=== PATIENT | female | born 1935 | race Caucasian/White ===

== ENCOUNTER → 2018-01-23 16:00 | Outpatient (CLI) | payer MEDICARE, OTHER, SELFPAY | PROVIDERS: Family Provider Family Medicine; PCP Family Medicine | DX: Z23 Encounter for immunization (principal) | CPT/HCPCS: 90471; 90662 ==

== ENCOUNTER → 2018-02-28 15:47 | Outpatient (CLI) | payer MEDICARE, OTHER, SELFPAY ==
--- NOTE | 2018-02-28 15:55 | DI.RAD.S_ITS ---
PROCEDURE: XR HIP W PEL IF DONE LT 2V INDICATIONS: hip pain TECHNIQUE: AP pelvis with lateral view(s) of the left hip(s). COMPARISON: [facility] [place], CR, XR KNEE ARTHRITIC SERIES LT, 06/06/2017, 8:29. FINDINGS: Bones: No fractures or dislocations. Pelvic ring appears intact. Patchy sclerosis seen in the femoral head, although left greater than right. Moderate bilateral hip joint degeneration. There is also lower lumbar discogenic change. Degenerative sclerosis of the pubic symphysis. Soft tissues: The visualized bowel gas pattern is normal. No suspicious soft tissue calcifications. IMPRESSION: Moderate bilateral hip joint degeneration. Ill-defined sclerosis involving the femoral heads, left greater than right. This raises the possibility of avascular necrosis. Recommend further evaluation with dedicated noncontrast pelvis MRI, if clinically indicated. Lower lumbar degenerative disc disease. Dictated by: Pj Godinez M.D. on 02/28/2018 at 17:01 Approved by: Pj Godinez M.D. on 02/28/2018 at 17:05
== END ==
PROVIDERS: PCP Family Medicine; Visit Provider Family Medicine
DX: M25.552 Pain in left hip (principal); M16.0 Bilateral primary osteoarthritis of hip; M51.36 Other intervertebral disc degeneration, lumbar region
CPT/HCPCS: 73502

== ENCOUNTER 2018-05-29 13:45 | Outpatient (RCR) | payer MEDICARE, OTHER, SELFPAY ==
--- NOTE | 2018-03-06 18:23 | PT.OIE ---
Current Diagnoses Bilateral primary osteoarthritis of hip (03/06/18) Pain in left hip (03/06/18) Past Medical History (Last Reviewed 02/28/18 @ 15:06 by Morelia Mckeon LPN) Childers's palsy (Chronic) Chronic cough (Chronic) Colon polyps (Chronic) Hyperlipidemia (Chronic) Osteoarthritis (Chronic) Past Surgical History (Last Reviewed 02/28/18 @ 15:06 by Morelia Mckeon LPN) History of meniscectomy of left knee (Resolved ~2003) History of meniscectomy of right knee (Resolved ~2011) History of surgery (Resolved ~2012) Skin cancer (Resolved ~2006) Status post appendectomy Provider Visit Care Team Role Provider Type Osbaldo Gil MD Family Provider Physician Specialty: [facility] Practice Address: [address] [place] [address] Email: Mani Tyson MD Attending Provider Physician Primary Care Provider Specialty: [facility] Practice Address: [address] [place] [address] Email: [email or web address] Physical Therapy Initial Evaluation PT-OP-A Visit Information Start: 03/06/18 16:11 Freq: Status: Active Protocol: Document 03/06/18 16:13 ML (Rec: 03/06/18 16:32 ML [email or web address]) Out-Patient Physical Therapy Visit Information Visit Information Visit Type Initial Evaluation Visit Note Visit 1 Visit Start Time 13:45 Visit Stop Time 14:30 Visit Number 05/24 Number of MAINTENANCE SERVICES DISPATCHER Visits 0 PT-OP-B Current Condition Start: 03/06/18 16:11 Freq: Status: Active Protocol: Document 03/06/18 16:13 ML (Rec: 03/06/18 16:32 ML [email or web address]) Current Condition History of Current Condition Onset Date 02/04/18 History of Current Condition Pt reports of post-lat pain above her L iliac crest starting insidiously about one month ago. After seeing her doctor and getting her x-ray, imaging concludes that she has L hip arthritis. Pt notices the pain intermittently, without any specific aggravating factors. She notices that she tends to get her pain after she is walking and feels fatigued, and finds releif with sitting momentarily. The pt has bilateral knee degeneration and arthritis, with L more severe than R, indicating that the L is now bone on bone but that she has no knee pain. The pt describes the pain as constant and uncomfrotable. The pt is very active, walking 2-3 miles per day with her friends and volunteering in many avenues. Treatment Goals Patient/Caregiver Goals The pt's goal include becoming stronger, increasing her flexibility, and continuing to walk daily with her friends and playing raHRBoss with her . PT-OP-C Subjective Start: 03/06/18 16:11 Freq: Status: Active Protocol: Document 03/06/18 16:13 ML (Rec: 03/06/18 16:32 ML [email or web address]) OP-PT Subjective Patient Comments Patient Comments Pt reports that it may be an extensor muscle orginially based on the what the doctor concluded, but has now been told that x-ray shows it is L hip arthritis. (Although the hip arthritis could be aggravating the pt's back extensor.) Patient Reported Progress Same PT-OP-F Manual Assessment Start: 03/06/18 16:35 Freq: Status: Active Protocol: Document 03/06/18 16:13 ML (Rec: 03/06/18 16:56 ML [email or web address]) Manual Assessments Joint Mobility Assessment Joint Mobility Assessment L iliac crest more elevated than R PT-OP-K Range of Motion Start: 03/06/18 16:32 Freq: Status: Active Protocol: Document 03/06/18 16:13 ML (Rec: 03/06/18 16:56 ML [email or web address]) Lumbar Spine Range of Motion Lumbar Spine Active Testing Position standing Flexion 36 Extension 10 Comments ext measured at TL junction; hinge motion occurring at TL junction PT-OP-M Strength Start: 03/06/18 16:11 Freq: Status: Active Protocol: Document 03/06/18 16:13 ML (Rec: 03/06/18 16:32 ML [email or web address]) Hip Strength Hip Manual Muscle Testing R Flexion (L2) 4 Good Extension (S1) 4+ Good+ Abduction 5 Normal External Rotation 4- Good- Internal Rotation 4 Good L Flexion (L2) 4+ Good+ Extension (S1) 4+ Good+ Abduction 4+ Good+ External Rotation 4- Good- Internal Rotation 4 Good Knee Strength Knee Manual Muscle Testing R Flexion (S2) 5 Normal Extension (L3) 5 Normal L Flexion (S2) 5 Normal Extension (L3) 5 Normal Ankle/Foot Strength Ankle and Foot Manual Muscle Testing R Dorsiflexion (L4) 5 Normal Plantarflexion (S1) 5 Normal L Dorsiflexion (L4) 5 Normal Plantarflexion (S1) 5 Normal PT-OP-Q Treatments Start: 03/06/18 16:11 Freq: Status: Active Protocol: Document 03/06/18 16:13 ML (Rec: 03/06/18 16:32 ML [email or web address]) Therapeutic Exercises Supine Exercises 2 Supine Exercise Name hamstring stretch Side bilateral Comments holding distal post thigh w/ active knee ext 1 Supine Exercise Name marching Side bilateral Comments engage TrA before beginning PT-OP-T Assessment and Plan Start: 03/06/18 16:32 Freq: Status: Active Protocol: Document 03/06/18 16:13 ML (Rec: 03/06/18 16:56 ML [email or web address]) Physical Therapy Assessment Rehab Potential Rehabilitation Potential Good Evaluation Complexity Number of Personal Factors/Comorbidities 0 Number of Body Systems Impaired 4 or More Clinical Presentation at Evaluation Stable Impairments Impairments Functional Activities Functional Mobility Gait Pain Posture ROM Soft Tissue Mobility Strength Goals 3 Impairment dec flexibility Short Term Goal (STG) Pt will be independent with HEP. STG Duration 04/06/18 Mcfp Goal (LTG) Pt will improve flexibility and decrease hamstring cramps. LTG Duration 05/06/18 2 Impairment dec strength Mcfp Goal (LTG) Pt will have 5/5 strength for bilateral LE in order to maintain desired activities. LTG Duration 05/06/18 1 Impairment pain w/activity Financial Services Internship Goal (LTG) Pt will report no pain with activity. LTG Duration 05/06/18 Assessment Summary Assessment Pt is very active and would love to continue to do all of her physical and social activities without pain. Pt mentions that she has to sit to relieve pain and would like to be able to continue through activity when pain arises. Pt verbalizes that she is willing to work on her exercises at home and was ready to learn specific activities to do at home and things to avoid doing as well. Physical Therapy Plan Frequency and Duration Frequency of Treatment 2x/Week Duration of Treatment 2 months Plan of Care Start Date 02/24/18 Plan of Care End Date 04/26/18 Therapeutic Interventions Therapeutic Interventions Aquatic Therapy Balance Training Gait Training Home Exercise Program Joint Mobilizations Manual Therapy Neuromuscular Re-education Patient/Caregiver Education Self-Care/Home Management Soft Tissue Mobilization Taping Therapeutic Activities Therapeutic Exercises Modalities Cold Pack/Ice Massage Electric Stimulation Hot Packs Iontophoresis Traction- Mechanical Ultrasound Next Visit Focus/Plan Next Note Type Treatment Note Next Visit Plan continue to create HEP (core - > quadruped alternating arm and leg lift, marching on ball , bridging; LE strengthening - > clamshells, hamstring curls on ball, hip abd; stretching LE -> hamstrings, og test) ; PNF pelvis and hip mobilization; soft tissue prn
--- NOTE | 2018-03-07 18:21 | PT.OIE ---
Current Diagnoses Bilateral primary osteoarthritis of hip (03/06/18) Pain in left hip (03/06/18) Past Medical History (Last Reviewed 02/28/18 @ 15:06 by Morelia Mckeon LPN) Childers's palsy (Chronic) Chronic cough (Chronic) Colon polyps (Chronic) Hyperlipidemia (Chronic) Osteoarthritis (Chronic) Past Surgical History (Last Reviewed 02/28/18 @ 15:06 by Morelia Mckeon LPN) History of meniscectomy of left knee (Resolved ~2003) History of meniscectomy of right knee (Resolved ~2011) History of surgery (Resolved ~2012) Skin cancer (Resolved ~2006) Status post appendectomy Provider Visit Care Team Role Provider Type Osbaldo Gil MD Family Provider Physician Specialty: [facility] Practice Address: [address] [place] [address] Email: Mani Tyson MD Attending Provider Physician Primary Care Provider Specialty: [facility] Practice Address: [address] [place] [address] Email: [email or web address] Physical Therapy Initial Evaluation PT-OP-A Visit Information Start: 03/06/18 16:11 Freq: Status: Active Protocol: Document 03/06/18 16:13 ML (Rec: 03/06/18 16:32 ML [email or web address]) Out-Patient Physical Therapy Visit Information Visit Information Visit Type Initial Evaluation Visit Note Visit 1 Visit Start Time 13:45 Visit Stop Time 14:30 Visit Number 05/24 Number of SECURITY OPERATIONS ANALYST Visits 0 PT-OP-B Current Condition Start: 03/06/18 16:11 Freq: Status: Active Protocol: Document 03/06/18 16:13 ML (Rec: 03/06/18 16:32 ML [email or web address]) Current Condition History of Current Condition Onset Date 02/04/18 History of Current Condition Pt reports of post-lat pain above her L iliac crest starting insidiously about one month ago. After seeing her doctor and getting her x-ray, imaging concludes that she has L hip arthritis. Pt notices the pain intermittently, without any specific aggravating factors. She notices that she tends to get her pain after she is walking and feels fatigued, and finds releif with sitting momentarily. The pt has bilateral knee degeneration and arthritis, with L more severe than R, indicating that the L is now bone on bone but that she has no knee pain. The pt describes the pain as constant and uncomfrotable. The pt is very active, walking 2-3 miles per day with her friends and volunteering in many avenues. Treatment Goals Patient/Caregiver Goals The pt's goal include becoming stronger, increasing her flexibility, and continuing to walk daily with her friends and playing [id number] with her . PT-OP-C Subjective Start: 03/06/18 16:11 Freq: Status: Active Protocol: Document 03/06/18 16:13 ML (Rec: 03/06/18 16:32 ML [email or web address]) OP-PT Subjective Patient Comments Patient Comments Pt reports that it may be an extensor muscle orginially based on the what the doctor concluded, but has now been told that x-ray shows it is L hip arthritis. (Although the hip arthritis could be aggravating the pt's back extensor.) Patient Reported Progress Same PT-OP-F Manual Assessment Start: 03/06/18 16:35 Freq: Status: Active Protocol: Document 03/06/18 16:13 ML (Rec: 03/06/18 16:56 ML [email or web address]) Manual Assessments Joint Mobility Assessment Joint Mobility Assessment L iliac crest more elevated than R PT-OP-K Range of Motion Start: 03/06/18 16:32 Freq: Status: Active Protocol: Document 03/06/18 16:13 ML (Rec: 03/06/18 16:56 ML [email or web address]) Lumbar Spine Range of Motion Lumbar Spine Active Testing Position standing Flexion 36 Extension 10 Comments ext measured at TL junction; hinge motion occurring at TL junction PT-OP-M Strength Start: 03/06/18 16:11 Freq: Status: Active Protocol: Document 03/06/18 16:13 ML (Rec: 03/06/18 16:32 ML [email or web address]) Hip Strength Hip Manual Muscle Testing R Flexion (L2) 4 Good Extension (S1) 4+ Good+ Abduction 5 Normal External Rotation 4- Good- Internal Rotation 4 Good L Flexion (L2) 4+ Good+ Extension (S1) 4+ Good+ Abduction 4+ Good+ External Rotation 4- Good- Internal Rotation 4 Good Knee Strength Knee Manual Muscle Testing R Flexion (S2) 5 Normal Extension (L3) 5 Normal L Flexion (S2) 5 Normal Extension (L3) 5 Normal Ankle/Foot Strength Ankle and Foot Manual Muscle Testing R Dorsiflexion (L4) 5 Normal Plantarflexion (S1) 5 Normal L Dorsiflexion (L4) 5 Normal Plantarflexion (S1) 5 Normal PT-OP-Q Treatments Start: 03/06/18 16:11 Freq: Status: Active Protocol: Document 03/06/18 16:13 ML (Rec: 03/06/18 16:32 ML [email or web address]) Therapeutic Exercises Supine Exercises 2 Supine Exercise Name hamstring stretch Side bilateral Comments holding distal post thigh w/ active knee ext 1 Supine Exercise Name marching Side bilateral Comments engage TrA before beginning PT-OP-T Assessment and Plan Start: 03/06/18 16:32 Freq: Status: Active Protocol: Document 03/06/18 16:13 ML (Rec: 03/06/18 16:56 ML [email or web address]) Physical Therapy Assessment Rehab Potential Rehabilitation Potential Good Evaluation Complexity Number of Personal Factors/Comorbidities 0 Number of Body Systems Impaired 4 or More Clinical Presentation at Evaluation Stable Impairments Impairments Functional Activities Functional Mobility Gait Pain Posture ROM Soft Tissue Mobility Strength Goals 3 Impairment dec flexibility Short Term Goal (STG) Pt will be independent with HEP. STG Duration 04/06/18 Prison Goal (LTG) Pt will improve flexibility and decrease hamstring cramps. LTG Duration 05/06/18 2 Impairment dec strength Prison Goal (LTG) Pt will have 5/5 strength for bilateral LE in order to maintain desired activities. LTG Duration 05/06/18 1 Impairment pain w/activity Air Traffic Control Supervisor Goal (LTG) Pt will report no pain with activity. LTG Duration 05/06/18 Assessment Summary Assessment Pt is very active and would love to continue to do all of her physical and social activities without pain. Pt mentions that she has to sit to relieve pain and would like to be able to continue through activity when pain arises. Pt verbalizes that she is willing to work on her exercises at home and was ready to learn specific activities to do at home and things to avoid doing as well. Physical Therapy Plan Frequency and Duration Frequency of Treatment 2x/Week Duration of Treatment 2 months Plan of Care Start Date 02/24/18 Plan of Care End Date 04/26/18 Therapeutic Interventions Therapeutic Interventions Aquatic Therapy Balance Training Gait Training Home Exercise Program Joint Mobilizations Manual Therapy Neuromuscular Re-education Patient/Caregiver Education Self-Care/Home Management Soft Tissue Mobilization Taping Therapeutic Activities Therapeutic Exercises Modalities Cold Pack/Ice Massage Electric Stimulation Hot Packs Iontophoresis Traction- Mechanical Ultrasound Next Visit Focus/Plan Next Note Type Treatment Note Next Visit Plan continue to create HEP (core - > quadruped alternating arm and leg lift, marching on ball , bridging; LE strengthening - > clamshells, hamstring curls on ball, hip abd; stretching LE -> hamstrings, og test) ; PNF pelvis and hip mobilization; soft tissue prn
--- NOTE | 2018-03-07 18:21 | PT.OPPOC ---
Current Diagnoses Bilateral primary osteoarthritis of hip (03/06/18) Pain in left hip (03/06/18) Provider Visit Care Team Role Provider Type Osbaldo Gil MD Family Provider Physician Specialty: Family Practice Address: [address] [place] [address], [id number] Email: Mani Tyson MD Attending Provider Physician Primary Care Provider Specialty: Family Practice Address: [address] [place] [address], [id number] Email: [email or web address] Plan Of Care PT-OP-T Assessment and Plan Start: 03/06/18 16:32 Freq: Status: Active Protocol: Document 03/06/18 16:13 ML (Rec: 03/06/18 16:56 ML [email or web address]) Physical Therapy Assessment Rehab Potential Rehabilitation Potential Good Evaluation Complexity Number of Personal Factors/Comorbidities 0 Number of Body Systems Impaired 4 or More Clinical Presentation at Evaluation Stable Impairments Impairments Functional Activities Functional Mobility Gait Pain Posture ROM Soft Tissue Mobility Strength Goals 3 Impairment dec flexibility Short Term Goal (STG) Pt will be independent with HEP. STG Duration 04/06/18 Intermediate Goal (LTG) Pt will improve flexibility and decrease hamstring cramps. LTG Duration 05/06/18 2 Impairment dec strength Principal Law Clerk Goal (LTG) Pt will have 5/5 strength for bilateral LE in order to maintain desired activities. LTG Duration 05/06/18 1 Impairment pain w/activity Principal Law Clerk Goal (LTG) Pt will report no pain with activity. LTG Duration 05/06/18 Assessment Summary Assessment Pt is very active and would love to continue to do all of her physical and social activities without pain. Pt mentions that she has to sit to relieve pain and would like to be able to continue through activity when pain arises. Pt verbalizes that she is willing to work on her exercises at home and was ready to learn specific activities to do at home and things to avoid doing as well. Physical Therapy Plan Frequency and Duration Frequency of Treatment 2x/Week Duration of Treatment 2 months Plan of Care Start Date 02/24/18 Plan of Care End Date 04/26/18 Therapeutic Interventions Therapeutic Interventions Aquatic Therapy Balance Training Gait Training Home Exercise Program Joint Mobilizations Manual Therapy Neuromuscular Re-education Patient/Caregiver Education Self-Care/Home Management Soft Tissue Mobilization Taping Therapeutic Activities Therapeutic Exercises Modalities Cold Pack/Ice Massage Electric Stimulation Hot Packs Iontophoresis Traction- Mechanical Ultrasound Next Visit Focus/Plan Next Note Type Treatment Note Next Visit Plan continue to create HEP (core - > quadruped alternating arm and leg lift, marching on ball , bridging; LE strengthening - > clamshells, hamstring curls on ball, hip abd; stretching LE -> hamstrings, go test) ; PNF pelvis and hip mobilization; soft tissue prn Plan of Care Dates Plan of Care Start Date 02/24/18 Plan of Care End Date 04/26/18 Please Sign and Return: I have reviewed this Plan of Care and certify that the skilled therapy services above are required to meet the patient?s needs. Physician Signature Date Printed Name and Credentials Clinical Instructor Signature Printed Name and Credentials
--- NOTE | 2018-03-12 15:31 | PT.OTN ---
Current Diagnoses Bilateral primary osteoarthritis of hip (03/12/18) Pain in left hip (03/12/18) Physical Therapy Treatment Note PT-OP-A Visit Information Start: 03/06/18 16:11 Freq: Status: Active Protocol: Document 03/12/18 08:22 ML (Rec: 03/12/18 10:01 ML [email or web address]) Out-Patient Physical Therapy Visit Information Visit Information Visit Type Treatment Note Visit Note visit 2 Visit Start Time 08:15 Visit Stop Time 09:00 Visit Number / Number of CAREER SPECIALIST Visits 0 PT-OP-B Current Condition Start: 03/06/18 16:11 Freq: Status: Active Protocol: Document 03/06/18 16:13 ML (Rec: 03/06/18 16:32 ML [email or web address]) Current Condition History of Current Condition Onset Date 02/04/18 History of Current Condition Pt reports of post-lat pain above her L iliac crest starting insidiously about one month ago. After seeing her doctor and getting her x-ray, imaging concludes that she has L hip arthritis. Pt notices the pain intermittently, without any specific aggravating factors. She notices that she tends to get her pain after she is walking and feels fatigued, and finds releif with sitting momentarily. The pt has bilateral knee degeneration and arthritis, with L more severe than R, indicating that the L is now bone on bone but that she has no knee pain. The pt describes the pain as constant and uncomfrotable. The pt is very active, walking 2-3 miles per day with her friends and volunteering in many avenues. Treatment Goals Patient/Caregiver Goals The pt's goal include becoming stronger, increasing her flexibility, and continuing to walk daily with her friends and playing raquetball with her . PT-OP-C Subjective Start: 03/06/18 16:11 Freq: Status: Active Protocol: Document 03/12/18 08:22 ML (Rec: 03/12/18 10:01 ML [id number]) OP-PT Subjective Patient Comments Patient Comments Pt reports that since she has become more aware, she has been able to do activity without pain when she fopcuses on engaging her core as instructed. PT-OP-F Manual Assessment Start: 03/06/18 16:35 Freq: Status: Active Protocol: Document 03/06/18 16:13 ML (Rec: 03/06/18 16:56 ML [email or web address]) Manual Assessments Joint Mobility Assessment Joint Mobility Assessment L iliac crest more elevated than R PT-OP-K Range of Motion Start: 03/06/18 16:32 Freq: Status: Active Protocol: Document 03/06/18 16:13 ML (Rec: 03/06/18 16:56 ML [email or web address]) Lumbar Spine Range of Motion Lumbar Spine Active Testing Position standing Flexion 36 Extension 10 Comments ext measured at TL junction; hinge motion occurring at TL junction PT-OP-M Strength Start: 03/06/18 16:11 Freq: Status: Active Protocol: Document 03/06/18 16:13 ML (Rec: 03/06/18 16:32 ML [email or web address]) Hip Strength Hip Manual Muscle Testing R Flexion (L2) 4 Good Extension (S1) 4+ Good+ Abduction 5 Normal External Rotation 4- Good- Internal Rotation 4 Good L Flexion (L2) 4+ Good+ Extension (S1) 4+ Good+ Abduction 4+ Good+ External Rotation 4- Good- Internal Rotation 4 Good Knee Strength Knee Manual Muscle Testing R Flexion (S2) 5 Normal Extension (L3) 5 Normal L Flexion (S2) 5 Normal Extension (L3) 5 Normal Ankle/Foot Strength Ankle and Foot Manual Muscle Testing R Dorsiflexion (L4) 5 Normal Plantarflexion (S1) 5 Normal L Dorsiflexion (L4) 5 Normal Plantarflexion (S1) 5 Normal PT-OP-Q Treatments Start: 03/06/18 16:11 Freq: Status: Active Protocol: Document 03/12/18 08:22 ML (Rec: 03/12/18 10:01 ML [email or web address]) Cardio Equipment Recumbent Bicycle Duration (Minutes) 8 Resistance 4 Seat Position 2 Therapeutic Exercises Supine Exercises 3 Supine Exercise Name bridging Comments w/ ball HEP 1 Supine Exercise Name marching Side bilateral Comments on ball, engage TrA before beginning , HEP Sidelying Exercises 2 Sidelying Exercise Name hip abd Side bilateral Comments towel under abdomen 1 Sidelying Exercise Name clamshells Side bilateral Resistance level 2 Comments towel under abdomen, legs not very flexed to relieve hamstring cramping Other Exercises 1 Other Exercise Name hip ext Side bilateral Comments quadruped PT-OP-T Assessment and Plan Start: 03/06/18 16:32 Freq: Status: Active Protocol: Document 03/12/18 08:22 ML (Rec: 03/12/18 10:01 ML [id number]) Physical Therapy Assessment Goals 3 Impairment dec flexibility Short Term Goal (STG) Pt will be independent with HEP. STG Duration 04/06/18 Sheet Metal Insulator Goal (LTG) Pt will improve flexibility and decrease hamstring cramps. LTG Duration 05/06/18 2 Impairment dec strength Sheet Metal Insulator Goal (LTG) Pt will have 5/5 strength for bilateral LE in order to maintain desired activities. LTG Duration 05/06/18 1 Impairment pain w/activity Sheet Metal Insulator Goal (LTG) Pt will report no pain with activity. LTG Duration 05/06/18 Assessment Summary Assessment Pt reported that the couple exercises at home were going well, and that her marching exercise was too easy so we progressed the exercise to be a march with a bridge. The pt was very aware of her body in order to make appropriate adjustments for her HEP exercises that were introduced to her today. Pt required certain modifications to exercises in order to relieve hamsting cramping and hip pain through motions, but all adjustments were able to be made and the pt was able to complete all exercises without pain. Physical Therapy Plan Frequency and Duration Frequency of Treatment 2x/Week Duration of Treatment 2 months Plan of Care Start Date 02/24/18 Plan of Care End Date 04/26/18 Next Visit Focus/Plan Next Note Type Treatment Note Next Visit Plan review HEP; stepper or bike; PNF pelvis; assess hip mobility
--- NOTE | 2018-03-15 13:34 | PT.OTN ---
Current Diagnoses Bilateral primary osteoarthritis of hip (03/15/18) Pain in left hip (03/15/18) Physical Therapy Treatment Note PT-OP-A Visit Information Start: 03/06/18 16:11 Freq: Status: Active Protocol: Document 03/15/18 11:51 ML (Rec: 03/15/18 12:02 ML [email or web address]) Out-Patient Physical Therapy Visit Information Visit Information Visit Type Treatment Note Visit Note visit 2 Visit Start Time 07:30 Visit Stop Time 08:25 Visit Number 3/ Number of ELASTIC ATTACHER ZIGZAG Visits 0 PT-OP-B Current Condition Start: 03/06/18 16:11 Freq: Status: Active Protocol: Document 03/06/18 16:13 ML (Rec: 03/06/18 16:32 ML [email or web address]) Current Condition History of Current Condition Onset Date 02/04/18 History of Current Condition Pt reports of post-lat pain above her L iliac crest starting insidiously about one month ago. After seeing her doctor and getting her x-ray, imaging concludes that she has L hip arthritis. Pt notices the pain intermittently, without any specific aggravating factors. She notices that she tends to get her pain after she is walking and feels fatigued, and finds releif with sitting momentarily. The pt has bilateral knee degeneration and arthritis, with L more severe than R, indicating that the L is now bone on bone but that she has no knee pain. The pt describes the pain as constant and uncomfrotable. The pt is very active, walking 2-3 miles per day with her friends and volunteering in many avenues. Treatment Goals Patient/Caregiver Goals The pt's goal include becoming stronger, increasing her flexibility, and continuing to walk daily with her friends and playing raquetball with her . PT-OP-C Subjective Start: 03/06/18 16:11 Freq: Status: Active Protocol: Document 03/15/18 11:51 ML (Rec: 03/15/18 12:02 ML [email or web address]) OP-PT Subjective Patient Comments Patient Comments Pt reports that her HEP went well but that she had a question about her stretching exercise. PT-OP-F Manual Assessment Start: 03/06/18 16:35 Freq: Status: Active Protocol: Document 03/06/18 16:13 ML (Rec: 03/06/18 16:56 ML [email or web address]) Manual Assessments Joint Mobility Assessment Joint Mobility Assessment L iliac crest more elevated than R PT-OP-K Range of Motion Start: 03/06/18 16:32 Freq: Status: Active Protocol: Document 03/06/18 16:13 ML (Rec: 03/06/18 16:56 ML [email or web address]) Lumbar Spine Range of Motion Lumbar Spine Active Testing Position standing Flexion 36 Extension 10 Comments ext measured at TL junction; hinge motion occurring at TL junction PT-OP-M Strength Start: 03/06/18 16:11 Freq: Status: Active Protocol: Document 03/06/18 16:13 ML (Rec: 03/06/18 16:32 ML [email or web address]) Hip Strength Hip Manual Muscle Testing R Flexion (L2) 4 Good Extension (S1) 4+ Good+ Abduction 5 Normal External Rotation 4- Good- Internal Rotation 4 Good L Flexion (L2) 4+ Good+ Extension (S1) 4+ Good+ Abduction 4+ Good+ External Rotation 4- Good- Internal Rotation 4 Good Knee Strength Knee Manual Muscle Testing R Flexion (S2) 5 Normal Extension (L3) 5 Normal L Flexion (S2) 5 Normal Extension (L3) 5 Normal Ankle/Foot Strength Ankle and Foot Manual Muscle Testing R Dorsiflexion (L4) 5 Normal Plantarflexion (S1) 5 Normal L Dorsiflexion (L4) 5 Normal Plantarflexion (S1) 5 Normal PT-OP-Q Treatments Start: 03/06/18 16:11 Freq: Status: Active Protocol: Document 03/15/18 11:51 ML (Rec: 03/15/18 12:02 ML [email or web address]) Therapeutic Exercises Standing Exercises 1 Standing Exercise Name gait press at wall Side bilateral Comments initally pain on L when hip in flexion, but improved after mobilization Other Exercises 2 Other Exercise Name review HEP Comments 2-3 reps for each exercise Manual Therapy Treatment Joint Mobilizations 1 Joint L hip Direction inf glide Comments CR to inc hip flex, active ext with relax flex Neuro Re-Education Treatment Other Activities 1 Details L post depression of pelvis Comments towel under abdomen, no resisted ant elevation ( causing pain in contralat hip) , LE involvement PT-OP-R Modalities Start: 03/06/18 16:11 Freq: Status: Active Protocol: Document 03/15/18 11:51 ML (Rec: 03/15/18 12:02 ML [email or web address]) Hot Pack/Cold Pack Treatment 1 Location Low back Treatment Duration (minutes) 15 PT-OP-T Assessment and Plan Start: 03/06/18 16:32 Freq: Status: Active Protocol: Document 03/15/18 11:51 ML (Rec: 03/15/18 12:02 ML [email or web address]) Physical Therapy Assessment Goals 3 Impairment dec flexibility Short Term Goal (STG) Pt will be independent with HEP. STG Duration 04/06/18 Elementary School Registrar Goal (LTG) Pt will improve flexibility and decrease hamstring cramps. LTG Duration 05/06/18 2 Impairment dec strength Intermediate Goal (LTG) Pt will have 5/5 strength for bilateral LE in order to maintain desired activities. LTG Duration 05/06/18 1 Impairment pain w/activity Elementary School Registrar Goal (LTG) Pt will report no pain with activity. LTG Duration 05/06/18 Assessment Summary Assessment Pt reported that she had difficulty with her stretch at home, but all HEP exercises were reviewed and corrections were made when needed and appropriate adjustments were made to address confusion/ difficulty of stretch. The pt had dec post depression of L pelvis which improved with neuro re-ed. The pt was given an exercise to maintain the improved mobility at home. Pt also had pain with L hip flexion which was eliminated with and inf glide. Physical Therapy Plan Frequency and Duration Frequency of Treatment 2x/Week Duration of Treatment 2 months Plan of Care Start Date 02/24/18 Plan of Care End Date 04/26/18 Next Visit Focus/Plan Next Note Type Treatment Note Next Visit Plan assess PNF pelvis (review exercise); assess hip mobility ; assess ER w/flexion and femur position; work gait mechanics and push off
--- NOTE | 2018-03-19 18:13 | PT.OTN ---
Current Diagnoses Bilateral primary osteoarthritis of hip (03/15/18) Pain in left hip (03/15/18) Physical Therapy Treatment Note PT-OP-A Visit Information Start: 03/06/18 16:11 Freq: Status: Active Protocol: Document 03/19/18 16:19 ML (Rec: 03/19/18 16:21 ML [id number]) Out-Patient Physical Therapy Visit Information Visit Information Visit Type Treatment Note Visit Note visit 4 Visit Start Time 14:30 Visit Stop Time 15:28 Total Visit Minutes 58 Visit Number 4/ Number of PBX OPERATOR Visits 0 PT-OP-B Current Condition Start: 03/06/18 16:11 Freq: Status: Active Protocol: Document 03/06/18 16:13 ML (Rec: 03/06/18 16:32 ML [email or web address]) Current Condition History of Current Condition Onset Date 02/04/18 History of Current Condition Pt reports of post-lat pain above her L iliac crest starting insidiously about one month ago. After seeing her doctor and getting her x-ray, imaging concludes that she has L hip arthritis. Pt notices the pain intermittently, without any specific aggravating factors. She notices that she tends to get her pain after she is walking and feels fatigued, and finds releif with sitting momentarily. The pt has bilateral knee degeneration and arthritis, with L more severe than R, indicating that the L is now bone on bone but that she has no knee pain. The pt describes the pain as constant and uncomfrotable. The pt is very active, walking 2-3 miles per day with her friends and volunteering in many avenues. Treatment Goals Patient/Caregiver Goals The pt's goal include becoming stronger, increasing her flexibility, and continuing to walk daily with her friends and playing raquetball with her . PT-OP-C Subjective Start: 03/06/18 16:11 Freq: Status: Active Protocol: Document 03/19/18 16:19 ML (Rec: 03/19/18 16:21 ML [id number]) OP-PT Subjective Patient Comments Patient Comments Pt noted that she felt great for two days after our session , but then had to move really smoothly the following day with her back bothering her, but after taking it easy, felt fine the next day and feels fine today. PT-OP-F Manual Assessment Start: 03/06/18 16:35 Freq: Status: Active Protocol: Document 03/06/18 16:13 ML (Rec: 03/06/18 16:56 ML [email or web address]) Manual Assessments Joint Mobility Assessment Joint Mobility Assessment L iliac crest more elevated than R PT-OP-K Range of Motion Start: 03/06/18 16:32 Freq: Status: Active Protocol: Document 03/06/18 16:13 ML (Rec: 03/06/18 16:56 ML [email or web address]) Lumbar Spine Range of Motion Lumbar Spine Active Testing Position standing Flexion 36 Extension 10 Comments ext measured at TL junction; hinge motion occurring at TL junction PT-OP-M Strength Start: 03/06/18 16:11 Freq: Status: Active Protocol: Document 03/06/18 16:13 ML (Rec: 03/06/18 16:32 ML [email or web address]) Hip Strength Hip Manual Muscle Testing R Flexion (L2) 4 Good Extension (S1) 4+ Good+ Abduction 5 Normal External Rotation 4- Good- Internal Rotation 4 Good L Flexion (L2) 4+ Good+ Extension (S1) 4+ Good+ Abduction 4+ Good+ External Rotation 4- Good- Internal Rotation 4 Good Knee Strength Knee Manual Muscle Testing R Flexion (S2) 5 Normal Extension (L3) 5 Normal L Flexion (S2) 5 Normal Extension (L3) 5 Normal Ankle/Foot Strength Ankle and Foot Manual Muscle Testing R Dorsiflexion (L4) 5 Normal Plantarflexion (S1) 5 Normal L Dorsiflexion (L4) 5 Normal Plantarflexion (S1) 5 Normal PT-OP-Q Treatments Start: 03/06/18 16:11 Freq: Status: Active Protocol: Document 03/19/18 16:19 ML (Rec: 03/19/18 17:52 ML [email or web address]) Therapeutic Exercises Supine Exercises 4 Supine Exercise Name og test Reps/Minutes reviewed with cueing for set up Standing Exercises 1 Standing Exercise Name gait press at wall Side bilateral Reps/Minutes just reviewed, 2x each leg Comments initally pain on L when hip in flexion, but improved after mobilization Other Exercises 3 Other Exercise Name child's pose Manual Therapy Treatment Soft Tissue Mobilization 2 Body Location QL Mobilization Type Myofascial Release Rolling Sustained Pressure Intensity/Depth Moderate Body Position Prone 1 Body Location thoracic paraspinals Mobilization Type Myofascial Release Rolling Sustained Pressure Intensity/Depth Moderate Body Position Prone Joint Mobilizations 3 Joint T9-3 Direction PA Grade II Comments w/deep breathing 2 Joint L hip Direction FM ER and IR Comments CR PT-OP-R Modalities Start: 03/06/18 16:11 Freq: Status: Active Protocol: Document 03/19/18 16:19 ML (Rec: 03/19/18 17:52 ML [email or web address]) Hot Pack/Cold Pack Treatment 1 Location Low back Treatment Duration (minutes) 15 PT-OP-T Assessment and Plan Start: 03/06/18 16:32 Freq: Status: Active Protocol: Document 03/19/18 16:19 ML (Rec: 03/19/18 17:52 ML [email or web address]) Physical Therapy Assessment Goals 3 Impairment dec flexibility Short Term Goal (STG) Pt will be independent with HEP. STG Duration 04/06/18 Certified Caregiver Goal (LTG) Pt will improve flexibility and decrease hamstring cramps. LTG Duration 05/06/18 2 Impairment dec strength Certified Caregiver Goal (LTG) Pt will have 5/5 strength for bilateral LE in order to maintain desired activities. LTG Duration 05/06/18 1 Impairment pain w/activity Nursing Home Goal (LTG) Pt will report no pain with activity. LTG Duration 05/06/18 Assessment Summary Assessment Pt reported having back pain on Monday but no pain on any other day since our last visit with her. She had tight thoracic paraspinals and QL, and dec mobility of her thoracic spine which were addressed with manual treatment. The pt also had dec hip mobility on L which improved with functional mobilization into ER and IR. Physical Therapy Plan Frequency and Duration Frequency of Treatment 2x/Week Duration of Treatment 2 months Plan of Care Start Date 02/24/18 Plan of Care End Date 04/26/18 Next Visit Focus/Plan Next Note Type Treatment Note Next Visit Plan assess PNF pelvis; assess thoracic and hip mobility;work gait mechanics and push off
--- NOTE | 2018-03-21 13:43 | PT.OTN ---
Current Diagnoses Bilateral primary osteoarthritis of hip (03/21/18) Pain in left hip (03/21/18) Physical Therapy Treatment Note PT-OP-A Visit Information Start: 03/06/18 16:11 Freq: Status: Active Protocol: Document 03/21/18 08:15 [facility] (Rec: 03/21/18 08:31 [facility] [id number]) Out-Patient Physical Therapy Visit Information Visit Information Visit Type Treatment Note Visit Start Time 08:16 Visit Stop Time 09:11 Total Visit Minutes 55 Visit Number 5/10 Number of SIGNALS INTELLIGENCE SUPERINTENDENT Visits 0 PT-OP-B Current Condition Start: 03/06/18 16:11 Freq: Status: Active Protocol: Document 03/06/18 16:13 ML (Rec: 03/06/18 16:32 ML [email or web address]) Current Condition History of Current Condition Onset Date 02/04/18 History of Current Condition Pt reports of post-lat pain above her L iliac crest starting insidiously about one month ago. After seeing her doctor and getting her x-ray, imaging concludes that she has L hip arthritis. Pt notices the pain intermittently, without any specific aggravating factors. She notices that she tends to get her pain after she is walking and feels fatigued, and finds releif with sitting momentarily. The pt has bilateral knee degeneration and arthritis, with L more severe than R, indicating that the L is now bone on bone but that she has no knee pain. The pt describes the pain as constant and uncomfrotable. The pt is very active, walking 2-3 miles per day with her friends and volunteering in many avenues. Treatment Goals Patient/Caregiver Goals The pt's goal include becoming stronger, increasing her flexibility, and continuing to walk daily with her friends and playing raquetball with her . PT-OP-C Subjective Start: 03/06/18 16:11 Freq: Status: Active Protocol: Document 03/21/18 08:15 [facility] (Rec: 03/21/18 08:31 [facility] [id number]) OP-PT Subjective Patient Comments Patient Comments Pt reports that she could feel her back yesterday when walking, but it wasn't pain. PT-OP-F Manual Assessment Start: 03/06/18 16:35 Freq: Status: Active Protocol: Document 03/06/18 16:13 ML (Rec: 03/06/18 16:56 ML [email or web address]) Manual Assessments Joint Mobility Assessment Joint Mobility Assessment L iliac crest more elevated than R PT-OP-K Range of Motion Start: 03/06/18 16:32 Freq: Status: Active Protocol: Document 03/06/18 16:13 ML (Rec: 03/06/18 16:56 ML [email or web address]) Lumbar Spine Range of Motion Lumbar Spine Active Testing Position standing Flexion 36 Extension 10 Comments ext measured at TL junction; hinge motion occurring at TL junction PT-OP-M Strength Start: 03/06/18 16:11 Freq: Status: Active Protocol: Document 03/06/18 16:13 ML (Rec: 03/06/18 16:32 ML [email or web address]) Hip Strength Hip Manual Muscle Testing R Flexion (L2) 4 Good Extension (S1) 4+ Good+ Abduction 5 Normal External Rotation 4- Good- Internal Rotation 4 Good L Flexion (L2) 4+ Good+ Extension (S1) 4+ Good+ Abduction 4+ Good+ External Rotation 4- Good- Internal Rotation 4 Good Knee Strength Knee Manual Muscle Testing R Flexion (S2) 5 Normal Extension (L3) 5 Normal L Flexion (S2) 5 Normal Extension (L3) 5 Normal Ankle/Foot Strength Ankle and Foot Manual Muscle Testing R Dorsiflexion (L4) 5 Normal Plantarflexion (S1) 5 Normal L Dorsiflexion (L4) 5 Normal Plantarflexion (S1) 5 Normal PT-OP-Q Treatments Start: 03/06/18 16:11 Freq: Status: Active Protocol: Document 03/21/18 08:15 ML (Rec: 03/21/18 09:00 ML [id number]) Therapeutic Exercises Standing Exercises 1 Standing Exercise Name gait press at wall Side bilateral Reps/Minutes just reviewed, 3x each leg Comments L hip unable to move across body; exercise for gait training Gait Training Gait Activity 1 Description walking w/focus on pelvis motion Comments before and after PNF re-ed Neuro Re-Education Treatment Other Activities 1 Details L post depression of pelvis Comments towel under abdomen, no resisted ant elevation ( causing pain in contralat hip) , LE involvement PT-OP-R Modalities Start: 03/06/18 16:11 Freq: Status: Active Protocol: Document 03/21/18 08:15 ML (Rec: 03/21/18 09:06 ML [id number]) Hot Pack/Cold Pack Treatment 1 Location Low back Treatment Duration (minutes) 15 PT-OP-T Assessment and Plan Start: 03/06/18 16:32 Freq: Status: Active Protocol: Document 03/21/18 08:15 ML (Rec: 03/21/18 09:06 ML [id number]) Physical Therapy Assessment Goals 3 Impairment dec flexibility Short Term Goal (STG) Pt will be independent with HEP. STG Duration 04/06/18 Snf Goal (LTG) Pt will improve flexibility and decrease hamstring cramps. LTG Duration 05/06/18 2 Impairment dec strength Snf Goal (LTG) Pt will have 5/5 strength for bilateral LE in order to maintain desired activities. LTG Duration 05/06/18 1 Impairment pain w/activity Bowling Alley Mechanic Goal (LTG) Pt will report no pain with activity. LTG Duration 05/06/18 Assessment Summary Assessment Pt's gait analysis presented with only LE movement to ambulate. The pt's pelvis mobility was addressed with re -education through ant elevation and post depression of pelvis. The pt was able to note changes when she walked after re-education both manually and thoruhg ther ex when she did not have knee pain with ambulation. Physical Therapy Plan Frequency and Duration Frequency of Treatment 2x/Week Duration of Treatment 2 months Plan of Care Start Date 02/24/18 Plan of Care End Date 04/26/18 Next Visit Focus/Plan Next Note Type Treatment Note Next Visit Plan inf glide L hip (unable to adduct with hip flex), PNF, check inominate, inc pelvis motion training through gait
--- NOTE | 2018-03-28 12:10 | PT.OTN ---
Current Diagnoses Bilateral primary osteoarthritis of hip (03/28/18) Pain in left hip (03/28/18) Physical Therapy Treatment Note PT-OP-A Visit Information Start: 03/06/18 16:11 Freq: Status: Active Protocol: Document 03/28/18 11:30 ML (Rec: 03/28/18 11:36 ML [id number]) Out-Patient Physical Therapy Visit Information Visit Information Visit Type Treatment Note Visit Start Time 09:47 Visit Stop Time 10:47 Total Visit Minutes 60 Visit Number 10/22 Number of MANAGER ARMY Visits 0 PT-OP-B Current Condition Start: 03/06/18 16:11 Freq: Status: Active Protocol: Document 03/06/18 16:13 ML (Rec: 03/06/18 16:32 ML [email or web address]) Current Condition History of Current Condition Onset Date 02/04/18 History of Current Condition Pt reports of post-lat pain above her L iliac crest starting insidiously about one month ago. After seeing her doctor and getting her x-ray, imaging concludes that she has L hip arthritis. Pt notices the pain intermittently, without any specific aggravating factors. She notices that she tends to get her pain after she is walking and feels fatigued, and finds releif with sitting momentarily. The pt has bilateral knee degeneration and arthritis, with L more severe than R, indicating that the L is now bone on bone but that she has no knee pain. The pt describes the pain as constant and uncomfrotable. The pt is very active, walking 2-3 miles per day with her friends and volunteering in many avenues. Treatment Goals Patient/Caregiver Goals The pt's goal include becoming stronger, increasing her flexibility, and continuing to walk daily with her friends and playing raquetball with her . PT-OP-C Subjective Start: 03/06/18 16:11 Freq: Status: Active Protocol: Document 03/28/18 11:30 ML (Rec: 03/28/18 11:36 ML [id number]) OP-PT Subjective Patient Comments Patient Comments Pt reports having no pain through her normal activities. PT-OP-F Manual Assessment Start: 03/06/18 16:35 Freq: Status: Active Protocol: Document 03/06/18 16:13 ML (Rec: 03/06/18 16:56 ML [email or web address]) Manual Assessments Joint Mobility Assessment Joint Mobility Assessment L iliac crest more elevated than R PT-OP-K Range of Motion Start: 03/06/18 16:32 Freq: Status: Active Protocol: Document 03/06/18 16:13 ML (Rec: 03/06/18 16:56 ML [email or web address]) Lumbar Spine Range of Motion Lumbar Spine Active Testing Position standing Flexion 36 Extension 10 Comments ext measured at TL junction; hinge motion occurring at TL junction PT-OP-M Strength Start: 03/06/18 16:11 Freq: Status: Active Protocol: Document 03/06/18 16:13 ML (Rec: 03/06/18 16:32 ML [email or web address]) Hip Strength Hip Manual Muscle Testing R Flexion (L2) 4 Good Extension (S1) 4+ Good+ Abduction 5 Normal External Rotation 4- Good- Internal Rotation 4 Good L Flexion (L2) 4+ Good+ Extension (S1) 4+ Good+ Abduction 4+ Good+ External Rotation 4- Good- Internal Rotation 4 Good Knee Strength Knee Manual Muscle Testing R Flexion (S2) 5 Normal Extension (L3) 5 Normal L Flexion (S2) 5 Normal Extension (L3) 5 Normal Ankle/Foot Strength Ankle and Foot Manual Muscle Testing R Dorsiflexion (L4) 5 Normal Plantarflexion (S1) 5 Normal L Dorsiflexion (L4) 5 Normal Plantarflexion (S1) 5 Normal PT-OP-Q Treatments Start: 03/06/18 16:11 Freq: Status: Active Protocol: Document 03/28/18 11:30 ML (Rec: 03/28/18 11:36 ML [id number]) Gait Training Gait Activity 2 Description crawling Comments neuro re-ed on pelvis motion 1 Description walking w/focus on pelvis motion Comments before and after PNF re-ed w/ verbalize and tactile cueing Neuro Re-Education Treatment Other Activities 1 Details Bilat post depression of pelvis Comments towel under abdomen, no resisted ant elevation ( causing pain in contralat hip) , LE involvement PT-OP-R Modalities Start: 03/06/18 16:11 Freq: Status: Active Protocol: Document 03/28/18 11:30 ML (Rec: 03/28/18 11:36 ML [id number]) Hot Pack/Cold Pack Treatment 1 Location Low back Treatment Duration (minutes) 15 Comments hot pack PT-OP-T Assessment and Plan Start: 03/06/18 16:32 Freq: Status: Active Protocol: Document 03/28/18 11:30 ML (Rec: 03/28/18 11:36 ML [id number]) Physical Therapy Assessment Goals 3 Impairment dec flexibility Short Term Goal (STG) Pt will be independent with HEP. STG Duration 04/06/18 Inside Outside Sales Representative Goal (LTG) Pt will improve flexibility and decrease hamstring cramps. LTG Duration 05/06/18 2 Impairment dec strength Shelter Goal (LTG) Pt will have 5/5 strength for bilateral LE in order to maintain desired activities. LTG Duration 05/06/18 1 Impairment pain w/activity Inside Outside Sales Representative Goal (LTG) Pt will report no pain with activity. LTG Duration 05/06/18 Assessment Summary Assessment Pt still presented with dec pelvis motion during gait. Pt had difficulty in the crawling exercise to ellicit the correct motion although improved with press through walking exercises. Pt regains pelvis mobility through neuro re-ed. Pt was able to achieve motion more accurately by the end of treatment. Physical Therapy Plan Frequency and Duration Frequency of Treatment 2x/Week Duration of Treatment 2 months Plan of Care Start Date 02/24/18 Plan of Care End Date 04/26/18 Next Visit Focus/Plan Next Note Type Treatment Note Next Visit Plan progress HEP; work on gait ( cue to press down through push off) PNF prn and inf glide L
--- NOTE | 2018-03-30 13:52 | PT.OTN ---
Current Diagnoses Bilateral primary osteoarthritis of hip (03/30/18) Pain in left hip (03/30/18) Physical Therapy Treatment Note PT-OP-A Visit Information Start: 03/06/18 16:11 Freq: Status: Active Protocol: Document 03/30/18 09:47 ML (Rec: 03/30/18 09:48 ML [id number]) Out-Patient Physical Therapy Visit Information Visit Information Visit Type Treatment Note Visit Start Time 09:00 Visit Stop Time 09:45 Total Visit Minutes 45 Visit Number 7/10 Number of SWEATBAND DECORATING MACHINE OPERATOR Visits 0 PT-OP-B Current Condition Start: 03/06/18 16:11 Freq: Status: Active Protocol: Document 03/06/18 16:13 ML (Rec: 03/06/18 16:32 ML [email or web address]) Current Condition History of Current Condition Onset Date 02/04/18 History of Current Condition Pt reports of post-lat pain above her L iliac crest starting insidiously about one month ago. After seeing her doctor and getting her x-ray, imaging concludes that she has L hip arthritis. Pt notices the pain intermittently, without any specific aggravating factors. She notices that she tends to get her pain after she is walking and feels fatigued, and finds releif with sitting momentarily. The pt has bilateral knee degeneration and arthritis, with L more severe than R, indicating that the L is now bone on bone but that she has no knee pain. The pt describes the pain as constant and uncomfrotable. The pt is very active, walking 2-3 miles per day with her friends and volunteering in many avenues. Treatment Goals Patient/Caregiver Goals The pt's goal include becoming stronger, increasing her flexibility, and continuing to walk daily with her friends and playing raquetball with her . PT-OP-C Subjective Start: 03/06/18 16:11 Freq: Status: Active Protocol: Document 03/30/18 09:47 ML (Rec: 03/30/18 09:48 ML [id number]) OP-PT Subjective Patient Comments Patient Comments Pt notes that she could feel it in her SI/low back region, but it was not a feeling of pain. PT-OP-F Manual Assessment Start: 03/06/18 16:35 Freq: Status: Active Protocol: Document 03/06/18 16:13 ML (Rec: 03/06/18 16:56 ML [email or web address]) Manual Assessments Joint Mobility Assessment Joint Mobility Assessment L iliac crest more elevated than R PT-OP-K Range of Motion Start: 03/06/18 16:32 Freq: Status: Active Protocol: Document 03/06/18 16:13 ML (Rec: 03/06/18 16:56 ML [email or web address]) Lumbar Spine Range of Motion Lumbar Spine Active Testing Position standing Flexion 36 Extension 10 Comments ext measured at TL junction; hinge motion occurring at TL junction PT-OP-M Strength Start: 03/06/18 16:11 Freq: Status: Active Protocol: Document 03/06/18 16:13 ML (Rec: 03/06/18 16:32 ML [email or web address]) Hip Strength Hip Manual Muscle Testing R Flexion (L2) 4 Good Extension (S1) 4+ Good+ Abduction 5 Normal External Rotation 4- Good- Internal Rotation 4 Good L Flexion (L2) 4+ Good+ Extension (S1) 4+ Good+ Abduction 4+ Good+ External Rotation 4- Good- Internal Rotation 4 Good Knee Strength Knee Manual Muscle Testing R Flexion (S2) 5 Normal Extension (L3) 5 Normal L Flexion (S2) 5 Normal Extension (L3) 5 Normal Ankle/Foot Strength Ankle and Foot Manual Muscle Testing R Dorsiflexion (L4) 5 Normal Plantarflexion (S1) 5 Normal L Dorsiflexion (L4) 5 Normal Plantarflexion (S1) 5 Normal PT-OP-Q Treatments Start: 03/06/18 16:11 Freq: Status: Active Protocol: Document 03/30/18 09:47 ML (Rec: 03/30/18 11:07 ML [id number]) Gym Equipment Therapeutic Ball marching Exercise Details unsupported marching Ball Size/Color 65 cm green Body Position Sitting Comments HEP; near UE support for balance prn; cues for slow and controlled Therapeutic Exercises Sidelying Exercises hip abd Sidelying Exercise Name hip abd Side bilateral Resistance lvl 1 and none Comments tried to use lvl 1, but had hip pain R side; no band progression for HEP clamshells Sidelying Exercise Name clamshells Side bilateral Resistance lvl 3 Comments progressed resistance for HEP Other Exercises 3 Other Exercise Name child's pose Reps/Minutes reviewed 2-3x 2 Other Exercise Name reviewed gait press at wall Comments cues for appropriate pelvis motion; added up and down with heel raise 1 Other Exercise Name quadruped hip ext Comments cues for dec pelvis motion Gait Training Gait Activity 1 Description walking w/focus on pelvis motion Comments before and after PNF re-ed w/ verbalize and tactile cueing; also used video on pts phone PT-OP-R Modalities Start: 03/06/18 16:11 Freq: Status: Active Protocol: Document 03/28/18 11:30 ML (Rec: 03/28/18 11:36 ML [id number]) Hot Pack/Cold Pack Treatment 1 Location Low back Treatment Duration (minutes) 15 Comments hot pack PT-OP-T Assessment and Plan Start: 03/06/18 16:32 Freq: Status: Active Protocol: Document 03/30/18 09:47 ML (Rec: 03/30/18 11:07 ML [id number]) Physical Therapy Assessment Goals 3 Impairment dec flexibility Short Term Goal (STG) Pt will be independent with HEP. STG Duration 04/06/18 Correction Goal (LTG) Pt will improve flexibility and decrease hamstring cramps. LTG Duration 05/06/18 2 Impairment dec strength Correction Goal (LTG) Pt will have 5/5 strength for bilateral LE in order to maintain desired activities. LTG Duration 05/06/18 1 Impairment pain w/activity Correction Goal (LTG) Pt will report no pain with activity. LTG Duration 05/06/18 Assessment Summary Assessment Pt was able to improve some of her HEP, but required some correction to other exercises with questions about mechanics through them. Pt was also able to add a core exercise on the ball, and was unable to progress hip abd exercise due to hip pain on R. Pt still lacks pelvis motion and appropriately timed motion during gait, but improves with tactile cueing and visually being able to watch someone demonstrating it correctly, which the pt loved being able to take it home on her phone to cont working on her gait. Physical Therapy Plan Frequency and Duration Frequency of Treatment 2x/Week Duration of Treatment 2 months Plan of Care Start Date 02/24/18 Plan of Care End Date 04/26/18 Next Visit Focus/Plan Next Note Type Treatment Note Next Visit Plan review HEP progression (ball marches) and maybe progress quadruped to add arms; work on gait (cue to press down through push off), PNF prn, R hip abd glide of inominate
--- NOTE | 2018-04-03 16:31 | PT.OTN ---
Current Diagnoses Bilateral primary osteoarthritis of hip (04/03/18) Pain in left hip (04/03/18) Physical Therapy Treatment Note PT-OP-A Visit Information Start: 03/06/18 16:11 Freq: Status: Active Protocol: Document 04/03/18 16:18 ML (Rec: 04/03/18 16:26 ML [email or web address]) Out-Patient Physical Therapy Visit Information Visit Information Visit Type Treatment Note Visit Start Time 13:45 Visit Stop Time 14:30 Total Visit Minutes 45 Visit Number 8/10 Number of ELEMENTARY PRINCIPAL Visits 0 PT-OP-B Current Condition Start: 03/06/18 16:11 Freq: Status: Active Protocol: Document 03/06/18 16:13 ML (Rec: 03/06/18 16:32 ML [email or web address]) Current Condition History of Current Condition Onset Date 02/04/18 History of Current Condition Pt reports of post-lat pain above her L iliac crest starting insidiously about one month ago. After seeing her doctor and getting her x-ray, imaging concludes that she has L hip arthritis. Pt notices the pain intermittently, without any specific aggravating factors. She notices that she tends to get her pain after she is walking and feels fatigued, and finds releif with sitting momentarily. The pt has bilateral knee degeneration and arthritis, with L more severe than R, indicating that the L is now bone on bone but that she has no knee pain. The pt describes the pain as constant and uncomfrotable. The pt is very active, walking 2-3 miles per day with her friends and volunteering in many avenues. Treatment Goals Patient/Caregiver Goals The pt's goal include becoming stronger, increasing her flexibility, and continuing to walk daily with her friends and playing raquetball with her . PT-OP-C Subjective Start: 03/06/18 16:11 Freq: Status: Active Protocol: Document 04/03/18 16:18 ML (Rec: 04/03/18 16:26 ML [email or web address]) OP-PT Subjective Patient Comments Patient Comments pt notes she has been feeling well overall and has been working on her walking. Just a slight bit of twinge on her L side. PT-OP-F Manual Assessment Start: 03/06/18 16:35 Freq: Status: Active Protocol: Document 03/06/18 16:13 ML (Rec: 03/06/18 16:56 ML [email or web address]) Manual Assessments Joint Mobility Assessment Joint Mobility Assessment L iliac crest more elevated than R PT-OP-K Range of Motion Start: 03/06/18 16:32 Freq: Status: Active Protocol: Document 03/06/18 16:13 ML (Rec: 03/06/18 16:56 ML [email or web address]) Lumbar Spine Range of Motion Lumbar Spine Active Testing Position standing Flexion 36 Extension 10 Comments ext measured at TL junction; hinge motion occurring at TL junction PT-OP-M Strength Start: 03/06/18 16:11 Freq: Status: Active Protocol: Document 03/06/18 16:13 ML (Rec: 03/06/18 16:32 ML [email or web address]) Hip Strength Hip Manual Muscle Testing R Flexion (L2) 4 Good Extension (S1) 4+ Good+ Abduction 5 Normal External Rotation 4- Good- Internal Rotation 4 Good L Flexion (L2) 4+ Good+ Extension (S1) 4+ Good+ Abduction 4+ Good+ External Rotation 4- Good- Internal Rotation 4 Good Knee Strength Knee Manual Muscle Testing R Flexion (S2) 5 Normal Extension (L3) 5 Normal L Flexion (S2) 5 Normal Extension (L3) 5 Normal Ankle/Foot Strength Ankle and Foot Manual Muscle Testing R Dorsiflexion (L4) 5 Normal Plantarflexion (S1) 5 Normal L Dorsiflexion (L4) 5 Normal Plantarflexion (S1) 5 Normal PT-OP-Q Treatments Start: 03/06/18 16:11 Freq: Status: Active Protocol: Document 04/03/18 16:18 ML (Rec: 04/03/18 16:26 ML [email or web address]) Therapeutic Exercises Standing Exercises step up Side left Equipment Used UE support and 4 step Comments cues for correct mechanics to lean fwd and be close to step SLS Side left Equipment Used counter and mirror Comments for dec lat trunk lean and glute activation Gait Training Gait Activity 1 Description walking w/focus on pelvis motion Comments w/verbalize and tactile cueing Manual Therapy Treatment Soft Tissue Mobilization 2 Body Location QL Mobilization Type Myofascial Release Rolling Sustained Pressure Intensity/Depth Moderate Body Position Prone 1 Body Location lumbar paraspinals Mobilization Type Myofascial Release Rolling Sustained Pressure Intensity/Depth Moderate Body Position Prone Joint Mobilizations 1 Joint L iliac crest Direction caudal Body Position Prone Comments active knee flex/ext PT-OP-R Modalities Start: 03/06/18 16:11 Freq: Status: Active Protocol: Document 03/28/18 11:30 ML (Rec: 03/28/18 11:36 ML [id number]) Hot Pack/Cold Pack Treatment 1 Location Low back Treatment Duration (minutes) 15 Comments hot pack PT-OP-T Assessment and Plan Start: 03/06/18 16:32 Freq: Status: Active Protocol: Document 04/03/18 16:18 ML (Rec: 04/03/18 16:26 ML [email or web address]) Physical Therapy Assessment Goals 3 Impairment dec flexibility Short Term Goal (STG) Pt will be independent with HEP. STG Duration 04/06/18 Candy Wrapping Machine Operator Goal (LTG) Pt will improve flexibility and decrease hamstring cramps. LTG Duration 05/06/18 2 Impairment dec strength Candy Wrapping Machine Operator Goal (LTG) Pt will have 5/5 strength for bilateral LE in order to maintain desired activities. LTG Duration 05/06/18 1 Impairment pain w/activity Candy Wrapping Machine Operator Goal (LTG) Pt will report no pain with activity. LTG Duration 05/06/18 Assessment Summary Assessment Pt presented to PT with an elevated L iliac crest and tight QL/paraspinals that were addressed manually. Pt's gait has seemed to improve on her R pelvic motion but still has difficulty on L. Pt was given verbal and tactile cues through gait. Pt's ability to activate glutes and quads, while dec lat trunk lean was addressed through SLS and step ups on L with mirrow and UE support. Correct mechanics were instructed to pt through verbal and tactile cueing in which pt was able to achieve correct motion and without pain as she had prior. Physical Therapy Plan Frequency and Duration Frequency of Treatment 2x/Week Duration of Treatment 2 months Plan of Care Start Date 02/24/18 Plan of Care End Date 04/26/18 Next Visit Focus/Plan Next Note Type Treatment Note Next Visit Plan progress gait, assess SLS on L and step up (quad and glute strength); review HEP progression (ball marches) and maybe progress quadruped to add arms; work on gait (cue to press down through push off), PNF prn, R hip abd glide of inominate
--- NOTE | 2018-04-10 16:51 | PT.OTN ---
Current Diagnoses Bilateral primary osteoarthritis of hip (04/10/18) Pain in left hip (04/10/18) Physical Therapy Treatment Note PT-OP-A Visit Information Start: 03/06/18 16:11 Freq: Status: Active Protocol: Document 04/10/18 14:37 ML (Rec: 04/10/18 16:26 ML [email or web address]) Out-Patient Physical Therapy Visit Information Visit Information Visit Type Treatment Note Visit Start Time 13:45 Visit Stop Time 14:30 Total Visit Minutes 60 Visit Number 01/22 Number of RADIO ANNOUNCER Visits 0 PT-OP-B Current Condition Start: 03/06/18 16:11 Freq: Status: Active Protocol: Document 03/06/18 16:13 ML (Rec: 03/06/18 16:32 ML [email or web address]) Current Condition History of Current Condition Onset Date 02/04/18 History of Current Condition Pt reports of post-lat pain above her L iliac crest starting insidiously about one month ago. After seeing her doctor and getting her x-ray, imaging concludes that she has L hip arthritis. Pt notices the pain intermittently, without any specific aggravating factors. She notices that she tends to get her pain after she is walking and feels fatigued, and finds releif with sitting momentarily. The pt has bilateral knee degeneration and arthritis, with L more severe than R, indicating that the L is now bone on bone but that she has no knee pain. The pt describes the pain as constant and uncomfrotable. The pt is very active, walking 2-3 miles per day with her friends and volunteering in many avenues. Treatment Goals Patient/Caregiver Goals The pt's goal include becoming stronger, increasing her flexibility, and continuing to walk daily with her friends and playing raquetball with her . PT-OP-C Subjective Start: 03/06/18 16:11 Freq: Status: Active Protocol: Document 04/10/18 14:37 ML (Rec: 04/10/18 16:26 ML [email or web address]) OP-PT Subjective Patient Comments Patient Comments Pt notes she stil has no pain in hips, but has still has pain trying to go up stairs with L and down with R. PT-OP-F Manual Assessment Start: 03/06/18 16:35 Freq: Status: Active Protocol: Document 03/06/18 16:13 ML (Rec: 03/06/18 16:56 ML [email or web address]) Manual Assessments Joint Mobility Assessment Joint Mobility Assessment L iliac crest more elevated than R PT-OP-K Range of Motion Start: 03/06/18 16:32 Freq: Status: Active Protocol: Document 03/06/18 16:13 ML (Rec: 03/06/18 16:56 ML [email or web address]) Lumbar Spine Range of Motion Lumbar Spine Active Testing Position standing Flexion 36 Extension 10 Comments ext measured at TL junction; hinge motion occurring at TL junction PT-OP-M Strength Start: 03/06/18 16:11 Freq: Status: Active Protocol: Document 03/06/18 16:13 ML (Rec: 03/06/18 16:32 ML [email or web address]) Hip Strength Hip Manual Muscle Testing R Flexion (L2) 4 Good Extension (S1) 4+ Good+ Abduction 5 Normal External Rotation 4- Good- Internal Rotation 4 Good L Flexion (L2) 4+ Good+ Extension (S1) 4+ Good+ Abduction 4+ Good+ External Rotation 4- Good- Internal Rotation 4 Good Knee Strength Knee Manual Muscle Testing R Flexion (S2) 5 Normal Extension (L3) 5 Normal L Flexion (S2) 5 Normal Extension (L3) 5 Normal Ankle/Foot Strength Ankle and Foot Manual Muscle Testing R Dorsiflexion (L4) 5 Normal Plantarflexion (S1) 5 Normal L Dorsiflexion (L4) 5 Normal Plantarflexion (S1) 5 Normal PT-OP-Q Treatments Start: 03/06/18 16:11 Freq: Status: Active Protocol: Document 04/10/18 14:37 ML (Rec: 04/10/18 16:26 ML [email or web address]) Gym Equipment Shuttle Recovery unilat squat Details L Resistance 25 Therapeutic Exercises Standing Exercises side stepping Equipment Used yellow; bar Comments toward L>R; SLS Side left Equipment Used counter and mirror Comments for dec lat trunk lean and glute activation Gait Training Gait Activity stairs Description stairs Comments cues for good mechanics of wt shifting and posture; up with L and down with R or L at different times Manual Therapy Treatment Soft Tissue Mobilization glutes Body Location L Comments active knee flex and ext L LE fascia Body Location L thigh Comments IR motion with assisted sit to stand Joint Mobilizations 1 Joint L iliac crest Direction caudal Body Position Prone Comments active knee flex/ext PT-OP-R Modalities Start: 03/06/18 16:11 Freq: Status: Active Protocol: Document 04/10/18 14:37 ML (Rec: 04/10/18 16:26 ML [email or web address]) Hot Pack/Cold Pack Treatment 1 Location Low back Treatment Duration (minutes) 15 Comments hot pack PT-OP-T Assessment and Plan Start: 03/06/18 16:32 Freq: Status: Active Protocol: Document 04/10/18 14:37 ML (Rec: 04/10/18 14:43 ML [email or web address]) Physical Therapy Assessment Goals 3 Impairment dec flexibility Short Term Goal (STG) Pt will be independent with HEP. STG Duration 04/06/18 Director Of Math Goal (LTG) Pt will improve flexibility and decrease hamstring cramps. LTG Duration 05/06/18 2 Impairment dec strength Usp Goal (LTG) Pt will have 5/5 strength for bilateral LE in order to maintain desired activities. LTG Duration 05/06/18 1 Impairment pain w/activity Director Of Math Goal (LTG) Pt will report no pain with activity. LTG Duration 05/06/18 Assessment Summary Assessment Pt presented today with no pain in her hips, but still notes pain with trying to walk up steps with her L foot leading and down with her R foot leading. Pt presents with soft tissue tightness through IR and is rotated ER through her femur. 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 Pt is unable to stand on her L leg without shifting all of her wt laterally beyond an upright position of the L. Pt's L iliac crest is also elevated. Pt's tissue abnormalities were addressed manually as able and her L ilium was lowered with a caudal glide. Pt noted SI and glute pain on L through SLS on L and side stepping activities to improve her glute activation, and were therefore terminated. Physical Therapy Plan Frequency and Duration Frequency of Treatment 2x/Week Duration of Treatment 2 months Plan of Care Start Date 02/24/18 Plan of Care End Date 04/26/18 Next Visit Focus/Plan Next Note Type Treatment Note Next Visit Plan progress gait, assess SLS on L and step up (quad and glute strength); check knee/SI/glute tissue and pain; review HEP progression (ball marches) and maybe progress quadruped to add arms; work on gait (cue to press down through push off), PNF prn, R hip abd glide of inominate
--- NOTE | 2018-04-13 15:00 | PT.OPPN ---
Current Diagnoses Bilateral primary osteoarthritis of hip (04/13/18) Pain in left hip (04/13/18) Physical Therapy Progress Note PT-OP-A Visit Information Start: 03/06/18 16:11 Freq: Status: Active Protocol: Document 04/13/18 09:07 ML (Rec: 04/13/18 09:55 ML [id number]) Out-Patient Physical Therapy Visit Information Visit Information Visit Type Progress Note Visit Start Time 09:02 Visit Stop Time 09:47 Total Visit Minutes 45 Visit Number 05/24 Number of CLERK TRAVEL RESERVATIONS Visits 0 PT-OP-B Current Condition Start: 03/06/18 16:11 Freq: Status: Active Protocol: Document 03/06/18 16:13 ML (Rec: 03/06/18 16:32 ML [email or web address]) Current Condition History of Current Condition Onset Date 02/04/18 History of Current Condition Pt reports of post-lat pain above her L iliac crest starting insidiously about one month ago. After seeing her doctor and getting her x-ray, imaging concludes that she has L hip arthritis. Pt notices the pain intermittently, without any specific aggravating factors. She notices that she tends to get her pain after she is walking and feels fatigued, and finds releif with sitting momentarily. The pt has bilateral knee degeneration and arthritis, with L more severe than R, indicating that the L is now bone on bone but that she has no knee pain. The pt describes the pain as constant and uncomfrotable. The pt is very active, walking 2-3 miles per day with her friends and volunteering in many avenues. Treatment Goals Patient/Caregiver Goals The pt's goal include becoming stronger, increasing her flexibility, and continuing to walk daily with her friends and playing raquetball with her . PT-OP-C Subjective Start: 03/06/18 16:11 Freq: Status: Active Protocol: Document 04/13/18 09:07 ML (Rec: 04/13/18 09:55 ML [id number]) OP-PT Subjective Patient Comments Patient Comments Pt notes she still has a little twinge in her hip, but didn't notice it while she was walking. PT-OP-F Manual Assessment Start: 03/06/18 16:35 Freq: Status: Active Protocol: Document 03/06/18 16:13 ML (Rec: 03/06/18 16:56 ML [email or web address]) Manual Assessments Joint Mobility Assessment Joint Mobility Assessment L iliac crest more elevated than R PT-OP-K Range of Motion Start: 03/06/18 16:32 Freq: Status: Active Protocol: Document 04/13/18 09:07 ML (Rec: 04/13/18 09:55 ML [id number]) Hip Goniometric Range of Motion Hip ROM Limitations Comments R HS ~75 deg L HS ~ 65 deg PT-OP-M Strength Start: 03/06/18 16:11 Freq: Status: Active Protocol: Document 04/13/18 09:07 ML (Rec: 04/13/18 09:55 ML [id number]) Hip Strength Hip Manual Muscle Testing R Flexion (L2) 4 Good Extension (S1) 4 Good Abduction 5 Normal External Rotation 5 Normal Internal Rotation 5 Normal Comments cramping in HS on R L Flexion (L2) 4- Good- Extension (S1) 4+ Good+ Abduction 4+ Good+ External Rotation 4 Good Internal Rotation 4+ Good+ PT-OP-T Assessment and Plan Start: 03/06/18 16:32 Freq: Status: Active Protocol: Document 04/13/18 09:07 ML (Rec: 04/13/18 09:55 ML [id number]) Physical Therapy Assessment Goals 3 Impairment dec flexibility Short Term Goal (STG) Pt will be independent with HEP. STG Duration 04/06/18-achieved:progressing as tolerated Tax Technician Goal (LTG) Pt will improve flexibility and decrease hamstring cramps. LTG Duration 05/06/18 2 Impairment dec strength Senior Living Goal (LTG) Pt will have 5/5 strength for bilateral LE in order to maintain desired activities. LTG Duration 05/06/18-some improvement 1 Impairment pain w/activity Senior Living Goal (LTG) Pt will report no pain with activity. LTG Duration 05/06/18-improving Assessment Summary Assessment Pt has inc strength of LE overall, and was able to be progressed through a new HEP. The pt had pain in her medial knee with repetitive sit to stands, but when she was given a resistance band around her distal thighs, she was able to maintain resistance against it through exercise and eliminate her med knee pain. Pt had diffculty through wt shifting and pelvis stability through quadruped exercise, but improved with verbal cueing. Pt still has tightness in hamstrings and was given an additional stretch. Physical Therapy Plan Frequency and Duration Frequency of Treatment 2x/Week Duration of Treatment 2 months Plan of Care Start Date 02/24/18 Plan of Care End Date 04/26/18 Next Visit Focus/Plan Next Note Type Treatment Note Next Visit Plan review HEP progression; SLS and stairs; strength progression
--- NOTE | 2018-04-13 15:55 | PT.OTN ---
Current Diagnoses Bilateral primary osteoarthritis of hip (04/13/18) Pain in left hip (04/13/18) Physical Therapy Treatment Note PT-OP-A Visit Information Start: 03/06/18 16:11 Freq: Status: Active Protocol: Document 04/13/18 09:07 ML (Rec: 04/13/18 09:55 ML [id number]) Out-Patient Physical Therapy Visit Information Visit Information Visit Type Progress Note Visit Start Time 09:02 Visit Stop Time 09:47 Total Visit Minutes 45 Visit Number 05/24 Number of REFLECTOR DRILLER AND DEBURRER Visits 0 PT-OP-B Current Condition Start: 03/06/18 16:11 Freq: Status: Active Protocol: Document 03/06/18 16:13 ML (Rec: 03/06/18 16:32 ML [email or web address]) Current Condition History of Current Condition Onset Date 02/04/18 History of Current Condition Pt reports of post-lat pain above her L iliac crest starting insidiously about one month ago. After seeing her doctor and getting her x-ray, imaging concludes that she has L hip arthritis. Pt notices the pain intermittently, without any specific aggravating factors. She notices that she tends to get her pain after she is walking and feels fatigued, and finds releif with sitting momentarily. The pt has bilateral knee degeneration and arthritis, with L more severe than R, indicating that the L is now bone on bone but that she has no knee pain. The pt describes the pain as constant and uncomfrotable. The pt is very active, walking 2-3 miles per day with her friends and volunteering in many avenues. Treatment Goals Patient/Caregiver Goals The pt's goal include becoming stronger, increasing her flexibility, and continuing to walk daily with her friends and playing raquetball with her . PT-OP-C Subjective Start: 03/06/18 16:11 Freq: Status: Active Protocol: Document 04/13/18 09:07 ML (Rec: 04/13/18 09:55 ML [id number]) OP-PT Subjective Patient Comments Patient Comments Pt notes she still has a little twinge in her hip, but didn't notice it while she was walking. PT-OP-F Manual Assessment Start: 03/06/18 16:35 Freq: Status: Active Protocol: Document 03/06/18 16:13 ML (Rec: 03/06/18 16:56 ML [email or web address]) Manual Assessments Joint Mobility Assessment Joint Mobility Assessment L iliac crest more elevated than R PT-OP-K Range of Motion Start: 03/06/18 16:32 Freq: Status: Active Protocol: Document 04/13/18 09:07 ML (Rec: 04/13/18 09:55 ML [id number]) Hip Goniometric Range of Motion Hip ROM Limitations Comments R HS ~75 deg L HS ~ 65 deg PT-OP-M Strength Start: 03/06/18 16:11 Freq: Status: Active Protocol: Document 04/13/18 09:07 ML (Rec: 04/13/18 09:55 ML [id number]) Hip Strength Hip Manual Muscle Testing R Flexion (L2) 4 Good Extension (S1) 4 Good Abduction 5 Normal External Rotation 5 Normal Internal Rotation 5 Normal Comments cramping in HS on R L Flexion (L2) 4- Good- Extension (S1) 4+ Good+ Abduction 4+ Good+ External Rotation 4 Good Internal Rotation 4+ Good+ PT-OP-Q Treatments Start: 03/06/18 16:11 Freq: Status: Active Protocol: Document 04/13/18 09:07 ML (Rec: 04/13/18 09:55 ML [id number]) Therapeutic Exercises Sidelying Exercises hip abd Sidelying Exercise Name hip abd Side bilateral Resistance lvl 3 Comments progressed HEP clamshells Sidelying Exercise Name clamshells Side bilateral Resistance lvl 3 Comments progressed resistance for HEP Standing Exercises STS Standing Exercise Name sit to stand Equipment Used yellow band Comments HEP hamstring stretch Side bilateral Reps/Minutes bar Comments HEP Other Exercises 1 Other Exercise Name quadruped hip ext Comments cues for dec pelvis motion; pods on pelvis PT-OP-R Modalities Start: 03/06/18 16:11 Freq: Status: Active Protocol: Document 04/10/18 14:37 ML (Rec: 04/10/18 16:26 ML [email or web address]) Hot Pack/Cold Pack Treatment 1 Location Low back Treatment Duration (minutes) 15 Comments hot pack PT-OP-T Assessment and Plan Start: 03/06/18 16:32 Freq: Status: Active Protocol: Document 04/13/18 09:07 ML (Rec: 04/13/18 09:55 ML [id number]) Physical Therapy Assessment Goals 3 Impairment dec flexibility Short Term Goal (STG) Pt will be independent with HEP. STG Duration 04/06/18-achieved:progressing as tolerated Snf Goal (LTG) Pt will improve flexibility and decrease hamstring cramps. LTG Duration 05/06/18 2 Impairment dec strength Snf Goal (LTG) Pt will have 5/5 strength for bilateral LE in order to maintain desired activities. LTG Duration 05/06/18-some improvement 1 Impairment pain w/activity Generalist Goal (LTG) Pt will report no pain with activity. LTG Duration 05/06/18-improving Assessment Summary Assessment Pt has inc strength of LE overall, and was able to be progressed through a new HEP. The pt had pain in her medial knee with repetitive sit to stands, but when she was given a resistance band around her distal thighs, she was able to maintain resistance against it through exercise and eliminate her med knee pain. Pt had diffculty through wt shifting and pelvis stability through quadruped exercise, but improved with verbal cueing. Pt still has tightness in hamstrings and was given an additional stretch. Physical Therapy Plan Frequency and Duration Frequency of Treatment 2x/Week Duration of Treatment 2 months Plan of Care Start Date 02/24/18 Plan of Care End Date 04/26/18 Next Visit Focus/Plan Next Note Type Treatment Note Next Visit Plan review HEP progression; SLS and stairs; strength progression
--- NOTE | 2018-04-16 10:31 | PT.OTN ---
Current Diagnoses Bilateral primary osteoarthritis of hip (04/16/18) Pain in left hip (04/16/18) Physical Therapy Treatment Note PT-OP-A Visit Information Start: 03/06/18 16:11 Freq: Status: Active Protocol: Document 04/16/18 09:48 [facility] (Rec: 04/16/18 10:31 [facility] [id number]) Out-Patient Physical Therapy Visit Information Visit Information Visit Type Treatment Note Visit Note 11 Visit Start Time 09:48 Visit Stop Time 10:28 Total Visit Minutes 40 Visit Number 2/ Number of RECYCLING TECHNICIAN Visits 0 PT-OP-B Current Condition Start: 03/06/18 16:11 Freq: Status: Active Protocol: Document 03/06/18 16:13 ML (Rec: 03/06/18 16:32 ML [email or web address]) Current Condition History of Current Condition Onset Date 02/04/18 History of Current Condition Pt reports of post-lat pain above her L iliac crest starting insidiously about one month ago. After seeing her doctor and getting her x-ray, imaging concludes that she has L hip arthritis. Pt notices the pain intermittently, without any specific aggravating factors. She notices that she tends to get her pain after she is walking and feels fatigued, and finds releif with sitting momentarily. The pt has bilateral knee degeneration and arthritis, with L more severe than R, indicating that the L is now bone on bone but that she has no knee pain. The pt describes the pain as constant and uncomfrotable. The pt is very active, walking 2-3 miles per day with her friends and volunteering in many avenues. Treatment Goals Patient/Caregiver Goals The pt's goal include becoming stronger, increasing her flexibility, and continuing to walk daily with her friends and playing raquetball with her . PT-OP-C Subjective Start: 03/06/18 16:11 Freq: Status: Active Protocol: Document 04/16/18 09:48 [facility] (Rec: 04/16/18 10:31 [facility] [id number]) OP-PT Subjective Patient Comments Patient Comments exercises going well PT-OP-F Manual Assessment Start: 03/06/18 16:35 Freq: Status: Active Protocol: Document 03/06/18 16:13 ML (Rec: 03/06/18 16:56 ML [email or web address]) Manual Assessments Joint Mobility Assessment Joint Mobility Assessment L iliac crest more elevated than R PT-OP-K Range of Motion Start: 03/06/18 16:32 Freq: Status: Active Protocol: Document 04/13/18 09:07 ML (Rec: 04/13/18 09:55 ML [id number]) Hip Goniometric Range of Motion Hip ROM Limitations Comments R HS ~75 deg L HS ~ 65 deg PT-OP-M Strength Start: 03/06/18 16:11 Freq: Status: Active Protocol: Document 04/13/18 09:07 ML (Rec: 04/13/18 09:55 ML [id number]) Hip Strength Hip Manual Muscle Testing R Flexion (L2) 4 Good Extension (S1) 4 Good Abduction 5 Normal External Rotation 5 Normal Internal Rotation 5 Normal Comments cramping in HS on R L Flexion (L2) 4- Good- Extension (S1) 4+ Good+ Abduction 4+ Good+ External Rotation 4 Good Internal Rotation 4+ Good+ PT-OP-Q Treatments Start: 03/06/18 16:11 Freq: Status: Active Protocol: Document 04/16/18 09:48 [facility] (Rec: 04/16/18 10:31 [facility] [id number]) Therapeutic Exercises Supine Exercises abdominal series Supine Exercise Name flex & diagonal Reps/Minutes 30 sec holds Standing Exercises STS Standing Exercise Name sit to stand Equipment Used dec chair use Reps/Minutes 10 Comments HEP reviewed SLS Side bilateral Equipment Used counter and mirror Comments for dec lat trunk lean and glute activation Other Exercises 2 Other Exercise Name hilaria pose fwd & to sides Reps/Minutes 30 sec hold 1 Other Exercise Name quadruped hip ext Comments cues for dec pelvis motion; pods on pelvis Gait Training Gait Activity 2 Description facilitated walking Comments ant elevation faciliation B 1 Description walking w/focus on pelvis motion Comments w/verbalize and tactile cueing Neuro Re-Education Treatment Other Activities 1 Details PNF Comments ant elevation & post depression rhythmic stabilization to COI to isotonic reversals PT-OP-R Modalities Start: 03/06/18 16:11 Freq: Status: Active Protocol: Document 04/10/18 14:37 ML (Rec: 04/10/18 16:26 ML [email or web address]) Hot Pack/Cold Pack Treatment 1 Location Low back Treatment Duration (minutes) 15 Comments hot pack PT-OP-T Assessment and Plan Start: 03/06/18 16:32 Freq: Status: Active Protocol: Document 04/16/18 09:48 [facility] (Rec: 04/16/18 10:31 [facility] [id number]) Physical Therapy Assessment Goals 3 Impairment dec flexibility Short Term Goal (STG) Pt will be independent with HEP. STG Duration 04/06/18-achieved:progressing as tolerated Turbine Measurements Engineer Goal (LTG) Pt will improve flexibility and decrease hamstring cramps. LTG Duration 05/06/18 2 Impairment dec strength Prison Goal (LTG) Pt will have 5/5 strength for bilateral LE in order to maintain desired activities. LTG Duration 05/06/18-some improvement 1 Impairment pain w/activity Prison Goal (LTG) Pt will report no pain with activity. LTG Duration 05/06/18-improving Assessment Summary Assessment Pt was able to translate PNF work in s/l to standing with gait after faciliated gait. She cont to improved with glute and core control with minor cueing through exercises for position. Physical Therapy Plan Frequency and Duration Frequency of Treatment 2x/Week Duration of Treatment 2 months Plan of Care Start Date 02/24/18 Plan of Care End Date 04/26/18 Next Visit Focus/Plan Next Note Type Treatment Note Next Visit Plan cont to work SLS and gait mechanics to progress to stairs
--- NOTE | 2018-04-19 10:58 | PT.OTN ---
Current Diagnoses Bilateral primary osteoarthritis of hip (04/19/18) Pain in left hip (04/19/18) Physical Therapy Treatment Note PT-OP-A Visit Information Start: 03/06/18 16:11 Freq: Status: Active Protocol: Document 04/19/18 10:47 [facility] (Rec: 04/19/18 10:58 [facility] [id number]) Out-Patient Physical Therapy Visit Information Visit Information Visit Type Treatment Note Visit Note 12 Visit Start Time 09:45 Visit Stop Time 10:35 Total Visit Minutes 50 Visit Number 3/10 Number of SECURITY CONTROL ASSESSOR Visits 0 PT-OP-B Current Condition Start: 03/06/18 16:11 Freq: Status: Active Protocol: Document 03/06/18 16:13 ML (Rec: 03/06/18 16:32 ML [email or web address]) Current Condition History of Current Condition Onset Date 02/04/18 History of Current Condition Pt reports of post-lat pain above her L iliac crest starting insidiously about one month ago. After seeing her doctor and getting her x-ray, imaging concludes that she has L hip arthritis. Pt notices the pain intermittently, without any specific aggravating factors. She notices that she tends to get her pain after she is walking and feels fatigued, and finds releif with sitting momentarily. The pt has bilateral knee degeneration and arthritis, with L more severe than R, indicating that the L is now bone on bone but that she has no knee pain. The pt describes the pain as constant and uncomfrotable. The pt is very active, walking 2-3 miles per day with her friends and volunteering in many avenues. Treatment Goals Patient/Caregiver Goals The pt's goal include becoming stronger, increasing her flexibility, and continuing to walk daily with her friends and playing raquetball with her . PT-OP-C Subjective Start: 03/06/18 16:11 Freq: Status: Active Protocol: Document 04/19/18 10:47 [facility] (Rec: 04/19/18 10:58 [facility] [email or web address]) OP-PT Subjective Patient Comments Patient Comments Reports she couldn't keep up with her friends this AM. Notes she felt like she was limping more. PT-OP-F Manual Assessment Start: 03/06/18 16:35 Freq: Status: Active Protocol: Document 03/06/18 16:13 ML (Rec: 03/06/18 16:56 ML [email or web address]) Manual Assessments Joint Mobility Assessment Joint Mobility Assessment L iliac crest more elevated than R PT-OP-K Range of Motion Start: 03/06/18 16:32 Freq: Status: Active Protocol: Document 04/13/18 09:07 ML (Rec: 04/13/18 09:55 ML [id number]) Hip Goniometric Range of Motion Hip ROM Limitations Comments R HS ~75 deg L HS ~ 65 deg PT-OP-M Strength Start: 03/06/18 16:11 Freq: Status: Active Protocol: Document 04/13/18 09:07 ML (Rec: 04/13/18 09:55 ML [id number]) Hip Strength Hip Manual Muscle Testing R Flexion (L2) 4 Good Extension (S1) 4 Good Abduction 5 Normal External Rotation 5 Normal Internal Rotation 5 Normal Comments cramping in HS on R L Flexion (L2) 4- Good- Extension (S1) 4+ Good+ Abduction 4+ Good+ External Rotation 4 Good Internal Rotation 4+ Good+ PT-OP-Q Treatments Start: 03/06/18 16:11 Freq: Status: Active Protocol: Document 04/19/18 10:47 [facility] (Rec: 04/19/18 10:58 [facility] [email or web address]) Therapeutic Exercises Standing Exercises lunge Standing Exercise Name lunge w/rail & mirror Side bilateral Reps/Minutes 8 Comments neutral pelvis STS Standing Exercise Name sit to stand Equipment Used dec chair use Reps/Minutes 10 Comments HEP reviewed for even weight SLS Side bilateral Equipment Used counter and mirror Comments for dec lat trunk lean and glute activation Other Exercises 1 Other Exercise Name quadruped hip ext Comments cues for dec pelvis motion; pods on pelvis Gait Training Gait Activity stairs Description stairs Comments cueing for wt shift and post dep/ant elevatioN & use of mirror & rail. 2in & 4 in 2 Description facilitated walking Comments ant elevation faciliation B Self-Care/Home Management Treatment Education Caregiver Education use of heat if knee is painful PT-OP-R Modalities Start: 03/06/18 16:11 Freq: Status: Active Protocol: Document 04/10/18 14:37 ML (Rec: 04/10/18 16:26 ML [email or web address]) Hot Pack/Cold Pack Treatment 1 Location Low back Treatment Duration (minutes) 15 Comments hot pack PT-OP-T Assessment and Plan Start: 03/06/18 16:32 Freq: Status: Active Protocol: Document 04/19/18 10:47 [facility] (Rec: 04/19/18 10:58 [facility] [email or web address]) Physical Therapy Assessment Goals 3 Impairment dec flexibility Short Term Goal (STG) Pt will be independent with HEP. STG Duration 04/06/18-achieved:progressing as tolerated [facility] Goal (LTG) Pt will improve flexibility and decrease hamstring cramps. LTG Duration 05/06/18 2 Impairment dec strength Parts Sales Representative Goal (LTG) Pt will have 5/5 strength for bilateral LE in order to maintain desired activities. LTG Duration 05/06/18-some improvement 1 Impairment pain w/activity [facility] Goal (LTG) Pt will report no pain with activity. LTG Duration 05/06/18-improving Assessment Summary Assessment Pt did well with gait pattern at start of session today with better weight shift into LLE. With further faciliation, pt was able to achieve improved gait. Pt able to go up 2 in step with good form and use of mirror and cueing. Has difficulty with 4 in step with timing of ant elevation & weight shift. Physical Therapy Plan Frequency and Duration Frequency of Treatment 2x/Week Duration of Treatment 2 months Plan of Care Start Date 02/24/18 Plan of Care End Date 04/26/18 Next Visit Focus/Plan Next Note Type Treatment Note Next Visit Plan Cont to work on gait, quad & glute strength to improve push off and weight shift into LLE - shuttle balance?
--- NOTE | 2018-04-23 10:33 | PT.OTN ---
Current Diagnoses Bilateral primary osteoarthritis of hip (04/23/18) Pain in left hip (04/23/18) Physical Therapy Treatment Note PT-OP-A Visit Information Start: 03/06/18 16:11 Freq: Status: Active Protocol: Document 04/23/18 09:59 [facility] (Rec: 04/23/18 10:32 [facility] [id number]) Out-Patient Physical Therapy Visit Information Visit Information Visit Type Treatment Note Visit Note 13 Visit Start Time 09:45 Visit Stop Time 10:25 Total Visit Minutes 40 Visit Number 4/10 Number of DRAWER IN STITCH BONDING MACHINE Visits 0 PT-OP-B Current Condition Start: 03/06/18 16:11 Freq: Status: Active Protocol: Document 03/06/18 16:13 ML (Rec: 03/06/18 16:32 ML [email or web address]) Current Condition History of Current Condition Onset Date 02/04/18 History of Current Condition Pt reports of post-lat pain above her L iliac crest starting insidiously about one month ago. After seeing her doctor and getting her x-ray, imaging concludes that she has L hip arthritis. Pt notices the pain intermittently, without any specific aggravating factors. She notices that she tends to get her pain after she is walking and feels fatigued, and finds releif with sitting momentarily. The pt has bilateral knee degeneration and arthritis, with L more severe than R, indicating that the L is now bone on bone but that she has no knee pain. The pt describes the pain as constant and uncomfrotable. The pt is very active, walking 2-3 miles per day with her friends and volunteering in many avenues. Treatment Goals Patient/Caregiver Goals The pt's goal include becoming stronger, increasing her flexibility, and continuing to walk daily with her friends and playing raquetball with her . PT-OP-C Subjective Start: 03/06/18 16:11 Freq: Status: Active Protocol: Document 04/23/18 09:59 [facility] (Rec: 04/23/18 10:31 [facility] [id number]) OP-PT Subjective Patient Comments Patient Comments Reports she felt like she was walking better today PT-OP-F Manual Assessment Start: 03/06/18 16:35 Freq: Status: Active Protocol: Document 03/06/18 16:13 ML (Rec: 03/06/18 16:56 ML [email or web address]) Manual Assessments Joint Mobility Assessment Joint Mobility Assessment L iliac crest more elevated than R PT-OP-K Range of Motion Start: 03/06/18 16:32 Freq: Status: Active Protocol: Document 04/13/18 09:07 ML (Rec: 04/13/18 09:55 ML [id number]) Hip Goniometric Range of Motion Hip ROM Limitations Comments R HS ~75 deg L HS ~ 65 deg PT-OP-M Strength Start: 03/06/18 16:11 Freq: Status: Active Protocol: Document 04/13/18 09:07 ML (Rec: 04/13/18 09:55 ML [id number]) Hip Strength Hip Manual Muscle Testing R Flexion (L2) 4 Good Extension (S1) 4 Good Abduction 5 Normal External Rotation 5 Normal Internal Rotation 5 Normal Comments cramping in HS on R L Flexion (L2) 4- Good- Extension (S1) 4+ Good+ Abduction 4+ Good+ External Rotation 4 Good Internal Rotation 4+ Good+ PT-OP-Q Treatments Start: 03/06/18 16:11 Freq: Status: Active Protocol: Document 04/23/18 09:59 [facility] (Rec: 04/23/18 10:31 [facility] [id number]) Therapeutic Exercises Standing Exercises side stepping Equipment Used yellow; bar Reps/Minutes 2x20ft Comments no resistance 1st lap SLS Side bilateral Equipment Used counter and mirror Comments for dec lat trunk lean and glute activation Gait Training Gait Activity stairs Description stairs Comments step up to 4 in step with mirror to focus on ant elevation of R during step up on L on 4 in step 2 Description facilitated walking Comments ant elevation faciliation B 1 Description walking w/focus on pelvis motion Comments w/verbalize and tactile cueing Manual Therapy Treatment Soft Tissue Mobilization 2 Body Location QL Mobilization Type Rolling Joint Mobilizations 3 Joint hip Direction on axis ER FM B Comments w/ neuro re edu into range after 2 Joint sacrum Direction UPA B FM w/LTR 1 Joint innominate Direction caudal Body Position Prone Comments active knee flex/ext & LTR PT-OP-R Modalities Start: 03/06/18 16:11 Freq: Status: Active Protocol: Document 04/10/18 14:37 ML (Rec: 04/10/18 16:26 ML [email or web address]) Hot Pack/Cold Pack Treatment 1 Location Low back Treatment Duration (minutes) 15 Comments hot pack PT-OP-T Assessment and Plan Start: 03/06/18 16:32 Freq: Status: Active Protocol: Document 04/23/18 09:59 [facility] (Rec: 04/23/18 10:31 [facility] [id number]) Physical Therapy Assessment Goals 3 Impairment dec flexibility Short Term Goal (STG) Pt will be independent with HEP. STG Duration 04/06/18-achieved:progressing as tolerated Detention Goal (LTG) Pt will improve flexibility and decrease hamstring cramps. LTG Duration 05/06/18 2 Impairment dec strength Auto Specialty Services Manager Goal (LTG) Pt will have 5/5 strength for bilateral LE in order to maintain desired activities. LTG Duration 05/06/18-some improvement 1 Impairment pain w/activity Detention Goal (LTG) Pt will report no pain with activity. LTG Duration 05/06/18-improving Assessment Summary Assessment Pt had difficulty with side stepping when fatiguing and required cueing for core engagement at end to prevent pain in LB. Pt improving with step ups onto 4 in step but had difficulty with maintaining fluid motion of step up especially after about 10 reps.Overall improving gait pattern Physical Therapy Plan Frequency and Duration Frequency of Treatment 2x/Week Duration of Treatment 2 months Plan of Care Start Date 02/24/18 Plan of Care End Date 04/26/18 Next Visit Focus/Plan Next Note Type Progress Note Next Visit Plan Review lunges, work on balance ; new POC
--- NOTE | 2018-04-26 11:41 | PT.OTN ---
Current Diagnoses Bilateral primary osteoarthritis of hip (04/26/18) Unilateral primary osteoarthritis, left knee (04/26/18) Pain in left hip (04/26/18) Difficulty in walking, not elsewhere classified (04/26/18) Abnormal posture (04/26/18) Weakness (04/26/18) Physical Therapy Treatment Note PT-OP-A Visit Information Start: 03/06/18 16:11 Freq: Status: Active Protocol: Document 04/26/18 09:46 [facility] (Rec: 04/26/18 10:09 [facility] [id number]) Out-Patient Physical Therapy Visit Information Visit Information Visit Type Treatment Note Visit Note 14 Visit Start Time 09:50 Visit Number 05/24 Number of CUSTOMER SERVICE COORDINATOR Visits 0 PT-OP-B Current Condition Start: 03/06/18 16:11 Freq: Status: Active Protocol: Document 03/06/18 16:13 ML (Rec: 03/06/18 16:32 ML [email or web address]) Current Condition History of Current Condition Onset Date 02/04/18 History of Current Condition Pt reports of post-lat pain above her L iliac crest starting insidiously about one month ago. After seeing her doctor and getting her x-ray, imaging concludes that she has L hip arthritis. Pt notices the pain intermittently, without any specific aggravating factors. She notices that she tends to get her pain after she is walking and feels fatigued, and finds releif with sitting momentarily. The pt has bilateral knee degeneration and arthritis, with L more severe than R, indicating that the L is now bone on bone but that she has no knee pain. The pt describes the pain as constant and uncomfrotable. The pt is very active, walking 2-3 miles per day with her friends and volunteering in many avenues. Treatment Goals Patient/Caregiver Goals The pt's goal include becoming stronger, increasing her flexibility, and continuing to walk daily with her friends and playing raquetball with her . PT-OP-C Subjective Start: 03/06/18 16:11 Freq: Status: Active Protocol: Document 04/26/18 09:46 [facility] (Rec: 04/26/18 10:09 [facility] [id number]) OP-PT Subjective Patient Comments Patient Comments Pt reports knee pain is up and down. OP-PT Pain Assessment Location Knee Pain Location Details L knee Description- Other feels like cannot put wt on it ; refers to back; discomfort & weak Other Pain Aggravating Factors extended time on your leg PT-OP-F Manual Assessment Start: 03/06/18 16:35 Freq: Status: Active Protocol: Document 03/06/18 16:13 ML (Rec: 03/06/18 16:56 ML [email or web address]) Manual Assessments Joint Mobility Assessment Joint Mobility Assessment L iliac crest more elevated than R PT-OP-K Range of Motion Start: 03/06/18 16:32 Freq: Status: Active Protocol: Document 04/26/18 09:46 [facility] (Rec: 04/26/18 11:40 [facility] [id number]) Knee Goniometric Range of Motion Knee Measured in Degrees Left Patient Position Supine Flexion Active (degrees) 111 Extension Active (degrees) 10 PT-OP-M Strength Start: 03/06/18 16:11 Freq: Status: Active Protocol: Document 04/26/18 09:46 [facility] (Rec: 04/26/18 10:09 [facility] [id number]) Hip Strength Hip Manual Muscle Testing R Flexion (L2) 5 Normal Extension (S1) 4- Good- Abduction 4+ Good+ External Rotation 4+ Good+ Internal Rotation 5 Normal L Flexion (L2) 5 Normal Extension (S1) 4- Good- Abduction 4 Good External Rotation 4 Good Internal Rotation 5 Normal Knee Strength Knee Manual Muscle Testing R Flexion (S2) 5 Normal Extension (L3) 5 Normal L Flexion (S2) 4+ Good+ Extension (L3) 4 Good Ankle/Foot Strength Ankle and Foot Manual Muscle Testing R Dorsiflexion (L4) 5 Normal Plantarflexion (S1) 5 Normal L Dorsiflexion (L4) 5 Normal Plantarflexion (S1) 5 Normal PT-OP-Q Treatments Start: 03/06/18 16:11 Freq: Status: Active Protocol: Document 04/26/18 09:46 [facility] (Rec: 04/26/18 10:09 [facility] [id number]) Therapeutic Exercises Standing Exercises lunge Standing Exercise Name lunge w/rail & mirror Side bilateral Reps/Minutes 10 Comments neutral pelvis Gait Training Gait Activity stairs Description stairs Comments step up to 4 in step with mirror to focus on ant elevation of R during step up on L on 4 in step Manual Therapy Treatment Soft Tissue Mobilization 1 Body Location ant knee Mobilization Type Myofascial Release Intensity/Depth Superficial Comments lat and ant plunger with DF/PF Joint Mobilizations patella Joint patella Direction sup, inf, med PT-OP-R Modalities Start: 03/06/18 16:11 Freq: Status: Active Protocol: Document 04/10/18 14:37 ML (Rec: 04/10/18 16:26 ML [email or web address]) Hot Pack/Cold Pack Treatment 1 Location Low back Treatment Duration (minutes) 15 Comments hot pack PT-OP-T Assessment and Plan Start: 03/06/18 16:32 Freq: Status: Active Protocol: Document 04/26/18 09:46 [facility] (Rec: 04/26/18 10:09 [email or web address] [id number]) Physical Therapy Assessment Impairments Impairments Activity Tolerance Balance Functional Activities Functional Mobility Gait Pain Posture ROM Soft Tissue Mobility Strength Goals stairs Correction Goal (LTG) Pt will be able to up/down stairs reciprocally with 1 rail without knee discomfort. LTG Duration 06/27/18 3 Impairment dec flexibility Short Term Goal (STG) Pt will be independent with HEP. STG Duration 04/06/18-achieved:progressing as tolerated Mill Platform Supervisor Goal (LTG) Pt will improve flexibility and decrease hamstring cramps. LTG Duration achieved 2 Impairment dec strength Correction Goal (LTG) Pt will have 5/5 strength for bilateral LE in order to maintain desired activities. LTG Duration 07/07/17-some improvement 1 Impairment pain w/activity Mill Platform Supervisor Goal (LTG) Pt will report no pain with activity. LTG Duration 05/06/18-improving (only when tired) Assessment Summary Assessment Pt is improving with LE strength, but does have LLE quad & glute weakness that makes stairs difficult for LLE and creates knee pain. Pt was able to do 4 in step 10x without pain today but unable to do 6 in step. She has limited ROM in L knee and limited soft tissue mobility. Physical Therapy Plan Frequency and Duration Frequency of Treatment 2x/Week Duration of Treatment 2 months Plan of Care Start Date 04/26/18 Plan of Care End Date 06/27/18 Therapeutic Interventions Therapeutic Interventions Aquatic Therapy Balance Training Gait Training Home Exercise Program Joint Mobilizations Manual Therapy Neuromuscular Re-education Soft Tissue Mobilization Taping Therapeutic Activities Therapeutic Exercises Modalities Cold Pack/Ice Massage Electric Stimulation Hot Packs Traction- Mechanical Ultrasound Next Visit Focus/Plan Next Note Type Treatment Note Next Visit Plan progress balance & stairs
--- NOTE | 2018-04-26 11:42 | PT.OPPOC ---
Current Diagnoses Bilateral primary osteoarthritis of hip (04/26/18) Unilateral primary osteoarthritis, left knee (04/26/18) Pain in left hip (04/26/18) Difficulty in walking, not elsewhere classified (04/26/18) Abnormal posture (04/26/18) Weakness (04/26/18) Provider Visit Care Team Role Provider Type Osbaldo Gil MD Family Provider Physician Specialty: [facility] Practice Address: [address] [place] [address], [id number] Email: Mani Tyson MD Attending Provider Physician Primary Care Provider Specialty: [facility] Practice Address: [address] [place] [address], [id number] Email: [email or web address] Plan Of Care PT-OP-T Assessment and Plan Start: 03/06/18 16:32 Freq: Status: Active Protocol: Document 04/26/18 09:46 [facility] (Rec: 04/26/18 10:09 [facility] [id number]) Physical Therapy Assessment Impairments Impairments Activity Tolerance Balance Functional Activities Functional Mobility Gait Pain Posture ROM Soft Tissue Mobility Strength Goals stairs Machine Cell Tuber Goal (LTG) Pt will be able to up/down stairs reciprocally with 1 rail without knee discomfort. LTG Duration 06/27/18 3 Impairment dec flexibility Short Term Goal (STG) Pt will be independent with HEP. STG Duration 04/06/18-achieved:progressing as tolerated Machine Cell Tuber Goal (LTG) Pt will improve flexibility and decrease hamstring cramps. LTG Duration achieved 2 Impairment dec strength Machine Cell Tuber Goal (LTG) Pt will have 5/5 strength for bilateral LE in order to maintain desired activities. LTG Duration 07/07/17-some improvement 1 Impairment pain w/activity Half-Way Goal (LTG) Pt will report no pain with activity. LTG Duration 05/06/18-improving (only when tired) Assessment Summary Assessment Pt is improving with LE strength, but does have LLE quad & glute weakness that makes stairs difficult for LLE and creates knee pain. Pt was able to do 4 in step 10x without pain today but unable to do 6 in step. She has limited ROM in L knee and limited soft tissue mobility. Physical Therapy Plan Frequency and Duration Frequency of Treatment 2x/Week Duration of Treatment 2 months Plan of Care Start Date 04/26/18 Plan of Care End Date 06/27/18 Therapeutic Interventions Therapeutic Interventions Aquatic Therapy Balance Training Gait Training Home Exercise Program Joint Mobilizations Manual Therapy Neuromuscular Re-education Soft Tissue Mobilization Taping Therapeutic Activities Therapeutic Exercises Modalities Cold Pack/Ice Massage Electric Stimulation Hot Packs Traction- Mechanical Ultrasound Next Visit Focus/Plan Next Note Type Treatment Note Next Visit Plan progress balance & stairs Plan of Care Dates Plan of Care Start Date 04/26/18 Plan of Care End Date 06/27/18 Please Sign and Return: I have reviewed this Plan of Care and certify that the skilled therapy services above are required to meet the patient?s needs. Physician Signature Date Printed Name and Credentials Clinical Instructor Signature Printed Name and Credentials
--- NOTE | 2018-04-30 15:11 | PT.OTN ---
Current Diagnoses Bilateral primary osteoarthritis of hip (04/30/18) Unilateral primary osteoarthritis, left knee (04/30/18) Pain in left hip (04/30/18) Physical Therapy Treatment Note PT-OP-A Visit Information Start: 03/06/18 16:11 Freq: Status: Active Protocol: Document 04/30/18 13:51 [facility] (Rec: 04/30/18 15:08 [facility] [id number]) Out-Patient Physical Therapy Visit Information Visit Information Visit Type Treatment Note Visit Note 15 Visit Start Time 13:50 Visit Stop Time 14:30 Total Visit Minutes 40 Visit Number 2/ Number of CERTIFIED TUMOR REGISTRAR Visits 0 PT-OP-B Current Condition Start: 03/06/18 16:11 Freq: Status: Active Protocol: Document 03/06/18 16:13 ML (Rec: 03/06/18 16:32 ML [email or web address]) Current Condition History of Current Condition Onset Date 02/04/18 History of Current Condition Pt reports of post-lat pain above her L iliac crest starting insidiously about one month ago. After seeing her doctor and getting her x-ray, imaging concludes that she has L hip arthritis. Pt notices the pain intermittently, without any specific aggravating factors. She notices that she tends to get her pain after she is walking and feels fatigued, and finds releif with sitting momentarily. The pt has bilateral knee degeneration and arthritis, with L more severe than R, indicating that the L is now bone on bone but that she has no knee pain. The pt describes the pain as constant and uncomfrotable. The pt is very active, walking 2-3 miles per day with her friends and volunteering in many avenues. Treatment Goals Patient/Caregiver Goals The pt's goal include becoming stronger, increasing her flexibility, and continuing to walk daily with her friends and playing raqueAppoetall with her . PT-OP-C Subjective Start: 03/06/18 16:11 Freq: Status: Active Protocol: Document 04/30/18 13:51 [facility] (Rec: 04/30/18 15:08 [facility] [id number]) OP-PT Subjective Patient Comments Patient Comments reports she has some back soreness after last session. Unsure why PT-OP-F Manual Assessment Start: 03/06/18 16:35 Freq: Status: Active Protocol: Document 03/06/18 16:13 ML (Rec: 03/06/18 16:56 ML [email or web address]) Manual Assessments Joint Mobility Assessment Joint Mobility Assessment L iliac crest more elevated than R PT-OP-K Range of Motion Start: 03/06/18 16:32 Freq: Status: Active Protocol: Document 04/26/18 09:46 [facility] (Rec: 04/26/18 11:40 [facility] [id number]) Knee Goniometric Range of Motion Knee Measured in Degrees Left Patient Position Supine Flexion Active (degrees) 111 Extension Active (degrees) 10 PT-OP-M Strength Start: 03/06/18 16:11 Freq: Status: Active Protocol: Document 04/26/18 09:46 [facility] (Rec: 04/26/18 10:09 [facility] [id number]) Hip Strength Hip Manual Muscle Testing R Flexion (L2) 5 Normal Extension (S1) 4- Good- Abduction 4+ Good+ External Rotation 4+ Good+ Internal Rotation 5 Normal L Flexion (L2) 5 Normal Extension (S1) 4- Good- Abduction 4 Good External Rotation 4 Good Internal Rotation 5 Normal Knee Strength Knee Manual Muscle Testing R Flexion (S2) 5 Normal Extension (L3) 5 Normal L Flexion (S2) 4+ Good+ Extension (L3) 4 Good Ankle/Foot Strength Ankle and Foot Manual Muscle Testing R Dorsiflexion (L4) 5 Normal Plantarflexion (S1) 5 Normal L Dorsiflexion (L4) 5 Normal Plantarflexion (S1) 5 Normal PT-OP-Q Treatments Start: 03/06/18 16:11 Freq: Status: Active Protocol: Document 04/30/18 13:51 [facility] (Rec: 04/30/18 15:08 [facility] [id number]) Gait Training Gait Activity SLS Description SLS in mirror with hip hiking 2 Description facilitated walking Comments ant elevation faciliation B 1 Description walking w/focus on pelvis motion Comments w/verbalize and tactile cueing Manual Therapy Treatment Soft Tissue Mobilization 2 Body Location quads and hip flexors Comments FM in og test Joint Mobilizations 2 Joint hip L Direction inf glide FM 1 Joint innominate Direction Flex L & ext B PT-OP-R Modalities Start: 03/06/18 16:11 Freq: Status: Active Protocol: Document 04/10/18 14:37 ML (Rec: 04/10/18 16:26 ML [email or web address]) Hot Pack/Cold Pack Treatment 1 Location Low back Treatment Duration (minutes) 15 Comments hot pack PT-OP-T Assessment and Plan Start: 03/06/18 16:32 Freq: Status: Active Protocol: Document 04/30/18 13:51 [facility] (Rec: 04/30/18 15:08 [facility] [id number]) Physical Therapy Assessment Goals stairs Steel Erector Apprentice Goal (LTG) Pt will be able to up/down stairs reciprocally with 1 rail without knee discomfort. LTG Duration 06/27/18 3 Impairment dec flexibility Short Term Goal (STG) Pt will be independent with HEP. STG Duration 04/06/18-achieved:progressing as tolerated Steel Erector Apprentice Goal (LTG) Pt will improve flexibility and decrease hamstring cramps. LTG Duration achieved 2 Impairment dec strength Steel Erector Apprentice Goal (LTG) Pt will have 5/5 strength for bilateral LE in order to maintain desired activities. LTG Duration 07/07/17-some improvement 1 Impairment pain w/activity Steel Erector Apprentice Goal (LTG) Pt will report no pain with activity. LTG Duration 05/06/18-improving (only when tired) Assessment Summary Assessment Pt had improved gait w/ cueing and mirror use.Improved hip ext w/manual rx. Physical Therapy Plan Frequency and Duration Frequency of Treatment 2x/Week Duration of Treatment 2 months Plan of Care Start Date 04/26/18 Plan of Care End Date 06/27/18 Next Visit Focus/Plan Next Note Type Treatment Note Next Visit Plan progress balance & stairs & work on hip abd strength
--- NOTE | 2018-05-02 09:51 | PT.OTN ---
Current Diagnoses Bilateral primary osteoarthritis of hip (05/02/18) Unilateral primary osteoarthritis, left knee (05/02/18) Pain in left hip (05/02/18) Physical Therapy Treatment Note PT-OP-A Visit Information Start: 03/06/18 16:11 Freq: Status: Active Protocol: Document 05/02/18 09:06 [facility] (Rec: 05/02/18 09:50 [facility] [id number]) Out-Patient Physical Therapy Visit Information Visit Information Visit Type Treatment Note Visit Note 16 Visit Start Time 09:00 Visit Stop Time 09:40 Total Visit Minutes 40 Visit Number 3/ Number of OPTOMETRY TEACHER Visits 0 PT-OP-B Current Condition Start: 03/06/18 16:11 Freq: Status: Active Protocol: Document 03/06/18 16:13 ML (Rec: 03/06/18 16:32 ML [email or web address]) Current Condition History of Current Condition Onset Date 02/04/18 History of Current Condition Pt reports of post-lat pain above her L iliac crest starting insidiously about one month ago. After seeing her doctor and getting her x-ray, imaging concludes that she has L hip arthritis. Pt notices the pain intermittently, without any specific aggravating factors. She notices that she tends to get her pain after she is walking and feels fatigued, and finds releif with sitting momentarily. The pt has bilateral knee degeneration and arthritis, with L more severe than R, indicating that the L is now bone on bone but that she has no knee pain. The pt describes the pain as constant and uncomfrotable. The pt is very active, walking 2-3 miles per day with her friends and volunteering in many avenues. Treatment Goals Patient/Caregiver Goals The pt's goal include becoming stronger, increasing her flexibility, and continuing to walk daily with her friends and playing raque800razors with her . PT-OP-C Subjective Start: 03/06/18 16:11 Freq: Status: Active Protocol: Document 05/02/18 09:06 [facility] (Rec: 05/02/18 09:50 [facility] [id number]) OP-PT Subjective Patient Comments Patient Comments Reports her knee was sore today when walking PT-OP-F Manual Assessment Start: 03/06/18 16:35 Freq: Status: Active Protocol: Document 03/06/18 16:13 ML (Rec: 03/06/18 16:56 ML [email or web address]) Manual Assessments Joint Mobility Assessment Joint Mobility Assessment L iliac crest more elevated than R PT-OP-K Range of Motion Start: 03/06/18 16:32 Freq: Status: Active Protocol: Document 04/26/18 09:46 [facility] (Rec: 04/26/18 11:40 [facility] [email or web address]) Knee Goniometric Range of Motion Knee Measured in Degrees Left Patient Position Supine Flexion Active (degrees) 111 Extension Active (degrees) 10 PT-OP-M Strength Start: 03/06/18 16:11 Freq: Status: Active Protocol: Document 04/26/18 09:46 [facility] (Rec: 04/26/18 10:09 [facility] [id number]) Hip Strength Hip Manual Muscle Testing R Flexion (L2) 5 Normal Extension (S1) 4- Good- Abduction 4+ Good+ External Rotation 4+ Good+ Internal Rotation 5 Normal L Flexion (L2) 5 Normal Extension (S1) 4- Good- Abduction 4 Good External Rotation 4 Good Internal Rotation 5 Normal Knee Strength Knee Manual Muscle Testing R Flexion (S2) 5 Normal Extension (L3) 5 Normal L Flexion (S2) 4+ Good+ Extension (L3) 4 Good Ankle/Foot Strength Ankle and Foot Manual Muscle Testing R Dorsiflexion (L4) 5 Normal Plantarflexion (S1) 5 Normal L Dorsiflexion (L4) 5 Normal Plantarflexion (S1) 5 Normal PT-OP-Q Treatments Start: 03/06/18 16:11 Freq: Status: Active Protocol: Document 05/02/18 09:06 [facility] (Rec: 05/02/18 09:50 [facility] [id number]) Therapeutic Exercises Standing Exercises TKE Standing Exercise Name TKE Resistance Lvl 3 Reps/Minutes 20 side stepping Equipment Used yellow; bar Reps/Minutes 20ft SLS Standing Exercise Name focus on quad activation Side bilateral Equipment Used counter and mirror Comments for dec lat trunk lean and glute activation Manual Therapy Treatment Soft Tissue Mobilization 1 Body Location ant knee Mobilization Type Myofascial Release Intensity/Depth Superficial Comments lat and ant plunger with DF/PF Joint Mobilizations patella Joint patella Direction sup, inf, med 3 Joint tibfemoral Direction AP, lat FM Neuro Re-Education Treatment Balance Activities tandem Details tandem stance PT-OP-R Modalities Start: 03/06/18 16:11 Freq: Status: Active Protocol: Document 04/10/18 14:37 ML (Rec: 04/10/18 16:26 ML [email or web address]) Hot Pack/Cold Pack Treatment 1 Location Low back Treatment Duration (minutes) 15 Comments hot pack PT-OP-T Assessment and Plan Start: 03/06/18 16:32 Freq: Status: Active Protocol: Document 05/02/18 09:06 [facility] (Rec: 05/02/18 09:50 [facility] [id number]) Physical Therapy Assessment Goals stairs Nematology Teacher Goal (LTG) Pt will be able to up/down stairs reciprocally with 1 rail without knee discomfort. LTG Duration 06/27/18 3 Impairment dec flexibility Short Term Goal (STG) Pt will be independent with HEP. STG Duration 04/06/18-achieved:progressing as tolerated Nematology Teacher Goal (LTG) Pt will improve flexibility and decrease hamstring cramps. LTG Duration achieved 2 Impairment dec strength Nematology Teacher Goal (LTG) Pt will have 5/5 strength for bilateral LE in order to maintain desired activities. LTG Duration 07/07/17-some improvement 1 Impairment pain w/activity Nematology Teacher Goal (LTG) Pt will report no pain with activity. LTG Duration 05/06/18-improving (only when tired) Assessment Summary Assessment Pt reports relief in knee after manual treatment. Pt cont to have difficulty with weigth accepting in neutral position on LLE. She had dec terminal ext quad activation and required manual cueing for facilitating in SLS Physical Therapy Plan Frequency and Duration Frequency of Treatment 2x/Week Duration of Treatment 2 months Plan of Care Start Date 04/26/18 Plan of Care End Date 06/27/18 Next Visit Focus/Plan Next Note Type Treatment Note Next Visit Plan Advance hip abd and try balance board
--- NOTE | 2018-05-09 13:06 | PT.OTN ---
Current Diagnoses Bilateral primary osteoarthritis of hip (05/09/18) Unilateral primary osteoarthritis, left knee (05/09/18) Pain in left hip (05/09/18) Physical Therapy Treatment Note PT-OP-A Visit Information Start: 03/06/18 16:11 Freq: Status: Active Protocol: Document 05/09/18 09:04 [facility] (Rec: 05/09/18 13:06 [facility] [id number]) Out-Patient Physical Therapy Visit Information Visit Information Visit Type Treatment Note Visit Note 17 Visit Start Time 09:00 Visit Stop Time 09:40 Total Visit Minutes 40 Visit Number 4/10 Number of CLEAN RICE GRADER AND REEL TENDER Visits 0 PT-OP-B Current Condition Start: 03/06/18 16:11 Freq: Status: Active Protocol: Document 03/06/18 16:13 ML (Rec: 03/06/18 16:32 ML [email or web address]) Current Condition History of Current Condition Onset Date 02/04/18 History of Current Condition Pt reports of post-lat pain above her L iliac crest starting insidiously about one month ago. After seeing her doctor and getting her x-ray, imaging concludes that she has L hip arthritis. Pt notices the pain intermittently, without any specific aggravating factors. She notices that she tends to get her pain after she is walking and feels fatigued, and finds releif with sitting momentarily. The pt has bilateral knee degeneration and arthritis, with L more severe than R, indicating that the L is now bone on bone but that she has no knee pain. The pt describes the pain as constant and uncomfrotable. The pt is very active, walking 2-3 miles per day with her friends and volunteering in many avenues. Treatment Goals Patient/Caregiver Goals The pt's goal include becoming stronger, increasing her flexibility, and continuing to walk daily with her friends and playing [employer]all with her . PT-OP-C Subjective Start: 03/06/18 16:11 Freq: Status: Active Protocol: Document 05/09/18 09:04 [facility] (Rec: 05/09/18 13:06 [facility] [id number]) OP-PT Subjective Patient Comments Patient Comments Pt reports she has done the new exercise once. PT-OP-F Manual Assessment Start: 03/06/18 16:35 Freq: Status: Active Protocol: Document 03/06/18 16:13 ML (Rec: 03/06/18 16:56 ML [email or web address]) Manual Assessments Joint Mobility Assessment Joint Mobility Assessment L iliac crest more elevated than R PT-OP-K Range of Motion Start: 03/06/18 16:32 Freq: Status: Active Protocol: Document 04/26/18 09:46 [facility] (Rec: 04/26/18 11:40 [facility] [id number]) Knee Goniometric Range of Motion Knee Measured in Degrees Left Patient Position Supine Flexion Active (degrees) 111 Extension Active (degrees) 10 PT-OP-M Strength Start: 03/06/18 16:11 Freq: Status: Active Protocol: Document 04/26/18 09:46 [facility] (Rec: 04/26/18 10:09 [facility] [id number]) Hip Strength Hip Manual Muscle Testing R Flexion (L2) 5 Normal Extension (S1) 4- Good- Abduction 4+ Good+ External Rotation 4+ Good+ Internal Rotation 5 Normal L Flexion (L2) 5 Normal Extension (S1) 4- Good- Abduction 4 Good External Rotation 4 Good Internal Rotation 5 Normal Knee Strength Knee Manual Muscle Testing R Flexion (S2) 5 Normal Extension (L3) 5 Normal L Flexion (S2) 4+ Good+ Extension (L3) 4 Good Ankle/Foot Strength Ankle and Foot Manual Muscle Testing R Dorsiflexion (L4) 5 Normal Plantarflexion (S1) 5 Normal L Dorsiflexion (L4) 5 Normal Plantarflexion (S1) 5 Normal PT-OP-Q Treatments Start: 03/06/18 16:11 Freq: Status: Active Protocol: Document 05/09/18 09:04 [facility] (Rec: 05/09/18 13:06 [facility] [id number]) Gym Equipment Shuttle Balance red clipds Details fwd & side Comments fwd: WBOS & NBOS & staggered stance; side WBOS & NBOS Therapeutic Exercises Standing Exercises TKE Standing Exercise Name TKE Resistance Lvl 3 Reps/Minutes 20 Manual Therapy Treatment Soft Tissue Mobilization 2 Body Location ITB Mobilization Type Myofascial Release Rolling 1 Body Location ant knee Mobilization Type Myofascial Release Intensity/Depth Superficial Comments lat and ant plunger with DF/PF Joint Mobilizations patella Joint patella Direction sup, inf, med 3 Joint tibfemoral Direction PA & AP on femur & tibia PT-OP-R Modalities Start: 03/06/18 16:11 Freq: Status: Active Protocol: Document 04/10/18 14:37 ML (Rec: 04/10/18 16:26 ML [email or web address]) Hot Pack/Cold Pack Treatment 1 Location Low back Treatment Duration (minutes) 15 Comments hot pack PT-OP-T Assessment and Plan Start: 03/06/18 16:32 Freq: Status: Active Protocol: Document 05/09/18 09:04 [facility] (Rec: 05/09/18 13:06 [facility] [id number]) Physical Therapy Assessment Goals stairs Nursing Home Goal (LTG) Pt will be able to up/down stairs reciprocally with 1 rail without knee discomfort. LTG Duration 06/27/18 3 Impairment dec flexibility Short Term Goal (STG) Pt will be independent with HEP. STG Duration 04/06/18-achieved:progressing as tolerated Professor Of Kinesiology Goal (LTG) Pt will improve flexibility and decrease hamstring cramps. LTG Duration achieved 2 Impairment dec strength Nursing Home Goal (LTG) Pt will have 5/5 strength for bilateral LE in order to maintain desired activities. LTG Duration 07/07/17-some improvement 1 Impairment pain w/activity Professor Of Kinesiology Goal (LTG) Pt will report no pain with activity. LTG Duration 05/06/18-improving (only when tired) Assessment Summary Assessment Pt improves ROM after treatment. Pt did have difficulty with balance board and was challengd most by side to side balance Physical Therapy Plan Frequency and Duration Frequency of Treatment 2x/Week Duration of Treatment 2 months Plan of Care Start Date 04/26/18 Plan of Care End Date 06/27/18 Next Visit Focus/Plan Next Note Type Treatment Note Next Visit Plan Cont to progress balance & hip abd and ext strength
--- NOTE | 2018-05-11 11:25 | PT.OTN ---
Current Diagnoses Bilateral primary osteoarthritis of hip (05/11/18) Unilateral primary osteoarthritis, left knee (05/11/18) Pain in left hip (05/11/18) Physical Therapy Treatment Note PT-OP-A Visit Information Start: 03/06/18 16:11 Freq: Status: Active Protocol: Document 05/11/18 09:00 [facility] (Rec: 05/11/18 11:25 [facility] [id number]) Out-Patient Physical Therapy Visit Information Visit Information Visit Type Treatment Note Visit Note 18 Visit Start Time 09:00 Visit Stop Time 09:40 Total Visit Minutes 40 Visit Number 5/10 Number of INSOLE STIFFENER Visits 0 PT-OP-B Current Condition Start: 03/06/18 16:11 Freq: Status: Active Protocol: Document 03/06/18 16:13 ML (Rec: 03/06/18 16:32 ML [email or web address]) Current Condition History of Current Condition Onset Date 02/04/18 History of Current Condition Pt reports of post-lat pain above her L iliac crest starting insidiously about one month ago. After seeing her doctor and getting her x-ray, imaging concludes that she has L hip arthritis. Pt notices the pain intermittently, without any specific aggravating factors. She notices that she tends to get her pain after she is walking and feels fatigued, and finds releif with sitting momentarily. The pt has bilateral knee degeneration and arthritis, with L more severe than R, indicating that the L is now bone on bone but that she has no knee pain. The pt describes the pain as constant and uncomfrotable. The pt is very active, walking 2-3 miles per day with her friends and volunteering in many avenues. Treatment Goals Patient/Caregiver Goals The pt's goal include becoming stronger, increasing her flexibility, and continuing to walk daily with her friends and playing [employer] with her . PT-OP-C Subjective Start: 03/06/18 16:11 Freq: Status: Active Protocol: Document 05/11/18 09:00 [facility] (Rec: 05/11/18 11:25 [facility] [id number]) OP-PT Subjective Patient Comments Patient Comments Knee felt looser afterst session PT-OP-F Manual Assessment Start: 03/06/18 16:35 Freq: Status: Active Protocol: Document 03/06/18 16:13 ML (Rec: 03/06/18 16:56 ML [email or web address]) Manual Assessments Joint Mobility Assessment Joint Mobility Assessment L iliac crest more elevated than R PT-OP-K Range of Motion Start: 03/06/18 16:32 Freq: Status: Active Protocol: Document 04/26/18 09:46 [facility] (Rec: 04/26/18 11:40 [facility] [email or web address]) Knee Goniometric Range of Motion Knee Measured in Degrees Left Patient Position Supine Flexion Active (degrees) 111 Extension Active (degrees) 10 PT-OP-M Strength Start: 03/06/18 16:11 Freq: Status: Active Protocol: Document 04/26/18 09:46 [facility] (Rec: 04/26/18 10:09 [facility] [id number]) Hip Strength Hip Manual Muscle Testing R Flexion (L2) 5 Normal Extension (S1) 4- Good- Abduction 4+ Good+ External Rotation 4+ Good+ Internal Rotation 5 Normal L Flexion (L2) 5 Normal Extension (S1) 4- Good- Abduction 4 Good External Rotation 4 Good Internal Rotation 5 Normal Knee Strength Knee Manual Muscle Testing R Flexion (S2) 5 Normal Extension (L3) 5 Normal L Flexion (S2) 4+ Good+ Extension (L3) 4 Good Ankle/Foot Strength Ankle and Foot Manual Muscle Testing R Dorsiflexion (L4) 5 Normal Plantarflexion (S1) 5 Normal L Dorsiflexion (L4) 5 Normal Plantarflexion (S1) 5 Normal PT-OP-Q Treatments Start: 03/06/18 16:11 Freq: Status: Active Protocol: Document 05/11/18 09:00 [facility] (Rec: 05/11/18 11:25 [facility] [id number]) Gym Equipment Shuttle Recovery unilat squat Details 25# Shuttle Recovery Platform Stable Reps/Time 30 Therapeutic Exercises Standing Exercises side stepping Equipment Used yellow; bar Reps/Minutes 20ft Comments 20ft w/o then 20ft w/ Gait Training Gait Activity SLS Description SLS in mirror with hip hiking stairs Description stairs Device Used rail Comments up 6 in steps reciprocally; down 4 in Manual Therapy Treatment Soft Tissue Mobilization 2 Body Location ITB Mobilization Type Myofascial Release Rolling Comments pluner & STM PT-OP-R Modalities Start: 03/06/18 16:11 Freq: Status: Active Protocol: Document 04/10/18 14:37 ML (Rec: 04/10/18 16:26 ML [email or web address]) Hot Pack/Cold Pack Treatment 1 Location Low back Treatment Duration (minutes) 15 Comments hot pack PT-OP-T Assessment and Plan Start: 03/06/18 16:32 Freq: Status: Active Protocol: Document 05/11/18 09:00 [facility] (Rec: 05/11/18 11:25 [facility] [id number]) Physical Therapy Assessment Goals stairs Elevated Guard Goal (LTG) Pt will be able to up/down stairs reciprocally with 1 rail without knee discomfort. LTG Duration 06/27/18 3 Impairment dec flexibility Short Term Goal (STG) Pt will be independent with HEP. STG Duration 04/06/18-achieved:progressing as tolerated Elevated Guard Goal (LTG) Pt will improve flexibility and decrease hamstring cramps. LTG Duration achieved 2 Impairment dec strength Detention Goal (LTG) Pt will have 5/5 strength for bilateral LE in order to maintain desired activities. LTG Duration 07/07/17-some improvement 1 Impairment pain w/activity Detention Goal (LTG) Pt will report no pain with activity. LTG Duration 05/06/18-improving (only when tired) Assessment Summary Assessment Pt reports feeling looser with improved gait after session. She was able to ascend 6 in step with good form and no pain. She had difficulty with decending steps likely d/t functional hip abd weakness. Physical Therapy Plan Frequency and Duration Frequency of Treatment 2x/Week Duration of Treatment 2 months Plan of Care Start Date 04/26/18 Plan of Care End Date 06/27/18 Next Visit Focus/Plan Next Note Type Treatment Note Next Visit Plan cont to work on hip stability
--- NOTE | 2018-05-22 14:29 | PT.OTN ---
Current Diagnoses Bilateral primary osteoarthritis of hip (05/22/18) Unilateral primary osteoarthritis, left knee (05/22/18) Pain in left hip (05/22/18) Physical Therapy Treatment Note PT-OP-A Visit Information Start: 03/06/18 16:11 Freq: Status: Active Protocol: Document 05/22/18 12:57 [facility] (Rec: 05/22/18 14:29 [facility] [id number]) Out-Patient Physical Therapy Visit Information Visit Information Visit Type Treatment Note Visit Note 1 visit 2019 Visit Start Time 13:00 Visit Stop Time 13:40 Total Visit Minutes 40 Visit Number 6/ Number of PICKING BELT OPERATOR Visits 0 PT-OP-B Current Condition Start: 03/06/18 16:11 Freq: Status: Active Protocol: Document 03/06/18 16:13 ML (Rec: 03/06/18 16:32 ML [email or web address]) Current Condition History of Current Condition Onset Date 02/04/18 History of Current Condition Pt reports of post-lat pain above her L iliac crest starting insidiously about one month ago. After seeing her doctor and getting her x-ray, imaging concludes that she has L hip arthritis. Pt notices the pain intermittently, without any specific aggravating factors. She notices that she tends to get her pain after she is walking and feels fatigued, and finds releif with sitting momentarily. The pt has bilateral knee degeneration and arthritis, with L more severe than R, indicating that the L is now bone on bone but that she has no knee pain. The pt describes the pain as constant and uncomfrotable. The pt is very active, walking 2-3 miles per day with her friends and volunteering in many avenues. Treatment Goals Patient/Caregiver Goals The pt's goal include becoming stronger, increasing her flexibility, and continuing to walk daily with her friends and playing [employer] with her . PT-OP-C Subjective Start: 03/06/18 16:11 Freq: Status: Active Protocol: Document 05/22/18 12:57 [facility] (Rec: 05/22/18 14:29 [facility] [id number]) OP-PT Subjective Patient Comments Patient Comments Pt reports she had one day that she felt like she didn't have to think about walking. No pain in hip/back recently and knee still gives her trouble occasionally. Notes clicking when going up/down the driveway but not painful PT-OP-F Manual Assessment Start: 03/06/18 16:35 Freq: Status: Active Protocol: Document 03/06/18 16:13 ML (Rec: 03/06/18 16:56 ML [email or web address]) Manual Assessments Joint Mobility Assessment Joint Mobility Assessment L iliac crest more elevated than R PT-OP-K Range of Motion Start: 03/06/18 16:32 Freq: Status: Active Protocol: Document 04/26/18 09:46 [facility] (Rec: 04/26/18 11:40 [facility] [id number]) Knee Goniometric Range of Motion Knee Measured in Degrees Left Patient Position Supine Flexion Active (degrees) 111 Extension Active (degrees) 10 PT-OP-M Strength Start: 03/06/18 16:11 Freq: Status: Active Protocol: Document 04/26/18 09:46 [facility] (Rec: 04/26/18 10:09 [facility] [id number]) Hip Strength Hip Manual Muscle Testing R Flexion (L2) 5 Normal Extension (S1) 4- Good- Abduction 4+ Good+ External Rotation 4+ Good+ Internal Rotation 5 Normal L Flexion (L2) 5 Normal Extension (S1) 4- Good- Abduction 4 Good External Rotation 4 Good Internal Rotation 5 Normal Knee Strength Knee Manual Muscle Testing R Flexion (S2) 5 Normal Extension (L3) 5 Normal L Flexion (S2) 4+ Good+ Extension (L3) 4 Good Ankle/Foot Strength Ankle and Foot Manual Muscle Testing R Dorsiflexion (L4) 5 Normal Plantarflexion (S1) 5 Normal L Dorsiflexion (L4) 5 Normal Plantarflexion (S1) 5 Normal PT-OP-Q Treatments Start: 03/06/18 16:11 Freq: Status: Active Protocol: Document 05/22/18 12:57 [facility] (Rec: 05/22/18 14:29 [facility] [id number]) Gym Equipment Shuttle Recovery unilat squat Details 25# Shuttle Recovery Platform Stable Reps/Time 30 Therapeutic Exercises Standing Exercises UE exercises for focus on core Standing Exercise Name biceps curls, tricep ext quad, row quad Reps/Minutes 10 each Comments focus on core control to avoid LBP SLS Standing Exercise Name progressed to hip hikes Side bilateral Equipment Used counter and mirror Comments for dec lat trunk lean and glute activation Gait Training Gait Activity stairs Description stairs Device Used rail Comments up 6 in steps reciprocally; down 4 in progressed to 6 in with 2 rails progressed to 2 rails. attempted 1 time with no rails Manual Therapy Treatment Soft Tissue Mobilization 2 Body Location QL Mobilization Type Myofascial Release Rolling Body Position Sidelying Neuro Re-Education Treatment Other Activities 1 Details post depression ant elevation COI PT-OP-R Modalities Start: 03/06/18 16:11 Freq: Status: Active Protocol: Document 04/10/18 14:37 ML (Rec: 04/10/18 16:26 ML [email or web address]) Hot Pack/Cold Pack Treatment 1 Location Low back Treatment Duration (minutes) 15 Comments hot pack PT-OP-T Assessment and Plan Start: 03/06/18 16:32 Freq: Status: Active Protocol: Document 05/22/18 12:57 [facility] (Rec: 05/22/18 14:29 [facility] [id number]) Physical Therapy Assessment Goals stairs International Accounting Manager Goal (LTG) Pt will be able to up/down stairs reciprocally with 1 rail without knee discomfort. LTG Duration 06/27/18 3 Impairment dec flexibility Short Term Goal (STG) Pt will be independent with HEP. STG Duration 04/06/18-achieved:progressing as tolerated International Accounting Manager Goal (LTG) Pt will improve flexibility and decrease hamstring cramps. LTG Duration achieved 2 Impairment dec strength Group Home Goal (LTG) Pt will have 5/5 strength for bilateral LE in order to maintain desired activities. LTG Duration 07/07/17-some improvement 1 Impairment pain w/activity Group Home Goal (LTG) Pt will report no pain with activity. LTG Duration 05/06/18-improving (only when tired) Assessment Summary Assessment Pt able to do weight exercises without LBP after manual work done. Pt was able to do reciprocally down 6 in step with R hand rail but not with left or no hand rail. Physical Therapy Plan Frequency and Duration Frequency of Treatment 2x/Week Duration of Treatment 2 months Plan of Care Start Date 04/26/18 Plan of Care End Date 06/27/18 Next Visit Focus/Plan Next Note Type Treatment Note Next Visit Plan cont to focus on functional deficits
--- NOTE | 2018-05-24 09:30 | PT.OTN ---
Current Diagnoses Bilateral primary osteoarthritis of hip (05/24/18) Unilateral primary osteoarthritis, left knee (05/24/18) Pain in left hip (05/24/18) Physical Therapy Treatment Note PT-OP-A Visit Information Start: 03/06/18 16:11 Freq: Status: Active Protocol: Document 05/24/18 08:15 [facility] (Rec: 05/24/18 09:03 [facility] [id number]) Out-Patient Physical Therapy Visit Information Visit Information Visit Type Treatment Note Visit Start Time 08:15 Visit Stop Time 08:55 Total Visit Minutes 40 Visit Number 7/ Number of BUILDINGS AND GROUNDS SUPERINTENDENT Visits 0 PT-OP-B Current Condition Start: 03/06/18 16:11 Freq: Status: Active Protocol: Document 03/06/18 16:13 ML (Rec: 03/06/18 16:32 ML [email or web address]) Current Condition History of Current Condition Onset Date 02/04/18 History of Current Condition Pt reports of post-lat pain above her L iliac crest starting insidiously about one month ago. After seeing her doctor and getting her x-ray, imaging concludes that she has L hip arthritis. Pt notices the pain intermittently, without any specific aggravating factors. She notices that she tends to get her pain after she is walking and feels fatigued, and finds releif with sitting momentarily. The pt has bilateral knee degeneration and arthritis, with L more severe than R, indicating that the L is now bone on bone but that she has no knee pain. The pt describes the pain as constant and uncomfrotable. The pt is very active, walking 2-3 miles per day with her friends and volunteering in many avenues. Treatment Goals Patient/Caregiver Goals The pt's goal include becoming stronger, increasing her flexibility, and continuing to walk daily with her friends and playing [employer] with her . PT-OP-C Subjective Start: 03/06/18 16:11 Freq: Status: Active Protocol: Document 05/24/18 08:15 [facility] (Rec: 05/24/18 09:03 [facility] [id number]) OP-PT Subjective Patient Comments Patient Comments Pt reports having back soreness yesterday AM. PT-OP-F Manual Assessment Start: 03/06/18 16:35 Freq: Status: Active Protocol: Document 03/06/18 16:13 ML (Rec: 03/06/18 16:56 ML [email or web address]) Manual Assessments Joint Mobility Assessment Joint Mobility Assessment L iliac crest more elevated than R PT-OP-K Range of Motion Start: 03/06/18 16:32 Freq: Status: Active Protocol: Document 04/26/18 09:46 [facility] (Rec: 04/26/18 11:40 [facility] [email or web address]) Knee Goniometric Range of Motion Knee Measured in Degrees Left Patient Position Supine Flexion Active (degrees) 111 Extension Active (degrees) 10 PT-OP-M Strength Start: 03/06/18 16:11 Freq: Status: Active Protocol: Document 04/26/18 09:46 [facility] (Rec: 04/26/18 10:09 [facility] [id number]) Hip Strength Hip Manual Muscle Testing R Flexion (L2) 5 Normal Extension (S1) 4- Good- Abduction 4+ Good+ External Rotation 4+ Good+ Internal Rotation 5 Normal L Flexion (L2) 5 Normal Extension (S1) 4- Good- Abduction 4 Good External Rotation 4 Good Internal Rotation 5 Normal Knee Strength Knee Manual Muscle Testing R Flexion (S2) 5 Normal Extension (L3) 5 Normal L Flexion (S2) 4+ Good+ Extension (L3) 4 Good Ankle/Foot Strength Ankle and Foot Manual Muscle Testing R Dorsiflexion (L4) 5 Normal Plantarflexion (S1) 5 Normal L Dorsiflexion (L4) 5 Normal Plantarflexion (S1) 5 Normal PT-OP-Q Treatments Start: 03/06/18 16:11 Freq: Status: Active Protocol: Document 05/24/18 08:15 [facility] (Rec: 05/24/18 09:30 [facility] [email or web address]) Gym Equipment Cable Column (Body Solid) Rows Details focus on core engagment & neutral posture Resistance 2 Reps/Time 20 Lat Pull Down Details focus on core engagment & neutral posture Resistance 3 Reps/Time 20 Shuttle Balance red clipds Details fwd & side Comments fwd: WBOS & NBOS & staggered stance; side WBOS & NBOS Therapeutic Exercises Standing Exercises wall posture Standing Exercise Name wall roll up with 90/90 ER Reps/Minutes 10 1 Standing Exercise Name squat Reps/Minutes 15 Comments full squat to chair Therapeutic Activity Therapeutic Activity neutral spine Comments discussion of keeping neutral spine w/home gym exercises lifting Name lifting Comments edu on lifting technique from ground Gait Training Gait Activity stairs Description stairs Device Used rail Comments up 6 in steps reciprocally; down 6 in with 1 rail w/min UE support x4 reps 1 Description 8 in step ups & down Distance/Duration 5x Comments reciprocal on 2 steps with rail prn PT-OP-R Modalities Start: 03/06/18 16:11 Freq: Status: Active Protocol: Document 04/10/18 14:37 ML (Rec: 04/10/18 16:26 ML [email or web address]) Hot Pack/Cold Pack Treatment 1 Location Low back Treatment Duration (minutes) 15 Comments hot pack PT-OP-T Assessment and Plan Start: 03/06/18 16:32 Freq: Status: Active Protocol: Document 05/24/18 08:15 [facility] (Rec: 05/24/18 09:30 [facility] [email or web address]) Physical Therapy Assessment Goals stairs Snf Goal (LTG) Pt will be able to up/down stairs reciprocally with 1 rail without knee discomfort. LTG Duration 06/27/18 2 Impairment dec strength Cutter Operator Tile Goal (LTG) Pt will have 5/5 strength for bilateral LE in order to maintain desired activities. LTG Duration 07/07/17-some improvement 1 Impairment pain w/activity Cutter Operator Tile Goal (LTG) Pt will report no pain with activity. LTG Duration 05/06/18-improving (only when tired) Assessment Summary Assessment Pt able to do two 8 in stairs with rail reciprocally with min pain. Pt is improving with stair ability, but still does have some core, quad and glute weakness that limits her . Pain is dec in activities with knee when cued to activate core. Physical Therapy Plan Frequency and Duration Frequency of Treatment 2x/Week Duration of Treatment 2 months Plan of Care Start Date 04/26/18 Plan of Care End Date 06/27/18 Next Visit Focus/Plan Next Note Type Treatment Note Next Visit Plan Work on stairs, home exercise program & lifting/functional activity training
--- NOTE | 2018-05-29 16:27 | PT.OTN ---
Current Diagnoses Bilateral primary osteoarthritis of hip (05/29/18) Unilateral primary osteoarthritis, left knee (05/29/18) Pain in left hip (05/29/18) Physical Therapy Treatment Note PT-OP-A Visit Information Start: 03/06/18 16:11 Freq: Status: Active Protocol: Document 05/24/18 08:15 [facility] (Rec: 05/24/18 09:03 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 After seeing her doctor and getting her x-ray, imaging concludes that she has L hip arthritis. Pt notices the pain intermittently, without any specific aggravating factors. She notices that she tends to get her pain after she is walking and feels fatigued, and finds releif with sitting momentarily. The pt has bilateral knee degeneration and arthritis, with L more severe than R, indicating that the L is now bone on bone but that she has no knee pain. The pt describes the pain as constant and uncomfrotable. The pt is very active, walking 2-3 miles per day with her friends and volunteering in many avenues. Treatment Goals Patient/Caregiver Goals The pt's goal include becoming stronger, increasing her flexibility, and continuing to walk daily with her friends and playing [employer] with her . PT-OP-C Subjective Start: 03/06/18 16:11 Freq: Status: Active Protocol: Document 05/24/18 08:15 [facility] (Rec: 05/24/18 09:03 [facility] [id number]) OP-PT Subjective Patient Comments Patient Comments Pt reports having back soreness yesterday AM. PT-OP-F Manual Assessment Start: 03/06/18 16:35 Freq: Status: Active Protocol: Document 03/06/18 16:13 ML (Rec: 03/06/18 16:56 ML [email or web address]) Manual Assessments Joint Mobility Assessment Joint Mobility Assessment L iliac crest more elevated than R PT-OP-K Range of Motion Start: 03/06/18 16:32 Freq: Status: Active Protocol: Document 04/26/18 09:46 [facility] (Rec: 04/26/18 11:40 [facility] [email or web address]) Knee Goniometric Range of Motion Knee Measured in Degrees Left Patient Position Supine Flexion Active (degrees) 111 Extension Active (degrees) 10 PT-OP-M Strength Start: 03/06/18 16:11 Freq: Status: Active Protocol: Document 05/29/18 13:53 [facility] (Rec: 05/29/18 14:33 [facility] [id number]) Hip Strength Hip Manual Muscle Testing R Flexion (L2) 5 Normal Extension (S1) 4 Good Abduction 4+ Good+ External Rotation 5 Normal Internal Rotation 5 Normal L Flexion (L2) 5 Normal Extension (S1) 4 Good Abduction 4+ Good+ External Rotation 4+ Good+ Internal Rotation 5 Normal Knee Strength Knee Manual Muscle Testing R Flexion (S2) 5 Normal Extension (L3) 5 Normal L Flexion (S2) 5 Normal Extension (L3) 5 Normal PT-OP-Q Treatments Start: 03/06/18 16:11 Freq: Status: Active Protocol: Document 05/29/18 13:53 [facility] (Rec: 05/29/18 14:33 [facility] [id number]) Therapeutic Exercises Sidelying Exercises clamshells Sidelying Exercise Name clamshells Side bilateral Reps/Minutes 10 Standing Exercises wall posture Standing Exercise Name wall roll up with 90/90 ER Reps/Minutes 10 TKE Standing Exercise Name TKE Equipment Used lvl 3 progress to Lvl 4 SLS Standing Exercise Name progressed to hip hikes Side bilateral Equipment Used counter and mirror Comments for dec lat trunk lean and glute activation 1 Standing Exercise Name squat progressed to hip abd band & band under feet Reps/Minutes 15 Comments full squat to chair Other Exercises 3 Other Exercise Name cat/camel 2 Other Exercise Name quad hip ext progressed to bird dog 1 Other Exercise Name forearm knee fplank Manual Therapy Treatment Soft Tissue Mobilization 1 Body Location QL Mobilization Type Rolling Self-Care/Home Management Treatment Activities Self-Care/Home Management Activities Review of HEP:squats, SLS, hip ext in quadruped, cat/camel, bridge, TKE, clamshell Added: single leg abdominal press, plank PT-OP-R Modalities Start: 03/06/18 16:11 Freq: Status: Active Protocol: Document 04/10/18 14:37 ML (Rec: 04/10/18 16:26 ML [email or web address]) Hot Pack/Cold Pack Treatment 1 Location Low back Treatment Duration (minutes) 15 Comments hot pack PT-OP-T Assessment and Plan Start: 03/06/18 16:32 Freq: Status: Active Protocol: Document 05/29/18 13:53 [facility] (Rec: 05/29/18 14:33 [facility] [id number]) Physical Therapy Assessment Goals stairs Coremaking Supervisor Goal (LTG) Pt will be able to up/down stairs reciprocally with 1 rail without knee discomfort. LTG Duration achieved 2 Impairment dec strength Coremaking Supervisor Goal (LTG) Pt will have 5/5 strength for bilateral LE in order to maintain desired activities. LTG Duration 07/07/17-min limits 1 Impairment pain w/activity Fdc Goal (LTG) Pt will report no pain with activity. LTG Duration achieved Assessment Summary Assessment Pt has made excellent progress with PT and is able to now do stairs reciprocally and is able to complete HEP without pain. She is reporting no back /hip pain recently and that her knee is overall feeling stronger. Pt to cont HEP on her own to progress strength & balance. Physical Therapy Plan Discharge Physical Therapy Discharge Reasons Goals Met
== END 2018-05-29 14:17 ==
LOC: PHYS 13:45
PROVIDERS: Family Provider Family Medicine; PCP Family Medicine; Visit Provider Family Medicine
DX: M25.552 Pain in left hip (principal); M16.0 Bilateral primary osteoarthritis of hip; M17.12 Unilateral primary osteoarthritis, left knee
CPT/HCPCS: 97110; 97112; 97116; 97140; 97161; 97530; 97535

== ENCOUNTER → 2018-10-29 18:28 | Outpatient (CLI) | payer MEDICARE, OTHER, SELFPAY ==
--- NOTE | 2018-10-29 18:32 | DI.MRI.S_ITS ---
PROCEDURE: MR HIP RT WO CON INDICATIONS: Hip bone sclerosis concerning for osteonecrosis TECHNIQUE: Noncontrast coronal T1 spin echo and STIR through the bony pelvis. Coronal and axial T2 fast spin echo with fat saturation, sagittal T1 spin echo, and oblique axial T2 fast spin echo with fat saturation through the hip. COMPARISON: None. FINDINGS: Image quality: Excellent. Bones and joints: There is moderate right hip degeneration, with subchondral cystic change spurring and sclerosis. No intraosseous lesions or fractures. No evidence of avascular necrosis of the femoral heads. Lower lumbar spondylosis. Tendons and ligaments: High-grade partial tear of the right gluteus medius, potentially at the musculotendinous junction. There are minimal intact fibers seen at the insertion. The nearby proximal iliotibial band also appears intact. The iliopsoas tendon appears intact, without adjacent bursal fluid collections or evidence for impingement syndrome. Right hamstring origin tendinopathy thickening and edema is seen although technically age-indeterminate The straight and reflected heads of the rectus femoris muscle origin appear intact, as well as the conjoint tendon. The ligamentum teres appears intact where visualized. Labrum and cartilage: Poorly defined anterosuperior labral tear is seen, probably chronic. The alpha angle of the femur is within normal limits at less than 55 degrees. Soft tissues: Quadratus femoris muscle demonstrates no internal edema to suggest ischiofemoral impingement. The proximal sciatic neurovascular bundle appears normal adjacent to the hamstring tendons. No free pelvic fluid. Bladder wall thickness is normal. Genitourinary structures and bowel loops appear normal where visualized. IMPRESSION: High-grade right gluteus medius tendinopathy/partial tear as detailed above. Right hamstring origin tendinopathy and thickening, technically age-indeterminate. Poorly defined probably chronic anterosuperior labral tear. No evidence of avascular necrosis. Dictated by: Pj Godinez M.D. on 10/30/2018 at 11:36 Approved by: Pj Godinez M.D. on 10/30/2018 at 12:47
--- NOTE | 2018-10-29 18:32 | DI.MRI.S_ITS ---
PROCEDURE: MR HIP LT WO CON INDICATIONS: Hip bone sclerosis concerning for osteonecrosis TECHNIQUE: Noncontrast coronal T1 spin echo and STIR through the bony pelvis. Coronal and axial T2 fast spin echo with fat saturation, sagittal T1 spin echo, and oblique axial T2 fast spin echo with fat saturation through the hip. COMPARISON: [facility], RG, XR PELVIS WITH LATERAL HIP, 05/28/2003, 10:34. [facility], CR, XR HIP W PEL IF DONE LT 2V, 02/28/2018, 15:37. FINDINGS: Image quality: Excellent. Bones and joints: Bilateral hip degeneration, moderate to severe on the right and mild on the left. Scattered degenerative subchondral sclerosis and spurring. No intraosseous lesions or fractures. No definite marrow signal changes to suggest avascular necrosis of the femoral heads, or to correspond to the radiographic appearance with prior study from 02/28/18. Lower lumbar spondylosis. Tendons and ligaments: On large [id number] pulse sequences, there is edema within the right gluteus medius muscle, and associated right gluteus medius tendinopathy/partial tear. The left hip abductors appear grossly intact and unremarkable. The nearby proximal iliotibial band also appears intact. The iliopsoas tendon appears intact, without adjacent bursal fluid collections or evidence for impingement syndrome. There is minimal left hamstring origin tendinopathy. The straight and reflected heads of the rectus femoris muscle origin appear intact, as well as the conjoint tendon. The ligamentum teres appears intact where visualized. Labrum and cartilage: Circumferential fraying of the acetabular labrum could be better evaluated with dedicated MR arthrography if clinically warranted. Possible 3 mm posterior paralabral cyst on image 15 series 5. The alpha angle of the femur is within normal limits at less than 55 degrees. Soft tissues: Quadratus femoris muscle demonstrates no internal edema to suggest ischiofemoral impingement. The proximal sciatic neurovascular bundle appears normal adjacent to the hamstring tendons. No free pelvic fluid. Bladder wall thickness is normal. Genitourinary structures and bowel loops appear normal where visualized. IMPRESSION: No definite marrow signal changes to suggest left femoral head osteonecrosis. The radiographic appearance may represent incidental/degenerative sclerosis versus small bone island. Incidentally noted right gluteus medius muscle edema/strain and insertional tendinopathy. Bilateral hip degeneration, right greater than left. Circumferential ill-defined labral fraying probably chronic degeneration. Dictated by: Pj Godinez M.D. on 10/30/2018 at 10:52 Approved by: Pj Godinez M.D. on 10/30/2018 at 11:03
== END ==
PROVIDERS: PCP Family Medicine; Visit Provider Family Medicine
DX: M87.9 Osteonecrosis, unspecified (principal); M16.0 Bilateral primary osteoarthritis of hip; S76.311A Strain of muscle, fascia and tendon of the posterior muscle group at thigh level, right thigh, initial encounter
CPT/HCPCS: 73721

== ENCOUNTER 2018-11-13 08:54 | Outpatient (RCR) | payer MEDICARE, OTHER, SELFPAY ==
--- NOTE | 2018-11-13 12:15 | PT.OIE ---
Current Diagnoses Pain in right hip (11/13/18) Pain in left hip (11/13/18) Pain in left knee (11/13/18) Other abnormalities of gait and mobility (11/13/18) Weakness (11/13/18) Past Medical History (Last Reviewed 02/28/18 @ 15:06 by Morelia Mckeon LPN) Childers's palsy (Chronic) Chronic cough (Chronic) Colon polyps (Chronic) Hyperlipidemia (Chronic) Osteoarthritis (Chronic) Past Surgical History (Last Reviewed 02/28/18 @ 15:06 by Morelia Mckeon LPN) History of meniscectomy of left knee (Resolved ~2003) History of meniscectomy of right knee (Resolved ~2011) History of surgery (Resolved ~2012) Skin cancer (Resolved ~2006) Status post appendectomy Provider Visit Care Team Role Provider Type Mani Tyson MD Attending Provider Physician Primary Care Provider Specialty: [facility] Address: [address] [place] [address] Email: [email or web address] Physical Therapy Initial Evaluation PT-OP-A Visit Information Start: 11/12/18 18:59 Freq: Status: Active Protocol: Document 11/13/18 09:06 [facility] (Rec: 11/13/18 09:58 [facility] [id number]) Out-Patient Physical Therapy Visit Information Visit Information Visit Type Initial Evaluation PT-OP-B Current Condition Start: 11/12/18 18:59 Freq: Status: Active Protocol: Document 11/13/18 09:06 [facility] (Rec: 11/13/18 09:58 [facility] [id number]) Current Condition History of Current Condition Onset Date 2 months ago Current Complaints R lat hip pain History of Current Condition Pt reports she was doing stairs when traveling on September 29 and couldn't bear weight into R hip. Pt reports it lasted 3 days then got better and the 2nd time was about 2-3 weeks ago and it lasted only a few days where she cannot put weight on it. Pt reprots MRI said hip tendinitis. L knee has been giving her trouble. Pt has not been consistant with prior exercises from PT but does walk daily. Prior Treatments and Tests PT & MRI Treatment Goals Patient/Caregiver Goals stairs and avoid painful instances again, getting stronger PT-OP-C Subjective Start: 11/12/18 18:59 Freq: Status: Active Protocol: Document 11/13/18 09:06 [facility] (Rec: 11/13/18 09:58 [facility] [id number]) OP-PT Pain Assessment Location R hip Pain Location Details lat Intensity 5 Scale Used Numeric (1 - 10) Frequency Intermittent Other Pain Aggravating Factors going up a step intermittently Pain Alleviating Factors Cold PT-OP-D Balance Start: 11/12/18 18:59 Freq: Status: Active Protocol: Document 11/13/18 09:06 [facility] (Rec: 11/13/18 09:58 [facility] [id number]) Balance Tests Single Limb Standing Single Limb- Right >30 sec Single Limb- Left 20 sec Tandem Tandem Standing >30 sec B PT-OP-F Manual Assessment Start: 11/12/18 18:59 Freq: Status: Active Protocol: Document 11/13/18 09:06 [facility] (Rec: 11/13/18 09:58 [facility] [id number]) Manual Assessments Joint Mobility Assessment Joint Mobility Assessment L iliac crest higher than R; equal greater trochanters PT-OP-G Mobility & Gait Start: 11/12/18 18:59 Freq: Status: Active Protocol: Document 11/13/18 09:06 [facility] (Rec: 11/13/18 09:58 [facility] [id number]) OP Gait Assessment Comments Gait Comments Pt amb with R lean and dec overall push off B. Primarily propells with legs PT-OP-J Posture/Palpation/Skin Start: 11/12/18 18:59 Freq: Status: Active Protocol: Document 11/13/18 09:06 [facility] (Rec: 11/13/18 09:58 [facility] [id number]) Posture Evaluation Tanya Postural Classification System Tanya Postural Classifications Vertical/Posterior Vertebral Compression Test 5 Elbow Flexion Test 4 Lumbar Protective Mechanism Left AP 1 Lumbar Protective Mechanism Right AP 1 Lumbar Protective Mechanism Left PA 0 Lumbar Protective Mechanism Right PA 1 Leg Swing Left Hard End Feel Leg Swing Right Hard End Feel PT-OP-K Range of Motion Start: 11/12/18 18:59 Freq: Status: Active Protocol: Document 11/13/18 09:06 [facility] (Rec: 11/13/18 09:58 [facility] [id number]) Hip Goniometric Range of Motion Hip Right Active Flexion w/Knee Flexed 112 Straight Leg Raise 70 Abduction 24 Internal Rotation 21 External Rotation 20 Left Active Flexion w/Knee Flexed 100 Straight Leg Raise 75 Abduction 20 Internal Rotation 14 External Rotation 24 Hip ROM Limitations Comments mild tightness of RF & iliopsoas w/og test PT-OP-M Strength Start: 11/12/18 18:59 Freq: Status: Active Protocol: Document 11/13/18 09:06 [facility] (Rec: 11/13/18 09:58 [facility] [id number]) Hip Strength Hip Manual Muscle Testing Left Flexion (L2) 4+ Good+ Extension (S1) 3+ Fair+ Abduction 4- Good- Adduction 5 Normal External Rotation 4 Good Internal Rotation 5 Normal R Flexion (L2) 4+ Good+ Extension (S1) 3+ Fair+ Abduction 4- Good- Adduction 5 Normal External Rotation 4 Good Internal Rotation 5 Normal Knee Strength Knee Manual Muscle Testing Right Flexion (S2) 5 Normal Extension (L3) 5 Normal Left Flexion (S2) 4+ Good+ Extension (L3) 4+ Good+ Ankle/Foot Strength Ankle and Foot Manual Muscle Testing Right Dorsiflexion (L4) 5 Normal Plantarflexion (S1) 5 Normal Left Dorsiflexion (L4) 5 Normal Plantarflexion (S1) 5 Normal PT-OP-Q Treatments Start: 11/12/18 18:59 Freq: Status: Active Protocol: Document 11/13/18 09:06 [facility] (Rec: 11/13/18 12:15 [facility] [id number]) Therapeutic Exercises Prone Exercises hip ext Prone Exercise Name alt Side bilateral Reps/Minutes 12 Sidelying Exercises hip abd Side bilateral Reps/Minutes 10 clamshells Side right Equipment Used L1 Reps/Minutes 15 PT-OP-T Assessment and Plan Start: 11/12/18 18:59 Freq: Status: Active Protocol: Document 11/13/18 09:06 [facility] (Rec: 11/13/18 12:15 [facility] [id number]) Physical Therapy Assessment Rehab Potential Rehabilitation Potential Excellent Evaluation Complexity Number of Personal Factors/Comorbidities 3 or More Number of Body Systems Impaired 4 or More Clinical Presentation at Evaluation Stable Impairments Impairments Activity Tolerance Functional Activities Functional Mobility Gait Pain Posture ROM Soft Tissue Mobility Strength Goals stairs Short Term Goal (STG) Pt will be up to go up/down stairs reciprocally with rail STG Duration 12/14/18 Thread Laster Goal (LTG) Pt will be able to go up/down stairs reciprocally without pain without a rail. LTG Duration 01/14/19 2 Short Term Goal (STG) Pt will be indep with HEP STG Duration 12/14/18 Penitentiary Goal (LTG) Pt will have 5/5 B LE strength &LPM to demonstrate improved core stability and strength in order to cont her active lifestyle without fear of pain . LTG Duration 01/14/19 1 Penitentiary Goal (LTG) Pt will amb with good gait mechanics without pain. LTG Duration 01/14/19 Assessment Summary Assessment Pt presents with intermittent R hip pain that causes her significant enough discomfort that she cannot WB. Pt has L knee pain that is chronic d/t significant arthritis. She has dec strenght in LE & core, dec L sided balance and impaired gait mechanics and would bneefit from PT to address these concerns. Physical Therapy Plan Frequency and Duration Frequency of Treatment 1-2x/week Duration of Treatment 2 months Plan of Care Start Date 11/13/18 Plan of Care End Date 01/14/19 Therapeutic Interventions Therapeutic Interventions Aquatic Therapy Balance Training Gait Training Home Exercise Program Joint Mobilizations Manual Therapy Neuromuscular Re-education Patient/Caregiver Education Self-Care/Home Management Soft Tissue Mobilization Taping Therapeutic Activities Therapeutic Exercises Next Visit Focus/Plan Next Note Type Treatment Note Next Visit Plan flexibility of LE, joint mobs of hip & pelvis
--- NOTE | 2018-11-13 12:16 | PT.OPPOC ---
Current Diagnoses Pain in right hip (11/13/18) Pain in left hip (11/13/18) Pain in left knee (11/13/18) Other abnormalities of gait and mobility (11/13/18) Weakness (11/13/18) Provider Visit Care Team Role Provider Type Mani Tyson MD Attending Provider Physician Primary Care Provider Specialty: Family Practice Address: [address] [place] [address], [facility] Email: [email or web address] Plan Of Care PT-OP-T Assessment and Plan Start: 11/12/18 18:59 Freq: Status: Active Protocol: Document 11/13/18 09:06 [facility] (Rec: 11/13/18 12:15 [facility] [id number]) Physical Therapy Assessment Rehab Potential Rehabilitation Potential Excellent Evaluation Complexity Number of Personal Factors/Comorbidities 3 or More Number of Body Systems Impaired 4 or More Clinical Presentation at Evaluation Stable Impairments Impairments Activity Tolerance Functional Activities Functional Mobility Gait Pain Posture ROM Soft Tissue Mobility Strength Goals stairs Short Term Goal (STG) Pt will be up to go up/down stairs reciprocally with rail STG Duration 12/14/18 Skilled Nursing Goal (LTG) Pt will be able to go up/down stairs reciprocally without pain without a rail. LTG Duration 01/14/19 2 Short Term Goal (STG) Pt will be indep with HEP STG Duration 12/14/18 Skilled Nursing Goal (LTG) Pt will have 5/5 B LE strength &LPM to demonstrate improved core stability and strength in order to cont her active lifestyle without fear of pain . LTG Duration 01/14/19 1 Re Dye Hand Goal (LTG) Pt will amb with good gait mechanics without pain. LTG Duration 01/14/19 Assessment Summary Assessment Pt presents with intermittent R hip pain that causes her significant enough discomfort that she cannot WB. Pt has L knee pain that is chronic d/t significant arthritis. She has dec strenght in LE & core, dec L sided balance and impaired gait mechanics and would bneefit from PT to address these concerns. Physical Therapy Plan Frequency and Duration Frequency of Treatment 1-2x/week Duration of Treatment 2 months Plan of Care Start Date 11/13/18 Plan of Care End Date 01/14/19 Therapeutic Interventions Therapeutic Interventions Aquatic Therapy Balance Training Gait Training Home Exercise Program Joint Mobilizations Manual Therapy Neuromuscular Re-education Patient/Caregiver Education Self-Care/Home Management Soft Tissue Mobilization Taping Therapeutic Activities Therapeutic Exercises Next Visit Focus/Plan Next Note Type Treatment Note Next Visit Plan flexibility of LE, joint mobs of hip & pelvis Plan of Care Dates Plan of Care Start Date 11/13/18 Plan of Care End Date 01/14/19 Please Sign and Return: I have reviewed this Plan of Care and certify that the skilled therapy services above are required to meet the patient?s needs. Physician Signature Date Printed Name and Credentials Clinical Instructor Signature Printed Name and Credentials
--- NOTE | 2018-12-10 10:26 | PT.OPDS ---
Current Diagnoses Pain in right hip (11/13/18) Pain in left hip (11/13/18) Pain in left knee (11/13/18) Other abnormalities of gait and mobility (11/13/18) Weakness (11/13/18) Provider Visit Care Team Role Provider Type Mani Tyson MD Attending Provider Physician Primary Care Provider Specialty: Family Practice Address: [address] [place] [address], [facility] Email: [email or web address] Visit Number Visit Number 11/21 Discharge Summary PT-OP-B Current Condition Start: 11/12/18 18:59 Freq: Status: Active Protocol: Document 11/13/18 09:06 [facility] (Rec: 11/13/18 09:58 [facility] [id number]) Current Condition History of Current Condition Onset Date 2 months ago Current Complaints R lat hip pain History of Current Condition Pt reports she was doing stairs when traveling on September 29 and couldn't bear weight into R hip. Pt reports it lasted 3 days then got better and the 2nd time was about 2-3 weeks ago and it lasted only a few days where she cannot put weight on it. Pt reprots MRI said hip tendinitis. L knee has been giving her trouble. Pt has not been consistant with prior exercises from PT but does walk daily. Prior Treatments and Tests PT & MRI Treatment Goals Patient/Caregiver Goals stairs and avoid painful instances again, getting stronger PT-OP-C Subjective Start: 11/12/18 18:59 Freq: Status: Active Protocol: Document 11/13/18 09:06 [facility] (Rec: 11/13/18 09:58 [facility] [id number]) OP-PT Pain Assessment Location R hip Pain Location Details lat Intensity 5 Scale Used Numeric (1 - 10) Frequency Intermittent Other Pain Aggravating Factors going up a step intermittently Pain Alleviating Factors Cold PT-OP-D Balance Start: 11/12/18 18:59 Freq: Status: Active Protocol: Document 11/13/18 09:06 [facility] (Rec: 11/13/18 09:58 [facility] [id number]) Balance Tests Single Limb Standing Single Limb- Right >30 sec Single Limb- Left 20 sec Tandem Tandem Standing >30 sec B PT-OP-F Manual Assessment Start: 11/12/18 18:59 Freq: Status: Active Protocol: Document 11/13/18 09:06 [facility] (Rec: 11/13/18 09:58 [facility] [id number]) Manual Assessments Joint Mobility Assessment Joint Mobility Assessment L iliac crest higher than R; equal greater trochanters PT-OP-G Mobility & Gait Start: 11/12/18 18:59 Freq: Status: Active Protocol: Document 11/13/18 09:06 [facility] (Rec: 11/13/18 09:58 [facility] [id number]) OP Gait Assessment Comments Gait Comments Pt amb with R lean and dec overall push off B. Primarily propells with legs PT-OP-J Posture/Palpation/Skin Start: 11/12/18 18:59 Freq: Status: Active Protocol: Document 11/13/18 09:06 [facility] (Rec: 11/13/18 09:58 [facility] [id number]) Posture Evaluation [facility] Postural Classification System [facility] Postural Classifications Vertical/Posterior Vertebral Compression Test 5 Elbow Flexion Test 4 Lumbar Protective Mechanism Left AP 1 Lumbar Protective Mechanism Right AP 1 Lumbar Protective Mechanism Left PA 0 Lumbar Protective Mechanism Right PA 1 Leg Swing Left Hard End Feel Leg Swing Right Hard End Feel PT-OP-K Range of Motion Start: 11/12/18 18:59 Freq: Status: Active Protocol: Document 11/13/18 09:06 [facility] (Rec: 11/13/18 09:58 [facility] [id number]) Hip Goniometric Range of Motion Hip Right Active Flexion w/Knee Flexed 112 Straight Leg Raise 70 Abduction 24 Internal Rotation 21 External Rotation 20 Left Active Flexion w/Knee Flexed 100 Straight Leg Raise 75 Abduction 20 Internal Rotation 14 External Rotation 24 Hip ROM Limitations Comments mild tightness of RF & iliopsoas w/og test PT-OP-M Strength Start: 11/12/18 18:59 Freq: Status: Active Protocol: Document 11/13/18 09:06 [facility] (Rec: 11/13/18 09:58 [facility] [id number]) Hip Strength Hip Manual Muscle Testing Left Flexion (L2) 4+ Good+ Extension (S1) 3+ Fair+ Abduction 4- Good- Adduction 5 Normal External Rotation 4 Good Internal Rotation 5 Normal R Flexion (L2) 4+ Good+ Extension (S1) 3+ Fair+ Abduction 4- Good- Adduction 5 Normal External Rotation 4 Good Internal Rotation 5 Normal Knee Strength Knee Manual Muscle Testing Right Flexion (S2) 5 Normal Extension (L3) 5 Normal Left Flexion (S2) 4+ Good+ Extension (L3) 4+ Good+ Ankle/Foot Strength Ankle and Foot Manual Muscle Testing Right Dorsiflexion (L4) 5 Normal Plantarflexion (S1) 5 Normal Left Dorsiflexion (L4) 5 Normal Plantarflexion (S1) 5 Normal PT-OP-T Assessment and Plan Start: 11/12/18 18:59 Freq: Status: Active Protocol: Document 12/10/18 10:25 [facility] (Rec: 12/10/18 10:26 [facility] [id number]) Physical Therapy Plan Discharge Physical Therapy Discharge Reasons Patient Request Discharge Comments Pt called and cancelled all remaining appointments noting she does not feel like she needs them anymore. Pt requested dc
== END 2019-01-01 16:10 | disposition home or self-care (01) ==
LOC: PHYS 08:54
PROVIDERS: PCP Family Medicine; Visit Provider Family Medicine
DX: M25.551 Pain in right hip (principal); M25.552 Pain in left hip; M25.562 Pain in left knee; R53.1 Weakness; R26.89 Other abnormalities of gait and mobility
CPT/HCPCS: 97110; 97161

== ENCOUNTER → 2018-12-13 16:30 | Outpatient (CLI) | payer MEDICARE, OTHER, SELFPAY ==
--- NOTE | 2018-12-13 | DI.MG.S_ITS ---
BILATERAL DIGITAL SCREENING MAMMOGRAM 3D/2D WITH CAD: 12/13/2018 CLINICAL: Routine screening. Family history of breast cancer. Comparison is made to exams dated: 06/22/2017 mammogram, 05/28/2015 mammogram, and 05/20/2014 mammogram - [facility]. There are scattered fibroglandular elements in both breasts. Current study was also evaluated with a Computer Aided Detection (CAD) system. There are mole markers on the right breast. There is a mole marker on the left breast. No significant masses, calcifications, or other findings are seen in either breast. There has been no significant interval change. IMPRESSION: NEGATIVE There is no mammographic evidence of malignancy. A 1 year screening mammogram is recommended. This exam was interpreted at Station ID: [id number]. NOTE: For mammograms, a report in lay terms will be sent to the patient. Approximately 15% of breast malignancies will not be visualized mammographically. In the management of a palpable breast mass, a negative mammogram must not discourage biopsy of a clinically suspicious lesion. Electronically Signed By: Rodri hermosillo/radha:12/14/2018 12:24:34 letter sent: Normal Exam ACR BI-RADS Category 1: Negative [id number]
== END ==
PROVIDERS: PCP Family Medicine; Visit Provider Family Medicine
DX: Z12.31 Encounter for screening mammogram for malignant neoplasm of breast (principal); Z80.3 Family history of malignant neoplasm of breast
CPT/HCPCS: 77063; 77067

== ENCOUNTER → 2019-02-05 09:16 | Outpatient (CLI) | payer MEDICARE, OTHER, SELFPAY | PROVIDERS: PCP Family Medicine | DX: Z23 Encounter for immunization (principal) | CPT/HCPCS: 90471; 90662 ==

== ENCOUNTER → 2019-02-13 06:51 | Outpatient (CLI) | payer MEDICARE, OTHER, SELFPAY ==
[2019-02-13 08:13] LABS: Add Manual Diff / Slide Review NO; Basophils Absolute Auto 100 /uL (0-100); Basophils Percent Auto 0.9 % (0-2); Eosinophils Absolute Auto 200 /uL (0-450); Eosinophils Percent Auto 3.9 % (2-4); Hematocrit 43.3 % (36-46); Hemoglobin 14.7 g/dL (12.0-16.0); Lymphocytes Absolute Auto 2500 /uL (1100-4500); Mean Corpuscular Volume 91.4 fL (80-100); Monocytes Absolute Auto 500 /uL (0-900); Monocytes Percent Auto 8.6 % (3-14); Neutrophils Absolute Auto 2600 /uL (1500-7000); Neutrophils Percent Auto 44.6 % (50-75); Platelet Count 225 X10^3/uL (150-400); Red Blood Cell Count 4.74 X10^6/uL (4.0-5.2); Red Cell Distribution Width 12.8 % (11.6-14.8); White Blood Cell Count 5.9 X10^3/uL (4.5-11.0)
[2019-02-13 08:26] LABS: Alanine Aminotransferase 25 IU/L (9-52); Albumin 4.4 g/dL (3.5-5.0); Albumin Globulin Ratio 1.6 (1.0-2.8); Alkaline Phosphatase 64 U/L (38-126); Aspartate Aminotransferase 29 IU/L (14-36); Bilirubin Total 0.7 mg/dL (0.2-1.3); Blood Urea Nitrogen 24 mg/dL (7-17); Calcium 9.9 mg/dL (8.4-10.2); Carbon Dioxide 33 mmol/L (22-32); Chloride 102 mmol/L (98-107); Cholesterol 172 mg/dL (140-199); Estimated Glomerular Filt Rate > 60.0 mL/min (>60); Globulin 2.7 g/dL (1.7-4.1); Glucose 84 mg/dL (80-110); HDL Cholesterol 49 mg/dL (40-60); HEMOLYSIS < 15 (0-50); LDL Cholesterol Calculated 110 mg/dL (<100); Potassium 4.5 mmol/L (3.4-5.1); Sodium 143 mmol/L (137-145); Total Protein 7.1 g/dL (6.3-8.2); Triglycerides 65 mg/dL (35-150)
[2019-02-13 08:54] LABS: TSH w/ Reflex to FT4 2.26 uIU/mL (0.47-4.68)
== END ==
PROVIDERS: PCP Family Medicine; Visit Provider Family Medicine
DX: E78.5 Hyperlipidemia, unspecified (principal)
CPT/HCPCS: 36415; 80053; 80061; 84443; 85025

== ENCOUNTER → 2019-10-26 08:41 | Outpatient (CLI) | payer MEDICARE, OTHER, SELFPAY ==
[2019-10-26 10:17] LABS: Add Manual Diff / Slide Review NO; Basophils Absolute Auto 100 /uL (0-100); Eosinophils Absolute Auto 100 /uL (0-450); Eosinophils Percent Auto 1.7 % (2-4); Hematocrit 42.4 % (36-46); Hemoglobin 14.2 g/dL (12.0-16.0); Lymphocytes Absolute Auto 2000 /uL (1100-4500); Lymphocytes Percent Auto 29.4 % (25-40); Mean Corpuscular HGB Conc 33.5 % (30-36); Mean Corpuscular Hemoglobin 31.2 PG (26-34); Monocytes Absolute Auto 500 /uL (0-900); Monocytes Percent Auto 7.3 % (3-14); Neutrophils Absolute Auto 4100 /uL (1500-7000); Neutrophils Percent Auto 60.6 % (50-75); Platelet Count 208 X10^3/uL (150-400); Red Blood Cell Count 4.56 X10^6/uL (4.0-5.2); White Blood Cell Count 6.7 X10^3/uL (4.5-11.0)
[2019-10-26 10:45] LABS: BUN Creatinine Ratio 41.8 (6-22); Blood Urea Nitrogen 28 mg/dL (7-17); Calcium 10.1 mg/dL (8.4-10.2); Carbon Dioxide 26 mmol/L (22-32); Chloride 105 mmol/L (98-107); Estimated Glomerular Filt Rate > 60.0 mL/min (>60); Glucose 98 mg/dL (80-110); HEMOLYSIS < 15 (0-50); Potassium 4.8 mmol/L (3.4-5.1); Sodium 138 mmol/L (137-145)
== END ==
PROVIDERS: PCP Family Medicine; Referring Provider Orthopaedic Surgery; Visit Provider Orthopaedic Surgery
DX: Z01.818 Encounter for other preprocedural examination (principal); Z01.812 Encounter for preprocedural laboratory examination
CPT/HCPCS: 36415; 80048; 85025; 93005

== ENCOUNTER → 2019-11-08 09:14 | Outpatient (CLI) | payer MEDICARE, OTHER, SELFPAY ==
[2019-11-09 22:51] LABS: COVID19 Sendout Not Detected (Not Detect)
== END ==
PROVIDERS: PCP Family Medicine; Visit Provider Physician Assistant
DX: Z01.812 Encounter for preprocedural laboratory examination (principal)
CPT/HCPCS: 87635

== ENCOUNTER 2019-11-11 06:16 | Day surgery (SDC) | payer MEDICARE, OTHER, SELFPAY ==
[2019-11-04 08:52] VITALS: BMI 27.3
[2019-11-11] VITALS (15 sets, daily range): BP systolic 106–161; BP diastolic 47–85; PULSE 63–86; RESP 10–19; TEMP 35.8–37.5; O2SAT 91–98; BMI 27.3
[2019-11-11] MEDS: LACTATED RINGERS 1,000 ML 42 ML IV (07:02)
--- NOTE | 2019-11-11 07:35 | DI.RAD.S_ITS ---
PROCEDURE: XR KNEE LT 1TO2V INDICATIONS: post op total knee TECHNIQUE: 2 view(s) of the knee acquired. COMPARISON: [facility], [place], KNEE 3V LEFT, 06/14/2013, 12:29. [facility], [place], XR KNEE ARTHRITIC SERIES LT, 09/10/2019, 10:19. FINDINGS: Bones: Patient is status post knee joint arthroplasty. Hardware components are in expected positions. Visualized bony structures are intact. Soft tissues: Overlying postoperative changes are noted. IMPRESSION: Postoperative changes as above. Dictated by: Trice Ramey M.D. on 11/11/2019 at 17:25 Approved by: Trice Ramey M.D. on 11/11/2019 at 17:25
--- NOTE | 2019-11-11 07:41 | PM.PREOP ---
Pre-operative Note COVID-19 COVID-19 status: Negative Result date/Date tested (Pos, Neg/Pending): 11/08/19 Interval Note History & Physical reviewed/Exam performed by Physician: Yes Changes to H&P: No
--- NOTE | 2019-11-11 07:46 | SUR.PREOP ---
Spoke with Dr. Whitfield about po meds ordered by Dr. Marino, Dr. Whitfield instruction was to hold po meds.
[2019-11-11] MEDS: CEFAZOLIN 2 GM/100 ML FROZ.PIGGY IV (08:08)
[2019-11-11] MEDS: TRANEXAMIC ACID 1,000 MG VIAL 2000 MG INJ ×2 (08:15→09:13)
--- NOTE | 2019-11-11 08:25 | SUR.OPER ---
Supine on padded OR bed. Pillow under head, arms secured on padded armboards <90 degree abduction. Safety belt across torso. Non-operative leg secured with tape over blanket over lower leg. Operative leg secured in DeMayo positioner.
[2019-11-11] MEDS: BUPIVACAINE 0.25% W/ EPI 30 ML VIAL 60 ML INJ (08:31)
[2019-11-11] MEDS: BUPIVACAINE LIPOSOME 266 MG/20 ML VIAL INJ (08:31)
[2019-11-11] MEDS: MORPHINE 4 MG/ML INJ INJ (08:32)
[2019-11-11] MEDS: ACETAMINOPHEN IV 1,000 MG/100 ML VIAL 400 MG IV (08:50)
--- NOTE | 2019-11-11 09:40 | PM.OP.1 ---
Operative Date/Time/Diagnoses Date of procedure: 11/11/19 Time of procedure: 09:40 Pre-op diagnosis: Left knee osteoarthritis Post-op diagnosis: same Procedure & Clinicians Procedure: Left total knee replacement Same procedure as scheduled: Yes Indications: The patient has had progressively worsening left knee pain with radiographic changes consistent with arthritis. Non-operative management has failed and the patient has requested total knee replacement. The risks, benefits and alternatives to surgery were discussed with the patient prior to proceeding. Risks discussed included, but were not limited to, failure to relieve pain, stiffness, infection, nerve damage, deep venous thrombosis, pulmonary embolism, stroke, coma, heart attack, permanent paralysis and , as well as the potential need for eventual revision of the prosthetic. Surgeon: Franklin Marino Supervisor Kennel: Peng Ruano Click Yes if Unassisted: No Anesthesia Type: General, Spinal and Local Operative Notes Findings: Severe osteoarthritis predominantly in the medial compartment with significant varus deformity and flexion contracture. Closure Type: primary Specimen(s): none sent Prosthetic devices, grafts, tissues, transplants, or devices: Implants used in this procedure were manufactured by the [employer] and [employer] and included the BCS II Journey total knee replacement with a size 5 left cobalt chromium femoral component, size 5 left non porous tibial base plate with a 9 mm cross-linked polyethylene insert and a 35 mm oval Amber II patella. Applied: implant(s) Estimated Blood Loss (mL): 25 Blood products transfused: none Tourniquet time (min): 52 Procedure in detail: The patient was seen in the pre-operative area, where the left knee was identified as the operative site and this was marked with my initials. The patient received pre-operative antibiotics, and was taken to the operating room and placed on the operative table in the supine position. After satisfactory anesthesia, a photoengraving proofer apprentice out was performed. The left leg was encircled with a tourniquet about the proximal thigh, and the leg was prepared from the toes to the tourniquet with ChloroPrep in the usual fashion and draped through sterile drapes. The leg was elevated and exsanguinated with Eschmark bandage and the tourniquet inflated to 250 mmHg pressure. The knee was approached through an approximately 18 cm incision centered over the patella and carried into the knee through a medial parapatellar arthrotomy. The anterior osteophytes and soft tissues were removed. The rotational landmarks of Elizabeth's line and the transepicondylar axis were marked on the femur with electrocautery, and intramedullary guide holes for the femur and tibia were created. The distal femoral cut was made in 6 degrees of valgus using the intramedullary guide at the +2 cut setting due to the pre-existing flexion contracture. The proximal tibial cut was then made using the intramedullary guide, taking 9 mm of bone off the less involved side. The extension gap was checked and the rotation of the femoral component confirmed with the gap balancing blocks. The anterior, posterior and chamfer cuts were then made. The posterior osteophytes and soft tissues were then removed. The posterior capsule was injected with part of a mixture of 60 ml 0.25% Marcaine mixed with 20 ml Exparel and 4 mg of morphine for post-operative pain control. The remainder of this mixture was injected into the capsule and subcutaneous tissues during cement curing. The tibia was prepared with the rotation set by an extra medullary guide. Trial tibial and femoral components were then placed and the intercondylar notch cut through the femoral trial. Range of motion was 0-135 degrees, with good stability throughout the range. The patella was then cut to accommodate the patellar prosthetic. There was no need for a lateral release. The trials were then removed, and the femoral hole plugged with a bone plug. The bone was prepared with pulsatile lavage, and dried with a sponge. Cement was applied and the final prosthetics placed. Excess cement was removed during and after cement curing. After confirming there was no extruded cement posteriorly, the final tibial insert was placed. The knee was copiously irrigated and the tourniquet deflated. Hemostasis was obtained. The capsule was closed with interrupted # 2 polyester sutures. The subcutaneous layer was closed with 3-0 Vicryl, and the skin with a running 3-0 V-Lock suture and Dermabond. An Aquacel Ag dressing as well as an Brandan wrap were applied and the patient was taken to recovery having tolerated the procedure well. Complications: none Post-operative Condition: stable Disposition: PACU Plan for aftercare: The patient will be maintained on a standard total knee replacement protocol with weight bearing as tolerated. The patient will receive aspirin and sequential compression devices for DVT prophylaxis. The patient will be discharged home when safe for the home environment.
--- NOTE | 2019-11-11 10:30 | SUR.PHASEI ---
report called to floor, patient awake, amazed that surgery is over, denies pain/nausea, tolerating ice chips well.
--- NOTE | 2019-11-11 10:43 | SUR.PHASEI ---
1031 to room 220, bed down and locked, call light within reach, O2 at 2LNP, SCDs on, LLE dressing remains CDI w/ice & elevation. Report updated. Clothing bag and red bag to the closet. RN knows to call spouse that she is in the room. Denies pain/nausea. Stable.
--- NOTE | 2019-11-11 10:55 | PC.NURSE ---
Addendum entered by Pj Garcia R.N. 11/11/19 11:35: Called to , Pop, and gave update that pt was in room 220. Original Note: Rec'd pt to room 220 via bed from PACU at 1040. Pt is drowsy but awakens to verbal and answers questions appropriately with soft-spoken, clear speech. SUPPLIER QUALITY ENGINEER states pt had borderline low SPO2 and applied 2L NC. Pt is cold, unable to get SPO2 reading at this time. Applied warm blankets. Pt denies shortness of breath and has RR 12-14. Lungs are CTAB, slightly diminished. Left knee jose wrap is CDI. Pt has sensation to BLE R > L, good pulses bilaterally and is able to lift legs off bed. Pt states she has no pain but she can feel her left knee. Oriented to room, routine, environment, use of call light. She verbalizes understanding.
[2019-11-11] MEDS: LACTATED RINGERS 1,000 ML 100 ML IV ×2 (11:21→21:58)
[2019-11-11] MEDS: IBUPROFEN 400 MG TABLET PO ×3 (11:22→20:23)
--- NOTE | 2019-11-11 12:24 | CM.DANOTE ---
DCP: Case received, EMR reviewed and met with patient. Introduced self and role. Was able to meet with patient and obtain information from her regarding her baseline activity level prior to having surgery, as well as her living situation. DCP assessment completed with information currently available. Patient is an 84 year old female who admitted early this morning to the care of the orthopedic team. PCP: Dr. Tyson. Payer: confirmed: Medicare/[employer]. Patient came to the hospital for a surgical procedure. She had left total knee surgical procedure. Patient has had history of left knee osteoarthritis, and according to patient, it was getting very difficult walking down hills. Met with patient in her room. She had her surgery this morning. She was sitting up in her bed having her lunch. She is the spouse of one of the hospital commisioners. Patient is active at baseline, drives, no DME supplies. She is an avid walker, and stated, she has enjoyed hiking, but it has been more difficult with the strain on her knee walking down hill. P: DCP to continue to follow. She will be working with P.T. Patient should be able to go home when she is medically stable. Tiffany Morris RN/Wine Maker
--- NOTE | 2019-11-11 14:06 | PT.IIE ---
Current Diagnoses Unilateral primary osteoarthritis, left knee (11/11/19) Surgery Performed Operation Date: 11/11/19 07:45 Actual Procedures p Total Knee Arthroplasty(Left) - Franklin Marino MD Surgical History (Last Updated 11/04/19 @ 09:08 by Sola Graf, RN) History of meniscectomy of left knee (Resolved ~2003) History of meniscectomy of right knee (Resolved ~2011) History of surgery (Resolved ~2012) Hx of bilateral cataract extraction (Acute) Skin cancer (Resolved ~2006) Status post appendectomy Medical History (Last Updated 11/04/19 @ 09:08 by Sola Graf RN) Childers's palsy (Chronic) Chronic cough (Chronic) Colon polyps (Chronic) Hearing impaired (Acute) Hyperlipidemia (Chronic) Osteoarthritis (Chronic) Physical Therapy Inpatient Evaluation/Re-Eval M1 PT/OT-IP Prior Functional Status Start: 11/11/19 10:56 Freq: NEEDED Status: Active Protocol: Document 11/11/19 13:35 AW (Rec: 11/11/19 14:06 AW [id number]) Medical Review Prior Functional Status Medical History Reviewed Yes Diet/Fluid Consistency Regular Communication WNL. Pt is an effective verbal communicator. Mobility and Gait Pt is an independent community ambulator who regularly walks up to 1 mile at a time. She previously was able to walk 3- 5 miles daily but her function has been impacted by knee pain. Activities of Daily Living and IADL's Independent in all regards. Social History Household Members spouse,children Living Arrangements House Number of Floors (Floors) Two Floors Number of Stairs To Enter/Railing? Level entrance to main/carpentry specialist where pt will be able to stay without need to access the lower level. Home Environment High Toilet,Walk in Shower, Bidet Home Equipment Straight Cane,Grab Bars Near Toilet,Grab Bars In Shower Employment Status Retired Additional Social History Comment Pt lives with her spouse, Pop , who will be available and able to assist at discharge. Their daughter, Clara, is also currently in the home with a plan to assist after surgery as much as needed. 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 Her spouse is one of the hospital commisioners. M2 PT-IP Current Condition Start: 11/11/19 10:56 Freq: NEEDED Status: Active Protocol: Document 11/11/19 13:35 AW (Rec: 11/11/19 14:06 AW [id number]) Physical Therapy Current Condition Current Condition Evaluation Date 11/11/19 Treatment Diagnosis s/p L TKA; impaired mobility Onset Date 11/11/19 Weight Bearing Status Weight Bearing Status Weight Bear as Tolerated M3 PT-IP Subjective Start: 11/11/19 10:56 Freq: NEEDED Status: Active Protocol: Document 11/11/19 13:35 AW (Rec: 11/11/19 14:06 AW [id number]) Subjective Physical Therapy Visit Type Type Initial Evaluation Visit Start Time 12:49 Visit Stop Time 13:30 Total Visit Minutes 41 Notes Pt's spouse, Pop, was present throughout evaluation. Physical Therapy Visit Comments Patient Comments Pt is groggy but willing to participate with PT Patient Goals Pt hopes to increase her hiking distance Therapy Pain Assessment Pain When Pain Assessed During Mobility Pain Present Pain Present Pain Reported Location left knee Intensity 5 Scale Used 0/10 at rest; 5/10 with mobility Pain Management Techniques Apply Cold,Distraction,Timing of Activity with Medications M4 PT-IP Mobility and Gait Start: 11/11/19 10:56 Freq: NEEDED Status: Active Protocol: Document 11/11/19 13:35 AW (Rec: 11/11/19 14:06 AW [id number]) PT-Bed Mobility Assessment Supine to Sit Supine to Sit Minimal Assistance,1 Person Assistance,Head of Bed Elevated Scooting Scooting to Edge of Bed Standby Assistance PT-Transfer Assessment Sit to and From Stand Sit to and from Stand Minimal Assistance,1 Person Assistance,Use of Upper Extremities Equipment Transfer Assistive Device Gait Belt,Front Wheeled Walker Orthotic/Prosthetic Devices or Brace: No Transfers Transfer Destination Chair Transfer Technique pt ambulated with FWW Transfer Ability Level of Assist Minimal Assistance,1 Person Assistance,Use of Upper Extremities Comments Mobility Comments Pt was sitting up in bed upon PT arrival. Supine BP was 119/ 71 HR 86. She completed supine exercises and then supine to sit transition with HOB elevated and min A x 1 to guide her operative leg out of the bed. Pt was able to sit with and without UE support. BP in sitting was 167/88 HR 85 with pt complaining of increased pain during mobility . Pt required min A x 1 and verbal cues for sequencing for sit to stand using FWW. She was able to shift weight and to take small marching steps in place with heavy UE weightbearing through the walker. BP in standing was 118 /76 HR 86. Pt denied need to use the toilet. She walked with FWW and CGA very slowly but with good steadiness toward the window and then turned back toward the chair. Once in position, pt sat with min A x 1 and verbal cues for left foot placement/tactile cues to reach for the chair arms. After activity, BP was 133/87 HR98. Pt was very fatigued. She was positioned in the reclined chair with call light in reach, fresh ice packs applied. Pt was left with RT attending. Gait Assessment Gait Gait Assistance Required: Contact Guard Assist Distance (Feet) 12 Able to Maintain Weight Bearing Status Yes During Gait Assistive Devices Assistive Device Gait Belt,Front Wheeled Walker Gait Deviations General Gait Pattern Antalgic,Decreased Stride Length,Decreased Feet Clearance,Flexed Trunk,Step-to Gait Factors Limiting Gait Function Factors Limiting Gait Function Decreased Activity Tolerance, Decreased Strength,Limited Range of Motion,Pain,Poor Balance Comments Gait Comments Pt ambulated in the room with FWW CGA. See mobility comments for details. Stair Climbing Assessment Comments Stair Climbing Comments Not assessed. No stairs at home PT-Balance Assessment Sitting Balance and Reactions Static Sitting Balance Ability Normal Dynamic Sitting Balance Ability Normal Standing Balance and Reactions Static Standing Balance Ability Good Dynamic Standing Balance Ability Good Device Used FWW M5 PT-IP Objective Assessments Start: 11/11/19 10:56 Freq: NEEDED Status: Active Protocol: Document 11/11/19 13:35 AW (Rec: 11/11/19 14:06 AW [id number]) Orientation Orientation/Cognition Level of Alertness Alert Orientation Name,Day of Week,Place, Situation Language Function Ability No Deficits Noted Safety Awareness Understands Safety Issues Memory Description No Deficits Noted Comments Pt was groggy from anesthesia but was able to attend to task . Gross Range of Motion Upper Extremity ROM Assessment Within Functional Limits Lower Extremity ROM Assessment Left Impaired Strength Upper Extremity Strength Assessment Within Functional Limits Lower Extremity Strength Assessment Left Impaired Hip 4-/5 Knee 3-/5 Ankle 4/5 Comments Strength Comments RLE grossly 4+/5 Coordination Assessment Gross Coordination Gross Coordination WNL Sensation Assessment Sensation Gross Sensation WNL Muscle Tone Muscle Tone WNL Yes M6 PT-IP Treatment Start: 11/11/19 10:56 Freq: NEEDED Status: Active Protocol: Document 11/11/19 13:35 AW (Rec: 11/11/19 14:06 AW [id number]) Physical Therapy Treatment Exercises Exercises Ankle Pumps,Quad Sets,Heel Slides,Passive Knee Extension Hang Education Education Provided Precautions,Weight Bearing Status,Post-Op Packet,Safety Other Treatments Other Treatment Performed Provided education on role of PT, plan of care, weightbearing status, and safe use of FWW. M7 PT-IP Assessment and Plan Start: 11/11/19 10:56 Freq: NEEDED Status: Active Protocol: Document 11/11/19 13:35 AW (Rec: 11/11/19 14:06 AW [id number]) PT Summary Assessment and Plan Potential Rehabilitation Potential Good Status of Condition at Evaluation Evolving Summary Impairments Pain,ROM,Strength,Balance,Bed Mobility,Transfers,Gait, Activity Tolerance Assessment Summary Meghan is an active 84 yo woman seen for PT evaluation on POD0 following L TKA. She is independent in all regards at baseline. On evaluation, she required min assist x 1 for all mobility except CGA for one short bout of ambulation with FWW. She was groggy at time of evaluation but PT anticipates she will meet the functional goals of this plan of care and be safe to discharge home with family assist and outpatient PT once medically cleared. Pt has not yet arranged OP PT. This therapist encouraged her spouse to call today to set up an evaluation. Goals Bed Mobility Goal Standby Assistance Transfer Goal Standby Assistance,Front Wheeled Walker Gait Goal Standby Assistance,Front Wheel Walker Gait Distance 200 Other Goals - pt will be independent with LE ther ex Days to Meet Goals 3 Frequency of Treatment Frequency Of Treatment Twice a Day Treatment Plan Physical Therapy Treatment Plan Bed Mobility Training,Transfer Training,Gait Training, Therapeutic Exercise,Balance Retraining,Post Op Education, Discharge Planning,Hot or Cold Pack Recommendations To Nursing Amount of Assist Needed 1 Person Assist Discharge Recommendations PT Discharge Recommendations Home with Assistance, Outpatient PT Equipment Needed for Home Before shower chair Discharge Transportation Needs at Discharge Private Vehicle
[2019-11-11] MEDS: ACETAMINOPHEN 325 MG TABLET 650 MG PO ×2 (15:55→20:17)
[2019-11-11] MEDS: ASPIRIN EC 81 MG TABLET PO (20:17)
[2019-11-11] MEDS: SIMVASTATIN 20 MG TABLET PO (20:18)
[2019-11-12] VITALS: BP 108/52; PULSE 73; RESP 16; TEMP 36.3; O2SAT 97
[2019-11-12] MEDS: IBUPROFEN 400 MG TABLET PO ×2 (01:53→05:22)
[2019-11-12 05:00] VITALS: BP 126/69; PULSE 70; RESP 16; TEMP 36.3; O2SAT 97
[2019-11-12 06:49] LABS: Hematocrit 33.9 % (36-46); Hemoglobin 11.6 g/dL (12.0-16.0)
[2019-11-12] MEDS: OXYCODONE IR 5 MG TABLET PO (07:34)
--- NOTE | 2019-11-12 07:57 | P.DS_ITS ---
History of Present Illness History of Present Illness Date Patient Seen: 11/12/19 Time Patient Seen: 07:57 Chief complaint: *[id number] Narrative: The history and physical is contained in the chart in a previously completed note. Please refer to that note for this information. Discharge Providers Provider Date of admission: November 11, 2019 Discharge Date: 11/12/19 Primary care physician: Mani Tyson MD Consults: 11/11/19 10:54 Consult to Discharge Planning Routine Comment: Consult to Physical Therapy Evaluate & Treat Comment: Physician Instructions: postop TKA protocol Discharge provider: Franklin Marino MD Summary Hospital Course Discharge Diagnosis: 1. Left knee osteoarthritis 2. Post hemorrhagic anemia Hospital Course: The patient was admitted to the hospital and taken directly to the operating room on November 11, 2019 where she underwent a left total knee replacement without complication. On postoperative day 1 she was up walking around her room and quite comfortable. At the time of this dictation it is a nticipated she will be able to go home later today. Status at Discharge Cognitive/behavioral status at discharge: oriented Functional status at discharge: uses cane/walker Overall status at discharge: patient is progressing back to baseline Time Spent with Patient Time spent: Less than 30 minutes Exam Vital Signs (past 8 hours): - 11/12/19 00:00 11/12/19 05:00 Temperature 97.4 F L 97.4 F L Pulse Rate 73 70 Respiratory Rate 16 16 Blood Pressure 108/52 L 126/69 Pulse Oximetry 97 97 Oxygen Delivery Method Nasal Cannula Oxygen Flow Rate 2 Narrative Exam Narrative: The patient is examined while walking about her room with a walker. The knee is dressed without drainage on the bandage. Calf is soft. Light touch and motion are intact in the left lower extremity. Objective Labs Result Diagrams: 11/12/19 06:33 Labs: Laboratory Results - last 24 hr 11/12/19 06:33 Hgb 11.6 L Hct 33.9 L Discharge Plan Discharge Plan Patient Disposition: Home Discharge Med Rec/Prescriptions Prescriptions: New acetaminophen 325 mg Tablet 650 mg PO TID 30 Days Qty: 180 RF: 0 aspirin 81 mg Tablet,Delayed Release (Dr/Ec) 81 mg PO BID 42 Days Qty: 84 RF: 0 ibuprofen 400 mg Tablet 400 mg PO Q4HR 30 Days RF: 0 oxycodone 5 mg Tablet 5 mg PO Q4H PRN (Reason: Pain, Moderate (4-6)) Qty: 40 RF: 0 Continued simvastatin 20 mg tablet See Rx Instructions .ROUTE .COMPLEX Qty: 90 RF: 3 Discontinued naproxen sodium 220 MG capsule 440 mg PO DAILY Qty: 0 RF: 0 Follow up/Referrals: Franklin Marino MD [Physician] - 2 Weeks Discharge Orders: Discharge (Order); Ordered 11/12/19 Ordered By: Franklin Marino Provider Discharge Instructions Diet: Diet as Tolerated and Regular Activity: You may bear weight as tolerated on your left leg. Cold/Heat Therapy: Apply ice to the left knee for 15 minutes every hour as needed for pain control. Skin/Wound/Dressing Care Report to your healthcare provider any signs of infection, such as:: chills, fever, night sweats, increased pain, unusual drainage and unusual redness Dressing: Remove the Brandan wrap at 3 days after surgery and then you may shower n ormally. Leave the deeper dressing in place until your follow-up. If the central strip of the deeper dressing becomes saturated with either water or blood, please call the office. Visit Report/Discharge Packet Instructions: DI for Knee Replacement Stand Alone Forms: Surgery Discharge Discharge Data Primary Care Provider: Mani Tyson Attending Provider: Franklin Marino Quality VTE Deep Vein Thrombosis/Pulmonary Embolism Present on Admission: No
[2019-11-12 08:00] VITALS: BP 121/61; PULSE 78; RESP 18; TEMP 36.7; O2SAT 96
--- NOTE | 2019-11-12 09:18 | PT.IPTN ---
Current Diagnoses Unilateral primary osteoarthritis, left knee (11/11/19) Surgery Performed Operation Date: 11/11/19 07:45 Actual Procedures p Total Knee Arthroplasty(Left) - Franklin Marino MD Physical Therapy Treatment Note M2 PT-IP Current Condition Start: 11/11/19 10:56 Freq: NEEDED Status: Discharge Protocol: Document 11/11/19 13:35 AW (Rec: 11/11/19 14:06 AW [id number]) Physical Therapy Current Condition Current Condition Evaluation Date 11/11/19 Treatment Diagnosis s/p L TKA; impaired mobility Onset Date 11/11/19 Weight Bearing Status Weight Bearing Status Weight Bear as Tolerated M3 PT-IP Subjective Start: 11/11/19 10:56 Freq: NEEDED Status: Discharge Protocol: Document 11/12/19 09:18 AB (Rec: 11/12/19 13:08 AB [email or web address]) Subjective Physical Therapy Visit Type Type Treatment Note Visit Start Time 09:18 Visit Stop Time 10:00 Total Visit Minutes 42 Number of FREIGHT CHECKER Visits 0 Physical Therapy Visit Comments Patient Comments pt agreeable to do PT Therapy Pain Assessment Pain Present Pain Present Denied Pain M4 PT-IP Mobility and Gait Start: 11/11/19 10:56 Freq: NEEDED Status: Discharge Protocol: Document 11/12/19 09:18 AB (Rec: 11/12/19 13:08 AB [id number]) PT-Bed Mobility Assessment Supine to Sit Supine to Sit Standby Assistance Sit to Supine Sit to Supine Standby Assistance PT-Transfer Assessment Sit to and From Stand Sit to and from Stand Standby Assistance Equipment Transfer Assistive Device Gait Belt,Front Wheeled Walker Orthotic/Prosthetic Devices or Brace: No Transfers Transfer Destination Bed,Chair Transfer Technique Stand Step Pivot Transfer Ability Level of Assist Standby Assistance,1 Person Assistance,Use of Upper Extremities Comments Mobility Comments completed supine to sit SBA. pt's daughter in room with pt. pt completed sit to stand SBA and ambulated in room SBA. completed HEP with pt in supine/sitting. Left pt sitting on chair. with daughter. informed [facility] that pt is waiting for d/c. Gait Assessment Gait Gait Assistance Required: Standby Assistance Distance (Feet) 30 Able to Maintain Weight Bearing Status Yes During Gait Assistive Devices Assistive Device Gait Belt,Front Wheeled Walker Orthotic/Prosthetic Devices or Brace: No Gait Deviations General Gait Pattern Antalgic,Decreased Stride Length,Decreased Feet Clearance Factors Limiting Gait Function Factors Limiting Gait Function Decreased Activity Tolerance, Decreased Strength,Limited Range of Motion,Pain,Poor Balance M5 PT-IP Objective Assessments Start: 11/11/19 10:56 Freq: NEEDED Status: Discharge Protocol: Document 11/11/19 13:35 AW (Rec: 11/11/19 14:06 AW [id number]) Orientation Orientation/Cognition Level of Alertness Alert Orientation Name,Day of Week,Place, Situation Language Function Ability No Deficits Noted Safety Awareness Understands Safety Issues Memory Description No Deficits Noted Comments Pt was groggy from anesthesia but was able to attend to task . Gross Range of Motion Upper Extremity ROM Assessment Within Functional Limits Lower Extremity ROM Assessment Left Impaired Strength Upper Extremity Strength Assessment Within Functional Limits Lower Extremity Strength Assessment Left Impaired Hip 4-/5 Knee 3-/5 Ankle 4/5 Comments Strength Comments RLE grossly 4+/5 Coordination Assessment Gross Coordination Gross Coordination WNL Sensation Assessment Sensation Gross Sensation WNL Muscle Tone Muscle Tone WNL Yes M6 PT-IP Treatment Start: 11/11/19 10:56 Freq: NEEDED Status: Discharge Protocol: Document 11/12/19 09:18 AB (Rec: 11/12/19 13:08 AB [id number]) Physical Therapy Treatment Exercises Exercises Ankle Pumps,Quad Sets,Heel Slides,Straight Leg Raises, Seated Knee Flexion/Extension Education Education Provided Weight Bearing Status,Post-Op Packet,Safety Other Treatments Other Treatment Performed reviewed and completed HEP M7 PT-IP Assessment and Plan Start: 11/11/19 10:56 Freq: NEEDED Status: Discharge Protocol: Document 11/12/19 09:18 AB (Rec: 11/12/19 13:08 AB [id number]) PT Summary Assessment and Plan Potential Rehabilitation Potential Good Summary Impairments Pain,ROM,Strength,Balance,Bed Mobility,Transfers,Gait, Activity Tolerance Progress Towards Goals Progressing Toward Goals,Safe For Discharge Assessment Summary pt is progressing well with PT and plans to go home today. pt will have her spouse and daughter assist her at home. Goals Bed Mobility Goal Independent Transfer Goal Independent,Front Wheeled Walker Gait Goal Independent,Front Wheel Walker Gait Distance 200 Days to Meet Goals 3 Frequency of Treatment Frequency Of Treatment Twice a Day Treatment Plan Physical Therapy Treatment Plan Bed Mobility Training,Transfer Training,Gait Training, Therapeutic Exercise,Balance Retraining,Post Op Education, Discharge Planning,Hot or Cold Pack Recommendations To Nursing Amount of Assist Needed 1 Person Assist Discharge Recommendations PT Discharge Recommendations Home with Assistance, Outpatient PT Equipment Needed for Home Before shower chair Discharge Transportation Needs at Discharge Private Vehicle
[2019-11-12] MEDS: ACETAMINOPHEN 325 MG TABLET 650 MG PO (09:28)
[2019-11-12] MEDS: ASPIRIN EC 81 MG TABLET PO (09:29)
[2019-11-12] MEDS: DOCUSATE 100 MG CAPSULE PO (09:29)
--- NOTE | 2019-11-12 10:02 | PC.NURSE ---
preparing for discharge - pt working with PT at present and tolerating well- jose wrap over aquacell - reviewing dc plan with pt and daughter at present
== END 2019-11-12 10:29 | disposition home or self-care (01) ==
LOC: OR 06:22 → AC 06:27
PROVIDERS: PCP Family Medicine; Referring Provider Orthopaedic Surgery; Visit Provider Orthopaedic Surgery
PROC: 0SRD0JZ Replacement of Left Knee Joint with Synthetic Substitute, Open Approach (ICD-10-PCS; CPT 27447; principal; 2019-11-11 07:45)
DX: M17.12 Unilateral primary osteoarthritis, left knee (principal); M21.162 Varus deformity, not elsewhere classified, left knee; E78.5 Hyperlipidemia, unspecified; G51.0 Bell's palsy; M19.90 Unspecified osteoarthritis, unspecified site
CPT/HCPCS: 27447; 36415; 36592; 73560; 85014; 85018; 97110; 97116; 97161; 97530; C1776; C9290; J0131; J0690; J1100; J2250; J2270; J2274; J2405; J2704; J3010

== ENCOUNTER 2020-01-09 12:00 | Outpatient (RCR) | payer MEDICARE, OTHER, SELFPAY ==
[2019-11-11 13:49] VITALS: BMI 27.3
--- NOTE | 2019-11-18 10:30 | PT.OPPOC ---
Physical, Occupational & Speech Therapy At [facility] Current Diagnoses Unilateral primary osteoarthritis, left knee (11/18/19) Pain in left knee (11/18/19) Stiffness of left knee, not elsewhere classified (11/18/19) Aftercare following joint replacement surgery (11/18/19) Visit Care Team Role Provider Type Mani Tyson MD Primary Care Provider Physician Specialty: Family Practice Address: [address] [place] [address], [id number] Email: [email or web address] Franklin Marino MD Attending Provider Physician Referring Provider Specialty: Orthopedic Surgery Address: [address] [place] [address], [id number] Email: [email or web address] Plan Of Care PT-OP-T Assessment and Plan Start: 11/18/19 17:42 Freq: Status: Active Protocol: Document 11/18/19 09:45 DCW (Rec: 11/19/19 09:40 DCW [id number]) Physical Therapy Assessment Rehab Potential Rehabilitation Potential Excellent Evaluation Complexity Number of Personal Factors/Comorbidities 1-2 Number of Body Systems Impaired 1-2 Clinical Presentation at Evaluation Stable Impairments Impairments Activity Tolerance,Functional Activities,Functional Mobility ,Gait,Pain,ROM,Soft Tissue Mobility,Strength Goals 3 Impairment Pt has an average gait speed of 1.05 ft/sec during 6 MWT Mcfp Goal (LTG) A gait speed of <1.97 ft/sec has been shown to indicate an increased risk for further functional decline. Pt to increase gait speed to >1.97 ft/sec, which would be demonstrated by ambulating more than 709 feet during a 6 MWT LTG Duration 01/19/20 2 Impairment Pt presents with limited left knee ROM Mcfp Goal (LTG) L knee AROM in supine to increase to 0?-120? LTG Duration 01/19/20 1 Impairment Pt does not have an appropriate home exercise program Short Term Goal (STG) Pt to be independent and compliant with an appropriate HEP STG Duration 12/19/19 Assessment Summary Assessment Pt presents one week s/p L TKA . Pt having some mild pain, but overall is feeling better than she had been prior to surgery. Pt has been working hard with her post-op exercises, and is doing well working on her knee extension. Pt has a slow gait speed (1. 05 ft/sec), but is able to ambulate with a constant forward motion with no stopping with verbal cues. Pt presents with joint effusion common after TKA, as well as expected left LE weakness. Pt should benefit from skilled therapy focused on gait and balance, ROM, strengthening, and functional mobility, as well as modalities for pain control and decreasing edema. Physical Therapy Plan Frequency and Duration Frequency of Treatment 2x/Week Duration of Treatment 10 weeks Plan of Care Start Date 11/18/19 Plan of Care End Date 01/27/20 Therapeutic Interventions Therapeutic Interventions Aquatic Therapy,Balance Training,Gait Training,Home Exercise Program,Joint Mobilizations,Manual Therapy, Neuromuscular Re-education, Patient/Caregiver Education, Self-Care/Home Management,Soft Tissue Mobilization, Therapeutic Exercises Modalities Cold Pack/Ice Massage,Electric Stimulation,Hot Packs, Ultrasound Next Visit Focus/Plan Next Note Type Treatment Note Next Visit Plan Knee ROM, strengthening, gait training Plan of Care Dates Plan of Care Start Date 11/18/19 Plan of Care End Date 01/27/20 Electronically Signed by: Cesar Garay, PT 11/19/19 0948 Please Sign and Return: I have reviewed this Plan of Care and certify that the skilled therapy services above are required to meet the patient?s needs. Physician Signature Date Printed Name and Credentials Clinical Instructor Signature Printed Name and Credentials
--- NOTE | 2019-11-18 10:30 | PT.OIE ---
Current Diagnoses Unilateral primary osteoarthritis, left knee (11/18/19) Pain in left knee (11/18/19) Stiffness of left knee, not elsewhere classified (11/18/19) Aftercare following joint replacement surgery (11/18/19) Past Medical History (Last Updated 11/04/19 @ 09:08 by Sola Graf RN) Childers's palsy (Chronic) Chronic cough (Chronic) Colon polyps (Chronic) Hearing impaired (Acute) Hyperlipidemia (Chronic) Osteoarthritis (Chronic) Past Surgical History (Last Updated 11/04/19 @ 09:08 by Sola Graf RN) History of meniscectomy of left knee (Resolved ~2003) History of meniscectomy of right knee (Resolved ~2011) History of surgery (Resolved ~2012) Hx of bilateral cataract extraction (Acute) Skin cancer (Resolved ~2006) Status post appendectomy Visit Care Team Role Provider Type Mani Tyson MD Primary Care Provider Physician Specialty: Family Practice Address: [address] [place] [address], [phone] Email: [email or web address] Franklin Marino MD Attending Provider Physician Referring Provider Specialty: Orthopedic Surgery Address: [address] [place] [address], [phone] Email: [email or web address] Initial Evaluation PT-OP-A Visit Information Start: 11/18/19 17:42 Freq: Status: Active Protocol: Document 11/18/19 09:45 DCW (Rec: 11/18/19 17:55 [facility] [id number]) Out-Patient Physical Therapy Visit Information Visit Information Visit Type Initial Evaluation Visit Start Time 09:45 Visit Stop Time 10:30 Total Visit Minutes 45 Visit Number 1 Number of CUSTOMER PROGRAM MANAGER Visits 0 Evaluation Information Evaluation Date 11/18/19 PT-OP-B Current Condition Start: 11/18/19 17:42 Freq: Status: Active Protocol: Document 11/18/19 09:45 DCW (Rec: 11/18/19 17:55 DC [id number]) Current Condition History of Current Condition Onset Date 11/11/19 Current Complaints Pain, weakness, stiffness s/p L TKA History of Current Condition Pt presents to skilled physical therapy one week s/p L TKA following failed conservative treatment of knee osteoarthritis. Pt's daughter attends evaluation, and pt reports that her daughter has been helping her with her post -op exercises. Pt notes her most limiting pain is currently coming from her low back, which mainly hurts when she is attempting to perform supine exercises. Prior Treatments and Tests L TKA on 11/11/19 PT-OP-C Subjective Start: 11/18/19 17:42 Freq: Status: Active Protocol: Document 11/18/19 09:45 DCW (Rec: 11/18/19 17:55 DCW [id number]) OP-PT Subjective Patient Comments Patient Comments I can pear weight on it without pain now, it's pretty amazing. Patient Reported Progress Improving Patient Questionnaires Lower Extremity Functional Scale LEFS Score 2/80 = 2.5% LEFS Impairment 80 to 99% Impaired (Score 1-16 ) OP-PT Pain Assessment Pain Assessment Grid Paper Pain Assessment Grid Completed Yes Location left knee Variations/Patterns 07/22 /c exercise, 08/22 extended sitting PT-OP-E Functional Tests Start: 11/18/19 17:42 Freq: Status: Active Protocol: Document 11/18/19 09:45 DCW (Rec: 11/18/19 17:55 DCW [id number]) Functional Tests 6 Minute Walk Test Distance 377' Device Used FWW Comments 1.05 ft/sec PT-OP-J Posture/Palpation/Skin Start: 11/18/19 17:42 Freq: Status: Active Protocol: Document 11/18/19 09:45 DCW (Rec: 11/18/19 17:55 DCW [id number]) Skin Assessment Circumference Measurement 3 Location 10 cm inferior to left knee joint line Measurement (Centimeters) 37.6 Comments 10 cm inferior to right knee joint line: 35.3 cm 2 Location 10 cm superior to leftt knee joint line Measurement (Centimeters) 45.5 Comments 10 cm superior to right knee joint line: 40.8 cm 1 Location Left knee joint line Measurement (Centimeters) 43.0 Comments Right knee joint line: 37.5 cm PT-OP-K Range of Motion Start: 11/18/19 17:42 Freq: Status: Active Protocol: Document 11/18/19 09:45 DCW (Rec: 11/18/19 17:55 DCW [id number]) Knee Goniometric Range of Motion Knee Left Sitting Patient Position Sitting Flexion Active (degrees) 70 Extension Active (degrees) 20 Left Patient Position Supine Flexion Active (degrees) 75 Flexion Passive (degrees) 82 Extension Active (degrees) 7 PT-OP-M Strength Start: 11/18/19 17:42 Freq: Status: Active Protocol: Document 11/18/19 09:45 DCW (Rec: 11/18/19 17:55 DCW [id number]) Hip Strength Hip Manual Muscle Testing Right Flexion (L2) 4+ Good+ Abduction 4 Good Adduction 4+ Good+ Left Flexion (L2) 3- Fair- Abduction 4- Good- Adduction 4+ Good+ Knee Strength Knee Manual Muscle Testing Right Flexion (S2) 4+ Good+ Extension (L3) 4+ Good+ Left Flexion (S2) 3 Fair Extension (L3) 3 Fair Ankle/Foot Strength Ankle and Foot Manual Muscle Testing Right Dorsiflexion (L4) 4+ Good+ Plantarflexion (S1) 4+ Good+ Left Dorsiflexion (L4) 4- Good- Plantarflexion (S1) 4 Good PT-OP-T Assessment and Plan Start: 11/18/19 17:42 Freq: Status: Active Protocol: Document 11/18/19 09:45 DCW (Rec: 11/19/19 09:40 DCW [id number]) Physical Therapy Assessment Rehab Potential Rehabilitation Potential Excellent Evaluation Complexity Number of Personal Factors/Comorbidities 1-2 Number of Body Systems Impaired 1-2 Clinical Presentation at Evaluation Stable Impairments Impairments Activity Tolerance,Functional Activities,Functional Mobility ,Gait,Pain,ROM,Soft Tissue Mobility,Strength Goals 3 Impairment Pt has an average gait speed of 1.05 ft/sec during 6 MWT [employer] Goal (LTG) A gait speed of <1.97 ft/sec has been shown to indicate an increased risk for further functional decline. Pt to increase gait speed to >1.97 ft/sec, which would be demonstrated by ambulating more than 709 feet during a 6 MWT LTG Duration 01/19/20 2 Impairment Pt presents with limited left knee ROM Retirement Goal (LTG) L knee AROM in supine to increase to 0?-120? LTG Duration 01/19/20 1 Impairment Pt does not have an appropriate home exercise program Short Term Goal (STG) Pt to be independent and compliant with an appropriate HEP STG Duration 12/19/19 Assessment Summary Assessment Pt presents one week s/p L TKA . Pt having some mild pain, but overall is feeling better than she had been prior to surgery. Pt has been working hard with her post-op exercises, and is doing well working on her knee extension. Pt has a slow gait speed (1. 05 ft/sec), but is able to ambulate with a constant forward motion with no stopping with verbal cues. Pt presents with joint effusion common after TKA, as well as expected left LE weakness. Pt should benefit from skilled therapy focused on gait and balance, ROM, strengthening, and functional mobility, as well as modalities for pain control and decreasing edema. Physical Therapy Plan Frequency and Duration Frequency of Treatment 2x/Week Duration of Treatment 10 weeks Plan of Care Start Date 11/18/19 Plan of Care End Date 01/27/20 Therapeutic Interventions Therapeutic Interventions Aquatic Therapy,Balance Training,Gait Training,Home Exercise Program,Joint Mobilizations,Manual Therapy, Neuromuscular Re-education, Patient/Caregiver Education, Self-Care/Home Management,Soft Tissue Mobilization, Therapeutic Exercises Modalities Cold Pack/Ice Massage,Electric Stimulation,Hot Packs, Ultrasound Next Visit Focus/Plan Next Note Type Treatment Note Next Visit Plan Knee ROM, strengthening, gait training
--- NOTE | 2019-11-21 12:28 | PT.OTN ---
Current Diagnoses Unilateral primary osteoarthritis, left knee (11/21/19) Pain in left knee (11/21/19) Stiffness of left knee, not elsewhere classified (11/21/19) Aftercare following joint replacement surgery (11/21/19) Physical Therapy Treatment Note PT-OP-A Visit Information Start: 11/18/19 17:42 Freq: Status: Active Protocol: Document 11/21/19 07:29 [facility] (Rec: 11/21/19 12:28 [facility] [id number]) Out-Patient Physical Therapy Visit Information Visit Information Visit Type Treatment Note Visit Start Time 07:30 Visit Stop Time 08:15 Total Visit Minutes 45 Visit Number 2 Number of SPORTS TEAM MANAGER Visits 0 PT-OP-B Current Condition Start: 11/18/19 17:42 Freq: Status: Active Protocol: Document 11/18/19 09:45 DCW (Rec: 11/18/19 17:55 DCW [id number]) Current Condition History of Current Condition Onset Date 11/11/19 Current Complaints Pain, weakness, stiffness s/p L TKA History of Current Condition Pt presents to skilled physical therapy one week s/p L TKA following failed conservative treatment of knee osteoarthritis. Pt's daughter attends evaluation, and pt reports that her daughter has been helping her with her post -op exercises. Pt notes her most limiting pain is currently coming from her low back, which mainly hurts when she is attempting to perform supine exercises. Prior Treatments and Tests L TKA on 11/11/19 PT-OP-C Subjective Start: 11/18/19 17:42 Freq: Status: Active Protocol: Document 11/21/19 07:29 [facility] (Rec: 11/21/19 12:28 [facility] [id number]) OP-PT Subjective Patient Comments Patient Comments Pt reports doing exercises 2- 3x/day and walking Patient Reported Progress Improving PT-OP-E Functional Tests Start: 11/18/19 17:42 Freq: Status: Active Protocol: Document 11/18/19 09:45 DCW (Rec: 11/18/19 17:55 DCW [id number]) Functional Tests 6 Minute Walk Test Distance 377' Device Used FWW Comments 1.05 ft/sec PT-OP-J Posture/Palpation/Skin Start: 11/18/19 17:42 Freq: Status: Active Protocol: Document 11/18/19 09:45 DCW (Rec: 11/18/19 17:55 DCW [id number]) Skin Assessment Circumference Measurement 3 Location 10 cm inferior to left knee joint line Measurement (Centimeters) 37.6 Comments 10 cm inferior to right knee joint line: 35.3 cm 2 Location 10 cm superior to leftt knee joint line Measurement (Centimeters) 45.5 Comments 10 cm superior to right knee joint line: 40.8 cm 1 Location Left knee joint line Measurement (Centimeters) 43.0 Comments Right knee joint line: 37.5 cm PT-OP-K Range of Motion Start: 11/18/19 17:42 Freq: Status: Active Protocol: Document 11/18/19 09:45 DCW (Rec: 11/18/19 17:55 DCW [id number]) Knee Goniometric Range of Motion Knee Left Sitting Patient Position Sitting Flexion Active (degrees) 70 Extension Active (degrees) 20 Left Patient Position Supine Flexion Active (degrees) 75 Flexion Passive (degrees) 82 Extension Active (degrees) 7 PT-OP-M Strength Start: 11/18/19 17:42 Freq: Status: Active Protocol: Document 11/18/19 09:45 DCW (Rec: 11/18/19 17:55 DCW [id number]) Hip Strength Hip Manual Muscle Testing Right Flexion (L2) 4+ Good+ Abduction 4 Good Adduction 4+ Good+ Left Flexion (L2) 3- Fair- Abduction 4- Good- Adduction 4+ Good+ Knee Strength Knee Manual Muscle Testing Right Flexion (S2) 4+ Good+ Extension (L3) 4+ Good+ Left Flexion (S2) 3 Fair Extension (L3) 3 Fair Ankle/Foot Strength Ankle and Foot Manual Muscle Testing Right Dorsiflexion (L4) 4+ Good+ Plantarflexion (S1) 4+ Good+ Left Dorsiflexion (L4) 4- Good- Plantarflexion (S1) 4 Good PT-OP-Q Treatments Start: 11/18/19 17:42 Freq: Status: Active Protocol: Document 11/21/19 07:29 [facility] (Rec: 11/21/19 12:28 [facility] [id number]) Cardio Equipment Recumbent Elliptical (Biodex) Duration (Minutes) 6 Resistance 1 Gym Equipment Shuttle Recovery Bilateral Squats Resistance 50# Shuttle Recovery Platform Stable Reps/Time 30 Therapeutic Exercises Supine Exercises 4 Supine Exercise Name heel slides w/belt & APs Side left Reps/Minutes 12x5 sec hold 3 Supine Exercise Name knee flex w/ feet on blue tball Side bilateral Reps/Minutes 2x15 5 sec holds Standing Exercises TKE Side left Equipment Used L2 Reps/Minutes 2x10 Self-Care/Home Management Treatment Education Caregiver Education edu re: small frequent bouts of walking vs 1 large one; edu on progressive inc of passive ext and different positions she can try it in PT-OP-T Assessment and Plan Start: 11/18/19 17:42 Freq: Status: Active Protocol: Document 11/21/19 07:29 [facility] (Rec: 11/21/19 12:28 [facility] [id number]) Physical Therapy Assessment Goals 3 Impairment Pt has an average gait speed of 1.05 ft/sec during 6 MWT [facility] Goal (LTG) A gait speed of <1.97 ft/sec has been shown to indicate an increased risk for further functional decline. Pt to increase gait speed to >1.97 ft/sec, which would be demonstrated by ambulating more than 709 feet during a 6 MWT LTG Duration 01/19/20 2 Impairment Pt presents with limited left knee ROM Hand I Thermal Cutter Goal (LTG) L knee AROM in supine to increase to 0?-120? LTG Duration 01/19/20 1 Impairment Pt does not have an appropriate home exercise program Short Term Goal (STG) Pt to be independent and compliant with an appropriate HEP STG Duration 12/19/19 Assessment Summary Assessment Pt able to do all exercises w/ o c/o signifciant pain. Pt appreciated extra tips for current exercises and plans to work on more frequent bouts of activity vs long bouts of walking. Physical Therapy Plan Frequency and Duration Frequency of Treatment 2x/Week Duration of Treatment 10 weeks Plan of Care Start Date 11/18/19 Plan of Care End Date 01/27/20 Next Visit Focus/Plan Next Note Type Treatment Note Next Visit Plan Knee ROM, strengthening, gait training
--- NOTE | 2019-11-26 16:50 | PT.OTN ---
Current Diagnoses Unilateral primary osteoarthritis, left knee (11/26/19) Pain in left knee (11/26/19) Stiffness of left knee, not elsewhere classified (11/26/19) Aftercare following joint replacement surgery (11/26/19) Physical Therapy Treatment Note PT-OP-A Visit Information Start: 11/18/19 17:42 Freq: Status: Active Protocol: Document 11/26/19 16:00 DCW (Rec: 11/26/19 16:49 DCW [id number]) Out-Patient Physical Therapy Visit Information Visit Information Visit Type Treatment Note Visit Start Time 16:00 Visit Stop Time 16:45 Total Visit Minutes 45 Visit Number 3 Number of INJECTION MOLDING MACHINE SETTER Visits 0 Evaluation Information Evaluation Date 11/18/19 PT-OP-B Current Condition Start: 11/18/19 17:42 Freq: Status: Active Protocol: Document 11/18/19 09:45 DCW (Rec: 11/18/19 17:55 DCW [id number]) Current Condition History of Current Condition Onset Date 11/11/19 Current Complaints Pain, weakness, stiffness s/p L TKA History of Current Condition Pt presents to skilled physical therapy one week s/p L TKA following failed conservative treatment of knee osteoarthritis. Pt's daughter attends evaluation, and pt reports that her daughter has been helping her with her post -op exercises. Pt notes her most limiting pain is currently coming from her low back, which mainly hurts when she is attempting to perform supine exercises. Prior Treatments and Tests L TKA on 11/11/19 PT-OP-C Subjective Start: 11/18/19 17:42 Freq: Status: Active Protocol: Document 11/26/19 16:00 DCW (Rec: 11/26/19 16:49 DCW [id number]) OP-PT Subjective Patient Comments Patient Comments Pt reports her daughter has been working her hard at home. PT-OP-E Functional Tests Start: 11/18/19 17:42 Freq: Status: Active Protocol: Document 11/18/19 09:45 DCW (Rec: 11/18/19 17:55 DCW [id number]) Functional Tests 6 Minute Walk Test Distance 377' Device Used FWW Comments 1.05 ft/sec PT-OP-J Posture/Palpation/Skin Start: 11/18/19 17:42 Freq: Status: Active Protocol: Document 11/18/19 09:45 DCW (Rec: 11/18/19 17:55 DCW [id number]) Skin Assessment Circumference Measurement 3 Location 10 cm inferior to left knee joint line Measurement (Centimeters) 37.6 Comments 10 cm inferior to right knee joint line: 35.3 cm 2 Location 10 cm superior to leftt knee joint line Measurement (Centimeters) 45.5 Comments 10 cm superior to right knee joint line: 40.8 cm 1 Location Left knee joint line Measurement (Centimeters) 43.0 Comments Right knee joint line: 37.5 cm PT-OP-K Range of Motion Start: 11/18/19 17:42 Freq: Status: Active Protocol: Document 11/18/19 09:45 DCW (Rec: 11/18/19 17:55 DCW [id number]) Knee Goniometric Range of Motion Knee Left Sitting Patient Position Sitting Flexion Active (degrees) 70 Extension Active (degrees) 20 Left Patient Position Supine Flexion Active (degrees) 75 Flexion Passive (degrees) 82 Extension Active (degrees) 7 PT-OP-M Strength Start: 11/18/19 17:42 Freq: Status: Active Protocol: Document 11/18/19 09:45 DCW (Rec: 11/18/19 17:55 DCW [id number]) Hip Strength Hip Manual Muscle Testing Right Flexion (L2) 4+ Good+ Abduction 4 Good Adduction 4+ Good+ Left Flexion (L2) 3- Fair- Abduction 4- Good- Adduction 4+ Good+ Knee Strength Knee Manual Muscle Testing Right Flexion (S2) 4+ Good+ Extension (L3) 4+ Good+ Left Flexion (S2) 3 Fair Extension (L3) 3 Fair Ankle/Foot Strength Ankle and Foot Manual Muscle Testing Right Dorsiflexion (L4) 4+ Good+ Plantarflexion (S1) 4+ Good+ Left Dorsiflexion (L4) 4- Good- Plantarflexion (S1) 4 Good PT-OP-Q Treatments Start: 11/18/19 17:42 Freq: Status: Active Protocol: Document 11/26/19 16:00 DCW (Rec: 11/26/19 16:49 DCW [id number]) Cardio Equipment Recumbent Bicycle Duration (Minutes) 5 Resistance 0 Seat Position 3 Other Unable to perform full rotation Gym Equipment Shuttle Recovery Bilateral Squats Resistance 75# Shuttle Recovery Platform Stable Reps/Time 30 Therapeutic Exercises Supine Exercises 3 Supine Exercise Name knee flex w/ feet on blue tball Side bilateral Reps/Minutes 2x15 5 sec holds 2 Supine Exercise Name Supine Extension Stretch 1 Supine Exercise Name SAQ Side left Standing Exercises TKE Side left Equipment Used L2 Reps/Minutes 2x10 lunge Standing Exercise Name Step flexion stretch Side left Manual Therapy Treatment Joint Mobilizations patella Joint patella Direction sup, inf, med Grade II Body Position Supine Other Other Manual Treatments Passive knee flexion/extension PT-OP-T Assessment and Plan Start: 11/18/19 17:42 Freq: Status: Active Protocol: Document 11/26/19 16:00 DCW (Rec: 11/26/19 16:49 DCW [id number]) Physical Therapy Assessment Impairments Impairments Activity Tolerance,Functional Activities,Functional Mobility ,Gait,Pain,ROM,Soft Tissue Mobility,Strength Goals 3 Impairment Pt has an average gait speed of 1.05 ft/sec during 6 MWT [facility] Goal (LTG) A gait speed of <1.97 ft/sec has been shown to indicate an increased risk for further functional decline. Pt to increase gait speed to >1.97 ft/sec, which would be demonstrated by ambulating more than 709 feet during a 6 MWT LTG Duration 01/19/20 2 Impairment Pt presents with limited left knee ROM [facility] Goal (LTG) L knee AROM in supine to increase to 0?-120? LTG Duration 01/19/20 1 Impairment Pt does not have an appropriate home exercise program Short Term Goal (STG) Pt to be independent and compliant with an appropriate HEP STG Duration 12/19/19 Assessment Summary Assessment Pt tolerated treatment very well, was able to improve flexion by about 10 degrees between beginning and end of session after stretching. Physical Therapy Plan Frequency and Duration Frequency of Treatment 2x/Week Duration of Treatment 10 weeks Plan of Care Start Date 11/18/19 Plan of Care End Date 01/27/20 Therapeutic Interventions Therapeutic Interventions Aquatic Therapy,Balance Training,Gait Training,Home Exercise Program,Joint Mobilizations,Manual Therapy, Neuromuscular Re-education, Patient/Caregiver Education, Self-Care/Home Management,Soft Tissue Mobilization, Therapeutic Exercises Modalities Cold Pack/Ice Massage,Electric Stimulation,Hot Packs, Ultrasound Next Visit Focus/Plan Next Note Type Treatment Note Next Visit Plan Knee ROM, strengthening, gait training
--- NOTE | 2019-11-29 12:57 | PT.OTN ---
Current Diagnoses Unilateral primary osteoarthritis, left knee (11/29/19) Pain in left knee (11/29/19) Stiffness of left knee, not elsewhere classified (11/29/19) Aftercare following joint replacement surgery (11/29/19) Physical Therapy Treatment Note PT-OP-A Visit Information Start: 11/18/19 17:42 Freq: Status: Active Protocol: Document 11/29/19 12:00 DCW (Rec: 11/29/19 12:57 DCW [id number]) Out-Patient Physical Therapy Visit Information Visit Information Visit Type Treatment Note Visit Start Time 12:00 Visit Stop Time 12:45 Total Visit Minutes 45 Visit Number 4 Number of [employer] CONSULTANT Visits 0 Evaluation Information Evaluation Date 11/18/19 PT-OP-B Current Condition Start: 11/18/19 17:42 Freq: Status: Active Protocol: Document 11/18/19 09:45 DCW (Rec: 11/18/19 17:55 DCW [id number]) Current Condition History of Current Condition Onset Date 11/11/19 Current Complaints Pain, weakness, stiffness s/p L TKA History of Current Condition Pt presents to skilled physical therapy one week s/p L TKA following failed conservative treatment of knee osteoarthritis. Pt's daughter attends evaluation, and pt reports that her daughter has been helping her with her post -op exercises. Pt notes her most limiting pain is currently coming from her low back, which mainly hurts when she is attempting to perform supine exercises. Prior Treatments and Tests L TKA on 11/11/19 PT-OP-C Subjective Start: 11/18/19 17:42 Freq: Status: Active Protocol: Document 11/29/19 12:00 DCW (Rec: 11/29/19 12:57 DCW [id number]) OP-PT Subjective Patient Comments Patient Comments I'm doing pretty well today. Today is a good day. PT-OP-E Functional Tests Start: 11/18/19 17:42 Freq: Status: Active Protocol: Document 11/18/19 09:45 DCW (Rec: 11/18/19 17:55 DCW [id number]) Functional Tests 6 Minute Walk Test Distance 377' Device Used FWW Comments 1.05 ft/sec PT-OP-J Posture/Palpation/Skin Start: 11/18/19 17:42 Freq: Status: Active Protocol: Document 11/18/19 09:45 DCW (Rec: 11/18/19 17:55 DCW [id number]) Skin Assessment Circumference Measurement 3 Location 10 cm inferior to left knee joint line Measurement (Centimeters) 37.6 Comments 10 cm inferior to right knee joint line: 35.3 cm 2 Location 10 cm superior to leftt knee joint line Measurement (Centimeters) 45.5 Comments 10 cm superior to right knee joint line: 40.8 cm 1 Location Left knee joint line Measurement (Centimeters) 43.0 Comments Right knee joint line: 37.5 cm PT-OP-K Range of Motion Start: 11/18/19 17:42 Freq: Status: Active Protocol: Document 11/18/19 09:45 DCW (Rec: 11/18/19 17:55 DCW [id number]) Knee Goniometric Range of Motion Knee Left Sitting Patient Position Sitting Flexion Active (degrees) 70 Extension Active (degrees) 20 Left Patient Position Supine Flexion Active (degrees) 75 Flexion Passive (degrees) 82 Extension Active (degrees) 7 PT-OP-M Strength Start: 11/18/19 17:42 Freq: Status: Active Protocol: Document 11/18/19 09:45 DCW (Rec: 11/18/19 17:55 DCW [id number]) Hip Strength Hip Manual Muscle Testing Right Flexion (L2) 4+ Good+ Abduction 4 Good Adduction 4+ Good+ Left Flexion (L2) 3- Fair- Abduction 4- Good- Adduction 4+ Good+ Knee Strength Knee Manual Muscle Testing Right Flexion (S2) 4+ Good+ Extension (L3) 4+ Good+ Left Flexion (S2) 3 Fair Extension (L3) 3 Fair Ankle/Foot Strength Ankle and Foot Manual Muscle Testing Right Dorsiflexion (L4) 4+ Good+ Plantarflexion (S1) 4+ Good+ Left Dorsiflexion (L4) 4- Good- Plantarflexion (S1) 4 Good PT-OP-Q Treatments Start: 11/18/19 17:42 Freq: Status: Active Protocol: Document 11/29/19 12:00 DCW (Rec: 11/29/19 12:57 DCW [id number]) Cardio Equipment Recumbent Bicycle Duration (Minutes) 5 Resistance 0 Seat Position 3 Other Able to get multiple backward rotations Gym Equipment Shuttle Recovery Bilateral Squats Resistance 75# Shuttle Recovery Platform Stable Reps/Time 30 Therapeutic Exercises Supine Exercises 2 Supine Exercise Name Supine Extension Stretch Resistance 5# Standing Exercises TKE Side left Equipment Used L2 Reps/Minutes 2x10 lunge Standing Exercise Name Step flexion stretch Side left Gait Training Gait Activity 1 Description Gait training Device Used SPC, none Level of Assistance SBA Distance/Duration 150' x2 Manual Therapy Treatment Joint Mobilizations patella Joint patella Direction sup, inf, med Grade II Body Position Supine 3 Joint L knee Direction Ant-post Grade III Body Position Hooklying PT-OP-T Assessment and Plan Start: 11/18/19 17:42 Freq: Status: Active Protocol: Document 11/29/19 12:00 DCW (Rec: 11/29/19 12:57 DCW [id number]) Physical Therapy Assessment Impairments Impairments Activity Tolerance,Functional Activities,Functional Mobility ,Gait,Pain,ROM,Soft Tissue Mobility,Strength Goals 3 Impairment Pt has an average gait speed of 1.05 ft/sec during 6 MWT Snf Goal (LTG) A gait speed of <1.97 ft/sec has been shown to indicate an increased risk for further functional decline. Pt to increase gait speed to >1.97 ft/sec, which would be demonstrated by ambulating more than 709 feet during a 6 MWT LTG Duration 01/19/20 2 Impairment Pt presents with limited left knee ROM Snf Goal (LTG) L knee AROM in supine to increase to 0?-120? LTG Duration 01/19/20 1 Impairment Pt does not have an appropriate home exercise program Short Term Goal (STG) Pt to be independent and compliant with an appropriate HEP STG Duration 12/19/19 Assessment Summary Assessment Pt progressing very well, performed with no difficulties gait with SPC and with no assistive device, although obviously fatigued last 10-20 feet while walking without an AD. Pt informed she can walk in her home without an AD, but will probably benefit from use of a cane for longer distances to combat fatigue. Physical Therapy Plan Frequency and Duration Frequency of Treatment 2x/Week Duration of Treatment 10 weeks Plan of Care Start Date 11/18/19 Plan of Care End Date 01/27/20 Therapeutic Interventions Therapeutic Interventions Aquatic Therapy,Balance Training,Gait Training,Home Exercise Program,Joint Mobilizations,Manual Therapy, Neuromuscular Re-education, Patient/Caregiver Education, Self-Care/Home Management,Soft Tissue Mobilization, Therapeutic Exercises Modalities Cold Pack/Ice Massage,Electric Stimulation,Hot Packs, Ultrasound Next Visit Focus/Plan Next Note Type Treatment Note Next Visit Plan Knee ROM, strengthening, gait training
--- NOTE | 2019-12-02 09:00 | PT.OTN ---
Current Diagnoses Unilateral primary osteoarthritis, left knee (12/02/19) Pain in left knee (12/02/19) Stiffness of left knee, not elsewhere classified (12/02/19) Aftercare following joint replacement surgery (12/02/19) Physical Therapy Treatment Note PT-OP-A Visit Information Start: 11/18/19 17:42 Freq: Status: Active Protocol: Document 12/02/19 08:18 SP (Rec: 12/02/19 11:52 SP [id number]) Out-Patient Physical Therapy Visit Information Visit Information Visit Type Treatment Note Visit Note Daughter addended tx today, provides assist and cuing at home for proper form and recall/ compliance. Visit Start Time 08:18 Visit Stop Time 09:00 Total Visit Minutes 42 Visit Number 5 Number of PLUG SHAPER HAND Visits 1 PT-OP-B Current Condition Start: 11/18/19 17:42 Freq: Status: Active Protocol: Document 11/18/19 09:45 DCW (Rec: 11/18/19 17:55 DCW [id number]) Current Condition History of Current Condition Onset Date 11/11/19 Current Complaints Pain, weakness, stiffness s/p L TKA History of Current Condition Pt presents to skilled physical therapy one week s/p L TKA following failed conservative treatment of knee osteoarthritis. Pt's daughter attends evaluation, and pt reports that her daughter has been helping her with her post -op exercises. Pt notes her most limiting pain is currently coming from her low back, which mainly hurts when she is attempting to perform supine exercises. Prior Treatments and Tests L TKA on 11/11/19 PT-OP-C Subjective Start: 11/18/19 17:42 Freq: Status: Active Protocol: Document 12/02/19 08:18 SP (Rec: 12/02/19 11:52 SP [id number]) OP-PT Subjective Patient Comments Patient Comments I am doing well, mainly restless at night with pain. PT-OP-E Functional Tests Start: 11/18/19 17:42 Freq: Status: Active Protocol: Document 11/18/19 09:45 DCW (Rec: 11/18/19 17:55 DCW [id number]) Functional Tests 6 Minute Walk Test Distance 377' Device Used FWW Comments 1.05 ft/sec PT-OP-J Posture/Palpation/Skin Start: 11/18/19 17:42 Freq: Status: Active Protocol: Document 11/18/19 09:45 DCW (Rec: 11/18/19 17:55 DCW [id number]) Skin Assessment Circumference Measurement 3 Location 10 cm inferior to left knee joint line Measurement (Centimeters) 37.6 Comments 10 cm inferior to right knee joint line: 35.3 cm 2 Location 10 cm superior to leftt knee joint line Measurement (Centimeters) 45.5 Comments 10 cm superior to right knee joint line: 40.8 cm 1 Location Left knee joint line Measurement (Centimeters) 43.0 Comments Right knee joint line: 37.5 cm PT-OP-K Range of Motion Start: 11/18/19 17:42 Freq: Status: Active Protocol: Document 11/18/19 09:45 DCW (Rec: 11/18/19 17:55 DCW [id number]) Knee Goniometric Range of Motion Knee Left Sitting Patient Position Sitting Flexion Active (degrees) 70 Extension Active (degrees) 20 Left Patient Position Supine Flexion Active (degrees) 75 Flexion Passive (degrees) 82 Extension Active (degrees) 7 PT-OP-M Strength Start: 11/18/19 17:42 Freq: Status: Active Protocol: Document 11/18/19 09:45 DCW (Rec: 11/18/19 17:55 DCW [id number]) Hip Strength Hip Manual Muscle Testing Right Flexion (L2) 4+ Good+ Abduction 4 Good Adduction 4+ Good+ Left Flexion (L2) 3- Fair- Abduction 4- Good- Adduction 4+ Good+ Knee Strength Knee Manual Muscle Testing Right Flexion (S2) 4+ Good+ Extension (L3) 4+ Good+ Left Flexion (S2) 3 Fair Extension (L3) 3 Fair Ankle/Foot Strength Ankle and Foot Manual Muscle Testing Right Dorsiflexion (L4) 4+ Good+ Plantarflexion (S1) 4+ Good+ Left Dorsiflexion (L4) 4- Good- Plantarflexion (S1) 4 Good PT-OP-Q Treatments Start: 11/18/19 17:42 Freq: Status: Active Protocol: Document 12/02/19 08:18 SP (Rec: 12/02/19 11:52 SP [id number]) Cardio Equipment Recumbent Bicycle Duration (Minutes) 8 Resistance 0 Seat Position 4-3 Other Rocking initially then able to get multiple backward rotations Gym Equipment Shuttle Recovery Bilateral Squats Resistance 75# Shuttle Recovery Platform Stable Reps/Time 30 unilat squat Details alternate L>R Resistance 25# Shuttle Recovery Platform Stable Reps/Time 10x2 Therapeutic Exercises Supine Exercises quad set w/ ankle on roll Side left Reps/Minutes 5 sec x5 heel slides Supine Exercise Name AAROM 3-97 deg Side left Reps/Minutes x5 Prone Exercises HS curl Side left Reps/Minutes 2x5 Comments A- AAROM by RLE when needed prone hang Side left Reps/Minutes 30 sec x3 Comments supported with RLE as needed Sitting Exercises AAROM R knee flexion Side left Equipment Used chair Reps/Minutes x5 Manual Therapy Treatment Joint Mobilizations patella Joint patella Direction sup, inf, med Grade II Body Position Supine 3 Joint L knee Direction Ant-post Grade III Body Position Hooklying Manual Techniques scar mobility Body Location L knee Body Position Sitting Reps/Duration 1 min multidirectional Comments long sitting, manual, self and daughter assist (cued finger placement on side scar moving together slowly sup/inf, med/ lat) not add any ointment to scar at this time to decrease risk infection. Other Other Manual Treatments Passive knee flexion/extension PT-OP-T Assessment and Plan Start: 11/18/19 17:42 Freq: Status: Active Protocol: Document 12/02/19 08:18 SP (Rec: 12/02/19 11:52 SP [id number]) Physical Therapy Assessment Goals 3 Impairment Pt has an average gait speed of 1.05 ft/sec during 6 MWT [facility] Goal (LTG) A gait speed of <1.97 ft/sec has been shown to indicate an increased risk for further functional decline. Pt to increase gait speed to >1.97 ft/sec, which would be demonstrated by ambulating more than 709 feet during a 6 MWT LTG Duration 01/19/20 2 Impairment Pt presents with limited left knee ROM [facility]itentiary Goal (LTG) L knee AROM in supine to increase to 0?-120? LTG Duration 01/19/20 1 Impairment Pt does not have an appropriate home exercise program Short Term Goal (STG) Pt to be independent and compliant with an appropriate HEP STG Duration 12/19/19 Assessment Summary Assessment AAROM knee flexion 3-97 deg.Tx focused on ROM knee seated, supine, prone: added AA ROM prone hang and HS curl for HEP with good response no pain. Pt tolerated warm up recumbent bike seated 4 intially rocking then 3 retro revolutions 1/2 time, tight discomfort but tolerable. Cued once in standing to wt shift before initiated gait for WB awareness stability with good reponse. Pt used walking stick today with cuing x1 for proper sequencing then carried over well. Physical Therapy Plan Frequency and Duration Frequency of Treatment 2x/Week Duration of Treatment 10 weeks Plan of Care Start Date 11/18/19 Plan of Care End Date 01/27/20 Therapeutic Interventions Therapeutic Interventions Aquatic Therapy,Balance Training,Gait Training,Home Exercise Program,Joint Mobilizations,Manual Therapy, Neuromuscular Re-education, Patient/Caregiver Education, Self-Care/Home Management,Soft Tissue Mobilization, Therapeutic Exercises Modalities Cold Pack/Ice Massage,Electric Stimulation,Hot Packs, Ultrasound Next Visit Focus/Plan Next Note Type Treatment Note Next Visit Plan Assess response to last tx added prone activities. Continue progress L knee ROM, strengthening (TKE) and gait traing SPC/Walking stick and 0 AD.
--- NOTE | 2019-12-05 12:12 | PT.OTN ---
Current Diagnoses Unilateral primary osteoarthritis, left knee (12/05/19) Pain in left knee (12/05/19) Stiffness of left knee, not elsewhere classified (12/05/19) Aftercare following joint replacement surgery (12/05/19) Physical Therapy Treatment Note PT-OP-A Visit Information Start: 11/18/19 17:42 Freq: Status: Active Protocol: Document 12/05/19 11:20 DCW (Rec: 12/05/19 12:12 DCW [id number]) Out-Patient Physical Therapy Visit Information Visit Information Visit Type Treatment Note Visit Start Time 11:20 Visit Stop Time 12:00 Total Visit Minutes 40 Visit Number 6 Number of [employer]ORER Visits 0 Evaluation Information Evaluation Date 11/18/19 PT-OP-B Current Condition Start: 11/18/19 17:42 Freq: Status: Active Protocol: Document 11/18/19 09:45 DCW (Rec: 11/18/19 17:55 DCW [id number]) Current Condition History of Current Condition Onset Date 11/11/19 Current Complaints Pain, weakness, stiffness s/p L TKA History of Current Condition Pt presents to skilled physical therapy one week s/p L TKA following failed conservative treatment of knee osteoarthritis. Pt's daughter attends evaluation, and pt reports that her daughter has been helping her with her post -op exercises. Pt notes her most limiting pain is currently coming from her low back, which mainly hurts when she is attempting to perform supine exercises. Prior Treatments and Tests L TKA on 11/11/19 PT-OP-C Subjective Start: 11/18/19 17:42 Freq: Status: Active Protocol: Document 12/05/19 11:20 DCW (Rec: 12/05/19 12:12 DCW [id number]) OP-PT Subjective Patient Comments Patient Comments I'm feeling pretty stiff right now. PT-OP-E Functional Tests Start: 11/18/19 17:42 Freq: Status: Active Protocol: Document 11/18/19 09:45 DCW (Rec: 11/18/19 17:55 DCW [id number]) Functional Tests 6 Minute Walk Test Distance 377' Device Used FWW Comments 1.05 ft/sec PT-OP-J Posture/Palpation/Skin Start: 11/18/19 17:42 Freq: Status: Active Protocol: Document 11/18/19 09:45 DCW (Rec: 11/18/19 17:55 DCW [id number]) Skin Assessment Circumference Measurement 3 Location 10 cm inferior to left knee joint line Measurement (Centimeters) 37.6 Comments 10 cm inferior to right knee joint line: 35.3 cm 2 Location 10 cm superior to leftt knee joint line Measurement (Centimeters) 45.5 Comments 10 cm superior to right knee joint line: 40.8 cm 1 Location Left knee joint line Measurement (Centimeters) 43.0 Comments Right knee joint line: 37.5 cm PT-OP-K Range of Motion Start: 11/18/19 17:42 Freq: Status: Active Protocol: Document 11/18/19 09:45 DCW (Rec: 11/18/19 17:55 DCW [id number]) Knee Goniometric Range of Motion Knee Left Sitting Patient Position Sitting Flexion Active (degrees) 70 Extension Active (degrees) 20 Left Patient Position Supine Flexion Active (degrees) 75 Flexion Passive (degrees) 82 Extension Active (degrees) 7 PT-OP-M Strength Start: 11/18/19 17:42 Freq: Status: Active Protocol: Document 11/18/19 09:45 DCW (Rec: 11/18/19 17:55 DCW [id number]) Hip Strength Hip Manual Muscle Testing Right Flexion (L2) 4+ Good+ Abduction 4 Good Adduction 4+ Good+ Left Flexion (L2) 3- Fair- Abduction 4- Good- Adduction 4+ Good+ Knee Strength Knee Manual Muscle Testing Right Flexion (S2) 4+ Good+ Extension (L3) 4+ Good+ Left Flexion (S2) 3 Fair Extension (L3) 3 Fair Ankle/Foot Strength Ankle and Foot Manual Muscle Testing Right Dorsiflexion (L4) 4+ Good+ Plantarflexion (S1) 4+ Good+ Left Dorsiflexion (L4) 4- Good- Plantarflexion (S1) 4 Good PT-OP-Q Treatments Start: 11/18/19 17:42 Freq: Status: Active Protocol: Document 12/05/19 11:20 DCW (Rec: 12/05/19 12:12 DCW [id number]) Cardio Equipment Recumbent Bicycle Duration (Minutes) 5 Resistance 0 Seat Position 3 Other Rocking initially then able to get multiple backward rotations, x1 forward Gym Equipment Shuttle Recovery Bilateral Squats Resistance 75# Shuttle Recovery Platform Stable Reps/Time 30 unilat squat Details alternate L>R Resistance 25# Shuttle Recovery Platform Stable Reps/Time 10x2 Therapeutic Exercises Prone Exercises prone hang Side left Reps/Minutes 1 min x2 Comments supported with RLE as needed Sitting Exercises Hamstring Curl Sitting Exercise Name HS curl Side left Resistance Lv 2 Equipment Used T-band Standing Exercises TKE Standing Exercise Name TKE Side left Resistance Lv 3 Equipment Used T-band Reps/Minutes 2x10 lunge Standing Exercise Name Step flexion stretch Side left Manual Therapy Treatment Joint Mobilizations patella Joint patella Direction sup, inf, med Grade II Body Position Supine 3 Joint L knee Direction Ant-post Grade III Body Position Hooklying PT-OP-T Assessment and Plan Start: 11/18/19 17:42 Freq: Status: Active Protocol: Document 12/05/19 11:20 DCW (Rec: 12/05/19 12:12 DCW [id number]) Physical Therapy Assessment Impairments Impairments Activity Tolerance,Functional Activities,Functional Mobility ,Gait,Pain,ROM,Soft Tissue Mobility,Strength Goals 3 Impairment Pt has an average gait speed of 1.05 ft/sec during 6 MWT Skilled Nursing Goal (LTG) A gait speed of <1.97 ft/sec has been shown to indicate an increased risk for further functional decline. Pt to increase gait speed to >1.97 ft/sec, which would be demonstrated by ambulating more than 709 feet during a 6 MWT LTG Duration 01/19/20 2 Impairment Pt presents with limited left knee ROM Skilled Nursing Goal (LTG) L knee AROM in supine to increase to 0?-120? LTG Duration 01/19/20 1 Impairment Pt does not have an appropriate home exercise program Short Term Goal (STG) Pt to be independent and compliant with an appropriate HEP STG Duration 12/19/19 Assessment Summary Assessment Pt continues to progress well, knee flexion improving to 97 degrees, good extension with prone hang, equal to right knee, although left knee is lagging behind right in extension when in supine. Increase scar mobility next week. Physical Therapy Plan Frequency and Duration Frequency of Treatment 2x/Week Duration of Treatment 10 weeks Plan of Care Start Date 11/18/19 Plan of Care End Date 01/27/20 Therapeutic Interventions Therapeutic Interventions Aquatic Therapy,Balance Training,Gait Training,Home Exercise Program,Joint Mobilizations,Manual Therapy, Neuromuscular Re-education, Patient/Caregiver Education, Self-Care/Home Management,Soft Tissue Mobilization, Therapeutic Exercises Modalities Cold Pack/Ice Massage,Electric Stimulation,Hot Packs, Ultrasound Next Visit Focus/Plan Next Note Type Treatment Note Next Visit Plan Continue scar mobilization, add stair training, progress strengthening and ROM exercises.
--- NOTE | 2019-12-09 10:40 | PT.OTN ---
Current Diagnoses Unilateral primary osteoarthritis, left knee (12/09/19) Pain in left knee (12/09/19) Stiffness of left knee, not elsewhere classified (12/09/19) Aftercare following joint replacement surgery (12/09/19) Physical Therapy Treatment Note PT-OP-A Visit Information Start: 11/18/19 17:42 Freq: Status: Active Protocol: Document 12/09/19 09:51 TP (Rec: 12/09/19 10:57 TP [id number]) Out-Patient Physical Therapy Visit Information Visit Information Visit Type Treatment Note Visit Note Student REED Thurman supervised by REED Donovan. Daughter addended tx today, provided assistance for manual STMs and cuing at home for proper form and recall/ compliance. Visit Start Time 09:51 Visit Stop Time 10:40 Total Visit Minutes 49 Visit Number 7 Number of HARNESS AND BAG INSPECTOR Visits 1 PT-OP-B Current Condition Start: 11/18/19 17:42 Freq: Status: Active Protocol: Document 11/18/19 09:45 DCW (Rec: 11/18/19 17:55 DCW [id number]) Current Condition History of Current Condition Onset Date 11/11/19 Current Complaints Pain, weakness, stiffness s/p L TKA History of Current Condition Pt presents to skilled physical therapy one week s/p L TKA following failed conservative treatment of knee osteoarthritis. Pt's daughter attends evaluation, and pt reports that her daughter has been helping her with her post -op exercises. Pt notes her most limiting pain is currently coming from her low back, which mainly hurts when she is attempting to perform supine exercises. Prior Treatments and Tests L TKA on 11/11/19 PT-OP-C Subjective Start: 11/18/19 17:42 Freq: Status: Active Protocol: Document 12/09/19 09:51 TP (Rec: 12/09/19 11:39 TP [id number]) OP-PT Subjective Patient Comments Patient Comments I'm feeling stiff. I'd like to work on my walking. Unsure how to mobilize my patella. PT-OP-E Functional Tests Start: 11/18/19 17:42 Freq: Status: Active Protocol: Document 11/18/19 09:45 DCW (Rec: 11/18/19 17:55 DCW [id number]) Functional Tests 6 Minute Walk Test Distance 377' Device Used FWW Comments 1.05 ft/sec PT-OP-J Posture/Palpation/Skin Start: 11/18/19 17:42 Freq: Status: Active Protocol: Document 11/18/19 09:45 DCW (Rec: 11/18/19 17:55 DCW [id number]) Skin Assessment Circumference Measurement 3 Location 10 cm inferior to left knee joint line Measurement (Centimeters) 37.6 Comments 10 cm inferior to right knee joint line: 35.3 cm 2 Location 10 cm superior to leftt knee joint line Measurement (Centimeters) 45.5 Comments 10 cm superior to right knee joint line: 40.8 cm 1 Location Left knee joint line Measurement (Centimeters) 43.0 Comments Right knee joint line: 37.5 cm PT-OP-K Range of Motion Start: 11/18/19 17:42 Freq: Status: Active Protocol: Document 11/18/19 09:45 DCW (Rec: 11/18/19 17:55 DCW [id number]) Knee Goniometric Range of Motion Knee Left Sitting Patient Position Sitting Flexion Active (degrees) 70 Extension Active (degrees) 20 Left Patient Position Supine Flexion Active (degrees) 75 Flexion Passive (degrees) 82 Extension Active (degrees) 7 PT-OP-M Strength Start: 11/18/19 17:42 Freq: Status: Active Protocol: Document 11/18/19 09:45 DCW (Rec: 11/18/19 17:55 DCW [id number]) Hip Strength Hip Manual Muscle Testing Right Flexion (L2) 4+ Good+ Abduction 4 Good Adduction 4+ Good+ Left Flexion (L2) 3- Fair- Abduction 4- Good- Adduction 4+ Good+ Knee Strength Knee Manual Muscle Testing Right Flexion (S2) 4+ Good+ Extension (L3) 4+ Good+ Left Flexion (S2) 3 Fair Extension (L3) 3 Fair Ankle/Foot Strength Ankle and Foot Manual Muscle Testing Right Dorsiflexion (L4) 4+ Good+ Plantarflexion (S1) 4+ Good+ Left Dorsiflexion (L4) 4- Good- Plantarflexion (S1) 4 Good PT-OP-Q Treatments Start: 11/18/19 17:42 Freq: Status: Active Protocol: Document 12/09/19 09:51 TP (Rec: 12/09/19 10:57 TP [id number]) Cardio Equipment Recumbent Bicycle Duration (Minutes) 8 Resistance 0 Seat Position 4>3 Other back revolutions < 1 min, forward within 6 min seat 4 then last min seat 3 Therapeutic Exercises Supine Exercises heel slides Supine Exercise Name AROM 2-100 deg, AROM 1-107 deg Side left Reps/Minutes x5 Gait Training Gait Activity Forward july Description forward july Add HEP Level of Assistance SBA Surface stable Distance/Duration 15ft x 4 Comments barefoot Side stepping Description bilateral side stepping Add HEP Level of Assistance SBA Surface stable Distance/Duration 15ftx 2, each side Comments barefoot Walking Description walking in front of mirror Add HEP Device Used mirror Level of Assistance SBA Surface stable Distance/Duration 15ft x 6 Comments Cues for heel toe gait and glute activation. Gait improved with shoe removal. Manual Therapy Treatment Soft Tissue Mobilization scar mobility Body Location LLE Mobilization Type Myofascial Release Intensity/Depth Superficial Body Position Hooklying Comments reviewed manual by HARNESS AND BAG INSPECTOR student and instruction self long sitting or chair with LLE propped up on chair retrograde Body Location L ankle dorsal Mobilization Type Myofascial Release Intensity/Depth Superficial Body Position Hooklying Comments instructed and performed by daughter Joint Mobilizations patella Joint patella Direction sup, inf, med Grade II Body Position Supine Comments reviewed manual by HARNESS AND BAG INSPECTOR student and instruction self long sitting or chair with LLE propped up on chair PT-OP-T Assessment and Plan Start: 11/18/19 17:42 Freq: Status: Active Protocol: Document 12/09/19 09:51 TP (Rec: 12/09/19 10:57 TP [id number]) Physical Therapy Assessment Goals 3 Impairment Pt has an average gait speed of 1.05 ft/sec during 6 MWT [facility] Goal (LTG) A gait speed of <1.97 ft/sec has been shown to indicate an increased risk for further functional decline. Pt to increase gait speed to >1.97 ft/sec, which would be demonstrated by ambulating more than 709 feet during a 6 MWT LTG Duration 01/19/20 2 Impairment Pt presents with limited left knee ROM Crop Setting Out Machine Operator Goal (LTG) L knee AROM in supine to increase to 0?-120? LTG Duration 01/19/20 1 Impairment Pt does not have an appropriate home exercise program Short Term Goal (STG) Pt to be independent and compliant with an appropriate HEP STG Duration 8/6/20 Assessment Summary Assessment L knee hang 1-107 deg PROM, 2- 100 AROM. L knee PROM and AROM improving. Pt education for patellar mobilization in long sitting. Education for daugther/caregiver to provide retrograde massage for edema present in L LE. Gait improvement with duration and after removing shoes, demonstrating good glute facilitation and less rigidity in the pelvis. Decreased step length on R due pain decreased strength in L knee during SLS. Continue PT to improve ROM, increase strength and endurance and insure safety during ambulation and stairs. Physical Therapy Plan Frequency and Duration Frequency of Treatment 2x/Week Duration of Treatment 10 weeks Plan of Care Start Date 11/18/19 Plan of Care End Date 01/27/20 Therapeutic Interventions Therapeutic Interventions Aquatic Therapy,Balance Training,Gait Training,Home Exercise Program,Joint Mobilizations,Manual Therapy, Neuromuscular Re-education, Patient/Caregiver Education, Self-Care/Home Management,Soft Tissue Mobilization, Therapeutic Exercises Modalities Cold Pack/Ice Massage,Electric Stimulation,Hot Packs, Ultrasound Next Visit Focus/Plan Next Note Type Treatment Note Next Visit Plan Reviewed HEP continue scar and L patella mobilization, HEP exercises and added standing gait activities with no AD required. Continue per PT POC: add stair training, progress strengthening and ROM exercises.
--- NOTE | 2019-12-12 11:23 | PT.OTN ---
Current Diagnoses Unilateral primary osteoarthritis, left knee (12/12/19) Pain in left knee (12/12/19) Stiffness of left knee, not elsewhere classified (12/12/19) Aftercare following joint replacement surgery (12/12/19) Physical Therapy Treatment Note PT-OP-A Visit Information Start: 11/18/19 17:42 Freq: Status: Active Protocol: Document 12/12/19 10:35 DCW (Rec: 12/12/19 11:23 DCW [id number]) Out-Patient Physical Therapy Visit Information Visit Information Visit Type Treatment Note Visit Note Daughter attended today's treatment session Visit Start Time 10:35 Visit Stop Time 11:15 Total Visit Minutes 40 Visit Number 8 Number of BRAKES INSPECTOR Visits 0 Evaluation Information Evaluation Date 11/18/19 PT-OP-B Current Condition Start: 11/18/19 17:42 Freq: Status: Active Protocol: Document 11/18/19 09:45 DCW (Rec: 11/18/19 17:55 DCW [id number]) Current Condition History of Current Condition Onset Date 11/11/19 Current Complaints Pain, weakness, stiffness s/p L TKA History of Current Condition Pt presents to skilled physical therapy one week s/p L TKA following failed conservative treatment of knee osteoarthritis. Pt's daughter attends evaluation, and pt reports that her daughter has been helping her with her post -op exercises. Pt notes her most limiting pain is currently coming from her low back, which mainly hurts when she is attempting to perform supine exercises. Prior Treatments and Tests L TKA on 11/11/19 PT-OP-C Subjective Start: 11/18/19 17:42 Freq: Status: Active Protocol: Document 12/12/19 10:35 DCW (Rec: 12/12/19 11:23 DCW [id number]) OP-PT Subjective Patient Comments Patient Comments Pt walks in today with no assistive device, very good gait pattern, heel-toe with no antalgia. PT-OP-E Functional Tests Start: 11/18/19 17:42 Freq: Status: Active Protocol: Document 11/18/19 09:45 DCW (Rec: 11/18/19 17:55 DCW [id number]) Functional Tests 6 Minute Walk Test Distance 377' Device Used FWW Comments 1.05 ft/sec PT-OP-J Posture/Palpation/Skin Start: 11/18/19 17:42 Freq: Status: Active Protocol: Document 11/18/19 09:45 DCW (Rec: 11/18/19 17:55 DCW [id number]) Skin Assessment Circumference Measurement 3 Location 10 cm inferior to left knee joint line Measurement (Centimeters) 37.6 Comments 10 cm inferior to right knee joint line: 35.3 cm 2 Location 10 cm superior to leftt knee joint line Measurement (Centimeters) 45.5 Comments 10 cm superior to right knee joint line: 40.8 cm 1 Location Left knee joint line Measurement (Centimeters) 43.0 Comments Right knee joint line: 37.5 cm PT-OP-K Range of Motion Start: 11/18/19 17:42 Freq: Status: Active Protocol: Document 11/18/19 09:45 DCW (Rec: 11/18/19 17:55 DCW [id number]) Knee Goniometric Range of Motion Knee Left Sitting Patient Position Sitting Flexion Active (degrees) 70 Extension Active (degrees) 20 Left Patient Position Supine Flexion Active (degrees) 75 Flexion Passive (degrees) 82 Extension Active (degrees) 7 PT-OP-M Strength Start: 11/18/19 17:42 Freq: Status: Active Protocol: Document 11/18/19 09:45 DCW (Rec: 11/18/19 17:55 DCW [id number]) Hip Strength Hip Manual Muscle Testing Right Flexion (L2) 4+ Good+ Abduction 4 Good Adduction 4+ Good+ Left Flexion (L2) 3- Fair- Abduction 4- Good- Adduction 4+ Good+ Knee Strength Knee Manual Muscle Testing Right Flexion (S2) 4+ Good+ Extension (L3) 4+ Good+ Left Flexion (S2) 3 Fair Extension (L3) 3 Fair Ankle/Foot Strength Ankle and Foot Manual Muscle Testing Right Dorsiflexion (L4) 4+ Good+ Plantarflexion (S1) 4+ Good+ Left Dorsiflexion (L4) 4- Good- Plantarflexion (S1) 4 Good PT-OP-Q Treatments Start: 11/18/19 17:42 Freq: Status: Active Protocol: Document 12/12/19 10:35 DCW (Rec: 12/12/19 11:23 DCW [id number]) Gym Equipment Shuttle Recovery Bilateral Squats Resistance 75# Shuttle Recovery Platform Stable Reps/Time 30 unilat squat Details alternate L>R Resistance 25# Shuttle Recovery Platform Stable Reps/Time 10x2 Shuttle Balance red clipds Comments Wide GEMMA, Staggered Therapeutic Exercises Prone Exercises HS curl Side left Resistance 5# prone hang Side left Reps/Minutes 2 min x2 Sitting Exercises LAQ Sitting Exercise Name LAQ Side bilateral Standing Exercises lunge Standing Exercise Name Step flexion stretch Side left Other Exercises 1 Other Exercise Name Step ups/downs Side left Equipment Used 6 step Gait Training Gait Activity stairs Description stairs Device Used /c and /s rail Surface 6 steps Treatment Focus Reciprocal gait Comments 4 steps x3 24 steps x1 PT-OP-T Assessment and Plan Start: 11/18/19 17:42 Freq: Status: Active Protocol: Document 12/12/19 10:35 DCW (Rec: 12/12/19 11:23 DCW [id number]) Physical Therapy Assessment Impairments Impairments Activity Tolerance,Functional Activities,Functional Mobility ,Gait,Pain,ROM,Soft Tissue Mobility,Strength Goals 3 Impairment Pt has an average gait speed of 1.05 ft/sec during 6 MWT Financial Reporting Specialist Goal (LTG) A gait speed of <1.97 ft/sec has been shown to indicate an increased risk for further functional decline. Pt to increase gait speed to >1.97 ft/sec, which would be demonstrated by ambulating more than 709 feet during a 6 MWT LTG Duration 01/19/20 2 Impairment Pt presents with limited left knee ROM Group Home Goal (LTG) L knee AROM in supine to increase to 0?-120? LTG Duration 01/19/20 1 Impairment Pt does not have an appropriate home exercise program Short Term Goal (STG) Pt to be independent and compliant with an appropriate HEP STG Duration 12/19/19 Assessment Summary Assessment Pt tolerated very well today, did well on stairs and shuttle balance. Pt showed obvious fatigue and increased anxiety on stairs, but still able to perform reciprocal ascent/ descent Physical Therapy Plan Frequency and Duration Frequency of Treatment 2x/Week Duration of Treatment 10 weeks Plan of Care Start Date 11/18/19 Plan of Care End Date 01/27/20 Therapeutic Interventions Therapeutic Interventions Aquatic Therapy,Balance Training,Gait Training,Home Exercise Program,Joint Mobilizations,Manual Therapy, Neuromuscular Re-education, Patient/Caregiver Education, Self-Care/Home Management,Soft Tissue Mobilization, Therapeutic Exercises Modalities Cold Pack/Ice Massage,Electric Stimulation,Hot Packs, Ultrasound Next Visit Focus/Plan Next Note Type Treatment Note Next Visit Plan Reviewed HEP continue scar and L patella mobilization, HEP exercises and added standing gait activities with no AD required. Continue per PT POC: add stair training, progress strengthening and ROM exercises.
--- NOTE | 2019-12-17 14:31 | PT.OTN ---
Current Diagnoses Unilateral primary osteoarthritis, left knee (12/17/19) Pain in left knee (12/17/19) Stiffness of left knee, not elsewhere classified (12/17/19) Aftercare following joint replacement surgery (12/17/19) Physical Therapy Treatment Note PT-OP-A Visit Information Start: 11/18/19 17:42 Freq: Status: Active Protocol: Document 12/17/19 13:45 DCW (Rec: 12/17/19 14:31 DCW [id number]) Out-Patient Physical Therapy Visit Information Visit Information Visit Type Treatment Note Visit Note Daughter attended today's treatment session Visit Start Time 13:45 Visit Stop Time 14:30 Total Visit Minutes 45 Visit Number 9 Number of EXECUTIVE KITCHEN MANAGER Visits 0 Evaluation Information Evaluation Date 11/18/19 PT-OP-B Current Condition Start: 11/18/19 17:42 Freq: Status: Active Protocol: Document 11/18/19 09:45 DCW (Rec: 11/18/19 17:55 DCW [id number]) Current Condition History of Current Condition Onset Date 11/11/19 Current Complaints Pain, weakness, stiffness s/p L TKA History of Current Condition Pt presents to skilled physical therapy one week s/p L TKA following failed conservative treatment of knee osteoarthritis. Pt's daughter attends evaluation, and pt reports that her daughter has been helping her with her post -op exercises. Pt notes her most limiting pain is currently coming from her low back, which mainly hurts when she is attempting to perform supine exercises. Prior Treatments and Tests L TKA on 11/11/19 PT-OP-C Subjective Start: 11/18/19 17:42 Freq: Status: Active Protocol: Document 12/17/19 13:45 DCW (Rec: 12/17/19 14:31 DCW [id number]) OP-PT Subjective Patient Comments Patient Comments I'm so happy I've been able to go up and down stairs. PT-OP-E Functional Tests Start: 11/18/19 17:42 Freq: Status: Active Protocol: Document 11/18/19 09:45 DCW (Rec: 11/18/19 17:55 DCW [id number]) Functional Tests 6 Minute Walk Test Distance 377' Device Used FWW Comments 1.05 ft/sec PT-OP-J Posture/Palpation/Skin Start: 11/18/19 17:42 Freq: Status: Active Protocol: Document 11/18/19 09:45 DCW (Rec: 11/18/19 17:55 DCW [id number]) Skin Assessment Circumference Measurement 3 Location 10 cm inferior to left knee joint line Measurement (Centimeters) 37.6 Comments 10 cm inferior to right knee joint line: 35.3 cm 2 Location 10 cm superior to leftt knee joint line Measurement (Centimeters) 45.5 Comments 10 cm superior to right knee joint line: 40.8 cm 1 Location Left knee joint line Measurement (Centimeters) 43.0 Comments Right knee joint line: 37.5 cm PT-OP-K Range of Motion Start: 11/18/19 17:42 Freq: Status: Active Protocol: Document 11/18/19 09:45 DCW (Rec: 11/18/19 17:55 DCW [id number]) Knee Goniometric Range of Motion Knee Left Sitting Patient Position Sitting Flexion Active (degrees) 70 Extension Active (degrees) 20 Left Patient Position Supine Flexion Active (degrees) 75 Flexion Passive (degrees) 82 Extension Active (degrees) 7 PT-OP-M Strength Start: 11/18/19 17:42 Freq: Status: Active Protocol: Document 11/18/19 09:45 DCW (Rec: 11/18/19 17:55 DCW [id number]) Hip Strength Hip Manual Muscle Testing Right Flexion (L2) 4+ Good+ Abduction 4 Good Adduction 4+ Good+ Left Flexion (L2) 3- Fair- Abduction 4- Good- Adduction 4+ Good+ Knee Strength Knee Manual Muscle Testing Right Flexion (S2) 4+ Good+ Extension (L3) 4+ Good+ Left Flexion (S2) 3 Fair Extension (L3) 3 Fair Ankle/Foot Strength Ankle and Foot Manual Muscle Testing Right Dorsiflexion (L4) 4+ Good+ Plantarflexion (S1) 4+ Good+ Left Dorsiflexion (L4) 4- Good- Plantarflexion (S1) 4 Good PT-OP-Q Treatments Start: 11/18/19 17:42 Freq: Status: Active Protocol: Document 12/17/19 13:45 DCW (Rec: 12/17/19 14:31 DCW [id number]) Cardio Equipment Recumbent Bicycle Duration (Minutes) 5 Resistance 3 Seat Position 3 Other Fwd Gym Equipment Shuttle Recovery Bilateral Squats Resistance 87# Shuttle Recovery Platform Stable Reps/Time 30 unilat squat Details alternate L>R Resistance 50#->37# Shuttle Recovery Platform Stable Reps/Time 10x2 Shuttle Balance red clipds Comments Wide GEMMA, Staggered Therapeutic Exercises Standing Exercises lunge Standing Exercise Name Flexion stretch onto BOSU Equipment Used Blue BOSU Manual Therapy Treatment Soft Tissue Mobilization scar mobility Body Location LLE Mobilization Type Myofascial Release Intensity/Depth Superficial Body Position Hooklying Joint Mobilizations patella Joint patella Direction sup, inf, med Grade II Body Position Supine PT-OP-T Assessment and Plan Start: 11/18/19 17:42 Freq: Status: Active Protocol: Document 12/17/19 13:45 DCW (Rec: 12/17/19 14:31 DCW [id number]) Physical Therapy Assessment Impairments Impairments Activity Tolerance,Functional Activities,Functional Mobility ,Gait,Pain,ROM,Soft Tissue Mobility,Strength Goals 3 Impairment Pt has an average gait speed of 1.05 ft/sec during 6 MWT Nurse Wound Care Goal (LTG) A gait speed of <1.97 ft/sec has been shown to indicate an increased risk for further functional decline. Pt to increase gait speed to >1.97 ft/sec, which would be demonstrated by ambulating more than 709 feet during a 6 MWT LTG Duration 01/19/20 2 Impairment Pt presents with limited left knee ROM Nurse Wound Care Goal (LTG) L knee AROM in supine to increase to 0?-120? LTG Duration 01/19/20 1 Impairment Pt does not have an appropriate home exercise program Short Term Goal (STG) Pt to be independent and compliant with an appropriate HEP STG Duration 12/19/19 Assessment Summary Assessment Pt incision looking wonderful, no scabs remaining, some mild adhesions along the first two inches of the proximal end. Flexion improving, pt able to perform stairs with minimal difficulty. Physical Therapy Plan Frequency and Duration Frequency of Treatment 2x/Week Duration of Treatment 10 weeks Plan of Care Start Date 11/18/19 Plan of Care End Date 01/27/20 Therapeutic Interventions Therapeutic Interventions Aquatic Therapy,Balance Training,Gait Training,Home Exercise Program,Joint Mobilizations,Manual Therapy, Neuromuscular Re-education, Patient/Caregiver Education, Self-Care/Home Management,Soft Tissue Mobilization, Therapeutic Exercises Modalities Cold Pack/Ice Massage,Electric Stimulation,Hot Packs, Ultrasound Next Visit Focus/Plan Next Note Type Treatment Note Next Visit Plan Reviewed HEP continue scar and L patella mobilization, HEP exercises and added standing gait activities with no AD required. Continue per PT POC: add stair training, progress strengthening and ROM exercises.
--- NOTE | 2019-12-20 09:03 | PT.OTN ---
Current Diagnoses Unilateral primary osteoarthritis, left knee (12/20/19) Pain in left knee (12/20/19) Stiffness of left knee, not elsewhere classified (12/20/19) Aftercare following joint replacement surgery (12/20/19) Physical Therapy Treatment Note PT-OP-A Visit Information Start: 11/18/19 17:42 Freq: Status: Active Protocol: Document 12/20/19 08:20 SP (Rec: 12/20/19 09:38 SP [id number]) Out-Patient Physical Therapy Visit Information Visit Information Visit Type Treatment Note Visit Note Daughter attended today's treatment session Visit Start Time 08:20 Visit Stop Time 09:03 Total Visit Minutes 43 Visit Number 10 Number of POLICY VALUE CALCULATOR Visits 1 PT-OP-B Current Condition Start: 11/18/19 17:42 Freq: Status: Active Protocol: Document 11/18/19 09:45 DCW (Rec: 11/18/19 17:55 DCW [id number]) Current Condition History of Current Condition Onset Date 11/11/19 Current Complaints Pain, weakness, stiffness s/p L TKA History of Current Condition Pt presents to skilled physical therapy one week s/p L TKA following failed conservative treatment of knee osteoarthritis. Pt's daughter attends evaluation, and pt reports that her daughter has been helping her with her post -op exercises. Pt notes her most limiting pain is currently coming from her low back, which mainly hurts when she is attempting to perform supine exercises. Prior Treatments and Tests L TKA on 11/11/19 PT-OP-C Subjective Start: 11/18/19 17:42 Freq: Status: Active Protocol: Document 12/20/19 08:20 SP (Rec: 12/20/19 09:38 SP [id number]) OP-PT Subjective Patient Comments Patient Comments Pt has no concerns and able to do exercises at home with instruction from daughter. Pt stated wants to work on stairs today. Pt stated has been able walk up/down driveway using walking stick and up street about 1/4 mile without discomfor with increased stride. Still restless at night LLE so puts pillow under full length of leg for comfort. PT-OP-E Functional Tests Start: 11/18/19 17:42 Freq: Status: Active Protocol: Document 11/18/19 09:45 DCW (Rec: 11/18/19 17:55 DCW [id number]) Functional Tests 6 Minute Walk Test Distance 377' Device Used FWW Comments 1.05 ft/sec PT-OP-J Posture/Palpation/Skin Start: 11/18/19 17:42 Freq: Status: Active Protocol: Document 11/18/19 09:45 DCW (Rec: 11/18/19 17:55 DCW [id number]) Skin Assessment Circumference Measurement 3 Location 10 cm inferior to left knee joint line Measurement (Centimeters) 37.6 Comments 10 cm inferior to right knee joint line: 35.3 cm 2 Location 10 cm superior to leftt knee joint line Measurement (Centimeters) 45.5 Comments 10 cm superior to right knee joint line: 40.8 cm 1 Location Left knee joint line Measurement (Centimeters) 43.0 Comments Right knee joint line: 37.5 cm PT-OP-K Range of Motion Start: 11/18/19 17:42 Freq: Status: Active Protocol: Document 11/18/19 09:45 DCW (Rec: 11/18/19 17:55 DCW [id number]) Knee Goniometric Range of Motion Knee Left Sitting Patient Position Sitting Flexion Active (degrees) 70 Extension Active (degrees) 20 Left Patient Position Supine Flexion Active (degrees) 75 Flexion Passive (degrees) 82 Extension Active (degrees) 7 PT-OP-M Strength Start: 11/18/19 17:42 Freq: Status: Active Protocol: Document 11/18/19 09:45 DCW (Rec: 11/18/19 17:55 DCW [id number]) Hip Strength Hip Manual Muscle Testing Right Flexion (L2) 4+ Good+ Abduction 4 Good Adduction 4+ Good+ Left Flexion (L2) 3- Fair- Abduction 4- Good- Adduction 4+ Good+ Knee Strength Knee Manual Muscle Testing Right Flexion (S2) 4+ Good+ Extension (L3) 4+ Good+ Left Flexion (S2) 3 Fair Extension (L3) 3 Fair Ankle/Foot Strength Ankle and Foot Manual Muscle Testing Right Dorsiflexion (L4) 4+ Good+ Plantarflexion (S1) 4+ Good+ Left Dorsiflexion (L4) 4- Good- Plantarflexion (S1) 4 Good PT-OP-Q Treatments Start: 11/18/19 17:42 Freq: Status: Active Protocol: Document 12/20/19 08:20 SP (Rec: 12/20/19 09:38 SP [id number]) Cardio Equipment Recumbent Bicycle Duration (Minutes) 8 Resistance 4 Seat Position 4 2 min, 3 6 min Other forward Therapeutic Exercises Supine Exercises SLR Resistance #2 leg wt Reps/Minutes x5 before compensations Comments cued quad facilitation to decrease little lag Standing Exercises STS Standing Exercise Name arms across chest Equipment Used 18 chair Comments 5 reps in sec 10 sec feet // side stepping Standing Exercise Name band walk add HEP Resistance lv 1 band Reps/Minutes 20 ft x2 laps Comments CGA with belt for safety, cuing slow eccentric trailing leg Gait Training Gait Activity Forward july Description forward july, back stepping Add HEP Level of Assistance SBA- CGA Surface stable Distance/Duration 20ft x 4 Treatment Focus balance COG 0ver GEMMA Comments slow pacing with upright posture stairs Description stairs Device Used /c and /s rail Surface 6 steps Treatment Focus Reciprocal gait Comments 4 steps x1 R HR 24 steps x1 no HR cued awareness of slow quality concentric LLE step up- SBA no LOB Manual Therapy Treatment Soft Tissue Mobilization scar mobility Body Location LLE Mobilization Type Myofascial Release Intensity/Depth Moderate Body Position Hooklying Joint Mobilizations patella Joint L patella Direction sup, inf, med Grade II Body Position Supine PT-OP-T Assessment and Plan Start: 11/18/19 17:42 Freq: Status: Active Protocol: Document 12/20/19 08:20 SP (Rec: 12/20/19 09:38 SP [id number]) Physical Therapy Assessment Goals 3 Impairment Pt has an average gait speed of 1.05 ft/sec during 6 MWT Nursing Home Goal (LTG) A gait speed of <1.97 ft/sec has been shown to indicate an increased risk for further functional decline. Pt to increase gait speed to >1.97 ft/sec, which would be demonstrated by ambulating more than 709 feet during a 6 MWT LTG Duration 01/19/20 2 Impairment Pt presents with limited left knee ROM Nursing Home Goal (LTG) L knee AROM in supine to increase to 0?-120? 12/20/19 LLE AROM 1-115deg, PROM 124 deg. RLE 0-138 deg. LTG Duration 01/19/20 1 Impairment Pt does not have an appropriate home exercise program Short Term Goal (STG) Pt to be independent and compliant with an appropriate HEP STG Duration 12/19/19 Assessment Summary Assessment Pt has made gains in AROM 0- 115 degrees L knee supine. Tx focused on stand strengthening , quaity gait activities to improve equal stance time and quality sequencing with cuing for upright posture and level pelvis. Pt arrived with no use of SPC needed but stated using walking sticks for safety outside level terrain increased 1/4 [address]. Improved stair mgt with decreased LLE momentum push off during concentric ascending. Physical Therapy Plan Frequency and Duration Frequency of Treatment 2x/Week Duration of Treatment 10 weeks Plan of Care Start Date 11/18/19 Plan of Care End Date 01/27/20 Therapeutic Interventions Therapeutic Interventions Aquatic Therapy,Balance Training,Gait Training,Home Exercise Program,Joint Mobilizations,Manual Therapy, Neuromuscular Re-education, Patient/Caregiver Education, Self-Care/Home Management,Soft Tissue Mobilization, Therapeutic Exercises Modalities Cold Pack/Ice Massage,Electric Stimulation,Hot Packs, Ultrasound Next Visit Focus/Plan Next Note Type Treatment Note Next Visit Plan Reviewed HEP continue scar and L patella mobilization, HEP exercises and added standing gait activities with no AD required. Continue per PT POC: progress stand dynamic strengthening and ROM exercises.
--- NOTE | 2019-12-23 10:30 | PT.OTN ---
Current Diagnoses Unilateral primary osteoarthritis, left knee (12/23/19) Pain in left knee (12/23/19) Stiffness of left knee, not elsewhere classified (12/23/19) Aftercare following joint replacement surgery (12/23/19) Physical Therapy Treatment Note PT-OP-A Visit Information Start: 11/18/19 17:42 Freq: Status: Active Protocol: Document 12/23/19 09:49 SP (Rec: 12/23/19 10:41 SP [id number]) Out-Patient Physical Therapy Visit Information Visit Information Visit Type Treatment Note Visit Note Daughter attended today's treatment session Visit Start Time 09:49 Visit Stop Time 10:30 Total Visit Minutes 41 Visit Number 11 Number of CROP PRODUCTION ADVISOR Visits 2 PT-OP-B Current Condition Start: 11/18/19 17:42 Freq: Status: Active Protocol: Document 11/18/19 09:45 DCW (Rec: 11/18/19 17:55 DCW [id number]) Current Condition History of Current Condition Onset Date 11/11/19 Current Complaints Pain, weakness, stiffness s/p L TKA History of Current Condition Pt presents to skilled physical therapy one week s/p L TKA following failed conservative treatment of knee osteoarthritis. Pt's daughter attends evaluation, and pt reports that her daughter has been helping her with her post -op exercises. Pt notes her most limiting pain is currently coming from her low back, which mainly hurts when she is attempting to perform supine exercises. Prior Treatments and Tests L TKA on 11/11/19 PT-OP-C Subjective Start: 11/18/19 17:42 Freq: Status: Active Protocol: Document 12/23/19 09:49 SP (Rec: 12/23/19 10:41 SP [id number]) OP-PT Subjective Patient Comments Patient Comments Pt stated had all over soreness and behind L knee and ankle after last tx but was a good work out and tried some of it at home. Pt reported that forgot to mention was little off balance after 12/16 treatment and thought was the new shuttle balance, improved after layed down and rested when got home. Pt stated has her last follow up with surgeon. PT-OP-E Functional Tests Start: 11/18/19 17:42 Freq: Status: Active Protocol: Document 11/18/19 09:45 DCW (Rec: 11/18/19 17:55 DCW [id number]) Functional Tests 6 Minute Walk Test Distance 377' Device Used FWW Comments 1.05 ft/sec PT-OP-J Posture/Palpation/Skin Start: 11/18/19 17:42 Freq: Status: Active Protocol: Document 11/18/19 09:45 DCW (Rec: 11/18/19 17:55 DCW [id number]) Skin Assessment Circumference Measurement 3 Location 10 cm inferior to left knee joint line Measurement (Centimeters) 37.6 Comments 10 cm inferior to right knee joint line: 35.3 cm 2 Location 10 cm superior to leftt knee joint line Measurement (Centimeters) 45.5 Comments 10 cm superior to right knee joint line: 40.8 cm 1 Location Left knee joint line Measurement (Centimeters) 43.0 Comments Right knee joint line: 37.5 cm PT-OP-K Range of Motion Start: 11/18/19 17:42 Freq: Status: Active Protocol: Document 11/18/19 09:45 DCW (Rec: 11/18/19 17:55 DCW [id number]) Knee Goniometric Range of Motion Knee Left Sitting Patient Position Sitting Flexion Active (degrees) 70 Extension Active (degrees) 20 Left Patient Position Supine Flexion Active (degrees) 75 Flexion Passive (degrees) 82 Extension Active (degrees) 7 PT-OP-M Strength Start: 11/18/19 17:42 Freq: Status: Active Protocol: Document 11/18/19 09:45 DCW (Rec: 11/18/19 17:55 DCW [id number]) Hip Strength Hip Manual Muscle Testing Right Flexion (L2) 4+ Good+ Abduction 4 Good Adduction 4+ Good+ Left Flexion (L2) 3- Fair- Abduction 4- Good- Adduction 4+ Good+ Knee Strength Knee Manual Muscle Testing Right Flexion (S2) 4+ Good+ Extension (L3) 4+ Good+ Left Flexion (S2) 3 Fair Extension (L3) 3 Fair Ankle/Foot Strength Ankle and Foot Manual Muscle Testing Right Dorsiflexion (L4) 4+ Good+ Plantarflexion (S1) 4+ Good+ Left Dorsiflexion (L4) 4- Good- Plantarflexion (S1) 4 Good PT-OP-Q Treatments Start: 11/18/19 17:42 Freq: Status: Active Protocol: Document 12/23/19 09:49 SP (Rec: 12/23/19 10:41 SP [id number]) Cardio Equipment Recumbent Bicycle Duration (Minutes) 8 Resistance 4 Seat Position 1 min seat 3, 4 min seat 2 Gym Equipment Shuttle Recovery Bilateral Squats Resistance 100# Shuttle Recovery Platform Stable Reps/Time 30 unilat squat Details alternate L>R Resistance 50# Shuttle Recovery Platform Stable Reps/Time 10x2 Shuttle Balance red clipds Comments Ex/ Wide GEMMA, NBOS: wt shift f /b, head turns, EC Therapeutic Exercises Standing Exercises lunge Standing Exercise Name Flexion stretch onto step then BOSU Equipment Used Blue BOSU Reps/Minutes 8 reps each surface Gait Training Gait Activity stairs Description stairs Device Used /s rail Surface 6 steps Treatment Focus Reciprocal gait Comments 24 steps x1 no HR cued awareness of slow quality concentric LLE step up CG-SBA no LOB PT-OP-T Assessment and Plan Start: 11/18/19 17:42 Freq: Status: Active Protocol: Document 12/23/19 09:49 SP (Rec: 12/23/19 10:41 SP [id number]) Physical Therapy Assessment Goals 3 Impairment Pt has an average gait speed of 1.05 ft/sec during 6 MWT Eyelet Operator Goal (LTG) A gait speed of <1.97 ft/sec has been shown to indicate an increased risk for further functional decline. Pt to increase gait speed to >1.97 ft/sec, which would be demonstrated by ambulating more than 709 feet during a 6 MWT LTG Duration 01/19/20 2 Impairment Pt presents with limited left knee ROM [facility] Goal (LTG) L knee AROM in supine to increase to 0?-120? 12/20/19 LLE AROM 1-115deg, PROM 124 deg. RLE 0-138 deg. LTG Duration 01/19/20 1 Impairment Pt does not have an appropriate home exercise program Short Term Goal (STG) Pt to be independent and compliant with an appropriate HEP STG Duration 12/19/19 Assessment Summary Assessment Tx focused on balance, strengthing and stair mgt today, deficits that patient feels needs more focus. Education on COG over GEMMA with improvement in self corrections with cuing on shuttle balance with good response after got off. Good knee alignment and able to complete shuttle recovery with increased resistance today and after ankle mobility on bosu/stairs felt more stable on stairs with no UE support, cued for slow concentric ascend to decrease quick expode. Physical Therapy Plan Frequency and Duration Frequency of Treatment 2x/Week Duration of Treatment 10 weeks Plan of Care Start Date 11/18/19 Plan of Care End Date 01/27/20 Therapeutic Interventions Therapeutic Interventions Aquatic Therapy,Balance Training,Gait Training,Home Exercise Program,Joint Mobilizations,Manual Therapy, Neuromuscular Re-education, Patient/Caregiver Education, Self-Care/Home Management,Soft Tissue Mobilization, Therapeutic Exercises Modalities Cold Pack/Ice Massage,Electric Stimulation,Hot Packs, Ultrasound Next Visit Focus/Plan Next Note Type Treatment Note Next Visit Plan Assess response to balance shuttle and increase wt on recovery last tx. Continue per PT POC: progress stand dynamic strengthening and ROM exercises.
--- NOTE | 2019-12-26 11:10 | PT.OTN ---
Current Diagnoses Unilateral primary osteoarthritis, left knee (12/26/19) Pain in left knee (12/26/19) Stiffness of left knee, not elsewhere classified (12/26/19) Aftercare following joint replacement surgery (12/26/19) Physical Therapy Treatment Note PT-OP-A Visit Information Start: 11/18/19 17:42 Freq: Status: Active Protocol: Document 12/26/19 10:32 SP (Rec: 12/26/19 11:42 SP [id number]) Out-Patient Physical Therapy Visit Information Visit Information Visit Type Treatment Note Visit Note Daughter attended today's treatment session. [place] treatment, needed to leave early due to prior engagement. Visit Start Time 10:32 Visit Stop Time 11:10 Total Visit Minutes 38 Visit Number 12 Number of BRUSH MAKER MACHINE Visits 3 PT-OP-B Current Condition Start: 11/18/19 17:42 Freq: Status: Active Protocol: Document 11/18/19 09:45 DCW (Rec: 11/18/19 17:55 DCW [id number]) Current Condition History of Current Condition Onset Date 11/11/19 Current Complaints Pain, weakness, stiffness s/p L TKA History of Current Condition Pt presents to skilled physical therapy one week s/p L TKA following failed conservative treatment of knee osteoarthritis. Pt's daughter attends evaluation, and pt reports that her daughter has been helping her with her post -op exercises. Pt notes her most limiting pain is currently coming from her low back, which mainly hurts when she is attempting to perform supine exercises. Prior Treatments and Tests L TKA on 11/11/19 PT-OP-C Subjective Start: 11/18/19 17:42 Freq: Status: Active Protocol: Document 12/26/19 10:32 SP (Rec: 12/26/19 11:42 SP [id number]) OP-PT Subjective Patient Comments Patient Comments Pt reported L knee some stiffness today but yesterday it didn't feel so well. Wants to go over patella movement again during tx. Pt stated was able to go for 3/4 - 1 mile since last tx with a friend and daughter stated gait form improving, tired quickly on small incline. PT-OP-E Functional Tests Start: 11/18/19 17:42 Freq: Status: Active Protocol: Document 11/18/19 09:45 DCW (Rec: 11/18/19 17:55 DCW [id number]) Functional Tests 6 Minute Walk Test Distance 377' Device Used FWW Comments 1.05 ft/sec PT-OP-J Posture/Palpation/Skin Start: 11/18/19 17:42 Freq: Status: Active Protocol: Document 11/18/19 09:45 DCW (Rec: 11/18/19 17:55 DCW [id number]) Skin Assessment Circumference Measurement 3 Location 10 cm inferior to left knee joint line Measurement (Centimeters) 37.6 Comments 10 cm inferior to right knee joint line: 35.3 cm 2 Location 10 cm superior to leftt knee joint line Measurement (Centimeters) 45.5 Comments 10 cm superior to right knee joint line: 40.8 cm 1 Location Left knee joint line Measurement (Centimeters) 43.0 Comments Right knee joint line: 37.5 cm PT-OP-K Range of Motion Start: 11/18/19 17:42 Freq: Status: Active Protocol: Document 11/18/19 09:45 DCW (Rec: 11/18/19 17:55 DCW [id number]) Knee Goniometric Range of Motion Knee Left Sitting Patient Position Sitting Flexion Active (degrees) 70 Extension Active (degrees) 20 Left Patient Position Supine Flexion Active (degrees) 75 Flexion Passive (degrees) 82 Extension Active (degrees) 7 PT-OP-M Strength Start: 11/18/19 17:42 Freq: Status: Active Protocol: Document 11/18/19 09:45 DCW (Rec: 11/18/19 17:55 DCW [id number]) Hip Strength Hip Manual Muscle Testing Right Flexion (L2) 4+ Good+ Abduction 4 Good Adduction 4+ Good+ Left Flexion (L2) 3- Fair- Abduction 4- Good- Adduction 4+ Good+ Knee Strength Knee Manual Muscle Testing Right Flexion (S2) 4+ Good+ Extension (L3) 4+ Good+ Left Flexion (S2) 3 Fair Extension (L3) 3 Fair Ankle/Foot Strength Ankle and Foot Manual Muscle Testing Right Dorsiflexion (L4) 4+ Good+ Plantarflexion (S1) 4+ Good+ Left Dorsiflexion (L4) 4- Good- Plantarflexion (S1) 4 Good PT-OP-Q Treatments Start: 11/18/19 17:42 Freq: Status: Active Protocol: Document 12/26/19 10:32 SP (Rec: 12/26/19 11:42 SP [id number]) Cardio Equipment Recumbent Bicycle Duration (Minutes) 8 Resistance 4 Seat Position 2 min seat 3, 6 min seat 2 Other couple backward revolutions then rest forward Therapeutic Exercises Standing Exercises side stepping Standing Exercise Name band walk Resistance lv 2 band Reps/Minutes 20 ft x2 laps Comments CGA with belt for safety, cuing slow eccentric trailing leg step up Standing Exercise Name alternate BLE Side left Equipment Used UE support on rail, 2 step Comments cues for correct mechanics upright with mid foot/heel press with glut facil Manual Therapy Treatment Soft Tissue Mobilization scar mobility Body Location LLE and anterolateral tibial tuberosity Mobilization Type Myofascial Release Intensity/Depth Moderate Body Position Sitting Comments leg supported on therapist knee Joint Mobilizations patella Joint L patella Direction sup, inf, med Grade II Body Position Supine PT-OP-T Assessment and Plan Start: 11/18/19 17:42 Freq: Status: Active Protocol: Document 12/26/19 10:32 SP (Rec: 12/26/19 11:42 SP [id number]) Physical Therapy Assessment Goals 3 Impairment Pt has an average gait speed of 1.05 ft/sec during 6 MWT Basting Machine Operator Goal (LTG) A gait speed of <1.97 ft/sec has been shown to indicate an increased risk for further functional decline. Pt to increase gait speed to >1.97 ft/sec, which would be demonstrated by ambulating more than 709 feet during a 6 MWT LTG Duration 01/19/20 2 Impairment Pt presents with limited left knee ROM Basting Machine Operator Goal (LTG) L knee AROM in supine to increase to 0?-120? 12/20/19 LLE AROM 1-115deg, PROM 124 deg. RLE 0-138 deg. LTG Duration 01/19/20 1 Impairment Pt does not have an appropriate home exercise program Short Term Goal (STG) Pt to be independent and compliant with an appropriate HEP STG Duration 12/19/19 Assessment Summary Assessment Noted still some pitting edema over R knee during manual STMs and encourage self performance. Tx focused on glut strengthening and flexibility post for decreased soreness. Pt improved in glut target facilitation, able to tolerate increase G TB resistance with lateral band, added monster walk and SL step up 2 step with rail support with cuing for knee alignment with/behind toes and stick/ball roll to L LE sitting and glut standing at wall. Pt stated little sore in glut but feels like did some good strengthening today. Physical Therapy Plan Frequency and Duration Frequency of Treatment 2x/Week Duration of Treatment 10 weeks Plan of Care Start Date 11/18/19 Plan of Care End Date 01/27/20 Therapeutic Interventions Therapeutic Interventions Aquatic Therapy,Balance Training,Gait Training,Home Exercise Program,Joint Mobilizations,Manual Therapy, Neuromuscular Re-education, Patient/Caregiver Education, Self-Care/Home Management,Soft Tissue Mobilization, Therapeutic Exercises Modalities Cold Pack/Ice Massage,Electric Stimulation,Hot Packs, Ultrasound Next Visit Focus/Plan Next Note Type Treatment Note Next Visit Plan Assess response to LE strengthening standing and self STMs using rolling stick and recquet ball. Continue per PT POC: progress stand dynamic strengthening and ROM exercises.
--- NOTE | 2019-12-30 10:29 | PT.OTN ---
Current Diagnoses Unilateral primary osteoarthritis, left knee (12/30/19) Pain in left knee (12/30/19) Stiffness of left knee, not elsewhere classified (12/30/19) Aftercare following joint replacement surgery (12/30/19) Physical Therapy Treatment Note PT-OP-A Visit Information Start: 11/18/19 17:42 Freq: Status: Active Protocol: Document 12/30/19 09:45 DCW (Rec: 12/30/19 10:29 DCW [id number]) Out-Patient Physical Therapy Visit Information Visit Information Visit Type Treatment Note Visit Start Time 09:45 Visit Stop Time 10:30 Total Visit Minutes 45 Visit Number 13 Number of SLOPE HOIST OPERATOR Visits 4 Evaluation Information Evaluation Date 11/18/19 PT-OP-B Current Condition Start: 11/18/19 17:42 Freq: Status: Active Protocol: Document 11/18/19 09:45 DCW (Rec: 11/18/19 17:55 DCW [id number]) Current Condition History of Current Condition Onset Date 11/11/19 Current Complaints Pain, weakness, stiffness s/p L TKA History of Current Condition Pt presents to skilled physical therapy one week s/p L TKA following failed conservative treatment of knee osteoarthritis. Pt's daughter attends evaluation, and pt reports that her daughter has been helping her with her post -op exercises. Pt notes her most limiting pain is currently coming from her low back, which mainly hurts when she is attempting to perform supine exercises. Prior Treatments and Tests L TKA on 11/11/19 PT-OP-C Subjective Start: 11/18/19 17:42 Freq: Status: Active Protocol: Document 12/30/19 09:45 DCW (Rec: 12/30/19 10:29 DCW [id number]) OP-PT Subjective Patient Comments Patient Comments It's certainly nice to feel like I can move around and do whatever I want. PT-OP-E Functional Tests Start: 11/18/19 17:42 Freq: Status: Active Protocol: Document 11/18/19 09:45 DCW (Rec: 11/18/19 17:55 DCW [id number]) Functional Tests 6 Minute Walk Test Distance 377' Device Used FWW Comments 1.05 ft/sec PT-OP-J Posture/Palpation/Skin Start: 11/18/19 17:42 Freq: Status: Active Protocol: Document 11/18/19 09:45 DCW (Rec: 11/18/19 17:55 DCW [id number]) Skin Assessment Circumference Measurement 3 Location 10 cm inferior to left knee joint line Measurement (Centimeters) 37.6 Comments 10 cm inferior to right knee joint line: 35.3 cm 2 Location 10 cm superior to leftt knee joint line Measurement (Centimeters) 45.5 Comments 10 cm superior to right knee joint line: 40.8 cm 1 Location Left knee joint line Measurement (Centimeters) 43.0 Comments Right knee joint line: 37.5 cm PT-OP-K Range of Motion Start: 11/18/19 17:42 Freq: Status: Active Protocol: Document 11/18/19 09:45 DCW (Rec: 11/18/19 17:55 DCW [id number]) Knee Goniometric Range of Motion Knee Left Sitting Patient Position Sitting Flexion Active (degrees) 70 Extension Active (degrees) 20 Left Patient Position Supine Flexion Active (degrees) 75 Flexion Passive (degrees) 82 Extension Active (degrees) 7 PT-OP-M Strength Start: 11/18/19 17:42 Freq: Status: Active Protocol: Document 11/18/19 09:45 DCW (Rec: 11/18/19 17:55 DCW [id number]) Hip Strength Hip Manual Muscle Testing Right Flexion (L2) 4+ Good+ Abduction 4 Good Adduction 4+ Good+ Left Flexion (L2) 3- Fair- Abduction 4- Good- Adduction 4+ Good+ Knee Strength Knee Manual Muscle Testing Right Flexion (S2) 4+ Good+ Extension (L3) 4+ Good+ Left Flexion (S2) 3 Fair Extension (L3) 3 Fair Ankle/Foot Strength Ankle and Foot Manual Muscle Testing Right Dorsiflexion (L4) 4+ Good+ Plantarflexion (S1) 4+ Good+ Left Dorsiflexion (L4) 4- Good- Plantarflexion (S1) 4 Good PT-OP-Q Treatments Start: 11/18/19 17:42 Freq: Status: Active Protocol: Document 12/30/19 09:45 DCW (Rec: 12/30/19 10:29 DCW [id number]) Cardio Equipment Recumbent Bicycle Duration (Minutes) 5 Resistance 4 Seat Position 2 Gym Equipment Shuttle Recovery Bilateral Squats Resistance 100# Shuttle Recovery Platform Stable Reps/Time 30 unilat squat Resistance 50# Shuttle Recovery Platform Stable Reps/Time 10x2 Therapeutic Exercises Standing Exercises lunge Standing Exercise Name Flexion stretch onto step Reps/Minutes x10 side stepping Standing Exercise Name band walk Resistance lv 2 band Reps/Minutes 20 ft x2 laps step up Standing Exercise Name alternate BLE Side left Equipment Used UE support on rail, 6 step Comments cues for correct mechanics upright with mid foot/heel press with glut facil Gait Training Gait Activity stairs Description stairs Device Used /s rail Surface 6 steps Treatment Focus Reciprocal gait Comments 24 steps x2, no rail SBA no LOB Manual Therapy Treatment Soft Tissue Mobilization scar mobility Body Location LLE and anterolateral tibial tuberosity Mobilization Type Myofascial Release Intensity/Depth Moderate Body Position Sitting Comments leg supported on therapist knee Joint Mobilizations patella Joint L patella Direction sup, inf, med Grade II Body Position Supine PT-OP-T Assessment and Plan Start: 11/18/19 17:42 Freq: Status: Active Protocol: Document 12/30/19 09:45 DCW (Rec: 12/30/19 10:29 DCW [id number]) Physical Therapy Assessment Goals 3 Impairment Pt has an average gait speed of 1.05 ft/sec during 6 MWT Senior Living Goal (LTG) A gait speed of <1.97 ft/sec has been shown to indicate an increased risk for further functional decline. Pt to increase gait speed to >1.97 ft/sec, which would be demonstrated by ambulating more than 709 feet during a 6 MWT LTG Duration 01/19/20 2 Impairment Pt presents with limited left knee ROM Senior Living Goal (LTG) L knee AROM in supine to increase to 0?-120? 12/20/19 LLE AROM 1-115deg, PROM 124 deg. RLE 0-138 deg. LTG Duration 01/19/20 1 Impairment Pt does not have an appropriate home exercise program Short Term Goal (STG) Pt to be independent and compliant with an appropriate HEP STG Duration 12/19/19 Assessment Summary Assessment Pt doing very well ~7 weeks post op. ROM nearing WFL, good strength. Pt's current biggest concern is stairs, but she is able to ascend/descend flight of 28 steps with no railing without and LOB or pain. Physical Therapy Plan Frequency and Duration Frequency of Treatment 2x/Week Duration of Treatment 10 weeks Plan of Care Start Date 11/18/19 Plan of Care End Date 01/27/20 Therapeutic Interventions Therapeutic Interventions Aquatic Therapy,Balance Training,Gait Training,Home Exercise Program,Joint Mobilizations,Manual Therapy, Neuromuscular Re-education, Patient/Caregiver Education, Self-Care/Home Management,Soft Tissue Mobilization, Therapeutic Exercises Modalities Cold Pack/Ice Massage,Electric Stimulation,Hot Packs, Ultrasound Next Visit Focus/Plan Next Note Type Treatment Note Next Visit Plan Assess response to LE strengthening standing and self STMs using rolling stick and recquet ball. Continue per PT POC: progress stand dynamic strengthening and ROM exercises.
--- NOTE | 2020-01-02 15:14 | PT.OTN ---
Current Diagnoses Unilateral primary osteoarthritis, left knee (01/02/20) Pain in left knee (01/02/20) Stiffness of left knee, not elsewhere classified (01/02/20) Aftercare following joint replacement surgery (01/02/20) Physical Therapy Treatment Note PT-OP-A Visit Information Start: 11/18/19 17:42 Freq: Status: Active Protocol: Document 01/02/20 14:30 DCW (Rec: 01/02/20 15:13 DCW [id number]) Out-Patient Physical Therapy Visit Information Visit Information Visit Type Treatment Note Visit Start Time 14:30 Visit Stop Time 15:15 Total Visit Minutes 45 Visit Number 14 Number of IMPORT/EXPORT CLERK Visits 0 Evaluation Information Evaluation Date 11/18/19 PT-OP-B Current Condition Start: 11/18/19 17:42 Freq: Status: Active Protocol: Document 11/18/19 09:45 DCW (Rec: 11/18/19 17:55 DCW [id number]) Current Condition History of Current Condition Onset Date 11/11/19 Current Complaints Pain, weakness, stiffness s/p L TKA History of Current Condition Pt presents to skilled physical therapy one week s/p L TKA following failed conservative treatment of knee osteoarthritis. Pt's daughter attends evaluation, and pt reports that her daughter has been helping her with her post -op exercises. Pt notes her most limiting pain is currently coming from her low back, which mainly hurts when she is attempting to perform supine exercises. Prior Treatments and Tests L TKA on 11/11/19 PT-OP-C Subjective Start: 11/18/19 17:42 Freq: Status: Active Protocol: Document 01/02/20 14:30 DCW (Rec: 01/02/20 15:13 DCW [id number]) OP-PT Subjective Patient Comments Patient Comments Pt reports that she wasn't going to go for a walk today, because she typically doesn't on days she has therapy, but then decided since she had such a late appointment today, she would do a short walk in the morning. PT-OP-E Functional Tests Start: 11/18/19 17:42 Freq: Status: Active Protocol: Document 11/18/19 09:45 DCW (Rec: 11/18/19 17:55 DCW [id number]) Functional Tests 6 Minute Walk Test Distance 377' Device Used FWW Comments 1.05 ft/sec PT-OP-J Posture/Palpation/Skin Start: 11/18/19 17:42 Freq: Status: Active Protocol: Document 11/18/19 09:45 DCW (Rec: 11/18/19 17:55 DCW [id number]) Skin Assessment Circumference Measurement 3 Location 10 cm inferior to left knee joint line Measurement (Centimeters) 37.6 Comments 10 cm inferior to right knee joint line: 35.3 cm 2 Location 10 cm superior to leftt knee joint line Measurement (Centimeters) 45.5 Comments 10 cm superior to right knee joint line: 40.8 cm 1 Location Left knee joint line Measurement (Centimeters) 43.0 Comments Right knee joint line: 37.5 cm PT-OP-K Range of Motion Start: 11/18/19 17:42 Freq: Status: Active Protocol: Document 11/18/19 09:45 DCW (Rec: 11/18/19 17:55 DCW [id number]) Knee Goniometric Range of Motion Knee Left Sitting Patient Position Sitting Flexion Active (degrees) 70 Extension Active (degrees) 20 Left Patient Position Supine Flexion Active (degrees) 75 Flexion Passive (degrees) 82 Extension Active (degrees) 7 PT-OP-M Strength Start: 11/18/19 17:42 Freq: Status: Active Protocol: Document 11/18/19 09:45 DCW (Rec: 11/18/19 17:55 DCW [id number]) Hip Strength Hip Manual Muscle Testing Right Flexion (L2) 4+ Good+ Abduction 4 Good Adduction 4+ Good+ Left Flexion (L2) 3- Fair- Abduction 4- Good- Adduction 4+ Good+ Knee Strength Knee Manual Muscle Testing Right Flexion (S2) 4+ Good+ Extension (L3) 4+ Good+ Left Flexion (S2) 3 Fair Extension (L3) 3 Fair Ankle/Foot Strength Ankle and Foot Manual Muscle Testing Right Dorsiflexion (L4) 4+ Good+ Plantarflexion (S1) 4+ Good+ Left Dorsiflexion (L4) 4- Good- Plantarflexion (S1) 4 Good PT-OP-Q Treatments Start: 11/18/19 17:42 Freq: Status: Active Protocol: Document 01/02/20 14:30 DCW (Rec: 01/02/20 15:13 DCW [id number]) Cardio Equipment Bicycle (Upright) Duration (Minutes) 6 Resistance 4 Seat Position 2 Gym Equipment Shuttle Recovery Bilateral Squats Resistance 100# Shuttle Recovery Platform Stable Reps/Time 30 unilat squat Resistance 50# Shuttle Recovery Platform Stable Reps/Time 10x2 Shuttle Balance red clipds Comments Ex/ Wide GEMMA, NBOS: wt shift f /b, head turns, EC Therapeutic Exercises Standing Exercises lunge Standing Exercise Name Flexion stretch onto step Reps/Minutes x10 Gait Training Gait Activity stairs Description stairs Device Used /s rail Surface 6 steps Treatment Focus Reciprocal gait Comments 4 steps x6 24 steps x2, no rail SBA no LOB Manual Therapy Treatment Soft Tissue Mobilization scar mobility Body Location LLE and anterolateral tibial tuberosity Mobilization Type Myofascial Release Intensity/Depth Moderate Body Position Sitting Comments leg supported on therapist knee Joint Mobilizations patella Joint L patella Direction sup, inf, med Grade II Body Position Supine PT-OP-T Assessment and Plan Start: 11/18/19 17:42 Freq: Status: Active Protocol: Document 01/02/20 14:30 DCW (Rec: 01/02/20 15:13 DCW [id number]) Physical Therapy Assessment Impairments Impairments Activity Tolerance,Functional Activities,Functional Mobility ,Gait,Pain,ROM,Soft Tissue Mobility,Strength Goals 3 Impairment Pt has an average gait speed of 1.05 ft/sec during 6 MWT [facility]dc Goal (LTG) A gait speed of <1.97 ft/sec has been shown to indicate an increased risk for further functional decline. Pt to increase gait speed to >1.97 ft/sec, which would be demonstrated by ambulating more than 709 feet during a 6 MWT LTG Duration 01/19/20 2 Impairment Pt presents with limited left knee ROM Fdc Goal (LTG) L knee AROM in supine to increase to 0?-120? 12/20/19 LLE AROM 1-115deg, PROM 124 deg. RLE 0-138 deg. LTG Duration 01/19/20 1 Impairment Pt does not have an appropriate home exercise program Short Term Goal (STG) Pt to be independent and compliant with an appropriate HEP STG Duration 12/19/19 Assessment Summary Assessment Pt continues to do well, approaching discharge, will likely discharge following her two appointments next week. Physical Therapy Plan Frequency and Duration Frequency of Treatment 2x/Week Duration of Treatment 10 weeks Plan of Care Start Date 11/18/19 Plan of Care End Date 01/27/20 Therapeutic Interventions Therapeutic Interventions Aquatic Therapy,Balance Training,Gait Training,Home Exercise Program,Joint Mobilizations,Manual Therapy, Neuromuscular Re-education, Patient/Caregiver Education, Self-Care/Home Management,Soft Tissue Mobilization, Therapeutic Exercises Modalities Cold Pack/Ice Massage,Electric Stimulation,Hot Packs, Ultrasound Next Visit Focus/Plan Next Note Type Treatment Note Next Visit Plan Assess response to LE strengthening standing and self STMs using rolling stick and recquet ball. Continue per PT POC: progress stand dynamic strengthening and ROM exercises.
--- NOTE | 2020-01-06 11:58 | PT.OTN ---
Current Diagnoses Unilateral primary osteoarthritis, left knee (01/06/20) Pain in left knee (01/06/20) Stiffness of left knee, not elsewhere classified (01/06/20) Aftercare following joint replacement surgery (01/06/20) Physical Therapy Treatment Note PT-OP-A Visit Information Start: 11/18/19 17:42 Freq: Status: Active Protocol: Document 01/06/20 11:15 DCW (Rec: 01/06/20 11:58 DCW [id number]) Out-Patient Physical Therapy Visit Information Visit Information Visit Type Treatment Note Visit Start Time 11:15 Visit Stop Time 12:00 Total Visit Minutes 45 Visit Number 15 Number of QUALITY CONTROL CLERK Visits 0 Evaluation Information Evaluation Date 11/18/19 PT-OP-B Current Condition Start: 11/18/19 17:42 Freq: Status: Active Protocol: Document 11/18/19 09:45 DCW (Rec: 11/18/19 17:55 DCW [id number]) Current Condition History of Current Condition Onset Date 11/11/19 Current Complaints Pain, weakness, stiffness s/p L TKA History of Current Condition Pt presents to skilled physical therapy one week s/p L TKA following failed conservative treatment of knee osteoarthritis. Pt's daughter attends evaluation, and pt reports that her daughter has been helping her with her post -op exercises. Pt notes her most limiting pain is currently coming from her low back, which mainly hurts when she is attempting to perform supine exercises. Prior Treatments and Tests L TKA on 11/11/19 PT-OP-C Subjective Start: 11/18/19 17:42 Freq: Status: Active Protocol: Document 01/06/20 11:15 DCW (Rec: 01/06/20 11:58 DCW [id number]) OP-PT Subjective Patient Comments Patient Comments Pt reports she is doing very well today, and is prepared for her discharge later this week. PT-OP-E Functional Tests Start: 11/18/19 17:42 Freq: Status: Active Protocol: Document 11/18/19 09:45 DCW (Rec: 11/18/19 17:55 DCW [id number]) Functional Tests 6 Minute Walk Test Distance 377' Device Used FWW Comments 1.05 ft/sec PT-OP-J Posture/Palpation/Skin Start: 11/18/19 17:42 Freq: Status: Active Protocol: Document 11/18/19 09:45 DCW (Rec: 11/18/19 17:55 DCW [id number]) Skin Assessment Circumference Measurement 3 Location 10 cm inferior to left knee joint line Measurement (Centimeters) 37.6 Comments 10 cm inferior to right knee joint line: 35.3 cm 2 Location 10 cm superior to leftt knee joint line Measurement (Centimeters) 45.5 Comments 10 cm superior to right knee joint line: 40.8 cm 1 Location Left knee joint line Measurement (Centimeters) 43.0 Comments Right knee joint line: 37.5 cm PT-OP-K Range of Motion Start: 11/18/19 17:42 Freq: Status: Active Protocol: Document 11/18/19 09:45 DCW (Rec: 11/18/19 17:55 DCW [id number]) Knee Goniometric Range of Motion Knee Left Sitting Patient Position Sitting Flexion Active (degrees) 70 Extension Active (degrees) 20 Left Patient Position Supine Flexion Active (degrees) 75 Flexion Passive (degrees) 82 Extension Active (degrees) 7 PT-OP-M Strength Start: 11/18/19 17:42 Freq: Status: Active Protocol: Document 11/18/19 09:45 DCW (Rec: 11/18/19 17:55 DCW [id number]) Hip Strength Hip Manual Muscle Testing Right Flexion (L2) 4+ Good+ Abduction 4 Good Adduction 4+ Good+ Left Flexion (L2) 3- Fair- Abduction 4- Good- Adduction 4+ Good+ Knee Strength Knee Manual Muscle Testing Right Flexion (S2) 4+ Good+ Extension (L3) 4+ Good+ Left Flexion (S2) 3 Fair Extension (L3) 3 Fair Ankle/Foot Strength Ankle and Foot Manual Muscle Testing Right Dorsiflexion (L4) 4+ Good+ Plantarflexion (S1) 4+ Good+ Left Dorsiflexion (L4) 4- Good- Plantarflexion (S1) 4 Good PT-OP-Q Treatments Start: 11/18/19 17:42 Freq: Status: Active Protocol: Document 01/06/20 11:15 DCW (Rec: 01/06/20 11:58 DCW [id number]) Cardio Equipment Recumbent Bicycle Duration (Minutes) 5 Resistance 5 Seat Position 2 Gym Equipment Shuttle Balance red clipds Details Wide GEMMA, Staggered Stance, Lateral weight shift Therapeutic Exercises Standing Exercises lunge Standing Exercise Name Lunge onto BOSU Reps/Minutes x10 side stepping Standing Exercise Name band walk Resistance Green Equipment Used T-band Reps/Minutes 20 ft x2 laps SLS Standing Exercise Name SLS Manual Therapy Treatment Soft Tissue Mobilization scar mobility Body Location LLE and anterolateral tibial tuberosity Mobilization Type Myofascial Release Intensity/Depth Moderate Body Position Sitting Comments leg supported on therapist knee Joint Mobilizations patella Joint L patella Direction sup, inf, med Grade II Body Position Supine PT-OP-T Assessment and Plan Start: 11/18/19 17:42 Freq: Status: Active Protocol: Document 01/06/20 11:15 DCW (Rec: 01/06/20 11:58 DCW [id number]) Physical Therapy Assessment Impairments Impairments Activity Tolerance,Functional Activities,Functional Mobility ,Gait,Pain,ROM,Soft Tissue Mobility,Strength Goals 3 Impairment Pt has an average gait speed of 1.05 ft/sec during 6 MWT Retirement Goal (LTG) A gait speed of <1.97 ft/sec has been shown to indicate an increased risk for further functional decline. Pt to increase gait speed to >1.97 ft/sec, which would be demonstrated by ambulating more than 709 feet during a 6 MWT LTG Duration 01/19/20 2 Impairment Pt presents with limited left knee ROM Retirement Goal (LTG) L knee AROM in supine to increase to 0?-120? 12/20/19 LLE AROM 1-115deg, PROM 124 deg. RLE 0-138 deg. LTG Duration 01/19/20 1 Impairment Pt does not have an appropriate home exercise program Short Term Goal (STG) Pt to be independent and compliant with an appropriate HEP STG Duration 12/19/19 Assessment Summary Assessment Pt showing great progress, excellent knee mobility and strength, appropriate knowledge of HEP. Pt will undergo measurements and testing at her next visit, followed by likely discharge. Physical Therapy Plan Frequency and Duration Frequency of Treatment 2x/Week Duration of Treatment 10 weeks Plan of Care Start Date 11/18/19 Plan of Care End Date 01/27/20 Therapeutic Interventions Therapeutic Interventions Aquatic Therapy,Balance Training,Gait Training,Home Exercise Program,Joint Mobilizations,Manual Therapy, Neuromuscular Re-education, Patient/Caregiver Education, Self-Care/Home Management,Soft Tissue Mobilization, Therapeutic Exercises Modalities Cold Pack/Ice Massage,Electric Stimulation,Hot Packs, Ultrasound Next Visit Focus/Plan Next Note Type Discharge Summary Next Visit Plan Retesting and likely discharge
--- NOTE | 2020-01-09 12:40 | PT.OTN ---
Current Diagnoses Unilateral primary osteoarthritis, left knee (01/09/20) Pain in left knee (01/09/20) Stiffness of left knee, not elsewhere classified (01/09/20) Aftercare following joint replacement surgery (01/09/20) Physical Therapy Treatment Note PT-OP-A Visit Information Start: 11/18/19 17:42 Freq: Status: Active Protocol: Document 01/09/20 12:00 DCW (Rec: 01/09/20 12:40 DCW [id number]) Out-Patient Physical Therapy Visit Information Visit Information Visit Type Discharge Summary Visit Start Time 12:00 Visit Stop Time 12:40 Total Visit Minutes 40 Visit Number 16 Number of BENCH CHEMIST Visits 0 Evaluation Information Evaluation Date 11/18/19 PT-OP-B Current Condition Start: 11/18/19 17:42 Freq: Status: Active Protocol: Document 11/18/19 09:45 DCW (Rec: 11/18/19 17:55 DCW [id number]) Current Condition History of Current Condition Onset Date 11/11/19 Current Complaints Pain, weakness, stiffness s/p L TKA History of Current Condition Pt presents to skilled physical therapy one week s/p L TKA following failed conservative treatment of knee osteoarthritis. Pt's daughter attends evaluation, and pt reports that her daughter has been helping her with her post -op exercises. Pt notes her most limiting pain is currently coming from her low back, which mainly hurts when she is attempting to perform supine exercises. Prior Treatments and Tests L TKA on 11/11/19 PT-OP-C Subjective Start: 11/18/19 17:42 Freq: Status: Active Protocol: Document 01/09/20 12:00 DCW (Rec: 01/09/20 12:40 DCW [id number]) OP-PT Subjective Patient Comments Patient Comments Pt doing very well, thrilled with her progress so far. Patient Reported Progress Improving Patient Questionnaires Lower Extremity Functional Scale LEFS Score 52/60 = 65% LEFS Impairment 20 to 39% Impaired (Score 48- 62) PT-OP-E Functional Tests Start: 11/18/19 17:42 Freq: Status: Active Protocol: Document 01/09/20 12:00 DCW (Rec: 01/09/20 12:20 DCW [id number]) Functional Tests 6 Minute Walk Test Distance 1137' Device Used none Comments 3.16 ft/sec PT-OP-J Posture/Palpation/Skin Start: 11/18/19 17:42 Freq: Status: Active Protocol: Document 01/09/20 12:00 DCW (Rec: 01/09/20 12:25 DCW [id number]) Skin Assessment Circumference Measurement 3 Location 10 cm inferior to left knee joint line Measurement (Centimeters) 36.2 Comments 10 cm inferior to right knee joint line: 35.3 cm 2 Location 10 cm superior to leftt knee joint line Measurement (Centimeters) 42.3 Comments 10 cm superior to right knee joint line: 40.8 cm 1 Location Left knee joint line Measurement (Centimeters) 40.2 Comments Right knee joint line: 37.5 cm PT-OP-K Range of Motion Start: 11/18/19 17:42 Freq: Status: Active Protocol: Document 01/09/20 12:00 DCW (Rec: 01/09/20 12:20 DCW [id number]) Knee Goniometric Range of Motion Knee Left Sitting Patient Position Sitting Flexion Active (degrees) 116 Extension Active (degrees) 0 Left Patient Position Supine Flexion Active (degrees) 120 Flexion Passive (degrees) 126 Extension Active (degrees) 0 PT-OP-M Strength Start: 11/18/19 17:42 Freq: Status: Active Protocol: Document 01/09/20 12:00 DCW (Rec: 01/09/20 12:20 DCW [id number]) Hip Strength Hip Manual Muscle Testing Right Flexion (L2) 4+ Good+ Abduction 4 Good Adduction 4+ Good+ Left Flexion (L2) 4+ Good+ Abduction 4 Good Adduction 4+ Good+ Knee Strength Knee Manual Muscle Testing Right Flexion (S2) 4+ Good+ Extension (L3) 4+ Good+ Left Flexion (S2) 4+ Good+ Extension (L3) 4+ Good+ Ankle/Foot Strength Ankle and Foot Manual Muscle Testing Right Dorsiflexion (L4) 4+ Good+ Plantarflexion (S1) 4+ Good+ Left Dorsiflexion (L4) 4+ Good+ Plantarflexion (S1) 4+ Good+ PT-OP-Q Treatments Start: 11/18/19 17:42 Freq: Status: Active Protocol: Document 01/09/20 12:00 DCW (Rec: 01/09/20 12:40 DCW [id number]) Gym Equipment Shuttle Balance red clipds Details Wide GEMMA, Staggered Stance, Lateral weight shift Manual Therapy Treatment Other Other Manual Treatments Testing: ROM, MMT, 6 MWT, PT-OP-T Assessment and Plan Start: 11/18/19 17:42 Freq: Status: Active Protocol: Document 01/09/20 12:00 DCW (Rec: 01/09/20 12:40 DCW [id number]) Physical Therapy Assessment Goals 3 Impairment Pt has an average gait speed of 1.05 ft/sec during 6 MWT Fci Goal (LTG) A gait speed of <1.97 ft/sec has been shown to indicate an increased risk for further functional decline. Pt to increase gait speed to >1.97 ft/sec, which would be demonstrated by ambulating more than 709 feet during a 6 MWT LTG Duration Met 2 Impairment Pt presents with limited left knee ROM Court Registry Officer Goal (LTG) L knee AROM in supine to increase to 0?-120? 12/20/19 LLE AROM 1-115deg, PROM 124 deg. RLE 0-138 deg. LTG Duration Met 1 Impairment Pt does not have an appropriate home exercise program Short Term Goal (STG) Pt to be independent and compliant with an appropriate HEP STG Duration Met Progress Towards Goals Progress Towards Goals Goals Met Assessment Summary Assessment Pt has made great overall progress. She has met all goals, and is ambulating with no deficits. Pt appropriate for discharge at this time. Physical Therapy Plan Frequency and Duration Frequency of Treatment 2x/Week Duration of Treatment 10 weeks Plan of Care Start Date 11/18/19 Plan of Care End Date 01/27/20 Therapeutic Interventions Therapeutic Interventions Aquatic Therapy,Balance Training,Gait Training,Home Exercise Program,Joint Mobilizations,Manual Therapy, Neuromuscular Re-education, Patient/Caregiver Education, Self-Care/Home Management,Soft Tissue Mobilization, Therapeutic Exercises Modalities Cold Pack/Ice Massage,Electric Stimulation,Hot Packs, Ultrasound Discharge Physical Therapy Discharge Reasons Goals Met Next Visit Focus/Plan Next Note Type Discharge Summary
== END 2020-01-14 10:43 | disposition home or self-care (01) ==
LOC: PHYS 12:00
PROVIDERS: PCP Family Medicine; Referring Provider Orthopaedic Surgery; Visit Provider Orthopaedic Surgery
DX: M17.12 Unilateral primary osteoarthritis, left knee (principal); Z47.1 Aftercare following joint replacement surgery; M25.562 Pain in left knee; M25.662 Stiffness of left knee, not elsewhere classified
CPT/HCPCS: 97110; 97112; 97116; 97140; 97161; 97535

== ENCOUNTER → 2020-02-27 00:10 | Outpatient (CLI) | payer MEDICARE, OTHER, SELFPAY ==
[2019-11-11 13:49] VITALS: BMI 27.3
== END ==
PROVIDERS: PCP Family Medicine; Referring Provider Internal Medicine; Visit Provider Internal Medicine
DX: Z23 Encounter for immunization (principal)
CPT/HCPCS: 90471; 90662

== ENCOUNTER → 2020-02-27 06:55 | Outpatient (CLI) | payer MEDICARE, OTHER, SELFPAY ==
[2019-11-11 13:49] VITALS: BMI 27.3
[2020-02-27 07:54] LABS: Add Manual Diff / Slide Review NO; Basophils Absolute Auto 0 /uL (0-100); Basophils Percent Auto 0.5 % (0-2); Eosinophils Absolute Auto 100 /uL (0-450); Eosinophils Percent Auto 1.9 % (2-4); Hematocrit 42.1 % (36-46); Hemoglobin 13.8 g/dL (12.0-16.0); Lymphocytes Absolute Auto 2000 /uL (1100-4500); Lymphocytes Percent Auto 27.6 % (25-40); Mean Corpuscular HGB Conc 32.7 % (30-36); Mean Corpuscular Hemoglobin 29.2 PG (26-34); Mean Corpuscular Volume 89.2 fL (80-100); Monocytes Absolute Auto 600 /uL (0-900); Neutrophils Absolute Auto 4500 /uL (1500-7000); Platelet Count 203 X10^3/uL (150-400); Red Blood Cell Count 4.72 X10^6/uL (4.0-5.2); Red Cell Distribution Width 14.8 % (11.6-14.8); White Blood Cell Count 7.3 X10^3/uL (4.5-11.0)
[2020-02-27 08:23] LABS: Alanine Aminotransferase 13 IU/L (<35); Albumin 4.1 g/dL (3.5-5.0); Albumin Globulin Ratio 1.6 (1.0-2.8); Alkaline Phosphatase 73 U/L (38-126); Aspartate Aminotransferase 22 IU/L (14-36); BUN Creatinine Ratio 26.7 (6-22); Bilirubin Total 0.5 mg/dL (0.2-1.3); Blood Urea Nitrogen 20 mg/dL (7-17); Calcium 9.8 mg/dL (8.4-10.2); Carbon Dioxide 33 mmol/L (22-32); Chloride 104 mmol/L (98-107); Cholesterol 161 mg/dL (140-199); Estimated Glomerular Filt Rate > 60.0 mL/min (>60); Globulin 2.6 g/dL (1.7-4.1); Glucose 87 mg/dL (80-110); HDL Cholesterol 58 mg/dL (40-60); HEMOLYSIS < 15 (0-50); LDL Cholesterol Calculated 86 mg/dL (<100); Potassium 4.4 mmol/L (3.4-5.1); Sodium 141 mmol/L (137-145); Total Protein 6.7 g/dL (6.3-8.2); Triglycerides 85 mg/dL (35-150)
[2020-02-27 08:53] LABS: TSH w/ Reflex to FT4 2.76 uIU/mL (0.47-4.68)
== END ==
PROVIDERS: PCP Family Medicine; Referring Provider Family Medicine; Visit Provider Family Medicine
DX: E78.5 Hyperlipidemia, unspecified (principal); Z13.1 Encounter for screening for diabetes mellitus; Z13.6 Encounter for screening for cardiovascular disorders
CPT/HCPCS: 36415; 80053; 80061; 84443; 85025

== ENCOUNTER → 2020-04-24 09:41 | Outpatient (CLI) | payer MEDICARE, OTHER, SELFPAY ==
[2019-11-11 13:49] VITALS: BMI 27.3
== END ==
PROVIDERS: PCP Family Medicine; Visit Provider Physician Assistant
DX: R30.0 Dysuria (principal)
CPT/HCPCS: 87086

== ENCOUNTER → 2020-05-12 12:27 | Outpatient (CLI) | payer MEDICARE, OTHER, SELFPAY ==
[2019-11-11 13:49] VITALS: BMI 27.3
--- NOTE | 2020-05-12 12:28 | DI.RAD.S_ITS ---
PROCEDURE: XR CHEST 2V INDICATIONS: cough TECHNIQUE: 2 views of the chest were acquired. COMPARISON: [facility], , CHEST 2 VIEW, 04/21/2010, 14:31. FINDINGS: Surgical changes and devices: None. Possible posterior lower lobe opacities on the lateral view only although evaluation suboptimal due to discogenic changes Elsewhere, no focal consolidation. No pleural effusions or pneumothorax. Mediastinum: Mediastinal contours are normal. Heart size is normal. Bones and chest wall: Lateral curvature of the spine and discogenic change IMPRESSION: Possible mild posterior lower lobe opacities although technically nonspecific as discussed above. No definite focal consolidation. If there is persistent clinical diagnostic uncertainty, continued surveillance with short interval chest radiographs after treatment is recommended. Dictated by: Pj Godinez M.D. on 05/12/2020 at 14:31 Approved by: Pj Godinez M.D. on 05/12/2020 at 14:34
== END ==
PROVIDERS: PCP Family Medicine; Referring Provider Family Medicine; Visit Provider Family Medicine
DX: R05 Cough (principal)
CPT/HCPCS: 71046

== ENCOUNTER → 2020-05-28 10:16 | Outpatient (CLI) | payer MEDICARE, OTHER, SELFPAY ==
[2019-11-11 13:49] VITALS: BMI 27.3
--- NOTE | 2020-05-28 10:18 | DI.RAD.S_ITS ---
PROCEDURE: XR CHEST 2V INDICATIONS: recheck xray TECHNIQUE: 2 views of the chest were acquired. COMPARISON: [facility], , XR CHEST 2V, 05/12/2020, 13:29. [facility], [place], CHEST 2 VIEW, 04/21/2010, 14:31. FINDINGS: Surgical changes and devices: None. Lungs and pleura: Lungs are clear. No pleural effusions or pneumothorax. Mediastinum: Mediastinal contours are normal. Heart size is normal. Bones and chest wall: No suspicious bony abnormalities. Soft tissues appear unremarkable. IMPRESSION: Normal for age. Dictated by: Gatito Fleming M.D. on 05/28/2020 at 11:56 Approved by: Gatito Fleming M.D. on 05/28/2020 at 11:57
== END ==
PROVIDERS: PCP Family Medicine; Referring Provider Family Medicine; Visit Provider Family Medicine
DX: R91.8 Other nonspecific abnormal finding of lung field (principal)
CPT/HCPCS: 71046

== ENCOUNTER → 2020-05-29 08:45 | Outpatient (CLI) | payer MEDICARE, OTHER, SELFPAY ==
[2019-11-11 13:49] VITALS: BMI 27.3
[2020-05-29] MEDS: COVID-19 VACC(MODERNA-1)/PF 100 MCG/0.5 ML VIAL IM (08:52)
== END ==
PROVIDERS: PCP Family Medicine; Visit Provider Internal Medicine
DX: Z23 Encounter for immunization (principal)
CPT/HCPCS: 0011A; 91301

== ENCOUNTER → 2020-06-26 08:42 | Outpatient (CLI) | payer MEDICARE, OTHER, SELFPAY ==
[2019-11-11 13:49] VITALS: BMI 27.3
[2020-06-26] MEDS: COVID-19 VACC #2, MRNA(MOD) 100 MCG/0.5 ML VIAL IM (08:51)
== END ==
PROVIDERS: PCP Family Medicine; Visit Provider Internal Medicine
DX: Z23 Encounter for immunization (principal)
CPT/HCPCS: 0012A; 91301

== ENCOUNTER → 2021-02-16 10:48 | Outpatient (CLI) | payer MEDICARE, OTHER, SELFPAY ==
[2019-11-11 13:49] VITALS: BMI 27.3
[2021-02-16 15:01] LABS: COVID19 -Nasal RAPID Negative (Negative)
== END ==
PROVIDERS: PCP Family Medicine; Visit Provider Nurse Practitioner Family
DX: Z20.822 Contact with and (suspected) exposure to COVID-19 (principal); R05.9 Cough, unspecified
CPT/HCPCS: 87635

== ENCOUNTER → 2021-02-22 09:07 | Outpatient (CLI) | payer MEDICARE, OTHER, SELFPAY ==
[2019-11-11 13:49] VITALS: BMI 27.3
[2021-02-22 10:59] LABS: COVID19 -Nasal RAPID Negative (Negative)
== END ==
PROVIDERS: PCP Family Medicine; Visit Provider Nurse Practitioner Family
DX: Z20.822 Contact with and (suspected) exposure to COVID-19 (principal); R05.9 Cough, unspecified
CPT/HCPCS: 87635

== ENCOUNTER → 2021-03-10 16:17 | Outpatient (CLI) | payer MEDICARE, OTHER, SELFPAY ==
[2019-11-11 13:49] VITALS: BMI 27.3
--- NOTE | 2021-03-10 16:18 | DI.MRI.S_ITS ---
PROCEDURE: MR STROKE INDICATIONS: left arm weekness and tremor possible cva TECHNIQUE: Brain: Noncontrast axial T1 spin echo, axial T2 fast spin echo, sagittal and axial FLAIR, coronal T2 fast spin echo, axial gradient echo, axial diffusion and ADC through the brain. MR angiogram: Noncontrast axial 3D [id number] MR angiogram, with maximum intensity projection reformats of the internal carotid arteries and posterior circulation then performed. COMPARISON: None. FINDINGS: Image quality: Excellent. BRAIN: CSF Spaces: Basal cisterns are patent. No extra-axial fluid collections. Ventricles are normal in size and shape. Brain: No midline shift. No intracranial bleeds or mass effects. The brainstem appears normal. Mcallister/white matter interface appears normal. Diffusion-weighted images demonstrate no acute ischemic insult. No chronic ischemic insults. Normal intravascular flow voids are present. Moderate cerebral and cerebellar volume loss as well as mild multifocal white matter chronic ischemic change. No abnormal enhancement throughout the exam. Skull and face: Calvarium has normal marrow signal. Orbits appear normal. Sinuses: Sinuses and mastoids are clear. BRAIN MR ANGIOGRAM: Anterior circulation: Intracranial internal carotid arteries demonstrate normal size and intraluminal flow signal. The flow within the paired anterior cerebral arteries is normal and symmetric. The flow within the middle cerebral arteries is normal and symmetric. The anterior communicating artery is seen. No stenoses, occlusions, or aneurysms. Posterior circulation: The visualized vertebral arteries demonstrate normal caliber, and join to form a normal appearing basilar artery. The flow within the posterior cerebral arteries is normal and symmetric. Note is made of normal appearing posterior cerebral arteries. No stenoses, occlusions, or aneurysms. IMPRESSION: Para mild Mild atrophy and multifocal white matter chronic ischemic change without acute infarct, hemorrhage or mass lesion. Unremarkable intracranial MR angiogram without evidence of large vessel occlusion, aneurysm or vascular malformation. Unremarkable MR angiogram of the neck without evidence of significant stenosis, occlusion or aneurysm. Approved by: Jerson Yun M.D. on 03/10/2021 at 17:22
== END ==
PROVIDERS: PCP Family Medicine; Referring Provider Family Medicine; Visit Provider Family Medicine
DX: R29.898 Other symptoms and signs involving the musculoskeletal system (principal); G96.9 Disorder of central nervous system, unspecified; R25.1 Tremor, unspecified; E78.5 Hyperlipidemia, unspecified
CPT/HCPCS: 70548; 70553; A9579

== ENCOUNTER → 2021-05-04 07:16 | Outpatient (CLI) | payer MEDICARE, OTHER, SELFPAY ==
[2019-11-11 13:49] VITALS: BMI 27.3
[2021-05-04 08:23] LABS: Add Manual Diff / Slide Review NO; Basophils Absolute Auto 0 /uL (0-100); Basophils Percent Auto 0.7 % (0-2); Eosinophils Absolute Auto 100 /uL (0-450); Eosinophils Percent Auto 1.8 % (2-4); Hematocrit 42.4 % (36-46); Hemoglobin 14.6 g/dL (12.0-16.0); Lymphocytes Absolute Auto 2200 /uL (1100-4500); Lymphocytes Percent Auto 36.6 % (25-40); Mean Corpuscular HGB Conc 34.4 % (30-36); Mean Corpuscular Hemoglobin 31.2 PG (26-34); Mean Corpuscular Volume 90.8 fL (80-100); Monocytes Absolute Auto 500 /uL (0-900); Monocytes Percent Auto 7.9 % (3-14); Neutrophils Absolute Auto 3200 /uL (1500-7000); Platelet Count 187 X10^3/uL (150-400); Red Blood Cell Count 4.67 X10^6/uL (4.0-5.2); White Blood Cell Count 6.1 X10^3/uL (4.5-11.0)
[2021-05-04 08:52] LABS: Alanine Aminotransferase 18 IU/L (<35); Albumin 4.2 g/dL (3.5-5.0); Albumin Globulin Ratio 1.8 (1.0-2.8); Alkaline Phosphatase 60 U/L (38-126); Aspartate Aminotransferase 24 IU/L (14-36); BUN Creatinine Ratio 26.2 (6-22); Bilirubin Total 0.6 mg/dL (0.2-1.3); Blood Urea Nitrogen 22 mg/dL (7-17); Calcium 9.8 mg/dL (8.4-10.2); Carbon Dioxide 31 mmol/L (22-32); Chloride 106 mmol/L (98-107); Cholesterol 175 mg/dL (140-199); Estimated Glomerular Filt Rate > 60.0 mL/min (>60); Globulin 2.3 g/dL (1.7-4.1); Glucose 91 mg/dL (80-110); HDL Cholesterol 55 mg/dL (40-60); HEMOLYSIS < 15 (0-50); LDL Cholesterol Calculated 105 mg/dL (<100); Potassium 4.4 mmol/L (3.4-5.1); Sodium 141 mmol/L (137-145); Total Protein 6.5 g/dL (6.3-8.2); Triglycerides 73 mg/dL (35-150)
[2021-05-04 09:05] LABS: Vitamin D 25 Hydroxy (D3) 25.2 ng/mL (30.0-100.0)
[2021-05-04 09:37] LABS: Vitamin B12 448 pg/mL (239-931)
== END ==
PROVIDERS: PCP Family Medicine; Referring Provider Family Medicine; Visit Provider Family Medicine
DX: E78.5 Hyperlipidemia, unspecified (principal); G96.9 Disorder of central nervous system, unspecified; M17.12 Unilateral primary osteoarthritis, left knee; G51.0 Bell's palsy; R29.898 Other symptoms and signs involving the musculoskeletal system; R25.1 Tremor, unspecified
CPT/HCPCS: 36415; 80053; 80061; 82306; 82607; 84443; 85025

== ENCOUNTER → 2021-11-01 08:15 | Outpatient (CLI) | payer MEDICARE, OTHER, SELFPAY ==
[2019-11-11 13:49] VITALS: BMI 27.3
--- NOTE | 2021-11-01 08:16 | DI.US.S_ITS ---
PROCEDURE: US RENAL COMPLETE INDICATIONS: URINE INCONTINENCE TECHNIQUE: Real-time scanning was performed of the kidneys and bladder, with image documentation. COMPARISON: [facility], CT, ABDOMEN/PELVIS WITH CONTRAST, 05/10/2008, 23:12. FINDINGS: Kidneys: Right kidney measures 8.6 cm long; left kidney measures 9.1 cm long. Right renal cortical thickness is 2.1 cm; left renal cortical thickness is 1.9 cm. Renal cortical echotexture is normal. No hydronephrosis or nephrolithiasis. No suspicious solid mass lesions. At the superior mid aspect of the right kidney, there is a simple appearing cyst seen that measures up to 4.3 cm. Bladder: Pre-void bladder volume is 307 mL. Post-void residual is 0 mL. Pre-void images demonstrate no intraluminal masses or stones. On pre-void images, both ureteral jets are noted with color Doppler interrogation. (Of note, ureteral jets may not be detectable in up to 25% of cases due to insufficient differences in specific gravity between ureteral and bladder urine). Miscellaneous: No free pelvic fluid. IMPRESSION: Small kidney size. No hydronephrosis. Simple appearing 4.3 cm right kidney cyst. No postvoid residual. Dictated by: Norberto Brewer M.D. on 11/01/2021 at 8:33 Approved by: Norberto Brewer M.D. on 11/01/2021 at 8:36
== END ==
PROVIDERS: PCP Family Medicine; Referring Provider Family Medicine; Visit Provider Family Medicine
DX: R32 Unspecified urinary incontinence (principal); N28.1 Cyst of kidney, acquired
CPT/HCPCS: 76770

== ENCOUNTER → 2022-02-21 09:10 | Outpatient (CLI) | payer MEDICARE, OTHER, SELFPAY ==
[2019-11-11 13:49] VITALS: BMI 27.3
--- NOTE | 2022-02-21 09:13 | DI.RAD.S_ITS ---
PROCEDURE: XR KNEE RT 3V INDICATIONS: Knee pain TECHNIQUE: 3 views of the knee were acquired. COMPARISON: [facility], CR, XR KNEE LT 1TO2V, 11/11/2019, 9:57. FINDINGS: Bones: No acute fracture or dislocation. There is moderate medial femorotibial compartment narrowing and small tricompartmental osteophytes. No suspicious bony lesions. Soft tissues: No joint effusion. No suspicious soft tissue calcifications. IMPRESSION: Moderate right knee osteoarthritis. Dictated by: Clara Maldonado M.D. on 02/21/2022 at 12:43 Approved by: Clara Maldonado M.D. on 02/21/2022 at 12:43
== END ==
PROVIDERS: Family Provider Family Medicine; PCP Family Medicine; Referring Provider Family Medicine; Visit Provider Family Medicine
DX: M17.11 Unilateral primary osteoarthritis, right knee (principal); M25.561 Pain in right knee
CPT/HCPCS: 73562

== ENCOUNTER 2022-03-18 09:45 | Outpatient (RCR) | payer MEDICARE, OTHER, SELFPAY ==
[2019-11-11 13:49] VITALS: BMI 27.3
--- NOTE | 2022-02-09 17:55 | PT.OIE ---
Current Diagnoses Essential tremor (02/09/22) Muscle weakness (generalized) (02/09/22) Other symptoms and signs involving the musculoskeletal system (02/09/22) Past Medical History (Last Updated 11/04/19 @ 09:08 by Sola Graf RN) Childers's palsy Chronic cough Colon polyps Hearing impaired Hyperlipidemia Osteoarthritis Past Surgical History (Last Updated 11/04/19 @ 09:08 by Sola Graf RN) History of meniscectomy of left knee (~2003) History of meniscectomy of right knee (~2011) History of surgery (~2012) Hx of bilateral cataract extraction Skin cancer (~2006) Status post appendectomy Visit Care Team Role Provider Type Mani Tyson MD Family Provider Physician Primary Care Provider Specialty: Family Practice Address: [facility] [place], [address] Email: [email or web address] Luis Fuentes MD Attending Provider Non-Staff Referring Provider Specialty: Neurology Address: [address] [place], [address] Email: Physical Therapy Initial Evaluation PT-OP-A Visit Information Start: 02/09/22 15:57 Freq: Status: Active Protocol: Document 02/09/22 15:15 DCW (Rec: 02/09/22 17:40 DCW [id number]) Out-Patient Physical Therapy Visit Information Visit Information Visit Type Initial Evaluation Visit Start Time 15:15 Visit Stop Time 15:50 Total Visit Minutes 35 Visit Number 1 Number of RN CARDIAC Visits 0 Evaluation Information Evaluation Date 02/09/22 PT-OP-B Current Condition Start: 02/09/22 15:57 Freq: Status: Active Protocol: Document 02/09/22 15:15 DCW (Rec: 02/09/22 17:44 DCW [id number]) Current Condition History of Current Condition Onset Date Gradual onset Current Complaints General weakness, decreased medical technologist clinical, 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 Pt feels like she has functionally declined over the past few months, reports she tires a little more quickly when up walking around, notes more of a struggle with rolling over in bed and performing supine->sit transfers. Reports she was recently diagnosed with essential tremor, and although her tremor is not constant, she does notice that activities are a little more difficult when it is present. Feels her balance overall is good, has been practicing SLS daily. Prior Treatments and Tests Prior PT s/p L TKA Treatment Goals Patient/Caregiver Goals Improve strength and activity tolerance PT-OP-C Subjective Start: 02/09/22 15:57 Freq: Status: Active Protocol: Document 02/09/22 15:15 DCW (Rec: 02/09/22 17:40 DCW [id number]) OP-PT Subjective Patient Comments Patient Comments I just feel like I'm getting weaker overall. My medical technologist clinical, my legs, just rolling over in bed is more difficult. PT-OP-E Functional Tests Start: 02/09/22 15:57 Freq: Status: Active Protocol: Document 02/09/22 15:15 DCW (Rec: 02/09/22 17:40 DCW [id number]) Functional Tests Timed Up and Go (TUG) Score 10.28 /s AD Comments Three-trial average (10.16, 10.46, 10.23) TUG Impairment Rating 0% Impaired (Score 10) PT-OP-G Mobility & Gait Start: 02/09/22 15:57 Freq: Status: Active Protocol: Document 02/09/22 15:15 DCW (Rec: 02/09/22 17:40 DCW [id number]) OP Gait Assessment Gait Gait Assistance Required: Independent Able to Maintain Weight Bearing Status Yes During Gait Assistive Devices Assistive Device None Orthotic/Prosthetic Devices or Brace: No Comments Gait Comments Pt ambulates with an appropriate step-through gait pattern, good overall posture, however has very limited trunk rotation and decreased arm swing. Able to improve mildly with verbal cues. PT-OP-M Strength Start: 02/09/22 15:57 Freq: Status: Active Protocol: Document 02/09/22 15:15 DCW (Rec: 02/09/22 17:40 DCW [id number]) Trunk Strength Trunk Manual Muscle Testing Core Stabilization Pt demonstrates mild TrA contraction, difficulty holding longer than 2-3 seconds. Hand Music Store Manager/Pinch Strength Hand Dominance Hand Dominance Right Hand Strength Right Music Store Manager (lbs) 51.67 Comments Three-trial average (50, 55, 50) Left Music Store Manager (lbs) 48.33 Comments Three-trial average (50, 50, 45) Hip Strength Hip Manual Muscle Testing Right Flexion (L2) 4 Good Abduction 4+ Good+ Adduction 4+ Good+ External Rotation 5 Normal Internal Rotation 5 Normal Left Flexion (L2) 4+ Good+ Abduction 4+ Good+ Adduction 4+ Good+ External Rotation 4+ Good+ Internal Rotation 4+ Good+ Knee Strength Knee Manual Muscle Testing Right Flexion (S2) 4+ Good+ Extension (L3) 4+ Good+ Left Flexion (S2) 5 Normal Extension (L3) 5 Normal Ankle/Foot Strength Ankle and Foot Manual Muscle Testing Right Dorsiflexion (L4) 4 Good Left Dorsiflexion (L4) 4 Good PT-OP-T Assessment and Plan Start: 02/09/22 15:57 Freq: Status: Active Protocol: Document 02/09/22 15:15 DCW (Rec: 02/09/22 17:55 DCW [id number]) Physical Therapy Assessment Rehab Potential Rehabilitation Potential Good Evaluation Complexity Number of Personal Factors/Comorbidities 1-2 Number of Body Systems Impaired 1-2 Clinical Presentation at Evaluation Stable Impairments Impairments Activity Tolerance,Functional Activities,Functional Mobility ,Gait,Strength Goals Two Impairment Pt ambulates with reduced trunk rotation and arm swing Technical Sales Support Specialist Goal (LTG) Pt to improve TrA/core strength to at least 4-/5 in order to improve trunk control and mobility, which can result in improved trunk rotation and arm swing during rotation LTG Duration 04/06/22 One Impairment Pt does not have an appropriate home exercise program Short Term Goal (STG) Pt to be independent and compliant with an appropriate HEP STG Duration 03/09/22 Assessment Summary Assessment Pt presents with a fairly mild complaint of decreased strength and general deconditioning. Music Store Manager strength, which seems to be her biggest worry, is actually significantly higher than average for her age group, and is actually more in line with someone 10-15 years younger. Leg strength generally doing very well, mostly 4+ or 5/5 in all planes, with the exception of 4/5 in R hip flexion and bilateral DF. Pt biggest limiting factor appears to be some core weakness, resulting in some difficulty with transfers and bed mobility, as well as decreased standing tolerance. Additionally, pt walks with a fairly stiff gait, due to limited trunk rotation and decreased arm swing, again likely due to some mild core weakness. Pt will likely benefit from skilled therapy focusing on core strengthening , as well as some mild focus on LE and medical technologist clinical strengthening to improve pt's overall feeling of strength. Physical Therapy Plan Frequency and Duration Frequency of Treatment 2x/Week Duration of treatment (weeks) 8 Plan of Care Start Date 02/09/22 Plan of Care End Date 04/06/22 Therapeutic Interventions Therapeutic Interventions Gait Training,Home Exercise Program,Manual Therapy, Neuromuscular Re-education, Patient/Caregiver Education, Self-Care/Home Management,Soft Tissue Mobilization, Therapeutic Activities, Therapeutic Exercises Next Visit Focus/Plan Next Note Type Treatment Note Next Visit Plan Core strengthening, medical technologist clinical HEP, LE strengthening, gait training.
--- NOTE | 2022-02-09 17:55 | PT.OPPOC ---
Physical, Occupational & Speech Therapy At [facility] Current Diagnoses Essential tremor (02/09/22) Muscle weakness (generalized) (02/09/22) Other symptoms and signs involving the musculoskeletal system (02/09/22) Visit Care Team Role Provider Type Mani Tyson MD Family Provider Physician Primary Care Provider Specialty: Family Practice Address: [address] [place] [address], [id number] Email: [email or web address] Luis Fuentes MD Attending Provider Non-Staff Referring Provider Specialty: Neurology Address: [address] [place], [address] Email: Plan Of Care PT-OP-T Assessment and Plan Start: 02/09/22 15:57 Freq: Status: Active Protocol: Document 02/09/22 15:15 DCW (Rec: 02/09/22 17:55 DCW [id number]) Physical Therapy Assessment Rehab Potential Rehabilitation Potential Good Evaluation Complexity Number of Personal Factors/Comorbidities 1-2 Number of Body Systems Impaired 1-2 Clinical Presentation at Evaluation Stable Impairments Impairments Activity Tolerance,Functional Activities,Functional Mobility ,Gait,Strength Goals Two Impairment Pt ambulates with reduced trunk rotation and arm swing Detention Goal (LTG) Pt to improve TrA/core strength to at least 4-/5 in order to improve trunk control and mobility, which can result in improved trunk rotation and arm swing during rotation LTG Duration 04/06/22 One Impairment Pt does not have an appropriate home exercise program Short Term Goal (STG) Pt to be independent and compliant with an appropriate HEP STG Duration 03/09/22 Assessment Summary Assessment Pt presents with a fairly mild complaint of decreased strength and general deconditioning. Radio Director strength, which seems to be her biggest worry, is actually significantly higher than average for her age group, and is actually more in line with someone 10-15 years younger. Leg strength generally doing very well, mostly 4+ or 5/5 in all planes, with the exception of 4/5 in R hip flexion and bilateral DF. Pt biggest limiting factor appears to be some core weakness, resulting in some difficulty with transfers and bed mobility, as well as decreased standing tolerance. Additionally, pt walks with a fairly stiff gait, due to limited trunk rotation and decreased arm swing, again likely due to some mild core weakness. Pt will likely benefit from skilled therapy focusing on core strengthening , as well as some mild focus on LE and student finance specialist strengthening to improve pt's overall feeling of strength. Physical Therapy Plan Frequency and Duration Frequency of Treatment 2x/Week Duration of treatment (weeks) 8 Plan of Care Start Date 02/09/22 Plan of Care End Date 04/06/22 Therapeutic Interventions Therapeutic Interventions Gait Training,Home Exercise Program,Manual Therapy, Neuromuscular Re-education, Patient/Caregiver Education, Self-Care/Home Management,Soft Tissue Mobilization, Therapeutic Activities, Therapeutic Exercises Next Visit Focus/Plan Next Note Type Treatment Note Next Visit Plan Core strengthening, student finance specialist HEP, LE strengthening, gait training. Plan of Care Dates Plan of Care Start Date 02/09/22 Plan of Care End Date 04/06/22 Electronically Signed by: Cesar Garay, PT 02/09/22 9961 If you are in agreement with this Plan of Care, please return a signed and dated copy. I have reviewed this Plan of Care and certify that the skilled therapy services above are required to meet the patient?s needs. Physician Signature Date Printed Name and Credentials Clinical Instructor Signature Printed Name and Credentials
--- NOTE | 2022-02-11 10:25 | PT.OTN ---
Current Diagnoses Essential tremor (02/11/22) Muscle weakness (generalized) (02/11/22) Other symptoms and signs involving the musculoskeletal system (02/11/22) Physical Therapy Treatment Note PT-OP-A Visit Information Start: 02/09/22 15:57 Freq: Status: Active Protocol: Document 02/11/22 09:47 DCW (Rec: 02/11/22 10:25 DCW [id number]) Out-Patient Physical Therapy Visit Information Visit Information Visit Type Treatment Note Visit Start Time 09:47 Visit Stop Time 10:30 Total Visit Minutes 43 Visit Number 2 Number of SENIOR ACCOUNTANT Visits 0 Evaluation Information Evaluation Date 02/09/22 PT-OP-B Current Condition Start: 02/09/22 15:57 Freq: Status: Active Protocol: Document 02/09/22 15:15 DCW (Rec: 02/09/22 17:44 DCW [id number]) Current Condition History of Current Condition Onset Date Gradual onset Current Complaints General weakness, 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 Pt feels like she has functionally declined over the past few months, reports she tires a little more quickly when up walking around, notes more of a struggle with rolling over in bed and performing supine->sit transfers. Reports she was recently diagnosed with essential tremor, and although her tremor is not constant, she does notice that activities are a little more difficult when it is present. Feels her balance overall is good, has been practicing SLS daily. Prior Treatments and Tests Prior PT s/p L TKA Treatment Goals Patient/Caregiver Goals Improve strength and activity tolerance PT-OP-C Subjective Start: 02/09/22 15:57 Freq: Status: Active Protocol: Document 02/11/22 09:47 DCW (Rec: 02/11/22 10:25 DCW [id number]) OP-PT Subjective Patient Comments Patient Comments I'm feeling pretty good today . PT-OP-E Functional Tests Start: 02/09/22 15:57 Freq: Status: Active Protocol: Document 02/09/22 15:15 DCW (Rec: 02/09/22 17:40 DCW [id number]) Functional Tests Timed Up and Go (TUG) Score 10.28 /s AD Comments Three-trial average (10.16, 10.46, 10.23) TUG Impairment Rating 0% Impaired (Score 10) PT-OP-G Mobility & Gait Start: 02/09/22 15:57 Freq: Status: Active Protocol: Document 02/09/22 15:15 DCW (Rec: 02/09/22 17:40 DCW [id number]) OP Gait Assessment Gait Gait Assistance Required: Independent Able to Maintain Weight Bearing Status Yes During Gait Assistive Devices Assistive Device None Orthotic/Prosthetic Devices or Brace: No Comments Gait Comments Pt ambulates with an appropriate step-through gait pattern, good overall posture, however has very limited trunk rotation and decreased arm swing. Able to improve mildly with verbal cues. PT-OP-M Strength Start: 02/09/22 15:57 Freq: Status: Active Protocol: Document 02/09/22 15:15 DCW (Rec: 02/09/22 17:40 DCW [id number]) Trunk Strength Trunk Manual Muscle Testing Core Stabilization Pt demonstrates mild TrA contraction, difficulty holding longer than 2-3 seconds. Hand Plan Coordinator/Pinch Strength Hand Dominance Hand Dominance Right Hand Strength Right Plan Coordinator (lbs) 51.67 Comments Three-trial average (50, 55, 50) Left Plan Coordinator (lbs) 48.33 Comments Three-trial average (50, 50, 45) Hip Strength Hip Manual Muscle Testing Right Flexion (L2) 4 Good Abduction 4+ Good+ Adduction 4+ Good+ External Rotation 5 Normal Internal Rotation 5 Normal Left Flexion (L2) 4+ Good+ Abduction 4+ Good+ Adduction 4+ Good+ External Rotation 4+ Good+ Internal Rotation 4+ Good+ Knee Strength Knee Manual Muscle Testing Right Flexion (S2) 4+ Good+ Extension (L3) 4+ Good+ Left Flexion (S2) 5 Normal Extension (L3) 5 Normal Ankle/Foot Strength Ankle and Foot Manual Muscle Testing Right Dorsiflexion (L4) 4 Good Left Dorsiflexion (L4) 4 Good PT-OP-Q Treatments Start: 02/09/22 15:57 Freq: Status: Active Protocol: Document 02/11/22 09:47 DCW (Rec: 02/11/22 10:25 DCW [id number]) Cardio Equipment Recumbent Elliptical (Biodex) Duration (Minutes) 5 Resistance 5 Seat Position 7 Gym Equipment Therapeutic Ball Resisted trunk rotation Exercise Details Resisted trunk rotation Ball Size/Color Red - 55 cm Lv 2 T-band Body Position Sitting LTR Exercise Details LTR Ball Size/Color Red - 55 cm Body Position Hooklying Pelvic tilts/circles Exercise Details Pelvic tilts, pelvic circles Ball Size/Color Red - 55 cm Body Position Sitting Therapeutic Exercises Supine Exercises TrA SLR Supine Exercise Name TRA /c SLR TrA Marching Supine Exercise Name TrA /c Marching PPT /c TrA Supine Exercise Name PPT /c TrA Standing Exercises Pallof press Standing Exercise Name Pallof Press Side bilateral Resistance Lv 3 PT-OP-T Assessment and Plan Start: 02/09/22 15:57 Freq: Status: Active Protocol: Document 02/11/22 09:47 DCW (Rec: 02/11/22 10:25 DCW [id number]) Physical Therapy Assessment Impairments Impairments Activity Tolerance,Functional Activities,Functional Mobility ,Gait,Strength Goals Two Impairment Pt ambulates with reduced trunk rotation and arm swing Construction Accountant Goal (LTG) Pt to improve TrA/core strength to at least 4-/5 in order to improve trunk control and mobility, which can result in improved trunk rotation and arm swing during rotation LTG Duration 04/06/22 One Impairment Pt does not have an appropriate home exercise program Short Term Goal (STG) Pt to be independent and compliant with an appropriate HEP STG Duration 03/09/22 Assessment Summary Assessment Pt tolerating treatment very well today, happy with all exercises started today, feels it is exactly what I need. No complaints of pain or discomfort. Physical Therapy Plan Frequency and Duration Frequency of Treatment 2x/Week Duration of treatment (weeks) 8 Plan of Care Start Date 02/09/22 Plan of Care End Date 04/06/22 Therapeutic Interventions Therapeutic Interventions Gait Training,Home Exercise Program,Manual Therapy, Neuromuscular Re-education, Patient/Caregiver Education, Self-Care/Home Management,Soft Tissue Mobilization, Therapeutic Activities, Therapeutic Exercises Next Visit Focus/Plan Next Note Type Treatment Note Next Visit Plan Core strengthening, deputy felony clerk HEP, LE strengthening, gait training.
--- NOTE | 2022-02-15 12:44 | PT.OTN ---
Current Diagnoses Essential tremor (02/15/22) Muscle weakness (generalized) (02/15/22) Other symptoms and signs involving the musculoskeletal system (02/15/22) Physical Therapy Treatment Note PT-OP-A Visit Information Start: 02/09/22 15:57 Freq: Status: Active Protocol: Document 02/15/22 12:00 DCW (Rec: 02/15/22 12:44 DCW [id number]) Out-Patient Physical Therapy Visit Information Visit Information Visit Type Treatment Note Visit Start Time 12:00 Visit Stop Time 12:45 Total Visit Minutes 45 Visit Number 3 Number of KNAPSACK SPRAYER Visits 0 Evaluation Information Evaluation Date 02/09/22 PT-OP-B Current Condition Start: 02/09/22 15:57 Freq: Status: Active Protocol: Document 02/09/22 15:15 DCW (Rec: 02/09/22 17:44 DCW [id number]) Current Condition History of Current Condition Onset Date Gradual onset Current 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 Pt feels like she has functionally declined over the past few months, reports she tires a little more quickly when up walking around, notes more of a struggle with rolling over in bed and performing supine->sit transfers. Reports she was recently diagnosed with essential tremor, and although her tremor is not constant, she does notice that activities are a little more difficult when it is present. Feels her balance overall is good, has been practicing SLS daily. Prior Treatments and Tests Prior PT s/p L TKA Treatment Goals Patient/Caregiver Goals Improve strength and activity tolerance PT-OP-C Subjective Start: 02/09/22 15:57 Freq: Status: Active Protocol: Document 02/15/22 12:00 DCW (Rec: 02/15/22 12:44 DCW [id number]) OP-PT Subjective Patient Comments Patient Comments Pt felt good following her appointment Monday, was out walking Monday and felt fine , but then went for a second walk, and her knee suddenly began hurting, and she couldn' t put weight on it. It got better then on Monday, but then happened again coming into PT today. PT-OP-E Functional Tests Start: 02/09/22 15:57 Freq: Status: Active Protocol: Document 02/09/22 15:15 DCW (Rec: 02/09/22 17:40 DCW [id number]) Functional Tests Timed Up and Go (TUG) Score 10.28 /s AD Comments Three-trial average (10.16, 10.46, 10.23) TUG Impairment Rating 0% Impaired (Score 10) PT-OP-G Mobility & Gait Start: 02/09/22 15:57 Freq: Status: Active Protocol: Document 02/09/22 15:15 DCW (Rec: 02/09/22 17:40 DCW [id number]) OP Gait Assessment Gait Gait Assistance Required: Independent Able to Maintain Weight Bearing Status Yes During Gait Assistive Devices Assistive Device None Orthotic/Prosthetic Devices or Brace: No Comments Gait Comments Pt ambulates with an appropriate step-through gait pattern, good overall posture, however has very limited trunk rotation and decreased arm swing. Able to improve mildly with verbal cues. PT-OP-M Strength Start: 02/09/22 15:57 Freq: Status: Active Protocol: Document 02/09/22 15:15 DCW (Rec: 02/09/22 17:40 DCW [id number]) Trunk Strength Trunk Manual Muscle Testing Core Stabilization Pt demonstrates mild TrA contraction, difficulty holding longer than 2-3 seconds. Hand Senior It Auditor/Pinch Strength Hand Dominance Hand Dominance Right Hand Strength Right Senior It Auditor (lbs) 51.67 Comments Three-trial average (50, 55, 50) Left Senior It Auditor (lbs) 48.33 Comments Three-trial average (50, 50, 45) Hip Strength Hip Manual Muscle Testing Right Flexion (L2) 4 Good Abduction 4+ Good+ Adduction 4+ Good+ External Rotation 5 Normal Internal Rotation 5 Normal Left Flexion (L2) 4+ Good+ Abduction 4+ Good+ Adduction 4+ Good+ External Rotation 4+ Good+ Internal Rotation 4+ Good+ Knee Strength Knee Manual Muscle Testing Right Flexion (S2) 4+ Good+ Extension (L3) 4+ Good+ Left Flexion (S2) 5 Normal Extension (L3) 5 Normal Ankle/Foot Strength Ankle and Foot Manual Muscle Testing Right Dorsiflexion (L4) 4 Good Left Dorsiflexion (L4) 4 Good PT-OP-Q Treatments Start: 02/09/22 15:57 Freq: Status: Active Protocol: Document 02/15/22 12:00 DCW (Rec: 02/15/22 12:44 DCW [id number]) Cardio Equipment Recumbent Elliptical (Biodex) Duration (Minutes) 6 Resistance 5 Seat Position 7 Gym Equipment Shuttle Recovery Bilateral Squats Details TrA contraction Resistance 87# Shuttle Recovery Platform Stable Reps/Time x15 unilat squat Details TrA contraction Resistance 50# Shuttle Recovery Platform Stable Reps/Time 2x15 Therapeutic Ball Resisted trunk rotation Exercise Details Resisted trunk rotation Ball Size/Color Red - 55 cm Lv 2 T-band Body Position Sitting LTR Exercise Details LTR Ball Size/Color Red - 55 cm Body Position Hooklying Pelvic tilts/circles Exercise Details Pelvic tilts, pelvic circles Ball Size/Color Red - 55 cm Body Position Sitting Therapeutic Exercises Supine Exercises TrA SLR Supine Exercise Name TRA /c SLR TrA Marching Supine Exercise Name TrA /c Marching PPT /c TrA Supine Exercise Name PPT /c TrA Standing Exercises Pallof press Standing Exercise Name Pallof Press Side bilateral Resistance Lv 3 PT-OP-T Assessment and Plan Start: 02/09/22 15:57 Freq: Status: Active Protocol: Document 02/15/22 12:00 [facility] (Rec: 02/15/22 12:44 [facility] [id number]) Physical Therapy Assessment Impairments Impairments Activity Tolerance,Functional Activities,Functional Mobility ,Gait,Strength Goals Two Impairment Pt ambulates with reduced trunk rotation and arm swing Aviation Medicine Specialist Goal (LTG) Pt to improve TrA/core strength to at least 4-/5 in order to improve trunk control and mobility, which can result in improved trunk rotation and arm swing during rotation LTG Duration 04/06/22 One Impairment Pt does not have an appropriate home exercise program Short Term Goal (STG) Pt to be independent and compliant with an appropriate HEP STG Duration 03/09/22 Assessment Summary Assessment Pt able to perform all activities, including leg press, without knee pain today , felt much better able it following session today. If it continues buckling during ambulation, may need to return to PCP for evaluation. Physical Therapy Plan Frequency and Duration Frequency of Treatment 2x/Week Duration of treatment (weeks) 8 Plan of Care Start Date 02/09/22 Plan of Care End Date 04/06/22 Therapeutic Interventions Therapeutic Interventions Gait Training,Home Exercise Program,Manual Therapy, Neuromuscular Re-education, Patient/Caregiver Education, Self-Care/Home Management,Soft Tissue Mobilization, Therapeutic Activities, Therapeutic Exercises Next Visit Focus/Plan Next Note Type Treatment Note Next Visit Plan Core strengthening, food and beverage service manager HEP, LE strengthening, gait training.
--- NOTE | 2022-02-18 10:30 | PT.OTN ---
Current Diagnoses Essential tremor (02/18/22) Muscle weakness (generalized) (02/18/22) Other symptoms and signs involving the musculoskeletal system (02/18/22) Physical Therapy Treatment Note PT-OP-A Visit Information Start: 02/09/22 15:57 Freq: Status: Active Protocol: Document 02/18/22 09:45 DCW (Rec: 02/18/22 10:30 DCW [id number]) Out-Patient Physical Therapy Visit Information Visit Information Visit Type Treatment Note Visit Start Time 09:45 Visit Stop Time 10:30 Total Visit Minutes 45 Visit Number 4 Number of HOTEL OPERATIONS MANAGER Visits 0 Evaluation Information Evaluation Date 02/09/22 PT-OP-B Current Condition Start: 02/09/22 15:57 Freq: Status: Active Protocol: Document 02/09/22 15:15 DCW (Rec: 02/09/22 17:44 DCW [id number]) Current Condition History of Current Condition Onset Date Gradual onset Current 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 Pt feels like she has functionally declined over the past few months, reports she tires a little more quickly when up walking around, notes more of a struggle with rolling over in bed and performing supine->sit transfers. Reports she was recently diagnosed with essential tremor, and although her tremor is not constant, she does notice that activities are a little more difficult when it is present. Feels her balance overall is good, has been practicing SLS daily. Prior Treatments and Tests Prior PT s/p L TKA Treatment Goals Patient/Caregiver Goals Improve strength and activity tolerance PT-OP-C Subjective Start: 02/09/22 15:57 Freq: Status: Active Protocol: Document 02/18/22 09:45 DCW (Rec: 02/18/22 10:30 DCW [id number]) OP-PT Subjective Patient Comments Patient Comments Pt knee is still really bothering her, was unable to go for her walk this morning. PT-OP-E Functional Tests Start: 02/09/22 15:57 Freq: Status: Active Protocol: Document 02/09/22 15:15 DCW (Rec: 02/09/22 17:40 DCW [id number]) Functional Tests Timed Up and Go (TUG) Score 10.28 /s AD Comments Three-trial average (10.16, 10.46, 10.23) TUG Impairment Rating 0% Impaired (Score 10) PT-OP-G Mobility & Gait Start: 02/09/22 15:57 Freq: Status: Active Protocol: Document 02/09/22 15:15 DCW (Rec: 02/09/22 17:40 DCW [id number]) OP Gait Assessment Gait Gait Assistance Required: Independent Able to Maintain Weight Bearing Status Yes During Gait Assistive Devices Assistive Device None Orthotic/Prosthetic Devices or Brace: No Comments Gait Comments Pt ambulates with an appropriate step-through gait pattern, good overall posture, however has very limited trunk rotation and decreased arm swing. Able to improve mildly with verbal cues. PT-OP-M Strength Start: 02/09/22 15:57 Freq: Status: Active Protocol: Document 02/09/22 15:15 DCW (Rec: 02/09/22 17:40 DCW [id number]) Trunk Strength Trunk Manual Muscle Testing Core Stabilization Pt demonstrates mild TrA contraction, difficulty holding longer than 2-3 seconds. Hand Supervisor Cap And Hat Production/Pinch Strength Hand Dominance Hand Dominance Right Hand Strength Right Supervisor Cap And Hat Production (lbs) 51.67 Comments Three-trial average (50, 55, 50) Left Supervisor Cap And Hat Production (lbs) 48.33 Comments Three-trial average (50, 50, 45) Hip Strength Hip Manual Muscle Testing Right Flexion (L2) 4 Good Abduction 4+ Good+ Adduction 4+ Good+ External Rotation 5 Normal Internal Rotation 5 Normal Left Flexion (L2) 4+ Good+ Abduction 4+ Good+ Adduction 4+ Good+ External Rotation 4+ Good+ Internal Rotation 4+ Good+ Knee Strength Knee Manual Muscle Testing Right Flexion (S2) 4+ Good+ Extension (L3) 4+ Good+ Left Flexion (S2) 5 Normal Extension (L3) 5 Normal Ankle/Foot Strength Ankle and Foot Manual Muscle Testing Right Dorsiflexion (L4) 4 Good Left Dorsiflexion (L4) 4 Good PT-OP-Q Treatments Start: 02/09/22 15:57 Freq: Status: Active Protocol: Document 02/18/22 09:45 DCW (Rec: 02/18/22 10:30 DCW [id number]) Cardio Equipment Recumbent Elliptical (Apps Genius) Duration (Minutes) 6 Resistance 5 Seat Position 7 Therapeutic Exercises Supine Exercises Bridging Supine Exercise Name Bridging /c Add ball squeeze SLR Supine Exercise Name SLR /c ER Side bilateral Sitting Exercises LAQ Sitting Exercise Name LAQ Resistance 5# Hamstring curls Sitting Exercise Name HS curls Side bilateral Resistance Lv 3 Manual Therapy Treatment Joint Mobilizations Patellofemoral Joint R PF Direction Inf/Sup PT-OP-T Assessment and Plan Start: 02/09/22 15:57 Freq: Status: Active Protocol: Document 02/18/22 09:45 DCW (Rec: 02/18/22 10:30 DCW [id number]) Physical Therapy Assessment Impairments Impairments Activity Tolerance,Functional Activities,Functional Mobility ,Gait,Strength Goals Two Impairment Pt ambulates with reduced trunk rotation and arm swing Detention Goal (LTG) Pt to improve TrA/core strength to at least 4-/5 in order to improve trunk control and mobility, which can result in improved trunk rotation and arm swing during rotation LTG Duration 04/06/22 One Impairment Pt does not have an appropriate home exercise program Short Term Goal (STG) Pt to be independent and compliant with an appropriate HEP STG Duration 03/09/22 Assessment Summary Assessment Focused more today on patelofemoral mobility and quad strengthening in order to improve ability to ambulate and participate in HEP without pain. Physical Therapy Plan Frequency and Duration Frequency of Treatment 2x/Week Duration of treatment (weeks) 8 Plan of Care Start Date 02/09/22 Plan of Care End Date 04/06/22 Therapeutic Interventions Therapeutic Interventions Gait Training,Home Exercise Program,Manual Therapy, Neuromuscular Re-education, Patient/Caregiver Education, Self-Care/Home Management,Soft Tissue Mobilization, Therapeutic Activities, Therapeutic Exercises Next Visit Focus/Plan Next Note Type Treatment Note Next Visit Plan Core strengthening, seo expert HEP, LE strengthening, gait training.
--- NOTE | 2022-02-22 12:46 | PT.OTN ---
Current Diagnoses Essential tremor (02/22/22) Muscle weakness (generalized) (02/22/22) Other symptoms and signs involving the musculoskeletal system (02/22/22) Physical Therapy Treatment Note PT-OP-A Visit Information Start: 02/09/22 15:57 Freq: Status: Active Protocol: Document 02/22/22 12:00 DCW (Rec: 02/22/22 12:46 DCW [id number]) Out-Patient Physical Therapy Visit Information Visit Information Visit Type Treatment Note Visit Start Time 12:00 Visit Stop Time 12:45 Total Visit Minutes 45 Visit Number 5 Number of OPERATIONS DEVELOPER Visits 0 Evaluation Information Evaluation Date 02/09/22 PT-OP-B Current Condition Start: 02/09/22 15:57 Freq: Status: Active Protocol: Document 02/09/22 15:15 DCW (Rec: 02/09/22 17:44 DCW [id number]) Current Condition History of Current Condition Onset Date Gradual onset 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 Pt feels like she has functionally declined over the past few months, reports she tires a little more quickly when up walking around, notes more of a struggle with rolling over in bed and performing supine->sit transfers. Reports she was recently diagnosed with essential tremor, and although her tremor is not constant, she does notice that activities are a little more difficult when it is present. Feels her balance overall is good, has been practicing SLS daily. Prior Treatments and Tests Prior PT s/p L TKA Treatment Goals Patient/Caregiver Goals Improve strength and activity tolerance PT-OP-C Subjective Start: 02/09/22 15:57 Freq: Status: Active Protocol: Document 02/22/22 12:00 DCW (Rec: 02/22/22 12:46 DCW [id number]) OP-PT Subjective Patient Comments Patient Comments Received a knee x-ray, brings in the results with her today, report notes unremarkable other than moderate osteoarthritis PT-OP-E Functional Tests Start: 02/09/22 15:57 Freq: Status: Active Protocol: Document 02/09/22 15:15 DCW (Rec: 02/09/22 17:40 DCW [id number]) Functional Tests Timed Up and Go (TUG) Score 10.28 /s AD Comments Three-trial average (10.16, 10.46, 10.23) TUG Impairment Rating 0% Impaired (Score 10) PT-OP-G Mobility & Gait Start: 02/09/22 15:57 Freq: Status: Active Protocol: Document 02/09/22 15:15 DCW (Rec: 02/09/22 17:40 DCW [id number]) OP Gait Assessment Gait Gait Assistance Required: Independent Able to Maintain Weight Bearing Status Yes During Gait Assistive Devices Assistive Device None Orthotic/Prosthetic Devices or Brace: No Comments Gait Comments Pt ambulates with an appropriate step-through gait pattern, good overall posture, however has very limited trunk rotation and decreased arm swing. Able to improve mildly with verbal cues. PT-OP-M Strength Start: 02/09/22 15:57 Freq: Status: Active Protocol: Document 02/09/22 15:15 DCW (Rec: 02/09/22 17:40 DCW [id number]) Trunk Strength Trunk Manual Muscle Testing Core Stabilization Pt demonstrates mild TrA contraction, difficulty holding longer than 2-3 seconds. Hand Title Inspector/Pinch Strength Hand Dominance Hand Dominance Right Hand Strength Right Title Inspector (lbs) 51.67 Comments Three-trial average (50, 55, 50) Left Title Inspector (lbs) 48.33 Comments Three-trial average (50, 50, 45) Hip Strength Hip Manual Muscle Testing Right Flexion (L2) 4 Good Abduction 4+ Good+ Adduction 4+ Good+ External Rotation 5 Normal Internal Rotation 5 Normal Left Flexion (L2) 4+ Good+ Abduction 4+ Good+ Adduction 4+ Good+ External Rotation 4+ Good+ Internal Rotation 4+ Good+ Knee Strength Knee Manual Muscle Testing Right Flexion (S2) 4+ Good+ Extension (L3) 4+ Good+ Left Flexion (S2) 5 Normal Extension (L3) 5 Normal Ankle/Foot Strength Ankle and Foot Manual Muscle Testing Right Dorsiflexion (L4) 4 Good Left Dorsiflexion (L4) 4 Good PT-OP-Q Treatments Start: 02/09/22 15:57 Freq: Status: Active Protocol: Document 02/22/22 12:00 DCW (Rec: 02/22/22 12:46 DCW [id number]) Cardio Equipment Recumbent Elliptical (Biodex) Duration (Minutes) 6 Resistance 5 Seat Position 7 Gym Equipment Shuttle Recovery Bilateral Squats Details TrA contraction Resistance 87# Shuttle Recovery Platform Stable Reps/Time x25 unilat squat Details TrA contraction Resistance 50# Shuttle Recovery Platform Stable Reps/Time 2x15 Therapeutic Ball Pelvic tilts/circles Exercise Details Pelvic tilts, pelvic circles Ball Size/Color Red - 55 cm Body Position Sitting Therapeutic Exercises Sidelying Exercises Reverse Clamshell Sidelying Exercise Name Reverse Clamshell Side bilateral Clamshell Sidelying Exercise Name Clamshell Side bilateral Open Book Sidelying Exercise Name Open Book Side bilateral Sitting Exercises LAQ Sitting Exercise Name LAQ Resistance 5# Hamstring curls Sitting Exercise Name HS curls Side bilateral Resistance Lv 3 PT-OP-T Assessment and Plan Start: 02/09/22 15:57 Freq: Status: Active Protocol: Document 02/22/22 12:00 DCW (Rec: 02/22/22 12:46 DCW [id number]) Physical Therapy Assessment Impairments Impairments Activity Tolerance,Functional Activities,Functional Mobility ,Gait,Strength Goals Two Impairment Pt ambulates with reduced trunk rotation and arm swing Lap Winding Machine Operator Goal (LTG) Pt to improve TrA/core strength to at least 4-/5 in order to improve trunk control and mobility, which can result in improved trunk rotation and arm swing during rotation LTG Duration 04/06/22 One Impairment Pt does not have an appropriate home exercise program Short Term Goal (STG) Pt to be independent and compliant with an appropriate HEP STG Duration 03/09/22 Assessment Summary Assessment Pt able to complete all activities without complaint, notes no knee pain, although noticeable weakness in right knee vs left. 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
--- NOTE | 2022-02-25 10:28 | PT.OTN ---
Current Diagnoses Essential tremor (02/25/22) Muscle weakness (generalized) (02/25/22) Other symptoms and signs involving the musculoskeletal system (02/25/22) Physical Therapy Treatment Note PT-OP-A Visit Information Start: 02/09/22 15:57 Freq: Status: Active Protocol: Document 02/25/22 09:45 DCW (Rec: 02/25/22 10:28 DCW [id number]) Out-Patient Physical Therapy Visit Information Visit Information Visit Type Treatment Note Visit Start Time 09:45 Visit Stop Time 10:30 Total Visit Minutes 45 Visit Number 6 Number of WOODWORK TEACHER Visits 0 Evaluation Information Evaluation Date 02/09/22 PT-OP-B Current Condition Start: 02/09/22 15:57 Freq: Status: Active Protocol: Document 02/09/22 15:15 DCW (Rec: 02/09/22 17:44 DCW [id number]) Current Condition History of Current Condition Onset Date Gradual onset 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 Pt feels like she has functionally declined over the past few months, reports she tires a little more quickly when up walking around, notes more of a struggle with rolling over in bed and performing supine->sit transfers. Reports she was recently diagnosed with essential tremor, and although her tremor is not constant, she does notice that activities are a little more difficult when it is present. Feels her balance overall is good, has been practicing SLS daily. Prior Treatments and Tests Prior PT s/p L TKA Treatment Goals Patient/Caregiver Goals Improve strength and activity tolerance PT-OP-C Subjective Start: 02/09/22 15:57 Freq: Status: Active Protocol: Document 02/25/22 09:45 DCW (Rec: 02/25/22 10:28 DCW [id number]) OP-PT Subjective Patient Comments Patient Comments Pt reports she was pretty active yesterday, ran some errands, and did really well until about three o'clock, when I really seemed to stiffen up. PT-OP-E Functional Tests Start: 02/09/22 15:57 Freq: Status: Active Protocol: Document 02/09/22 15:15 DCW (Rec: 02/09/22 17:40 DCW [id number]) Functional Tests Timed Up and Go (TUG) Score 10.28 /s AD Comments Three-trial average (10.16, 10.46, 10.23) TUG Impairment Rating 0% Impaired (Score 10) PT-OP-G Mobility & Gait Start: 02/09/22 15:57 Freq: Status: Active Protocol: Document 02/09/22 15:15 DCW (Rec: 02/09/22 17:40 DCW [id number]) OP Gait Assessment Gait Gait Assistance Required: Independent Able to Maintain Weight Bearing Status Yes During Gait Assistive Devices Assistive Device None Orthotic/Prosthetic Devices or Brace: No Comments Gait Comments Pt ambulates with an appropriate step-through gait pattern, good overall posture, however has very limited trunk rotation and decreased arm swing. Able to improve mildly with verbal cues. PT-OP-M Strength Start: 02/09/22 15:57 Freq: Status: Active Protocol: Document 02/09/22 15:15 DCW (Rec: 02/09/22 17:40 DCW [id number]) Trunk Strength Trunk Manual Muscle Testing Core Stabilization Pt demonstrates mild TrA contraction, difficulty holding longer than 2-3 seconds. Hand Iv Therapy Nurse/Pinch Strength Hand Dominance Hand Dominance Right Hand Strength Right Iv Therapy Nurse (lbs) 51.67 Comments Three-trial average (50, 55, 50) Left Iv Therapy Nurse (lbs) 48.33 Comments Three-trial average (50, 50, 45) Hip Strength Hip Manual Muscle Testing Right Flexion (L2) 4 Good Abduction 4+ Good+ Adduction 4+ Good+ External Rotation 5 Normal Internal Rotation 5 Normal Left Flexion (L2) 4+ Good+ Abduction 4+ Good+ Adduction 4+ Good+ External Rotation 4+ Good+ Internal Rotation 4+ Good+ Knee Strength Knee Manual Muscle Testing Right Flexion (S2) 4+ Good+ Extension (L3) 4+ Good+ Left Flexion (S2) 5 Normal Extension (L3) 5 Normal Ankle/Foot Strength Ankle and Foot Manual Muscle Testing Right Dorsiflexion (L4) 4 Good Left Dorsiflexion (L4) 4 Good PT-OP-Q Treatments Start: 02/09/22 15:57 Freq: Status: Active Protocol: Document 02/25/22 09:45 DCW (Rec: 02/25/22 10:28 DCW [id number]) Cardio Equipment Recumbent Stepper (Sci-Fit) Duration (Minutes) 6 Resistance 3 Seat Position 9 Gym Equipment Shuttle Recovery Bilateral Squats Details TrA contraction Resistance 87# Shuttle Recovery Platform Stable Reps/Time x25 unilat squat Details TrA contraction Resistance 50# Shuttle Recovery Platform Stable Reps/Time 2x15 Therapeutic Exercises Sitting Exercises LAQ Sitting Exercise Name LAQ Resistance 5# Standing Exercises Wall squat Standing Exercise Name Wall squat /c add ball squeeze Extension Standing Exercise Name Hip Extension Side bilateral Resistance Red Other Exercises Resisted Ambulation Other Exercise Name Resisted Ambulation Side bilateral Resistance Red Manual Therapy Treatment Joint Mobilizations Patellofemoral Joint R PF Direction Inf/Sup PT-OP-T Assessment and Plan Start: 02/09/22 15:57 Freq: Status: Active Protocol: Document 02/25/22 09:45 DCW (Rec: 02/25/22 10:28 DCW [id number]) Physical Therapy Assessment Impairments Impairments Activity Tolerance,Functional Activities,Functional Mobility ,Gait,Strength Goals Two Impairment Pt ambulates with reduced trunk rotation and arm swing Concession Worker Goal (LTG) Pt to improve TrA/core strength to at least 4-/5 in order to improve trunk control and mobility, which can result in improved trunk rotation and arm swing during rotation LTG Duration 04/06/22 One Impairment Pt does not have an appropriate home exercise program Short Term Goal (STG) Pt to be independent and compliant with an appropriate HEP STG Duration 03/09/22 Assessment Summary Assessment Continued to focus some on knee strengthening and patellar mobility, as well as core strengthening. Pt tolerating treatment well, motivated to continue HEP Physical Therapy Plan Frequency and Duration Frequency of Treatment 2x/Week Duration of treatment (weeks) 8 Plan of Care Start Date 02/09/22 Plan of Care End Date 04/06/22 Therapeutic Interventions Therapeutic Interventions Gait Training,Home Exercise Program,Manual Therapy, Neuromuscular Re-education, Patient/Caregiver Education, Self-Care/Home Management,Soft Tissue Mobilization, Therapeutic Activities, Therapeutic Exercises Next Visit Focus/Plan Next Note Type Treatment Note Next Visit Plan Core strengthening, harbor tug captain HEP, LE strengthening, gait training.
--- NOTE | 2022-03-01 11:17 | PT.OTN ---
Current Diagnoses Essential tremor (03/01/22) Muscle weakness (generalized) (03/01/22) Other symptoms and signs involving the musculoskeletal system (03/01/22) Physical Therapy Treatment Note PT-OP-A Visit Information Start: 02/09/22 15:57 Freq: Status: Active Protocol: Document 03/01/22 10:30 DCW (Rec: 03/01/22 11:17 DCW [id number]) Out-Patient Physical Therapy Visit Information Visit Information Visit Type Treatment Note Visit Start Time 10:30 Visit Stop Time 11:15 Total Visit Minutes 45 Visit Number 7 Number of REGULAR SENIOR CARE PROVIDER Visits 0 Evaluation Information Evaluation Date 02/09/22 PT-OP-B Current Condition Start: 02/09/22 15:57 Freq: Status: Active Protocol: Document 02/09/22 15:15 DCW (Rec: 02/09/22 17:44 DCW [id number]) Current Condition History of Current Condition Onset Date Gradual onset 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 Pt feels like she has functionally declined over the past few months, reports she tires a little more quickly when up walking around, notes more of a struggle with rolling over in bed and performing supine->sit transfers. Reports she was recently diagnosed with essential tremor, and although her tremor is not constant, she does notice that activities are a little more difficult when it is present. Feels her balance overall is good, has been practicing SLS daily. Prior Treatments and Tests Prior PT s/p L TKA Treatment Goals Patient/Caregiver Goals Improve strength and activity tolerance PT-OP-C Subjective Start: 02/09/22 15:57 Freq: Status: Active Protocol: Document 03/01/22 10:30 DCW (Rec: 03/01/22 11:17 DCW [id number]) OP-PT Subjective Patient Comments Patient Comments My knee is just stiff, I don' t understand what's going on. PT-OP-E Functional Tests Start: 02/09/22 15:57 Freq: Status: Active Protocol: Document 02/09/22 15:15 DCW (Rec: 02/09/22 17:40 DCW [id number]) Functional Tests Timed Up and Go (TUG) Score 10.28 /s AD Comments Three-trial average (10.16, 10.46, 10.23) TUG Impairment Rating 0% Impaired (Score 10) PT-OP-G Mobility & Gait Start: 02/09/22 15:57 Freq: Status: Active Protocol: Document 02/09/22 15:15 DCW (Rec: 02/09/22 17:40 DCW [id number]) OP Gait Assessment Gait Gait Assistance Required: Independent Able to Maintain Weight Bearing Status Yes During Gait Assistive Devices Assistive Device None Orthotic/Prosthetic Devices or Brace: No Comments Gait Comments Pt ambulates with an appropriate step-through gait pattern, good overall posture, however has very limited trunk rotation and decreased arm swing. Able to improve mildly with verbal cues. PT-OP-M Strength Start: 02/09/22 15:57 Freq: Status: Active Protocol: Document 02/09/22 15:15 DCW (Rec: 02/09/22 17:40 DCW [id number]) Trunk Strength Trunk Manual Muscle Testing Core Stabilization Pt demonstrates mild TrA contraction, difficulty holding longer than 2-3 seconds. Hand Data Processing Equipment Repairer/Pinch Strength Hand Dominance Hand Dominance Right Hand Strength Right Data Processing Equipment Repairer (lbs) 51.67 Comments Three-trial average (50, 55, 50) Left Data Processing Equipment Repairer (lbs) 48.33 Comments Three-trial average (50, 50, 45) Hip Strength Hip Manual Muscle Testing Right Flexion (L2) 4 Good Abduction 4+ Good+ Adduction 4+ Good+ External Rotation 5 Normal Internal Rotation 5 Normal Left Flexion (L2) 4+ Good+ Abduction 4+ Good+ Adduction 4+ Good+ External Rotation 4+ Good+ Internal Rotation 4+ Good+ Knee Strength Knee Manual Muscle Testing Right Flexion (S2) 4+ Good+ Extension (L3) 4+ Good+ Left Flexion (S2) 5 Normal Extension (L3) 5 Normal Ankle/Foot Strength Ankle and Foot Manual Muscle Testing Right Dorsiflexion (L4) 4 Good Left Dorsiflexion (L4) 4 Good PT-OP-Q Treatments Start: 02/09/22 15:57 Freq: Status: Active Protocol: Document 03/01/22 10:30 DCW (Rec: 03/01/22 11:17 DCW [id number]) Cardio Equipment Recumbent Elliptical (Biodex) Duration (Minutes) 6 Resistance 5 Seat Position 7 Gym Equipment Shuttle Recovery Bilateral Squats Details TrA contraction Resistance 87# Shuttle Recovery Platform Stable Reps/Time x25 unilat squat Details TrA contraction Resistance 50# Shuttle Recovery Platform Stable Reps/Time 2x15 Therapeutic Ball Bridging Exercise Details Bridging Ball Size/Color Red - 55 cm Body Position Supine LTR Exercise Details LTR Ball Size/Color Red - 55 cm Body Position Hooklying Therapeutic Exercises Sitting Exercises Hip Abduction Sitting Exercise Name Abduction Side bilateral Resistance Lv 3 LAQ Sitting Exercise Name LAQ Resistance 5# Standing Exercises Hamstring Curls Standing Exercise Name HS Curls Side bilateral Resistance 5# Toe-tap Standing Exercise Name Toe-taps Side bilateral Resistance 5# Equipment Used 6 step Extension Standing Exercise Name Hip Extension Side bilateral Resistance Red Other Exercises Resisted Ambulation Other Exercise Name Resisted Ambulation Side bilateral Resistance Red Manual Therapy Treatment Joint Mobilizations Patellofemoral Joint R PF Direction Inf/Sup PT-OP-T Assessment and Plan Start: 02/09/22 15:57 Freq: Status: Active Protocol: Document 03/01/22 10:30 DCW (Rec: 03/01/22 11:17 DCW [id number]) Physical Therapy Assessment Impairments Impairments Activity Tolerance,Functional Activities,Functional Mobility ,Gait,Strength Goals Two Impairment Pt ambulates with reduced trunk rotation and arm swing Half-Way Goal (LTG) Pt to improve TrA/core strength to at least 4-/5 in order to improve trunk control and mobility, which can result in improved trunk rotation and arm swing during rotation LTG Duration 04/06/22 One Impairment Pt does not have an appropriate home exercise program Short Term Goal (STG) Pt to be independent and compliant with an appropriate HEP STG Duration 03/09/22 Assessment Summary Assessment Pt making good progress with her HEP, although continues to be more limited with her knee pain. May need to return to PCP for further evaluation if she does not begin to improve. Physical Therapy Plan Frequency and Duration Frequency of Treatment 2x/Week Duration of treatment (weeks) 8 Plan of Care Start Date 02/09/22 Plan of Care End Date 04/06/22 Therapeutic Interventions Therapeutic Interventions Gait Training,Home Exercise Program,Manual Therapy, Neuromuscular Re-education, Patient/Caregiver Education, Self-Care/Home Management,Soft Tissue Mobilization, Therapeutic Activities, Therapeutic Exercises Next Visit Focus/Plan Next Note Type Treatment Note Next Visit Plan Core strengthening, industrial analyst HEP, LE strengthening, gait training.
--- NOTE | 2022-03-04 10:28 | PT.OTN ---
Current Diagnoses Essential tremor (03/04/22) Muscle weakness (generalized) (03/04/22) Other symptoms and signs involving the musculoskeletal system (03/04/22) Physical Therapy Treatment Note PT-OP-A Visit Information Start: 02/09/22 15:57 Freq: Status: Active Protocol: Document 03/04/22 09:45 DCW (Rec: 03/04/22 10:28 DCW [id number]) Out-Patient Physical Therapy Visit Information Visit Information Visit Type Treatment Note Visit Start Time 09:45 Visit Stop Time 10:30 Total Visit Minutes 45 Visit Number 8 Number of RELOCATION MANAGER Visits 0 Evaluation Information Evaluation Date 02/09/22 PT-OP-B Current Condition Start: 02/09/22 15:57 Freq: Status: Active Protocol: Document 02/09/22 15:15 DCW (Rec: 02/09/22 17:44 DCW [id number]) Current Condition History of Current Condition Onset Date Gradual onset Current Complaints 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 Pt feels like she has functionally declined over the past few months, reports she tires a little more quickly when up walking around, notes more of a struggle with rolling over in bed and performing supine->sit transfers. Reports she was recently diagnosed with essential tremor, and although her tremor is not constant, she does notice that activities are a little more difficult when it is present. Feels her balance overall is good, has been practicing SLS daily. Prior Treatments and Tests Prior PT s/p L TKA Treatment Goals Patient/Caregiver Goals Improve strength and activity tolerance PT-OP-C Subjective Start: 02/09/22 15:57 Freq: Status: Active Protocol: Document 03/04/22 09:45 DCW (Rec: 03/04/22 10:28 DCW [id number]) OP-PT Subjective Patient Comments Patient Comments Pt reports her knee is feeling good today, no complaints. I just don't know why it's so random. PT-OP-E Functional Tests Start: 02/09/22 15:57 Freq: Status: Active Protocol: Document 02/09/22 15:15 DCW (Rec: 02/09/22 17:40 DCW [id number]) Functional Tests Timed Up and Go (TUG) Score 10.28 /s AD Comments Three-trial average (10.16, 10.46, 10.23) TUG Impairment Rating 0% Impaired (Score 10) PT-OP-G Mobility & Gait Start: 02/09/22 15:57 Freq: Status: Active Protocol: Document 02/09/22 15:15 DCW (Rec: 02/09/22 17:40 DCW [id number]) OP Gait Assessment Gait Gait Assistance Required: Independent Able to Maintain Weight Bearing Status Yes During Gait Assistive Devices Assistive Device None Orthotic/Prosthetic Devices or Brace: No Comments Gait Comments Pt ambulates with an appropriate step-through gait pattern, good overall posture, however has very limited trunk rotation and decreased arm swing. Able to improve mildly with verbal cues. PT-OP-M Strength Start: 02/09/22 15:57 Freq: Status: Active Protocol: Document 02/09/22 15:15 DCW (Rec: 02/09/22 17:40 DCW [id number]) Trunk Strength Trunk Manual Muscle Testing Core Stabilization Pt demonstrates mild TrA contraction, difficulty holding longer than 2-3 seconds. Hand Bander Hand/Pinch Strength Hand Dominance Hand Dominance Right Hand Strength Right Bander Hand (lbs) 51.67 Comments Three-trial average (50, 55, 50) Left Bander Hand (lbs) 48.33 Comments Three-trial average (50, 50, 45) Hip Strength Hip Manual Muscle Testing Right Flexion (L2) 4 Good Abduction 4+ Good+ Adduction 4+ Good+ External Rotation 5 Normal Internal Rotation 5 Normal Left Flexion (L2) 4+ Good+ Abduction 4+ Good+ Adduction 4+ Good+ External Rotation 4+ Good+ Internal Rotation 4+ Good+ Knee Strength Knee Manual Muscle Testing Right Flexion (S2) 4+ Good+ Extension (L3) 4+ Good+ Left Flexion (S2) 5 Normal Extension (L3) 5 Normal Ankle/Foot Strength Ankle and Foot Manual Muscle Testing Right Dorsiflexion (L4) 4 Good Left Dorsiflexion (L4) 4 Good PT-OP-Q Treatments Start: 02/09/22 15:57 Freq: Status: Active Protocol: Document 03/04/22 09:45 DCW (Rec: 03/04/22 10:28 DCW [id number]) Cardio Equipment Recumbent Elliptical (BiodSazneo) Duration (Minutes) 7 Resistance 5 Seat Position 7 Gym Equipment Shuttle Recovery Bilateral Squats Details TrA contraction Resistance 87# Shuttle Recovery Platform Stable Reps/Time x25 unilat squat Details TrA contraction Resistance 50# Shuttle Recovery Platform Stable Reps/Time 2x15 Therapeutic Exercises Sitting Exercises Hip Abduction Sitting Exercise Name Abduction Side bilateral Resistance Lv 3 LAQ Sitting Exercise Name LAQ Resistance 5# Hamstring curls Sitting Exercise Name HS curls Side bilateral Resistance Lv 3 Standing Exercises Hamstring Curls Standing Exercise Name HS Curls Side bilateral Resistance 5# Toe-tap Standing Exercise Name Toe-taps Side bilateral Resistance 5# Equipment Used 6 step Extension Standing Exercise Name Hip Extension Side bilateral Resistance Green Other Exercises Resisted Ambulation Other Exercise Name Resisted Ambulation Side bilateral Resistance Green PT-OP-T Assessment and Plan Start: 02/09/22 15:57 Freq: Status: Active Protocol: Document 03/04/22 09:45 DCW (Rec: 03/04/22 10:28 DCW [id number]) Physical Therapy Assessment Impairments Impairments Activity Tolerance,Functional Activities,Functional Mobility ,Gait,Strength Goals Two Impairment Pt ambulates with reduced trunk rotation and arm swing Assisted Goal (LTG) Pt to improve TrA/core strength to at least 4-/5 in order to improve trunk control and mobility, which can result in improved trunk rotation and arm swing during rotation LTG Duration 04/06/22 One Impairment Pt does not have an appropriate home exercise program Short Term Goal (STG) Pt to be independent and compliant with an appropriate HEP STG Duration 03/09/22 Assessment Summary Assessment Pt asymptomatic today, not noting any knee or back pain with activity. Tolerating HEP much better, noting she is regularly compliant. Physical Therapy Plan Frequency and Duration Frequency of Treatment 2x/Week Duration of treatment (weeks) 8 Plan of Care Start Date 02/09/22 Plan of Care End Date 04/06/22 Therapeutic Interventions Therapeutic Interventions Gait Training,Home Exercise Program,Manual Therapy, Neuromuscular Re-education, Patient/Caregiver Education, Self-Care/Home Management,Soft Tissue Mobilization, Therapeutic Activities, Therapeutic Exercises Next Visit Focus/Plan Next Note Type Treatment Note Next Visit Plan Core strengthening, clean energy policy analyst HEP, LE strengthening, gait training.
--- NOTE | 2022-03-08 11:13 | PT.OTN ---
Current Diagnoses Essential tremor (03/08/22) Muscle weakness (generalized) (03/08/22) Other symptoms and signs involving the musculoskeletal system (03/08/22) Physical Therapy Treatment Note PT-OP-A Visit Information Start: 02/09/22 15:57 Freq: Status: Active Protocol: Document 03/08/22 10:30 DCW (Rec: 03/08/22 11:13 DCW [id number]) Out-Patient Physical Therapy Visit Information Visit Information Visit Type Treatment Note Visit Start Time 10:30 Visit Stop Time 11:15 Total Visit Minutes 45 Visit Number 9 Number of AD OPERATIONS SPECIALIST Visits 0 Evaluation Information Evaluation Date 02/09/22 PT-OP-B Current Condition Start: 02/09/22 15:57 Freq: Status: Active Protocol: Document 02/09/22 15:15 DCW (Rec: 02/09/22 17:44 DCW [id number]) Current Condition History of Current Condition Onset Date Gradual onset Current Complaints 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 Pt feels like she has functionally declined over the past few months, reports she tires a little more quickly when up walking around, notes more of a struggle with rolling over in bed and performing supine->sit transfers. Reports she was recently diagnosed with essential tremor, and although her tremor is not constant, she does notice that activities are a little more difficult when it is present. Feels her balance overall is good, has been practicing SLS daily. Prior Treatments and Tests Prior PT s/p L TKA Treatment Goals Patient/Caregiver Goals Improve strength and activity tolerance PT-OP-C Subjective Start: 02/09/22 15:57 Freq: Status: Active Protocol: Document 03/08/22 10:30 DCW (Rec: 03/08/22 11:13 DCW [id number]) OP-PT Subjective Patient Comments Patient Comments Pt notes her knee is still feeling good, as well as feeling improvement with her general weakness. PT-OP-E Functional Tests Start: 02/09/22 15:57 Freq: Status: Active Protocol: Document 02/09/22 15:15 DCW (Rec: 02/09/22 17:40 DCW [id number]) Functional Tests Timed Up and Go (TUG) Score 10.28 /s AD Comments Three-trial average (10.16, 10.46, 10.23) TUG Impairment Rating 0% Impaired (Score 10) PT-OP-G Mobility & Gait Start: 02/09/22 15:57 Freq: Status: Active Protocol: Document 02/09/22 15:15 DCW (Rec: 02/09/22 17:40 DCW [id number]) OP Gait Assessment Gait Gait Assistance Required: Independent Able to Maintain Weight Bearing Status Yes During Gait Assistive Devices Assistive Device None Orthotic/Prosthetic Devices or Brace: No Comments Gait Comments Pt ambulates with an appropriate step-through gait pattern, good overall posture, however has very limited trunk rotation and decreased arm swing. Able to improve mildly with verbal cues. PT-OP-M Strength Start: 02/09/22 15:57 Freq: Status: Active Protocol: Document 02/09/22 15:15 DCW (Rec: 02/09/22 17:40 DCW [id number]) Trunk Strength Trunk Manual Muscle Testing Core Stabilization Pt demonstrates mild TrA contraction, difficulty holding longer than 2-3 seconds. Hand Librarian Assistant/Pinch Strength Hand Dominance Hand Dominance Right Hand Strength Right Librarian Assistant (lbs) 51.67 Comments Three-trial average (50, 55, 50) Left Librarian Assistant (lbs) 48.33 Comments Three-trial average (50, 50, 45) Hip Strength Hip Manual Muscle Testing Right Flexion (L2) 4 Good Abduction 4+ Good+ Adduction 4+ Good+ External Rotation 5 Normal Internal Rotation 5 Normal Left Flexion (L2) 4+ Good+ Abduction 4+ Good+ Adduction 4+ Good+ External Rotation 4+ Good+ Internal Rotation 4+ Good+ Knee Strength Knee Manual Muscle Testing Right Flexion (S2) 4+ Good+ Extension (L3) 4+ Good+ Left Flexion (S2) 5 Normal Extension (L3) 5 Normal Ankle/Foot Strength Ankle and Foot Manual Muscle Testing Right Dorsiflexion (L4) 4 Good Left Dorsiflexion (L4) 4 Good PT-OP-Q Treatments Start: 02/09/22 15:57 Freq: Status: Active Protocol: Document 03/08/22 10:30 DCW (Rec: 03/08/22 11:13 DCW [id number]) Cardio Equipment Recumbent Elliptical (BiodOpenSpace) Duration (Minutes) 6 Resistance 5 Seat Position 7 Gym Equipment Shuttle Recovery Bilateral Squats Details TrA contraction Resistance 87# Shuttle Recovery Platform Stable Reps/Time x25 unilat squat Details TrA contraction Resistance 50# Shuttle Recovery Platform Stable Reps/Time 2x15 Therapeutic Exercises Sitting Exercises Librarian Assistant Strengthening Sitting Exercise Name Thera Putty Resistance Red Theraputty Comments Full department clerk, individual finger department clerk, dawson department clerk, finger extension LAQ Sitting Exercise Name LAQ Resistance 5# Standing Exercises Hip Abduction Standing Exercise Name Hip Abduction Side bilateral Resistance Green Hamstring Curls Standing Exercise Name HS Curls Side bilateral Resistance 5# Toe-tap Standing Exercise Name Toe-taps Side bilateral Resistance 5# Equipment Used 6 step Extension Standing Exercise Name Hip Extension Side bilateral Resistance Green PT-OP-T Assessment and Plan Start: 02/09/22 15:57 Freq: Status: Active Protocol: Document 03/08/22 10:30 DCW (Rec: 03/08/22 11:13 DCW [id number]) Physical Therapy Assessment Impairments Impairments Activity Tolerance,Functional Activities,Functional Mobility ,Gait,Strength Goals Two Impairment Pt ambulates with reduced trunk rotation and arm swing [place] Extension Agent Goal (LTG) Pt to improve TrA/core strength to at least 4-/5 in order to improve trunk control and mobility, which can result in improved trunk rotation and arm swing during rotation LTG Duration 04/06/22 One Impairment Pt does not have an appropriate home exercise program Short Term Goal (STG) Pt to be independent and compliant with an appropriate HEP STG Duration 03/09/22 Assessment Summary Assessment Pt continues to show great progress overall, continues to be more worried about her department clerk strength, despite being above average for her age- group, so spent some time today adding theraputty exercises to HEP. Physical Therapy Plan Frequency and Duration Frequency of Treatment 2x/Week Duration of treatment (weeks) 8 Plan of Care Start Date 02/09/22 Plan of Care End Date 04/06/22 Therapeutic Interventions Therapeutic Interventions Gait Training,Home Exercise Program,Manual Therapy, Neuromuscular Re-education, Patient/Caregiver Education, Self-Care/Home Management,Soft Tissue Mobilization, Therapeutic Activities, Therapeutic Exercises Next Visit Focus/Plan Next Note Type Treatment Note Next Visit Plan Core strengthening, department clerk HEP, LE strengthening, gait training.
--- NOTE | 2022-03-11 10:27 | PT.OTN ---
Current Diagnoses Essential tremor (03/11/22) Muscle weakness (generalized) (03/11/22) Other symptoms and signs involving the musculoskeletal system (03/11/22) Physical Therapy Treatment Note PT-OP-A Visit Information Start: 02/09/22 15:57 Freq: Status: Active Protocol: Document 03/11/22 09:45 DCW (Rec: 03/11/22 10:27 DCW [id number]) Out-Patient Physical Therapy Visit Information Visit Information Visit Type Progress Note Visit Start Time 09:45 Visit Stop Time 10:30 Total Visit Minutes 45 Visit Number 10 Number of TOP STITCHER Visits 0 Evaluation Information Evaluation Date 02/09/22 PT-OP-B Current Condition Start: 02/09/22 15:57 Freq: Status: Active Protocol: Document 02/09/22 15:15 DCW (Rec: 02/09/22 17:44 DCW [id number]) Current Condition History of Current Condition Onset Date Gradual onset Current Complaints General 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 Pt feels like she has functionally declined over the past few months, reports she tires a little more quickly when up walking around, notes more of a struggle with rolling over in bed and performing supine->sit transfers. Reports she was recently diagnosed with essential tremor, and although her tremor is not constant, she does notice that activities are a little more difficult when it is present. Feels her balance overall is good, has been practicing SLS daily. Prior Treatments and Tests Prior PT s/p L TKA Treatment Goals Patient/Caregiver Goals Improve strength and activity tolerance PT-OP-C Subjective Start: 02/09/22 15:57 Freq: Status: Active Protocol: Document 03/11/22 09:45 DCW (Rec: 03/11/22 10:27 DCW [id number]) OP-PT Subjective Patient Comments Patient Comments Pt struggling with floor transfers, would like to practice getting herself off the floor, mainly due to pain in her previously replaced L knee when trying to kneel on it. PT-OP-E Functional Tests Start: 02/09/22 15:57 Freq: Status: Active Protocol: Document 02/09/22 15:15 DCW (Rec: 02/09/22 17:40 DCW [id number]) Functional Tests Timed Up and Go (TUG) Score 10.28 /s AD Comments Three-trial average (10.16, 10.46, 10.23) TUG Impairment Rating 0% Impaired (Score 10) PT-OP-G Mobility & Gait Start: 02/09/22 15:57 Freq: Status: Active Protocol: Document 02/09/22 15:15 DCW (Rec: 02/09/22 17:40 DCW [id number]) OP Gait Assessment Gait Gait Assistance Required: Independent Able to Maintain Weight Bearing Status Yes During Gait Assistive Devices Assistive Device None Orthotic/Prosthetic Devices or Brace: No Comments Gait Comments Pt ambulates with an appropriate step-through gait pattern, good overall posture, however has very limited trunk rotation and decreased arm swing. Able to improve mildly with verbal cues. PT-OP-M Strength Start: 02/09/22 15:57 Freq: Status: Active Protocol: Document 02/09/22 15:15 DCW (Rec: 02/09/22 17:40 DCW [id number]) Trunk Strength Trunk Manual Muscle Testing Core Stabilization Pt demonstrates mild TrA contraction, difficulty holding longer than 2-3 seconds. Hand Measurement Supervisor/Pinch Strength Hand Dominance Hand Dominance Right Hand Strength Right Measurement Supervisor (lbs) 51.67 Comments Three-trial average (50, 55, 50) Left Measurement Supervisor (lbs) 48.33 Comments Three-trial average (50, 50, 45) Hip Strength Hip Manual Muscle Testing Right Flexion (L2) 4 Good Abduction 4+ Good+ Adduction 4+ Good+ External Rotation 5 Normal Internal Rotation 5 Normal Left Flexion (L2) 4+ Good+ Abduction 4+ Good+ Adduction 4+ Good+ External Rotation 4+ Good+ Internal Rotation 4+ Good+ Knee Strength Knee Manual Muscle Testing Right Flexion (S2) 4+ Good+ Extension (L3) 4+ Good+ Left Flexion (S2) 5 Normal Extension (L3) 5 Normal Ankle/Foot Strength Ankle and Foot Manual Muscle Testing Right Dorsiflexion (L4) 4 Good Left Dorsiflexion (L4) 4 Good PT-OP-Q Treatments Start: 02/09/22 15:57 Freq: Status: Active Protocol: Document 03/11/22 09:45 DCW (Rec: 03/11/22 10:27 DCW [id number]) Cardio Equipment Recumbent Elliptical (BiodPlanetTran) Duration (Minutes) 6 Resistance 5 Seat Position 7 Gym Equipment Shuttle Recovery Bilateral Squats Details TrA contraction Resistance 87# Shuttle Recovery Platform Stable Reps/Time x25 unilat squat Details TrA contraction Resistance 50# Shuttle Recovery Platform Stable Reps/Time 2x15 Therapeutic Exercises Sitting Exercises LAQ Sitting Exercise Name LAQ Resistance 5# Standing Exercises Mini Squats Standing Exercise Name Mini Squats Equipment Used @ rail Hamstring Curls Standing Exercise Name HS Curls Side bilateral Resistance 5# Toe-tap Standing Exercise Name Toe-taps Side bilateral Resistance 5# Equipment Used 6 step Extension Standing Exercise Name Hip Extension Side bilateral Resistance Green Other Exercises Resisted Ambulation Other Exercise Name Resisted Ambulation Side bilateral Resistance Green Therapeutic Activity Therapeutic Activity Floor Transfers Name Floor Transfers Comments VCs for getting left leg under body without kneeling. PT-OP-T Assessment and Plan Start: 02/09/22 15:57 Freq: Status: Active Protocol: Document 03/11/22 09:45 DCW (Rec: 03/11/22 10:27 DCW [id number]) Physical Therapy Assessment Goals Two Impairment Pt ambulates with reduced trunk rotation and arm swing Long-Term Goal (LTG) Pt to improve TrA/core strength to at least 4-/5 in order to improve trunk control and mobility, which can result in improved trunk rotation and arm swing during rotation LTG Duration 04/06/22 One Impairment Pt does not have an appropriate home exercise program Short Term Goal (STG) Pt to be independent and compliant with an appropriate HEP STG Duration 03/09/22 Assessment Summary Assessment Pt doing very well, added in floor transfers today, pt did well with minimal instruction. Continuing to have some limited trunk motion during ambulation, reduced left arm swing. Discussed working on specifically focusing on left arm while out walking. Physical Therapy Plan Frequency and Duration Frequency of Treatment 2x/Week Duration of treatment (weeks) 8 Plan of Care Start Date 02/09/22 Plan of Care End Date 04/06/22 Therapeutic Interventions Therapeutic Interventions Gait Training,Home Exercise Program,Manual Therapy, Neuromuscular Re-education, Patient/Caregiver Education, Self-Care/Home Management,Soft Tissue Mobilization, Therapeutic Activities, Therapeutic Exercises Next Visit Focus/Plan Next Note Type Treatment Note Next Visit Plan Core strengthening, speech and language assistant HEP, LE strengthening, gait training.
--- NOTE | 2022-03-15 11:15 | PT.OTN ---
Current Diagnoses Essential tremor (03/15/22) Muscle weakness (generalized) (03/15/22) Other symptoms and signs involving the musculoskeletal system (03/15/22) Physical Therapy Treatment Note PT-OP-A Visit Information Start: 02/09/22 15:57 Freq: Status: Active Protocol: Document 03/15/22 10:30 DCW (Rec: 03/15/22 11:11 DCW [id number]) Out-Patient Physical Therapy Visit Information Visit Information Visit Type Treatment Note Visit Start Time 10:30 Visit Stop Time 11:15 Total Visit Minutes 45 Visit Number 11 Number of FLIGHT FOLLOWER Visits 0 Evaluation Information Evaluation Date 02/09/22 PT-OP-B Current Condition Start: 02/09/22 15:57 Freq: Status: Active Protocol: Document 02/09/22 15:15 DCW (Rec: 02/09/22 17:44 DCW [id number]) Current Condition History of Current Condition Onset Date Gradual onset Current Complaints 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 Pt feels like she has functionally declined over the past few months, reports she tires a little more quickly when up walking around, notes more of a struggle with rolling over in bed and performing supine->sit transfers. Reports she was recently diagnosed with essential tremor, and although her tremor is not constant, she does notice that activities are a little more difficult when it is present. Feels her balance overall is good, has been practicing SLS daily. Prior Treatments and Tests Prior PT s/p L TKA Treatment Goals Patient/Caregiver Goals Improve strength and activity tolerance PT-OP-C Subjective Start: 02/09/22 15:57 Freq: Status: Active Protocol: Document 03/15/22 10:30 DCW (Rec: 03/15/22 11:11 DCW [id number]) OP-PT Subjective Patient Comments Patient Comments Pt feeling much more comfortable with floor transfers after last week. PT-OP-E Functional Tests Start: 02/09/22 15:57 Freq: Status: Active Protocol: Document 02/09/22 15:15 DCW (Rec: 02/09/22 17:40 DCW [id number]) Functional Tests Timed Up and Go (TUG) Score 10.28 /s AD Comments Three-trial average (10.16, 10.46, 10.23) TUG Impairment Rating 0% Impaired (Score 10) PT-OP-G Mobility & Gait Start: 02/09/22 15:57 Freq: Status: Active Protocol: Document 02/09/22 15:15 DCW (Rec: 02/09/22 17:40 DCW [id number]) OP Gait Assessment Gait Gait Assistance Required: Independent Able to Maintain Weight Bearing Status Yes During Gait Assistive Devices Assistive Device None Orthotic/Prosthetic Devices or Brace: No Comments Gait Comments Pt ambulates with an appropriate step-through gait pattern, good overall posture, however has very limited trunk rotation and decreased arm swing. Able to improve mildly with verbal cues. PT-OP-M Strength Start: 02/09/22 15:57 Freq: Status: Active Protocol: Document 02/09/22 15:15 DCW (Rec: 02/09/22 17:40 DCW [id number]) Trunk Strength Trunk Manual Muscle Testing Core Stabilization Pt demonstrates mild TrA contraction, difficulty holding longer than 2-3 seconds. Hand Medical Office Worker/Pinch Strength Hand Dominance Hand Dominance Right Hand Strength Right Medical Office Worker (lbs) 51.67 Comments Three-trial average (50, 55, 50) Left Medical Office Worker (lbs) 48.33 Comments Three-trial average (50, 50, 45) Hip Strength Hip Manual Muscle Testing Right Flexion (L2) 4 Good Abduction 4+ Good+ Adduction 4+ Good+ External Rotation 5 Normal Internal Rotation 5 Normal Left Flexion (L2) 4+ Good+ Abduction 4+ Good+ Adduction 4+ Good+ External Rotation 4+ Good+ Internal Rotation 4+ Good+ Knee Strength Knee Manual Muscle Testing Right Flexion (S2) 4+ Good+ Extension (L3) 4+ Good+ Left Flexion (S2) 5 Normal Extension (L3) 5 Normal Ankle/Foot Strength Ankle and Foot Manual Muscle Testing Right Dorsiflexion (L4) 4 Good Left Dorsiflexion (L4) 4 Good PT-OP-Q Treatments Start: 02/09/22 15:57 Freq: Status: Active Protocol: Document 03/15/22 10:30 DCW (Rec: 03/15/22 11:11 DCW [id number]) Cardio Equipment Recumbent Elliptical (Biodex) Duration (Minutes) 7 Resistance 5 Seat Position 7 Gym Equipment Shuttle Recovery Bilateral Squats Details TrA contraction Resistance 87# Shuttle Recovery Platform Stable Reps/Time x25 unilat squat Details TrA contraction Resistance 50# Shuttle Recovery Platform Stable Reps/Time 2x15 Therapeutic Exercises Sitting Exercises LAQ Sitting Exercise Name LAQ Resistance 5# Standing Exercises Step-ups Standing Exercise Name Step-ups Side bilateral Equipment Used 6 step Mini Squats Standing Exercise Name Mini Squats Equipment Used @ rail Hamstring Curls Standing Exercise Name HS Curls Side bilateral Resistance 5# Toe-tap Standing Exercise Name Toe-taps Side bilateral Resistance 5# Equipment Used 6 step Extension Standing Exercise Name Hip Extension Side bilateral Resistance Green Pallof press Standing Exercise Name Pallof Press Side bilateral Resistance Lv 3 Other Exercises Resisted Ambulation Other Exercise Name Resisted Ambulation Side bilateral Resistance Green PT-OP-T Assessment and Plan Start: 02/09/22 15:57 Freq: Status: Active Protocol: Document 03/15/22 10:30 DCW (Rec: 03/15/22 11:11 DCW [id number]) Physical Therapy Assessment Impairments Impairments Activity Tolerance,Functional Activities,Functional Mobility ,Gait,Strength Goals Two Impairment Pt ambulates with reduced trunk rotation and arm swing Object Oriented Programmer Goal (LTG) Pt to improve TrA/core strength to at least 4-/5 in order to improve trunk control and mobility, which can result in improved trunk rotation and arm swing during rotation LTG Duration 04/06/22 One Impairment Pt does not have an appropriate home exercise program Short Term Goal (STG) Pt to be independent and compliant with an appropriate HEP STG Duration 03/09/22 Assessment Summary Assessment Pt feels very comfortable with her current level of function , feels that discharge will be appropriate following her last scheduled visit later this week. Physical Therapy Plan Frequency and Duration Frequency of Treatment 2x/Week Duration of treatment (weeks) 8 Plan of Care Start Date 02/09/22 Plan of Care End Date 04/06/22 Therapeutic Interventions Therapeutic Interventions Gait Training,Home Exercise Program,Manual Therapy, Neuromuscular Re-education, Patient/Caregiver Education, Self-Care/Home Management,Soft Tissue Mobilization, Therapeutic Activities, Therapeutic Exercises Next Visit Focus/Plan Next Note Type Discharge Summary Next Visit Plan Core strengthening, primer assembler HEP, LE strengthening, gait training.
--- NOTE | 2022-03-18 10:32 | PT.OTN ---
Current Diagnoses Essential tremor (03/18/22) Muscle weakness (generalized) (03/18/22) Other symptoms and signs involving the musculoskeletal system (03/18/22) Physical Therapy Treatment Note PT-OP-A Visit Information Start: 02/09/22 15:57 Freq: Status: Active Protocol: Document 03/18/22 09:45 DCW (Rec: 03/18/22 10:31 DCW [id number]) Out-Patient Physical Therapy Visit Information Visit Information Visit Type Treatment Note Visit Start Time 09:45 Visit Stop Time 10:30 Total Visit Minutes 45 Visit Number 12 Number of LEAD PROJECT MANAGER Visits 0 Evaluation Information Evaluation Date 02/09/22 PT-OP-B Current Condition Start: 02/09/22 15:57 Freq: Status: Active Protocol: Document 02/09/22 15:15 DCW (Rec: 02/09/22 17:44 DCW [id number]) Current Condition History of Current Condition Onset Date Gradual onset Current Complaints 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 Pt feels like she has functionally declined over the past few months, reports she tires a little more quickly when up walking around, notes more of a struggle with rolling over in bed and performing supine->sit transfers. Reports she was recently diagnosed with essential tremor, and although her tremor is not constant, she does notice that activities are a little more difficult when it is present. Feels her balance overall is good, has been practicing SLS daily. Prior Treatments and Tests Prior PT s/p L TKA Treatment Goals Patient/Caregiver Goals Improve strength and activity tolerance PT-OP-C Subjective Start: 02/09/22 15:57 Freq: Status: Active Protocol: Document 03/18/22 09:45 DCW (Rec: 03/18/22 10:32 DCW [id number]) OP-PT Subjective Patient Comments Patient Comments Pt reports she is still doing very well, planning to work regularly on independent HEP PT-OP-E Functional Tests Start: 02/09/22 15:57 Freq: Status: Active Protocol: Document 02/09/22 15:15 DCW (Rec: 02/09/22 17:40 DCW [id number]) Functional Tests Timed Up and Go (TUG) Score 10.28 /s AD Comments Three-trial average (10.16, 10.46, 10.23) TUG Impairment Rating 0% Impaired (Score 10) PT-OP-G Mobility & Gait Start: 02/09/22 15:57 Freq: Status: Active Protocol: Document 02/09/22 15:15 DCW (Rec: 02/09/22 17:40 DCW [id number]) OP Gait Assessment Gait Gait Assistance Required: Independent Able to Maintain Weight Bearing Status Yes During Gait Assistive Devices Assistive Device None Orthotic/Prosthetic Devices or Brace: No Comments Gait Comments Pt ambulates with an appropriate step-through gait pattern, good overall posture, however has very limited trunk rotation and decreased arm swing. Able to improve mildly with verbal cues. PT-OP-M Strength Start: 02/09/22 15:57 Freq: Status: Active Protocol: Document 02/09/22 15:15 DCW (Rec: 02/09/22 17:40 DCW [id number]) Trunk Strength Trunk Manual Muscle Testing Core Stabilization Pt demonstrates mild TrA contraction, difficulty holding longer than 2-3 seconds. Hand Editorial Manager/Pinch Strength Hand Dominance Hand Dominance Right Hand Strength Right Editorial Manager (lbs) 51.67 Comments Three-trial average (50, 55, 50) Left Editorial Manager (lbs) 48.33 Comments Three-trial average (50, 50, 45) Hip Strength Hip Manual Muscle Testing Right Flexion (L2) 4 Good Abduction 4+ Good+ Adduction 4+ Good+ External Rotation 5 Normal Internal Rotation 5 Normal Left Flexion (L2) 4+ Good+ Abduction 4+ Good+ Adduction 4+ Good+ External Rotation 4+ Good+ Internal Rotation 4+ Good+ Knee Strength Knee Manual Muscle Testing Right Flexion (S2) 4+ Good+ Extension (L3) 4+ Good+ Left Flexion (S2) 5 Normal Extension (L3) 5 Normal Ankle/Foot Strength Ankle and Foot Manual Muscle Testing Right Dorsiflexion (L4) 4 Good Left Dorsiflexion (L4) 4 Good PT-OP-Q Treatments Start: 02/09/22 15:57 Freq: Status: Active Protocol: Document 03/18/22 09:45 DCW (Rec: 03/18/22 10:31 DCW [id number]) Cardio Equipment Recumbent Elliptical (Biodex) Duration (Minutes) 6 Resistance 5 Seat Position 9 Gym Equipment Shuttle Recovery Bilateral Squats Details TrA contraction Resistance 87# Shuttle Recovery Platform Stable Reps/Time x25 unilat squat Details TrA contraction Resistance 50# Shuttle Recovery Platform Stable Reps/Time 2x15 Therapeutic Ball Bridging Exercise Details Bridging Ball Size/Color Blue - 45 cm Body Position Supine LTR Exercise Details LTR Ball Size/Color Blue - 45 cm Body Position Hooklying Therapeutic Exercises Standing Exercises Step-ups Standing Exercise Name Step-ups Side bilateral Equipment Used 6 step Mini Squats Standing Exercise Name Mini Squats Equipment Used @ rail Hamstring Curls Standing Exercise Name HS Curls Side bilateral Resistance 5# Toe-tap Standing Exercise Name Toe-taps Side bilateral Resistance 5# Equipment Used 6 step Extension Standing Exercise Name Hip Extension Side bilateral Resistance Green Pallof press Standing Exercise Name Pallof Press Side bilateral Resistance Lv 3 Other Exercises Resisted Ambulation Other Exercise Name Resisted Ambulation Side bilateral Resistance Green PT-OP-T Assessment and Plan Start: 02/09/22 15:57 Freq: Status: Active Protocol: Document 03/18/22 09:45 DCW (Rec: 03/18/22 10:31 DCW [id number]) Physical Therapy Assessment Impairments Impairments Activity Tolerance,Functional Activities,Functional Mobility ,Gait,Strength Goals Two Impairment Pt ambulates with reduced trunk rotation and arm swing Fpc Goal (LTG) Pt to improve TrA/core strength to at least 4-/5 in order to improve trunk control and mobility, which can result in improved trunk rotation and arm swing during rotation LTG Duration Met One Impairment Pt does not have an appropriate home exercise program Short Term Goal (STG) Pt to be independent and compliant with an appropriate HEP STG Duration Met Progress Towards Goals Progress Towards Goals Goals Met Assessment Summary Assessment Pt has met all goals, comfortable with functional level at this time. Notes she has a much easier time with bed mobility and floor transfers. Will continue HEP independently. Pt will be discharged from skilled PT at this time. Physical Therapy Plan Frequency and Duration Frequency of Treatment 2x/Week Duration of treatment (weeks) 8 Plan of Care Start Date 02/09/22 Plan of Care End Date 04/06/22 Therapeutic Interventions Therapeutic Interventions Gait Training,Home Exercise Program,Manual Therapy, Neuromuscular Re-education, Patient/Caregiver Education, Self-Care/Home Management,Soft Tissue Mobilization, Therapeutic Activities, Therapeutic Exercises Discharge Physical Therapy Discharge Reasons Goals Met Next Visit Focus/Plan Next Note Type Discharge Summary
--- NOTE | 2022-03-18 10:48 | PT.OPDS ---
Current Diagnoses Essential tremor (03/18/22) Muscle weakness (generalized) (03/18/22) Other symptoms and signs involving the musculoskeletal system (03/18/22) Visit Care Team Role Provider Type Mani Tyson MD Family Provider Physician Primary Care Provider Specialty: Family Practice Address: [address] [place], [address] Email: [email or web address] Luis Fuentes MD Attending Provider Non-Staff Referring Provider Specialty: Neurology Address: [address] [place], [address] Email: Visit Number Visit Number 12 Discharge Summary PT-OP-B Current Condition Start: 02/09/22 15:57 Freq: Status: Active Protocol: Document 02/09/22 15:15 DCW (Rec: 02/09/22 17:44 DCW [id number]) Current Condition History of Current Condition Onset Date Gradual onset 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 Pt feels like she has functionally declined over the past few months, reports she tires a little more quickly when up walking around, notes more of a struggle with rolling over in bed and performing supine->sit transfers. Reports she was recently diagnosed with essential tremor, and although her tremor is not constant, she does notice that activities are a little more difficult when it is present. Feels her balance overall is good, has been practicing SLS daily. Prior Treatments and Tests Prior PT s/p L TKA Treatment Goals Patient/Caregiver Goals Improve strength and activity tolerance PT-OP-C Subjective Start: 02/09/22 15:57 Freq: Status: Active Protocol: Document 03/18/22 09:45 DCW (Rec: 03/18/22 10:32 DCW [id number]) OP-PT Subjective Patient Comments Patient Comments Pt reports she is still doing very well, planning to work regularly on independent HEP PT-OP-E Functional Tests Start: 02/09/22 15:57 Freq: Status: Active Protocol: Document 02/09/22 15:15 DCW (Rec: 02/09/22 17:40 DCW [id number]) Functional Tests Timed Up and Go (TUG) Score 10.28 /s AD Comments Three-trial average (10.16, 10.46, 10.23) TUG Impairment Rating 0% Impaired (Score 10) PT-OP-G Mobility & Gait Start: 02/09/22 15:57 Freq: Status: Active Protocol: Document 02/09/22 15:15 DCW (Rec: 02/09/22 17:40 DCW [id number]) OP Gait Assessment Gait Gait Assistance Required: Independent Able to Maintain Weight Bearing Status Yes During Gait Assistive Devices Assistive Device None Orthotic/Prosthetic Devices or Brace: No Comments Gait Comments Pt ambulates with an appropriate step-through gait pattern, good overall posture, however has very limited trunk rotation and decreased arm swing. Able to improve mildly with verbal cues. PT-OP-M Strength Start: 02/09/22 15:57 Freq: Status: Active Protocol: Document 02/09/22 15:15 DCW (Rec: 02/09/22 17:40 DCW [id number]) Trunk Strength Trunk Manual Muscle Testing Core Stabilization Pt demonstrates mild TrA contraction, difficulty holding longer than 2-3 seconds. Hand Retail Asset Protection Specialist/Pinch Strength Hand Dominance Hand Dominance Right Hand Strength Right Retail Asset Protection Specialist (lbs) 51.67 Comments Three-trial average (50, 55, 50) Left Retail Asset Protection Specialist (lbs) 48.33 Comments Three-trial average (50, 50, 45) Hip Strength Hip Manual Muscle Testing Right Flexion (L2) 4 Good Abduction 4+ Good+ Adduction 4+ Good+ External Rotation 5 Normal Internal Rotation 5 Normal Left Flexion (L2) 4+ Good+ Abduction 4+ Good+ Adduction 4+ Good+ External Rotation 4+ Good+ Internal Rotation 4+ Good+ Knee Strength Knee Manual Muscle Testing Right Flexion (S2) 4+ Good+ Extension (L3) 4+ Good+ Left Flexion (S2) 5 Normal Extension (L3) 5 Normal Ankle/Foot Strength Ankle and Foot Manual Muscle Testing Right Dorsiflexion (L4) 4 Good Left Dorsiflexion (L4) 4 Good PT-OP-T Assessment and Plan Start: 02/09/22 15:57 Freq: Status: Active Protocol: Document 03/18/22 09:45 DCW (Rec: 03/18/22 10:31 DCW [id number]) Physical Therapy Assessment Impairments Impairments Activity Tolerance,Functional Activities,Functional Mobility ,Gait,Strength Goals Two Impairment Pt ambulates with reduced trunk rotation and arm swing Skilled Nursing Goal (LTG) Pt to improve TrA/core strength to at least 4-/5 in order to improve trunk control and mobility, which can result in improved trunk rotation and arm swing during rotation LTG Duration Met One Impairment Pt does not have an appropriate home exercise program Short Term Goal (STG) Pt to be independent and compliant with an appropriate HEP STG Duration Met Progress Towards Goals Progress Towards Goals Goals Met Assessment Summary Assessment Pt has met all goals, comfortable with functional level at this time. Notes she has a much easier time with bed mobility and floor transfers. Will continue HEP independently. Pt will be discharged from skilled PT at this time. Physical Therapy Plan Frequency and Duration Frequency of Treatment 2x/Week Duration of treatment (weeks) 8 Plan of Care Start Date 02/09/22 Plan of Care End Date 04/06/22 Therapeutic Interventions Therapeutic Interventions Gait Training,Home Exercise Program,Manual Therapy, Neuromuscular Re-education, Patient/Caregiver Education, Self-Care/Home Management,Soft Tissue Mobilization, Therapeutic Activities, Therapeutic Exercises Discharge Physical Therapy Discharge Reasons Goals Met Next Visit Focus/Plan Next Note Type Discharge Summary
== END 2022-03-23 09:46 | disposition home or self-care (01) ==
LOC: PHYS 09:45
PROVIDERS: Family Provider Family Medicine; PCP Family Medicine; Referring Provider Psychiatry & Neurology Neurology; Visit Provider Psychiatry & Neurology Neurology
DX: G25.0 Essential tremor (principal); R29.898 Other symptoms and signs involving the musculoskeletal system; M62.81 Muscle weakness (generalized)
CPT/HCPCS: 97110; 97140; 97161; 97530

== ENCOUNTER → 2022-05-24 07:50 | Outpatient (CLI) | payer MEDICARE, OTHER, SELFPAY ==
[2019-11-11 13:49] VITALS: BMI 27.3
[2022-05-24 09:16] LABS: Add Manual Diff / Slide Review NO; Basophils Absolute Auto 100 /uL (0-100); Basophils Percent Auto 0.8 % (0-2); Eosinophils Absolute Auto 100 /uL (0-450); Eosinophils Percent Auto 1.6 % (2-4); Hematocrit 43.7 % (36-46); Hemoglobin 14.6 g/dL (12.0-16.0); Lymphocytes Absolute Auto 2200 /uL (1100-4500); Lymphocytes Percent Auto 33.4 % (25-40); Mean Corpuscular HGB Conc 33.4 % (30-36); Mean Corpuscular Hemoglobin 30.6 PG (26-34); Mean Corpuscular Volume 91.6 fL (80-100); Monocytes Absolute Auto 600 /uL (0-900); Monocytes Percent Auto 8.6 % (3-14); Neutrophils Absolute Auto 3700 /uL (1500-7000); Neutrophils Percent Auto 55.6 % (50-75); Platelet Count 197 X10^3/uL (150-400); Red Blood Cell Count 4.77 X10^6/uL (4.0-5.2); Red Cell Distribution Width 13.2 % (11.6-14.8); White Blood Cell Count 6.7 X10^3/uL (4.5-11.0)
[2022-05-24 09:24] LABS: Alanine Aminotransferase 20 IU/L (<35); Albumin 4.3 g/dL (3.5-5.0); Albumin Globulin Ratio 1.5 (1.0-2.8); Alkaline Phosphatase 64 U/L (38-126); Aspartate Aminotransferase 26 IU/L (14-36); Bilirubin Total 0.8 mg/dL (0.2-1.3); Blood Urea Nitrogen 18 mg/dL (7-17); Calcium 9.6 mg/dL (8.4-10.2); Carbon Dioxide 30 mmol/L (22-32); Chloride 105 mmol/L (98-107); Cholesterol 178 mg/dL (140-199); Estimated Glomerular Filt Rate > 60 mL/min (>60); Globulin 2.8 g/dL (1.7-4.1); Glucose 87 mg/dL (80-110); HDL Cholesterol 48 mg/dL (40-60); HEMOLYSIS < 15 (0-50); LDL Cholesterol Calculated 111 mg/dL (<100); Potassium 4.4 mmol/L (3.4-5.1); Sodium 140 mmol/L (137-145); Total Protein 7.1 g/dL (6.3-8.2); Triglycerides 97 mg/dL (35-150)
[2022-05-24 09:55] LABS: TSH w/ Reflex to FT4 1.74 uIU/mL (0.47-4.68)
== END ==
PROVIDERS: Family Provider Family Medicine; PCP Family Medicine; Referring Provider Family Medicine; Visit Provider Family Medicine
DX: E78.5 Hyperlipidemia, unspecified (principal); M17.12 Unilateral primary osteoarthritis, left knee; R29.898 Other symptoms and signs involving the musculoskeletal system
CPT/HCPCS: 36415; 80053; 80061; 84443; 85025

== ENCOUNTER 2022-07-05 09:30 | Outpatient (RCR) | payer MEDICARE, OTHER, SELFPAY ==
[2019-11-11 13:49] VITALS: BMI 27.3
--- NOTE | 2022-06-09 12:58 | OT.OP.EVAL ---
Visit Care Team Role Provider Type Mani Tyson MD Family Provider Physician Primary Care Provider Specialty: Family Practice Address: [address] [place] [address], [address] Email: [email or web address] Luis Fuentes MD Attending Provider Non-Staff Referring Provider Specialty: Neurology Address: [address] [place] [address], [id number] Email: Occupational Therapy Initial Evaluation OT Outpatient Adult Evaluation Start: 06/09/22 12:29 Freq: Status: Active Protocol: Document 06/09/22 12:30 AMS (Rec: 06/09/22 12:57 AMS [id number]) General Information - Adult Visit Number 05/24 Insurance Information Medicare Visit Start Time 09:30 Visit Stop Time 10:18 Total Visit Minutes 48 Treatment Setting Outpatient Care Note Type Initial Evaluation Referring Physician Luis Fuentes MD Identification Confirmed Yes Goals Treatment Initiated home exercise program. Discussed potential use of rocker knife given reported difficulties w/ using knife w/ cutting food. Instructed in self-soft tissue release of adductor w/ focus on L; CMC re-education w/ use of stress ball, as well as thumb palmar abduction w/ use of single rubberband proximal to MPJ; resisted abduction of 2nd digit away from 3rd digit and 3rd digit away from 4th digit. Senior Living Goals 1. Patient will be modified independent with execution of home exercise program utilizing provided written and visual instructions from therapist. 2. Patient will be able to verbally identify 2 to 3 strategies and/or pieces of adapative equipment that will support her ability to successfully engage in meaningful activities. Assessment/Plan Treatment Assessment Meghan is a 87 year-old right hand dominant female referred to outpatient OT secondary to essential tremors of the L UE w/ concerns re: weakness. Meghan was accompanied by her daughter, Clara, to initial evaluation. PMH significant for Childers's palsy; hearing impaired; hyperlipidemia; OA; skin cancer. Pain Assessement Grid = 0 out of 10 pain indicated relative to the hands. No c/o pain/discomfort w/ resisted/counseling specialist strength testing. Meghan presented with resistant finger/hand tools ( resisted circles, resisted finger extension, and stress ball) that she has available in her home but is not using actively. Functional concerns reported = tremors w/ ambulation (unsure if actively swinging arms w/ gait) and at rest. No concerns re: tremors impacting functional abilities. Difficulties reported with using a knife. L thumb adductor soft tissue tightness > R; decreased L palmar abduction and L radial abduction comparative to R. Tendency into neutral or extended position of the IPJ of the L; decreased ROM at CMC w/ ROM coming from MPJ w/ slight RD noted. Increased ulnar drift of L 2nd and 3rd digit versus R. Mild dupuytren 's of the L hand; however, able to maintain relatively flat L hand on TT surface for functionality. Dynamometer II R counseling specialist = 40# of force and L counseling specialist = 36# of force which is comparable to same aged female peers. Meghan would likely benefit from outpatient OT for development of appropriate home exercise program, including providing joint protection education, and to identify strategies and or AE that will help maintain her functional independence and ability to successfully engage in meaningful activities in a variety of environments. Length of treatment (weeks) 8 Plan of Care Start Date 06/09/22 Plan of Care End Date 08/04/22 Treatment Frequency Once a Week Therapeutic Contents Active Range of Motion, Adaptive Equipment Education, Client Education,Functional Activities,Home Exercise Program,Joint Protection, Manual Therapy,Education, Neurodevelopment Treatment, Neuromuscular Re-Education, Self-Care,Stretching/ Flexibility Activities, Therapeutic Activities, Therapeutic Exercises, Modalities Modalities As Needed,As Prescribed Additional Types of Modalities Paraffin/Heat/Ice
--- NOTE | 2022-06-14 13:26 | OT.OP.TRT ---
Visit Care Team Role Provider Type Mani Tyson MD Family Provider Physician Primary Care Provider Specialty: Family Practice Address: [address] [place] [address], [id number] Email: [email or web address] Luis Fuentes MD Attending Provider Non-Staff Referring Provider Specialty: Neurology Address: [address] [place] [address], [id number] Email: Occupational Therapy Treatment Note OT Outpatient Treatment Note - Adult Start: 06/09/22 12:29 Freq: Status: Active Protocol: Document 06/14/22 13:19 AMS (Rec: 06/14/22 13:26 AMS [id number]) OT Outpatient Adult Treatment Note Session Time Visit Start Time 09:35 Visit Stop Time 10:25 Total Visit Minutes 45 Visit Information Visit Number 06/24; 07/03 visit --> KX modifier Plan of Care Dates 06/09/22 - 08/04/22 Insurance Information Medicare Setting Treatment Setting Outpatient Care Visit Type Note Type Treatment Note General Information General Information Meghan is a 87 year-old right hand dominant female referred to outpatient OT secondary to essential tremors of the L UE w/ concerns re: weakness. Meghan was accompanied by her daughter, Clara, to initial evaluation. PMH significant for Childers's palsy; hearing impaired; hyperlipidemia; OA; skin cancer. - Subjective Identification Type Name Identification Reconciled With Medical Record Observations Report of 'change' in tremors of the L arm w/ large/active arm swing. - Objective Objective Measurements Please refer to below for progress towards meeting established OT goals: Group Home Goals 1. Patient will be modified independent with execution of home exercise program utilizing provided written and visual instructions from therapist. 2. Patient will be able to verbally identify 2 to 3 strategies and/or pieces of adapative equipment that will support her ability to successfully engage in meaningful activities. - Treatment 1 Descriptor Reviewed HEP. Completed 1 x 10 w/ therapist model. Reviewed written and visual instructions without therapist model 1 x 10. Meghan 'added' personal notes. Trialed weighted fork; able to identify positioning of 2nd digit to assist w/ exertion -- > direction of force. Discussed benefit of larger width to support centrifugal separator as well. Instructed w/ small ball thumb coordination. - Assessment Assessment of Improvement Provided w/ written and visual instructions for HEP; introduced resisted thumb extension w/ single rubberband , as well as thumb coordination activities. (+) response to weighted fork; would likely benefit from this option in the home for self feeding. (+) report of reduction of tremors noted w/ active arm swing L UE w/ gait. Overall, good session. Meghan would likely benefit from outpatient OT for development of appropriate home exercise program, including providing joint protection education, and to identify strategies and or AE that will help maintain her functional independence and ability to successfully engage in meaningful activities in a variety of environments. - Plan Therapy Recommendations Continue with Current Program, Advance per Rehabilitation Protocol
--- NOTE | 2022-06-22 11:49 | OT.OP.TRT ---
Visit Care Team Role Provider Type Mani Tyson MD Family Provider Physician Primary Care Provider Specialty: Family Practice Address: [facility] [place], [address] Email: [email or web address] Luis Fuentes MD Attending Provider Non-Staff Referring Provider Specialty: Neurology Address: [address] [place] [address], [id number] Email: Occupational Therapy Treatment Note OT Outpatient Treatment Note - Adult Start: 06/09/22 12:29 Freq: Status: Active Protocol: Document 06/22/22 11:36 AMS (Rec: 06/22/22 11:49 AMS [id number]) OT Outpatient Adult Treatment Note Session Time Visit Start Time 08:30 Visit Stop Time 09:15 Total Visit Minutes 45 Visit Information Visit Number 07/22; 07/31 visit --> KX modifier Plan of Care Dates 06/09/22 - 08/04/22 Insurance Information Medicare Setting Treatment Setting Outpatient Care Visit Type Note Type Treatment Note General Information General Information Meghan is a 87 year-old right hand dominant female referred to outpatient OT secondary to essential tremors of the L UE w/ concerns re: weakness. Meghan was accompanied by her daughter, Clara, to initial evaluation. PMH significant for Childers's palsy; hearing impaired; hyperlipidemia; OA; skin cancer. - Subjective Identification Type Name Identification Reconciled With Medical Record Observations Report of intent to invest in weighted utensils for home use particularly w/ slicing/ cutting foods/meats. (+) compliance w/ HEP based on patient report w/ difficulty of execution of EPB exercise. Inquiry in re: 3rd digit trigger finger of left hand; denial of pain w/ intermittent occurrence. - Objective Objective Measurements Please refer to below for progress towards meeting established OT goals: Half-Way Goals 1. Patient will be modified independent with execution of home exercise program utilizing provided written and visual instructions from therapist. 2. Patient will be able to verbally identify 2 to 3 strategies and/or pieces of adapative equipment that will support her ability to successfully engage in meaningful activities. - Treatment 1 Descriptor Modified EPB exercise to inclusion of tennis ball to support active flex at IPJ w/ extension. As an alt to self mobilization, instructed in use of tennis ball. Will need to monitor execution. - Assessment Assessment of Improvement Modified EPB exercise w/ inclusion of tennis ball for neuro re-training; instructed in alt to self mobilization/ manual of thumb add w/ use of tennis ball. (+) locking of 3rd L digit noted into flexion ; discussed options re: splint /avoiding repetitive flex/and/ or seeking of non-conservative approach. Will be investing in personal weighted fork for home use/weighted utensils. (+ ) compliance w/ HEP. Neurologist will be following up w/ Meghan in 1 year; Meghan has been referred to outpatient [employer]. US to palmar surface of L hand 3rd digit to address inflammation; 2.0 w/ cm2; 20% duty cycle; skin intact pre- and post-treatment . Overall, good session. Meghan would likely benefit from outpatient OT for development of appropriate home exercise program, including providing joint protection education, and to identify strategies and or AE that will help maintain her functional independence and ability to successfully engage in meaningful activities in a variety of environments. - Plan Therapy Recommendations Continue with Current Program, Advance per Rehabilitation Protocol
--- NOTE | 2022-06-29 10:28 | OT.OP.TRT ---
Visit Care Team Role Provider Type Mani Tyson MD Family Provider Physician Primary Care Provider Specialty: Family Practice Address: [address] [place] [address], [phone] Email: [email or web address] Luis Fuentes MD Attending Provider Non-Staff Referring Provider Specialty: Neurology Address: [address] [place] [address], [id number] Email: Occupational Therapy Treatment Note OT Outpatient Treatment Note - Adult Start: 06/09/22 12:29 Freq: Status: Active Protocol: Document 06/29/22 10:21 AMS (Rec: 06/29/22 10:28 AMS [id number]) OT Outpatient Adult Treatment Note Session Time Visit Start Time 09:30 Visit Stop Time 10:10 Total Visit Minutes 40 Visit Information Visit Number 08/22; 08/31 visit --> KX modifier Plan of Care Dates 06/09/22 - 08/04/22 Insurance Information Medicare Setting Treatment Setting Outpatient Care Visit Type Note Type Treatment Note General Information General Information Meghan is a 87 year-old right hand dominant female referred to outpatient OT secondary to essential tremors of the L UE w/ concerns re: weakness. Meghan was accompanied by her daughter, Clara, to initial evaluation. PMH significant for Childers's palsy; hearing impaired; hyperlipidemia; OA; skin cancer. - Subjective Identification Type Name Identification Reconciled With Medical Record Observations Denial of pain. Patient/Caregiver Compliance with Home Good Exercise Program - Objective Objective Measurements Please refer to below for progress towards meeting established OT goals: Machine Whitener Goals 1. Patient will be modified independent with execution of home exercise program utilizing provided written and visual instructions from therapist. 2. Patient will be able to verbally identify 2 to 3 strategies and/or pieces of adapative equipment that will support her ability to successfully engage in meaningful activities. - Treatment 1 Descriptor Modified EPB w/ tennis ball. Single rubberband. 2 x 10. L. Able to execute w/ R hand without visual of tennis ball. 2 x 10. Instructed in self-palpation of adductor; reviewed self- manual mobilization and technique (with and without tennis ball). Instructed in 2nd digit abd w/ 2 rubberbands. 2 x 10. Isometric hold w/ resistance w / functional 'c' pinch. TB #1, #2, and 'tug-o-war' between hands. - Assessment Assessment of Improvement Neurologist will be following up w/ Meghan in 1 year; Meghan has been referred to outpatient [employer]. US to R thumb webspace; 2.0 w/cm2; 20% duty cycle; skin intact pre- and post-treatment x 10 minutes. Introduced isometric hold/tug- o-war w/ functional 'c'. Recommended utilization of 2 rubberbands w/ 2nd digit abduction. Instructed in self- palpation thumb webspace; reviewed self manual mobilization w/ increased understanding reported without use of tennis ball. Meghan reports ability to complete motor task w/ golf ball relative to coordination. Denies current availability of tennis ball in the home; denied investment in weighted utensils yet. Overall, good session. Meghan would likely benefit from outpatient OT for development of appropriate home exercise program, including providing joint protection education, and to identify strategies and or AE that will help maintain her functional independence and ability to successfully engage in meaningful activities in a variety of environments. - Plan Therapy Recommendations Continue with Current Program, Advance per Rehabilitation Protocol
--- NOTE | 2022-07-05 10:29 | OT.OP.DC ---
Visit Care Team Role Provider Type Mani Tyson MD Family Provider Physician Primary Care Provider Address: [facility] [place], [address] Email: [email or web address] Luis Fuentes MD Attending Provider Non-Staff Referring Provider Address: [address] [place] [address], [id number] Email: OT Outpatient OT Outpatient Adult Evaluation Start: 06/09/22 12:29 Freq: Status: Active Protocol: Document 06/09/22 12:30 AMS (Rec: 06/09/22 12:57 AMS [id number]) General Information - Adult Visit Information Visit Number 05/24 Insurance Information Medicare Session Time Visit Start Time 09:30 Visit Stop Time 10:18 Total Visit Minutes 48 Setting Treatment Setting Outpatient Care Visit Type Note Type Initial Evaluation Referral Referring Physician Luis Fuentes MD Identification Identification Confirmed Yes Goals Treatment Treatment Initiated home exercise program. Discussed potential use of rocker knife given reported difficulties w/ using knife w/ cutting food. Instructed in self-soft tissue release of adductor w/ focus on L; CMC re-education w/ use of stress ball, as well as thumb palmar abduction w/ use of single rubberband proximal to MPJ; resisted abduction of 2nd digit away from 3rd digit and 3rd digit away from 4th digit. 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 Patient will be modified independent with execution of home exercise program utilizing provided written and visual instructions from therapist. 2. Patient will be able to verbally identify 2 to 3 strategies and/or pieces of adapative equipment that will support her ability to successfully engage in meaningful activities. Assessment/Plan Assessment Treatment Assessment Meghan is a 87 year-old right hand dominant female referred to outpatient OT secondary to essential tremors of the L UE w/ concerns re: weakness. Meghan was accompanied by her daughter, Clara, to initial evaluation. PMH significant for Childers's palsy; hearing impaired; hyperlipidemia; OA; skin cancer. Pain Assessement Grid = 0 out of 10 pain indicated relative to the hands. No c/o pain/discomfort w/ resisted/clinical assistant strength testing. Meghan presented with resistant finger/hand tools ( resisted circles, resisted finger extension, and stress ball) that she has available in her home but is not using actively. Report of L 3rd digit trigger finger w/ symptoms presenting for approx 1 month; no observed locking of 3rd digit into flex even w/ resisted digit flexion (w/ use of tools) and/or repetitive gross flexion of digits. Functional concerns reported = tremors w/ ambulation (unsure if actively swinging arms w/ gait) and at rest. No concerns re: tremors impacting functional abilities. Difficulties reported with using a knife. L thumb adductor soft tissue tightness > R; decreased L palmar abduction and L radial abduction comparative to R. Tendency into neutral or extended position of the IPJ of the L; decreased ROM at CMC w/ ROM coming from MPJ w/ slight RD noted. Increased ulnar drift of L 2nd and 3rd digit versus R. Mild dupuytren 's of the L hand; however, able to maintain relatively flat L hand on TT surface for functionality. Dynamometer II R clinical assistant = 40# of force and L clinical assistant = 36# of force which is comparable to same aged female peers. Meghan would likely benefit from outpatient OT for development of appropriate home exercise program, including providing joint protection education, and to identify strategies and or AE that will help maintain her functional independence and ability to successfully engage in meaningful activities in a variety of environments. Plan Length of treatment (weeks) 8 Plan of Care Start Date 06/09/22 Plan of Care End Date 08/04/22 Treatment Frequency Once a Week Therapeutic Contents Active Range of Motion, Adaptive Equipment Education, Client Education,Functional Activities,Home Exercise Program,Joint Protection, Manual Therapy,Education, Neurodevelopment Treatment, Neuromuscular Re-Education, Self-Care,Stretching/ Flexibility Activities, Therapeutic Activities, Therapeutic Exercises, Modalities Modalities As Needed,As Prescribed Additional Types of Modalities Paraffin/Heat/Ice Functional Wrist/Hand Scan Hand Side Sensory Assessment Sensory Profile2 OT Outpatient Treatment Note - Adult Start: 06/09/22 12:29 Freq: Status: Active Protocol: Document 07/05/22 10:25 [facility] (Rec: 07/05/22 10:28 [facility] [id number]) OT Outpatient Adult Treatment Note Session Time Visit Start Time 09:30 Visit Stop Time 10:00 Total Visit Minutes 30 Visit Information Visit Number 09/21; 09/30 visit --> KX modifier Plan of Care Dates 06/09/22 - 08/04/22 Insurance Information Medicare Setting Treatment Setting Outpatient Care Visit Type Note Type Treatment Note General Information General Information Meghan is a 87 year-old right hand dominant female referred to outpatient OT secondary to essential tremors of the L UE w/ concerns re: weakness. Meghan was accompanied by her daughter, Clara, to initial evaluation. PMH significant for Childers's palsy; hearing impaired; hyperlipidemia; OA; skin cancer. - Subjective Identification Type Name Identification Reconciled With Medical Record Observations Denial of pain. Patient/Caregiver Compliance with Home Good Exercise Program - Objective Objective Measurements Please refer to below for progress towards meeting established OT goals: Alf Goals ALL GOALS MET 07/05/22 Patient will be modified independent with execution of home exercise program utilizing provided written and visual instructions from therapist. Patient will be able to verbally identify 2 to 3 strategies and/or pieces of adapative equipment that will support her ability to successfully engage in meaningful activities. - Treatment 1 Descriptor Modified EPB w/ tennis ball. Single rubberband. 2 x 10. L. Able to execute w/ R hand without visual of tennis ball. 2 x 10. Instructed in self-palpation of adductor; reviewed self- manual mobilization and technique (with and without tennis ball). Instructed in 2nd digit abd w/ 2 rubberbands. 2 x 10. Isometric hold w/ resistance w / functional 'c' pinch. TB #1, #2, and 'tug-o-war' between hands. - Assessment Assessment of Improvement US to L thumb webspace; 2.0 w/ cm2; 20% duty cycle; skin intact pre- and post-treatment x 10 minutes. (+) small bruising to dorsum of L hand from neighbor's puppy. Denial of any questions re: HEP. Discussed knit-zpd-muupshc trigger splint; discussed custom-made splint versus less conservative approach ( referral to ortho UE specialist for injection). Recommend d/c from outpatient OT at this time. - Plan Therapy Recommendations Discharge from Occupational Therapy
== END 2022-07-05 12:30 | disposition home or self-care (01) ==
LOC: OT 09:30
PROVIDERS: Family Provider Family Medicine; PCP Family Medicine; Referring Provider Psychiatry & Neurology Neurology; Visit Provider Psychiatry & Neurology Neurology
DX: R29.898 Other symptoms and signs involving the musculoskeletal system (principal); G25.0 Essential tremor; R53.1 Weakness
CPT/HCPCS: 97035; 97110; 97165; 97530

== ENCOUNTER 2022-09-16 08:30 | Outpatient (RCR) | payer MEDICARE, OTHER, SELFPAY ==
[2019-11-11 13:49] VITALS: BMI 27.3
--- NOTE | 2022-07-04 15:51 | ST.OPIE ---
Visit Care Team Role Provider Type Mani Tyson MD Family Provider Physician Primary Care Provider Specialty: Family Practice Address: [address] [place] [address], [id number] Email: [email or web address] Luis Fuentes MD Attending Provider Non-Staff Referring Provider Specialty: Neurology Address: 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 Fuentes Reason for Referral voice change Patient History Patient History Meghan is an 87-year old female referred to speech therapy due to inconsistent voice changes and volume through the day. 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 Pt reported she grew up in a house where both parents smoked, so she was exposed to second hand smoke as a child. About 10 years ago, she had a persistent cough which was treated with allergy medication. Allergy medication resolved cough and has since been discontinued with no return of cough. Pt reported drinking two 8oz glasses of water per day in addition to 1 -2 cups of coffee each morning . She uses her voice minimally through the day, stating a typical day includes a 1 mile walk, some exercise, and a variety of sedentary activities (e.g., watching TV or working on the computer). Pt stated voice is generally better in the morning, but this morning it was raspy. Per referral from Dr. Fuentes' s 06/16/22 note: she is having some reports of voice changes, including scratchy and quaky and softer voice, noticed randomly and reports its not constant and no effect on expression or swallowing and denies having a voice tremor, and denies any effect from caffeine and does not consume any alcohol. 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 She is going to be discharging from OT soon, per pt report. Oral Motor Assessment Source: [place] [employer] ([employer]). Oral-Motor Eval Completed Yes Oral-Motor Assessment Left-sided weakness noted at rest and in motion in addition to mild tremors noted in right side lips and in tongue. Tongue, lip, and jaw strength and ROM were WNL despite tremors, though incoordination noted with smile/pucker movement. Dentition present and WNL. Pt reported no pain in oral structures at rest or in motion. Minimal to no movement noted in left side across all movements. Oral seal maintained despite left weakness. Subjective Subjective Meghan arrived on time and ambulated to therapy room independently. She agreed to participate in all therapy activities. - Laryngeal Performance S/Z Ratio S/Z Ratio 0.6 Functional for Speech Yes Voice Handicap Index Function Subtotal 8 Physical Subtotal 18 Emotional Subtotal 11 Total Score 37 Severity Moderate (31-60) CAPE-V Overall Severity 23 Roughness 23 Breathiness 15 Strain 7 Pitch 12 Loudness 7 Additional Features Diplophonia,Tremor Maximum Phonation Time MPT Norms: Women (15-25) Men (25-35) Loudness (50-60 dB); Speaking Rate: Oral Reading of Sentences (190 Words Per Minute); Oral Reading of Paragraphs (160-170 WPM); Speaking Rate in Conversation (150-250 WPM) Maximum Phonation Time avg. 67.5dB for 15.8 seconds Maximum Phonation Time Adequate for Speech Maximum Phonation Time Comments Pt maintained avg. 67.5dB ( range: 67-68dB) for avg. 15.8 seconds (range: 8.7-18.9 seconds). She exhibited increased volume for paragraph reading, with avg. 72dB loudness (range: 71-73dB). Vocal quality was very hoarse and periods of diplophonia observed with sustained ah and low pitch tasks. Diplophonia not observed with higher pitches. Pitch [place] Pitch [place] Pitch Breaks,Cessation of Voicing Pitch [place] Comments Maximum phonation avg. 346.5Hz (range: 307-402Hz) at avg. 70 .2dB (range: 65-74dB) and minimum phonation avg. 101.7Hz (range: 67-180Hz) at avg. 69. 7dB (range: 68-72dB). Clear notes observed with high pitches. Mid-range was observed to have more diplophonia and raspy quality. Low notes exhibited more cessation of voicing. Voice Pitch Range Norms: Women (100-300 Hz) Men (70-250 Hz) Fundamental Frequency Norms: Women (Mean: 225 Hz; Range: 155-334 Hz) Men ( Mean: 128 Hz; Range: 85-196 Hz) Voice Pitch Normal Voice Loudness Mildly Soft/Quiet Voice Phonatory-based Quality Breathy,Hoarse,Diplophonia Resonance Nasal Resonance Normal Oral Resonance Normal Findings Findings Moderate Impairment Observations The pt presents with moderate voice impairment characterized by hoarse and breathy vocal quality with reduced volume and cessation of voice in low pitch range. Pt reported her has difficulty hearing her due to her vocal quality and his hearing loss (wears hearing aids). Pt drinks similar quantities of coffee and water, which means vocal folds may be dehydrated, contributing to vocal hoarseness. Provided education regarding systems involved in voice and impact of tension and hydration on vocal quality . Discussed vocal relaxation exercises in addition to increased water intake to decrease hoarseness for improved vocal quality. Discussed referral to ENT to rule out structural abnormalities that may contribute to vocal quality (e .g., vocal fold bowing may contribute to breathiness, irritation may result in increased hoarseness). Pt expressed understanding of recommendations and agreement with plan of care. Recommend speech therapy to increase vocal quality for improved ability to communicate her wants and needs, especially in emergency situations. Recommend referral to ENT to rule out structural abnormalities that may contribute to vocal quality (e .g., vocal fold bowing may contribute to breathiness, irritation may result in increased hoarseness) Prognosis Rehabilitation Potential Good - Recommendations Treatment Recommended Yes Short Term Goals 1. The pt will demonstrate reduced vocal hoarseness and breathiness as measured by patient report and the CAPE-V. 2. The pt will demonstrate 5dB increase in volume during sustained ah task. 3. The pt will demonstrate sustained low notes with reduced pitch breaks during high/low ah task. Correction Goals The pt will demonstrate improved vocal quality and reduced impact of vocal quality on ADLs as indicated by pt report, clinical judgment, and a score in the mild range (0-30) on VHI. Referrals Referrals ENT Patient/Caregiver Education Patient/Family Education Described results of evaluation,Patient Understanding,Patient Demonstration,Patient Needs More Info Vocally Abusive Behavior Behavior Rating Alcohol Consumption Never [place] Talking Never Arguing (peers/siblings/other) Never Athletic Activity Yelling Never Caffeine Use 1-2 cups of coffee daily Calling from Distance Never Cheerleading Participation Never Coughing/Sneezing Loudly hx of persistent cough Crying Never Environmental Irritant Exposure possible unknown allergy previously treated with allergy meds Use of Inhalants Never Laughing Hard/Abusively Never Singing Abusively Never Participation In Plays Never Smoking Never Excessive Talking Never Making Animal /Toy Noises Never Yelling/Screaming Never
--- NOTE | 2022-07-04 15:52 | ST.OPPOC ---
Physical, Occupational & Speech Therapy At [facility] Visit Care Team Role Provider Type Mani Tyson MD Family Provider Physician Primary Care Provider Address: [address] [place], [address] Luis Fuentes MD Attending Provider Non-Staff Referring Provider Address: [facility] [place], [address] Speech Pathology Plan of Care Plan of Care Dates 07/04/2022 - 11/11/[address] Fuentes Patient History Meghan is an 87-year old female referred to speech therapy due to inconsistent voice changes and volume through the day. She has a benign essential tremor in her left hand and a history of Childers's Palsy from 1979 with continued intermittent facial asymmetry. Pt reported she grew up in a house where both parents smoked, so she was exposed to second hand smoke as a child . About 10 years ago, she had a persistent cough which was treated with allergy medication. Allergy medication resolved cough and has since been discontinued with no return of cough. Pt reported drinking two 8oz glasses of water per day in addition to 1-2 cups of coffee each morning. She uses her voice minimally through the day, stating a typical day includes a 1 mile walk, some exercise, and a variety of sedentary activities (e.g., watching TV or working on the computer). Pt stated voice is generally better in the morning, but this morning it was raspy. Per referral from Dr. Fuentes's 06/16/22 note: she is having some reports of voice changes, including scratchy and quaky and softer voice, noticed randomly and reports its not constant and no effect on expression or swallowing and denies having a voice tremor, and denies any effect from caffeine and does not consume any alcohol. Voice/Resonance Findings Moderate Impairment Voice/Resonance Prognosis Good Voice/Resonance Yes Recommendations Short Term Goals 1. The pt will demonstrate reduced vocal hoarseness and breathiness as measured by patient report and the CAPE-V. 2. The pt will demonstrate 5dB increase in volume during sustained ah task. 3. The pt will demonstrate sustained low notes with reduced pitch breaks during high/low ah task. Flight Operations Coordinator Goals The pt will demonstrate improved vocal quality and reduced impact of vocal quality on ADLs as indicated by pt report, clinical judgment, and a score in the mild range (0-30) on VHI. Comment: RECOMMEND REFERRAL TO ENT to rule out structural abnormalities that may contribute to vocal quality. Electronically Signed by: ANN-MARIE Bedolla 07/04/22 0320 If you are in agreement with this Plan of Care, please return a signed and dated copy. I have reviewed this Plan of Care and certify that the skilled therapy services above are required to meet the patient?s needs. Physician Signature Date Printed Name and Credentials Clinical Instructor Signature Printed Name and Credentials
--- NOTE | 2022-07-11 12:04 | ST.OPTN ---
Visit Care Team Role Provider Type Mani Tyson MD Family Provider Physician Primary Care Provider Address: [facility] [place], [address] Luis Fuentes MD Attending Provider Non-Staff Referring Provider Address: [address] [place], [address] CLIENT SERVICES COORDINATOR Treatment Note CLIENT SERVICES COORDINATOR Treatment Note Start: 07/11/22 11:56 Freq: Status: Active Protocol: Document 07/11/22 11:56 ZS (Rec: 07/11/22 12:04 ZS [id number]) Speech Pathology Treatment Note Session Time Visit Start Time 11:30 Visit Stop Time 11:55 Total Visit Minutes 25 Visit Information Visit Number 2 Plan of Care Dates 07/04/2022 - 11/11/2022 Insurance Information Medicare Setting Treatment Setting Outpatient Care Visit Type Note Type Treatment Note Next Note Type Next Note Type Treatment Note General Information Patient History Meghan is an 87-year old female referred to speech therapy due to inconsistent voice changes and volume through the day. 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 Pt reported she grew up in a house where both parents smoked, so she was exposed to second hand smoke as a child. About 10 years ago, she had a persistent cough which was treated with allergy medication. Allergy medication resolved cough and has since been discontinued with no return of cough. Pt reported drinking two 8oz glasses of water per day in addition to 1 -2 cups of coffee each morning . She uses her voice minimally through the day, stating a typical day includes a 1 mile walk, some exercise, and a variety of sedentary activities (e.g., watching TV or working on the computer). Pt stated voice is generally better in the morning, but this morning it was raspy. Per referral from Dr. Fuentes' s 06/16/22 note: she is having some reports of voice changes, including scratchy and quaky and softer voice, noticed randomly and reports its not constant and no effect on expression or swallowing and denies having a voice tremor, and denies any effect from caffeine and does not consume any alcohol. Subjective Identification Type Name Identification Reconciled With Medical Record Observations/Patient Presentation Meghan arrived on time and ambulated independently to therapy room. She reported difficulty with straw phonation exercise and improved vocal quality with yawn-sigh. Chief Complaint(s) Voice Objective Short Term Goals 1. The pt will demonstrate reduced vocal hoarseness and breathiness as measured by patient report and the CAPE-V. 2. The pt will demonstrate 5dB increase in volume during sustained ah task. 3. The pt will demonstrate sustained low notes with reduced pitch breaks during high/low ah task. Jail Goals The pt will demonstrate improved vocal quality and reduced impact of vocal quality on ADLs as indicated by pt report, clinical judgment, and a score in the mild range (0-30) on VHI. Treatment Activities Reviewed HEP and provided verbal feedback on straw phonation exercise. Provided education regarding systems involved in speech sound production and practiced abdominal/diaphragmatic breathing. Assessment Patient Response to Treatment Good Rehab Potential Excellent Impairments Identified Voice Progress Towards Goals Good Progress Assessment of Overall Progress Improving Assessment of Improvement Pt demonstrated difficulty with maintaining oral resonance with straw phonation and often lost power in breath moving through straw. Suggested pt try activity while blowing bubbles in a cup to increase visual feedback and practice turning voice on and off during exercise to improve forward resonance. Practiced abdominal/ diaphragmatic breathing as pt demonstrated primarily chest breathing during session. Pt to practice this at home either in front of a mirror with hands placed on chest and stomach or laying down with hand or object on abdomen. Pt expressed understanding and will also receive support from her daughter, who is a mueller , next week. Reviewed with Patient Goals,Progress Being Made,Home Exercise Program Patient/Caregiver Understanding Excellent Plan Amount of Therapy Recommended 3-4 Months Frequency of Treatment Once a Week Length of Session 45 Minutes Therapeutic Contents Client Education,Home Exercise Program,Voice Training Provided Patient/Caregiver Instruction Home Exercise Program,Plan of Care,Questions/Concerns Therapy Recommendations Continue with Current Program
--- NOTE | 2022-07-18 11:08 | ST.OPTN ---
Visit Care Team Role Provider Type Mani Tyson MD Family Provider Physician Primary Care Provider Address: [facility] [place], [address] Luis Fuentes MD Attending Provider Non-Staff Referring Provider Address: [address] [place], [address] ATTORNEY Treatment Note ATTORNEY Treatment Note Start: 07/11/22 11:56 Freq: Status: Active Protocol: Document 07/18/22 11:02 ZS (Rec: 07/18/22 11:08 ZS [id number]) Speech Pathology Treatment Note Session Time Visit Start Time 10:30 Visit Stop Time 11:00 Total Visit Minutes 30 Visit Information Visit Number 3 Plan of Care Dates 07/04/2022 - 11/11/2022 Insurance Information Medicare Setting Treatment Setting Outpatient Care Visit Type Note Type Treatment Note Next Note Type Next Note Type Treatment Note General Information Patient History Meghan is an 87-year old female referred to speech therapy due to inconsistent voice changes and volume through the day. 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 Pt reported she grew up in a house where both parents smoked, so she was exposed to second hand smoke as a child. About 10 years ago, she had a persistent cough which was treated with allergy medication. Allergy medication resolved cough and has since been discontinued with no return of cough. Pt reported drinking two 8oz glasses of water per day in addition to 1 -2 cups of coffee each morning . She uses her voice minimally through the day, stating a typical day includes a 1 mile walk, some exercise, and a variety of sedentary activities (e.g., watching TV or working on the computer). Pt stated voice is generally better in the morning, but this morning it was raspy. Per referral from Dr. Fuentes' s 06/16/22 note: she is having some reports of voice changes, including scratchy and quaky and softer voice, noticed randomly and reports its not constant and no effect on expression or swallowing and denies having a voice tremor, and denies any effect from caffeine and does not consume any alcohol. Subjective Identification Type Name Identification Reconciled With Medical Record Observations/Patient Presentation Meghan arrived on time and ambulated independently to therapy room. She reported difficulty with diaphragmatic breathing exercise and improved vocal quality with yawn-sigh. Pt added she benefitted from 4x4 breathing, alternating nostril breathing , and other techniques provided by the [employer] Just Breathe program. Chief Complaint(s) Voice Objective Short Term Goals 1. The pt will demonstrate reduced vocal hoarseness and breathiness as measured by patient report and the CAPE-V. 2. The pt will demonstrate 5dB increase in volume during sustained ah task. 3. The pt will demonstrate sustained low notes with reduced pitch breaks during high/low ah task. Residential Goals The pt will demonstrate improved vocal quality and reduced impact of vocal quality on ADLs as indicated by pt report, clinical judgment, and a score in the mild range (0-30) on VHI. Treatment Activities Reviewed HEP and provided verbal feedback on breathing exercise. Provided education regarding systems involved in speech sound production and practiced abdominal/ diaphragmatic breathing. Introduced sustained ah and pitch glide exercises for increased volume and intonation. Assessment Patient Response to Treatment Good Rehab Potential Excellent Impairments Identified Voice Progress Towards Goals Good Progress Assessment of Overall Progress Improving Assessment of Improvement Pt demonstrated improvement in maintaining oral resonance today. Improvement noted in breath support during sustained ah exercises, with less chest breathing noted today. Pt expressed understanding and will also receive support from her daughter, who is a mueller, next week. She exhibited increased breathiness in vocal quality when increasing in pitch and benefitted from hard glottal attack when initiating ah for exercise. Pt to start with these exercises 1x per day and evaluate hoarse/raspy vocal quality with increased use. If vocal quality diminishes, pt to drop to 3 repetitions 1x per day rather than 6 repetitions. If vocal quality remains good, increase to 2x per day. Reviewed with Patient Goals,Progress Being Made,Home Exercise Program Patient/Caregiver Understanding Excellent Plan Amount of Therapy Recommended 3-4 Months Frequency of Treatment Once a Week Length of Session 45 Minutes Therapeutic Contents Client Education,Home Exercise Program,Voice Training Provided Patient/Caregiver Instruction Home Exercise Program,Plan of Care,Questions/Concerns Therapy Recommendations Continue with Current Program
--- NOTE | 2022-07-29 14:45 | ST.OPTN ---
Visit Care Team Role Provider Type Mani Tyson MD Family Provider Physician Primary Care Provider Address: [facility] [place], [address] Luis Fuentes MD Attending Provider Non-Staff Referring Provider Address: [address] [place], [address] PRECISION LENS GRINDER APPRENTICE Treatment Note PRECISION LENS GRINDER APPRENTICE Treatment Note Start: 07/11/22 11:56 Freq: Status: Active Protocol: Document 07/29/22 14:41 ZS (Rec: 07/29/22 14:45 ZS [id number]) Speech Pathology Treatment Note Session Time Visit Start Time 13:40 Visit Stop Time 14:10 Total Visit Minutes 30 Visit Information Visit Number 4 Plan of Care Dates 07/04/2022 - 11/11/2022 Insurance Information Medicare Setting Treatment Setting Outpatient Care Visit Type Note Type Treatment Note Next Note Type Next Note Type Treatment Note General Information Patient History Meghan is an 87-year old female referred to speech therapy due to inconsistent voice changes and volume through the day. 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 Pt reported she grew up in a house where both parents smoked, so she was exposed to second hand smoke as a child. About 10 years ago, she had a persistent cough which was treated with allergy medication. Allergy medication resolved cough and has since been discontinued with no return of cough. Pt reported drinking two 8oz glasses of water per day in addition to 1 -2 cups of coffee each morning . She uses her voice minimally through the day, stating a typical day includes a 1 mile walk, some exercise, and a variety of sedentary activities (e.g., watching TV or working on the computer). Pt stated voice is generally better in the morning, but this morning it was raspy. Per referral from Dr. Fuentes' s 06/16/22 note: she is having some reports of voice changes, including scratchy and quaky and softer voice, noticed randomly and reports its not constant and no effect on expression or swallowing and denies having a voice tremor, and denies any effect from caffeine and does not consume any alcohol. Subjective Identification Type Name Identification Reconciled With Medical Record Observations/Patient Presentation Meghan arrived on time and ambulated independently to therapy room. She reported increased hoarseness with sustained ah and pitch glides, despite only practicing these 1x per day. Chief Complaint(s) Voice Objective Short Term Goals 1. The pt will demonstrate reduced vocal hoarseness and breathiness as measured by patient report and the CAPE-V. 2. The pt will demonstrate 5dB increase in volume during sustained ah task. 3. The pt will demonstrate sustained low notes with reduced pitch breaks during high/low ah task. Weed Thinner Goals The pt will demonstrate improved vocal quality and reduced impact of vocal quality on ADLs as indicated by pt report, clinical judgment, and a score in the mild range (0-30) on VHI. Treatment Activities Reviewed HEP and provided verbal feedback on breathing exercise. Provided education regarding systems involved in speech sound production and practiced abdominal/ diaphragmatic breathing. Practiced forward resonance exercises with straw phonation and blowing bubbles. Assessment Patient Response to Treatment Good Rehab Potential Excellent Impairments Identified Voice Progress Towards Goals Good Progress Assessment of Overall Progress Improving Assessment of Improvement Pt demonstrated difficulty in maintaining oral resonance today. Improvement noted in breath support during sustained ah exercises, with less chest breathing noted today. Increased hoarseness noted through session, so trials with sustained ah were discontinued and focus shifted to forward resonance. Reviewed with Patient Goals,Progress Being Made,Home Exercise Program Patient/Caregiver Understanding Excellent Plan Amount of Therapy Recommended 4 Months Frequency of Treatment Once a Week Length of Session 45 Minutes Therapeutic Contents Client Education,Home Exercise Program,Voice Training Provided Patient/Caregiver Instruction Home Exercise Program,Plan of Care,Questions/Concerns Therapy Recommendations Continue with Current Program
--- NOTE | 2022-08-08 16:30 | ST.OPTN ---
Visit Care Team Role Provider Type Mani Tyson MD Family Provider Physician Primary Care Provider Address: [facility] [place], [address] Luis Fuentes MD Attending Provider Non-Staff Referring Provider Address: [address] [place], [address] APPLICATION SOFTWARE DEVELOPER Treatment Note APPLICATION SOFTWARE DEVELOPER Treatment Note Start: 07/11/22 11:56 Freq: Status: Active Protocol: Document 08/08/22 16:30 ZS (Rec: 08/09/22 13:44 ZS [id number]) Speech Pathology Treatment Note Session Time Visit Start Time 15:30 Visit Stop Time 16:00 Total Visit Minutes 30 Visit Information Visit Number 5 Plan of Care Dates 07/04/2022 - 11/11/2022 Insurance Information Medicare Setting Treatment Setting Outpatient Care Visit Type Note Type Treatment Note Next Note Type Next Note Type Treatment Note General Information Patient History Meghan is an 87-year old female referred to speech therapy due to inconsistent voice changes and volume through the day. 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 Pt reported she grew up in a house where both parents smoked, so she was exposed to second hand smoke as a child. About 10 years ago, she had a persistent cough which was treated with allergy medication. Allergy medication resolved cough and has since been discontinued with no return of cough. Pt reported drinking two 8oz glasses of water per day in addition to 1 -2 cups of coffee each morning . She uses her voice minimally through the day, stating a typical day includes a 1 mile walk, some exercise, and a variety of sedentary activities (e.g., watching TV or working on the computer). Pt stated voice is generally better in the morning, but this morning it was raspy. Per referral from Dr. Fuentes' s 06/16/22 note: she is having some reports of voice changes, including scratchy and quaky and softer voice, noticed randomly and reports its not constant and no effect on expression or swallowing and denies having a voice tremor, and denies any effect from caffeine and does not consume any alcohol. Subjective Identification Type Name Identification Reconciled With Medical Record Observations/Patient Presentation Meghan arrived on time and ambulated independently to therapy room. She reported continued hoarseness with exercises and difficulty with forward resonance shift. Chief Complaint(s) Voice Objective Short Term Goals 1. The pt will demonstrate reduced vocal hoarseness and breathiness as measured by patient report and the CAPE-V. 2. The pt will demonstrate 5dB increase in volume during sustained ah task. 3. The pt will demonstrate sustained low notes with reduced pitch breaks during high/low ah task. Usp Goals The pt will demonstrate improved vocal quality and reduced impact of vocal quality on ADLs as indicated by pt report, clinical judgment, and a score in the mild range (0-30) on VHI. Treatment Activities Reviewed HEP and provided verbal feedback on breathing exercise. Practiced forward resonance exercises with straw phonation and blowing bubbles . Practiced exercises and stretches to release tension in neck and shoulders. Assessment Patient Response to Treatment Good Rehab Potential Excellent Impairments Identified Voice Progress Towards Goals Good Progress Assessment of Overall Progress Improving Assessment of Improvement Pt demonstrated difficulty in maintaining oral resonance today, though improvement noted with implementation of tension-reduction exercises (e .g., stretching of neck and shoulders, relaxing shoulders down). Improvement noted in breath support during sustained ah exercises, with less chest breathing noted today. Increased hoarseness noted through session, so trials with sustained ah were discontinued and focus shifted to forward resonance. Reviewed with Patient Goals,Progress Being Made,Home Exercise Program Patient/Caregiver Understanding Excellent Plan Amount of Therapy Recommended 4 Months Frequency of Treatment Once a Week Length of Session 45 Minutes Therapeutic Contents Client Education,Home Exercise Program,Voice Training Provided Patient/Caregiver Instruction Home Exercise Program,Plan of Care,Questions/Concerns Therapy Recommendations Continue with Current Program
--- NOTE | 2022-08-16 11:22 | ST.OPTN ---
Visit Care Team Role Provider Type Mani Tyson MD Family Provider Physician Primary Care Provider Address: [facility] [place], [address] Luis Fuentes MD Attending Provider Non-Staff Referring Provider Address: [address] [place], [address] SAFETY TRAINER Treatment Note SAFETY TRAINER Treatment Note Start: 07/11/22 11:56 Freq: Status: Active Protocol: Document 08/16/22 11:13 ZS (Rec: 08/16/22 11:22 ZS [id number]) Speech Pathology Treatment Note Session Time Visit Start Time 10:30 Visit Stop Time 11:10 Total Visit Minutes 40 Visit Information Visit Number 6 Plan of Care Dates 07/04/2022 - 11/11/2022 Insurance Information Medicare Setting Treatment Setting Outpatient Care Visit Type Note Type Treatment Note Next Note Type Next Note Type Treatment Note General Information Patient History Meghan is an 87-year old female referred to speech therapy due to inconsistent voice changes and volume through the day. 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 Pt reported she grew up in a house where both parents smoked, so she was exposed to second hand smoke as a child. About 10 years ago, she had a persistent cough which was treated with allergy medication. Allergy medication resolved cough and has since been discontinued with no return of cough. Pt reported drinking two 8oz glasses of water per day in addition to 1 -2 cups of coffee each morning . She uses her voice minimally through the day, stating a typical day includes a 1 mile walk, some exercise, and a variety of sedentary activities (e.g., watching TV or working on the computer). Pt stated voice is generally better in the morning, but this morning it was raspy. Per referral from Dr. Fuentes' s 06/16/22 note: she is having some reports of voice changes, including scratchy and quaky and softer voice, noticed randomly and reports its not constant and no effect on expression or swallowing and denies having a voice tremor, and denies any effect from caffeine and does not consume any alcohol. Subjective Identification Type Name Identification Reconciled With Medical Record Observations/Patient Presentation Meghan arrived on time and ambulated independently to therapy room. She reported improvement with resonance and breath support though stated she noticed increased vocal hoarseness at the beginning of social events. Chief Complaint(s) Voice Objective Short Term Goals 1. The pt will demonstrate reduced vocal hoarseness and breathiness as measured by patient report and the CAPE-V. 2. The pt will demonstrate 5dB increase in volume during sustained ah task. 3. The pt will demonstrate sustained low notes with reduced pitch breaks during high/low ah task. Long-Term Goals The pt will demonstrate improved vocal quality and reduced impact of vocal quality on ADLs as indicated by pt report, clinical judgment, and a score in the mild range (0-30) on VHI. Treatment Activities Reviewed HEP and provided verbal feedback on breathing exercise. Practiced forward resonance exercises with straw phonation. Practiced exercises and stretches to release tension in neck and shoulders. Provided education regarding neck/shoulder tension and vocal quality. Completed sustained ah exercise and introduced words/ phrases to increase forward resonance and improved loudness in words. Assessment Patient Response to Treatment Good Rehab Potential Excellent Impairments Identified Voice Progress Towards Goals Good Progress Assessment of Overall Progress Improving Assessment of Improvement Pt demonstrated improved oral resonance today, which was further improved with implementation of tension- reduction exercises (e.g., stretching of neck and shoulders, relaxing shoulders down). Improvement noted in breath support during sustained ah exercises, with less chest breathing noted today. Decreased hoarseness noted with increased loudness on sustained ah trials today in addition to improved loudness and increased MPT. Pt exhibited improved vocal quality when reading words/ phrases, though quality diminished over the course of the list of words. When verbal feedback was provided, pt maintained clear vocal quality for more of the list and quality did not decrease as much as in previous trial. Reviewed with Patient Goals,Progress Being Made,Home Exercise Program Patient/Caregiver Understanding Excellent Plan Amount of Therapy Recommended 4 Months Frequency of Treatment Once a Week Length of Session 45 Minutes Therapeutic Contents Client Education,Home Exercise Program,Voice Training Provided Patient/Caregiver Instruction Home Exercise Program,Plan of Care,Questions/Concerns Therapy Recommendations Continue with Current Program
--- NOTE | 2022-08-23 11:25 | ST.OPTN ---
Visit Care Team Role Provider Type Mani Tyson MD Family Provider Physician Primary Care Provider Address: 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 FARMER Treatment Note Start: 07/11/22 11:56 Freq: Status: Active Protocol: Document 08/23/22 11:19 ZS (Rec: 08/23/22 11:25 ZS [id number]) Speech Pathology Treatment Note Session Time Visit Start Time 10:30 Visit Stop Time 11:20 Total Visit Minutes 50 Visit Information Visit Number 7 Plan of Care Dates 07/04/2022 - 11/11/2022 Insurance Information Medicare Setting Treatment Setting Outpatient Care Visit Type Note Type Treatment Note Next Note Type Next Note Type Treatment Note General Information Patient History Meghan is an 87-year old female referred to speech therapy due to inconsistent voice changes and volume through the day. 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 Pt reported she grew up in a house where both parents smoked, so she was exposed to second hand smoke as a child. About 10 years ago, she had a persistent cough which was treated with allergy medication. Allergy medication resolved cough and has since been discontinued with no return of cough. Pt reported drinking two 8oz glasses of water per day in addition to 1 -2 cups of coffee each morning . She uses her voice minimally through the day, stating a typical day includes a 1 mile walk, some exercise, and a variety of sedentary activities (e.g., watching TV or working on the computer). Pt stated voice is generally better in the morning, but this morning it was raspy. Per referral from Dr. Fuentes' s 06/16/22 note: she is having some reports of voice changes, including scratchy and quaky and softer voice, noticed randomly and reports its not constant and no effect on expression or swallowing and denies having a voice tremor, and denies any effect from caffeine and does not consume any alcohol. Subjective Identification Type Name Identification Reconciled With Medical Record Observations/Patient Presentation Meghan arrived on time and ambulated independently to therapy room. Chief Complaint(s) Voice Objective Short Term Goals 1. The pt will demonstrate reduced vocal hoarseness and breathiness as measured by patient report and the CAPE-V. 2. The pt will demonstrate 5dB increase in volume during sustained ah task. 3. The pt will demonstrate sustained low notes with reduced pitch breaks during high/low ah task. Half-Way Goals The pt will demonstrate improved vocal quality and reduced impact of vocal quality on ADLs as indicated by pt report, clinical judgement, and a score in the mild range (0-30) on VHI. Treatment Activities Reviewed HEP Practiced forward resonance and abdominal breathing during sustained ah and reading words/phrases. Practiced exercises and stretches to release tension in neck and shoulders. Provided education regarding neck/shoulder tension and vocal quality. Recommend referral for stroboscopy with ENT to rule out vocal tremor or structural abnormalities that may contribute to vocal quality. Assessment Patient Response to Treatment Good Rehab Potential Excellent Impairments Identified Voice Progress Towards Goals Good Progress Assessment of Overall Progress Improving Assessment of Improvement Pt maintained increased loudness across tasks today, though MPT dropped since previous session. Discussed breath support and exercises for reduction of raspy vocal quality. Pt demonstrated understanding of all exercises and implemented verbal feedback well. Provided education regarding stroboscopy purpose, procedure , and recommendation. Pt expressed understanding and agreement with plan of care and will contact her PCP for a referral. Recommend referral for flexible stroboscopy to rule out vocal tremor and structural abnormalities to inform treatment plan. Reviewed with Patient Goals,Progress Being Made,Home Exercise Program Patient/Caregiver Understanding Excellent Plan Amount of Therapy Recommended 4 Months Frequency of Treatment Once a Week Length of Session 45 Minutes Therapeutic Contents Client Education,Home Exercise Program,Voice Training Provided Patient/Caregiver Instruction Home Exercise Program,Plan of Care,Questions/Concerns Therapy Recommendations Continue with Current Program
--- NOTE | 2022-09-02 11:29 | ST.OPTN ---
Visit Care Team Role Provider Type Mani Tyson MD Family Provider Physician Primary Care Provider Address: [facility] [place] [place], [address] Luis Fuentes MD Attending Provider Non-Staff Referring Provider Address: [address] [place], [address] [address] CLERK Treatment Note [address] CLERK Treatment Note Start: 07/11/22 11:56 Freq: Status: Active Protocol: Document 09/02/22 11:20 CG (Rec: 09/02/22 11:25 CG [id number]) Speech Pathology Treatment Note Session Time Visit Start Time 08:33 Visit Stop Time 09:18 Total Visit Minutes 45 Visit Information Visit Number 8 Plan of Care Dates 07/04/2022 - 11/11/2022 Insurance Information Medicare Setting Treatment Setting Outpatient Care Visit Type Note Type Treatment Note Next Note Type Next Note Type Treatment Note General Information Patient History Meghan is an 87-year old female referred to speech therapy due to inconsistent voice changes and volume through the day. 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 Pt reported she grew up in a house where both parents smoked, so she was exposed to second hand smoke as a child. About 10 years ago, she had a persistent cough which was treated with allergy medication. Allergy medication resolved cough and has since been discontinued with no return of cough. Pt reported drinking two 8oz glasses of water per day in addition to 1 -2 cups of coffee each morning . She uses her voice minimally through the day, stating a typical day includes a 1 mile walk, some exercise, and a variety of sedentary activities (e.g., watching TV or working on the computer). Pt stated voice is generally better in the morning, but this morning it was raspy. Per referral from Dr. Fuentes' s 06/16/22 note: she is having some reports of voice changes, including scratchy and quaky and softer voice, noticed randomly and reports its not constant and no effect on expression or swallowing and denies having a voice tremor, and denies any effect from caffeine and does not consume any alcohol. Subjective Identification Type Name Identification Reconciled With Medical Record Observations/Patient Presentation Meghan arrived on time and ambulated independently to therapy room. Chief Complaint(s) Voice Objective Short Term Goals 1. The pt will demonstrate reduced vocal hoarseness and breathiness as measured by patient report and the CAPE-V. 2. The pt will demonstrate 5dB increase in volume during sustained ah task. 3. The pt will demonstrate sustained low notes with reduced pitch breaks during high/low ah task. Fpc Goals The pt will demonstrate improved vocal quality and reduced impact of vocal quality on ADLs as indicated by pt report, clinical judgement, and a score in the mild range (0-30) on VHI. Treatment Activities Reviewed HEP including sustained /a/ and vocal glides up and down. Provided instruction in utilizing abdominal breathing, with the use of visual cues (drawing anatomy and explaining physiology, putting one hand on chest and one on abdomen) and verbal cues (cue to suck in as if through a straw and fill your lungs from the bottom up). Introduced semi- occluded vocal tract exercises with straw to facilitate forwards resonance and reduced vocal strain during activities. Practiced exercises and stretches to release tension in neck and shoulders. Provided education regarding modifications for home practice including utilizing straw phonation to establish forward resonance during exercises. Assessment Patient Response to Treatment Good Rehab Potential Excellent Impairments Identified Voice Progress Towards Goals Good Progress Assessment of Overall Progress Improving Assessment of Improvement Pt maintained increased loudness across tasks today. She completed sustained /a/ exercises with an average of 76.5dB at an average duration of 18.54s. Pt responded well to visual and verbal cues to facilitate abdominal breathing and began demonstrating emerging success with shifting breath into abdomen/diaphragm . Pt had difficulty phonating through straw but expressed understanding of rationale of SOVT exercises and stated she was able to begin feeling forward resonance shift ( buzzing in the cheeks). Pt expressed understanding and compliance with home exercise program. Reviewed with Patient Progress Being Made,Home Exercise Program Patient/Caregiver Understanding Excellent Plan Amount of Therapy Recommended 4 Months Frequency of Treatment Once a Week Length of Session 45 Minutes Therapeutic Contents Client Education,Home Exercise Program,Voice Training Provided Patient/Caregiver Instruction Home Exercise Program,Plan of Care,Questions/Concerns Therapy Recommendations Continue with Current Program
--- NOTE | 2022-09-16 11:36 | ST.OPTN ---
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 Treatment Note GRAIN COMBINER Treatment Note Start: 07/11/22 11:56 Freq: Status: Active Protocol: Document 09/16/22 10:41 BE (Rec: 09/16/22 10:44 BE [id number]) Speech Pathology Treatment Note Session Time Visit Start Time 08:30 Visit Stop Time 09:15 Total Visit Minutes 45 Visit Information Visit Number 9 Plan of Care Dates 07/04/2022 - 11/11/2022 Insurance Information Medicare Setting Treatment Setting Outpatient Care Visit Type Note Type Treatment Note Next Note Type Next Note Type Treatment Note General Information Patient History Meghan is an 87-year old female referred to speech therapy due to inconsistent voice changes and volume through the day. 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 Pt reported she grew up in a house where both parents smoked, so she was exposed to second hand smoke as a child. About 10 years ago, she had a persistent cough which was treated with allergy medication. Allergy medication resolved cough and has since been discontinued with no return of cough. Pt reported drinking two 8oz glasses of water per day in addition to 1 -2 cups of coffee each morning . She uses her voice minimally through the day, stating a typical day includes a 1 mile walk, some exercise, and a variety of sedentary activities (e.g., watching TV or working on the computer). Pt stated voice is generally better in the morning, but this morning it was raspy. Per referral from Dr. Fuentes' s 06/16/22 note: she is having some reports of voice changes, including scratchy and quaky and softer voice, noticed randomly and reports its not constant and no effect on expression or swallowing and denies having a voice tremor, and denies any effect from caffeine and does not consume any alcohol. Subjective Identification Type Name Identification Reconciled With Medical Record Observations/Patient Presentation Meghan arrived on time and ambulated independently to therapy room. Chief Complaint(s) Voice Objective Short Term Goals 1. The pt will demonstrate reduced vocal hoarseness and breathiness as measured by patient report and the CAPE-V. 2. The pt will demonstrate 5dB increase in volume during sustained ah task. 3. The pt will demonstrate sustained low notes with reduced pitch breaks during high/low ah task. Field Service Tech Goals The pt will demonstrate improved vocal quality and reduced impact of vocal quality on ADLs as indicated by pt report, clinical judgement, and a score in the mild range (0-30) on VHI. Treatment Activities Reviewed HEP including sustained /a/ and straw exercises. Pt reported limited follow through with home practice. Explained reason for referral to ENT for stroboscopy, including possible alternative treatments based on etiology. First set of sustained /a/ ( beginning of session): 77dB & 13.7s, 76 dB & 13.9s, 79dB and 20.7s. Second set of sustained /a/ (end of session) : 77dB, 15.8s, 77dB 15.8s, 79dB 19.9s, demonstrating improved volume and breath control. Pt benefitted from reminders for diaphgragmatic breathing, and final set of sustained /a/ had significantly better vocal quality (reduced breathiness/ strain/tremor). In conversation, vocal quality greatly improved when Meghan used loud voice. Clinician recorded Meghan's voice and played it back to her to reduce feelings of discomfort around volume level, and to demonstrate improved vocal quality. Practiced straw exercises and stretches to release tension in larynx, neck and shoulders. Pt stated that she will follow through with exercises, and contact her ENT on Monday about scheduling a stroboscopy. Assessment Patient Response to Treatment Good Rehab Potential Excellent Impairments Identified Voice Progress Towards Goals Good Progress Assessment of Overall Progress Improving Assessment of Improvement Pt's voice was noticeably more loud and consistent during conversation today. Volume and quality was variable, as pt reported forgetting to keep using her strategies. She completed sustained /a/ exercises with an average of 77.7dB at an average duration of 17.1s. Pt responded well to visual and verbal cues to facilitate abdominal breathing and continued to demonstrate success with shifting breath into abdomen/diaphragm during conversation. Pt had difficulty phonating through straw but expressed understanding of rationale of SOVT exercises and stated she was able to begin feeling forward resonance shift ( buzzing in the cheeks). Pt expressed understanding and compliance with home exercise program. Reviewed with Patient Progress Being Made,Home Exercise Program Patient/Caregiver Understanding Excellent Plan Amount of Therapy Recommended 4 Months Frequency of Treatment Once a Week Length of Session 45 Minutes Therapeutic Contents Client Education,Home Exercise Program,Voice Training Provided Patient/Caregiver Instruction Home Exercise Program,Plan of Care,Questions/Concerns Therapy Recommendations Continue with Current Program Suggested Referral ENT
--- NOTE | 2022-09-30 08:47 | ST.OPDS ---
Visit Care Team Role Provider Type Mani Tyson MD Family Provider Physician Primary Care Provider Address: [facility] [place], [address] Luis Fuentes MD Attending Provider Non-Staff Referring Provider Address: [address] [place], [address] LICENSED CLINICAL PSYCHOLOGIST Treatment Note LICENSED CLINICAL PSYCHOLOGIST Treatment Note Start: 07/11/22 11:56 Freq: Status: Active Protocol: Document 09/30/22 08:40 ZS (Rec: 09/30/22 08:47 ZS [id number]) Speech Pathology Treatment Note Visit Information Plan of Care Dates 07/04/2022 - 11/11/2022 Insurance Information Medicare Setting Treatment Setting Outpatient Care Visit Type Note Type Discharge Summary General Information Patient History Meghan is an 87-year old female referred to speech therapy due to inconsistent voice changes and volume through the day. 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 Pt reported she grew up in a house where both parents smoked, so she was exposed to second hand smoke as a child. About 10 years ago, she had a persistent cough which was treated with allergy medication. Allergy medication resolved cough and has since been discontinued with no return of cough. Pt reported drinking two 8oz glasses of water per day in addition to 1 -2 cups of coffee each morning . She uses her voice minimally through the day, stating a typical day includes a 1 mile walk, some exercise, and a variety of sedentary activities (e.g., watching TV or working on the computer). Pt stated voice is generally better in the morning, but this morning it was raspy. Per referral from Dr. Fuentes' s 06/16/22 note: she is having some reports of voice changes, including scratchy and quaky and softer voice, noticed randomly and reports its not constant and no effect on expression or swallowing and denies having a voice tremor, and denies any effect from caffeine and does not consume any alcohol. Subjective Identification Type Name Identification Reconciled With Medical Record Chief Complaint(s) Voice Objective Short Term Goals 1. The pt will demonstrate reduced vocal hoarseness and breathiness as measured by patient report and the CAPE-V. 2. The pt will demonstrate 5dB increase in volume during sustained ah task. 3. The pt will demonstrate sustained low notes with reduced pitch breaks during high/low ah task. Core Feeder Goals The pt will demonstrate improved vocal quality and reduced impact of vocal quality on ADLs as indicated by pt report, clinical judgment, and a score in the mild range (0-30) on VHI. Treatment Activities Meghan called to cancel remaining appointments. She will see an ENT in November and obtain a new speech referral after that appointment. Assessment Patient Response to Treatment Good Rehab Potential Excellent Impairments Identified Voice Progress Towards Goals Good Progress Assessment of Overall Progress Improving Assessment of Improvement Discharing Meghan from speech therapy pending ENT evaluation . Pt will obtain a new speech referral after ENT appointment in mid-November. Pt has demonstrated improvement in vocal quality with speech therapy, though progress is dependent on consistency in HEP completion and strategy use. ENT evaluation recommended to determine etiology of vocal impairment to inform plan of care. Reviewed with Patient Progress Being Made,Home Exercise Program Patient/Caregiver Understanding Excellent Plan Therapeutic Contents Client Education,Home Exercise Program,Voice Training Provided Patient/Caregiver Instruction Home Exercise Program,Plan of Care,Questions/Concerns Therapy Recommendations Discharge to Home Exercise Program,Discharge from Speech Therapy Reason for Discharge Pt requested. ENT eval in mid- November and obtain new ST referral after. Suggested Referral ENT
== END 2022-09-30 10:19 ==
LOC: SP 08:30
PROVIDERS: Family Provider Family Medicine; PCP Family Medicine; Referring Provider Psychiatry & Neurology Neurology; Visit Provider Psychiatry & Neurology Neurology
DX: R49.9 Unspecified voice and resonance disorder (principal)
CPT/HCPCS: 92507; 92524

== ENCOUNTER → 2023-03-27 15:32 | Outpatient (CLI) | payer MEDICARE, OTHER, SELFPAY ==
[2019-11-11 13:49] VITALS: BMI 27.3
== END ==
PROVIDERS: Family Provider Family Medicine; PCP Family Medicine; Visit Provider Family Medicine
DX: R32 Unspecified urinary incontinence (principal)
CPT/HCPCS: 87086

== ENCOUNTER → 2023-05-27 15:33 | Outpatient (CLI) | payer MEDICARE, OTHER, SELFPAY ==
[2019-11-11 13:49] VITALS: BMI 27.3
== END ==
PROVIDERS: Family Provider Family Medicine; PCP Family Medicine; Visit Provider Nurse Practitioner Family
DX: N39.0 Urinary tract infection, site not specified (principal)
CPT/HCPCS: 87086

== ENCOUNTER 2023-09-07 14:30 | Outpatient (RCR) | payer MEDICARE, OTHER, SELFPAY ==
[2019-11-11 13:49] VITALS: BMI 27.3
--- NOTE | 2023-06-23 15:56 | PT.OIE ---
Current Diagnoses Stiffness of left hip, not elsewhere classified (06/23/23) Low back pain, unspecified (06/23/23) Pain in left leg (06/23/23) Past Medical History (Last Reviewed 05/09/23 @ 08:36 by Mani Tyson MD) Childers's palsy Chronic cough Colon polyps Hearing impaired Hyperlipidemia Osteoarthritis Past Surgical History (Last Reviewed 05/09/23 @ 08:36 by Mani Tyson MD) History of meniscectomy of left knee (~2003) History of meniscectomy of right knee (~2011) History of surgery (~2012) Hx of bilateral cataract extraction Skin cancer (~2006) Status post appendectomy Visit Care Team Role Provider Type Mani Tyson MD Family Provider Physician Primary Care Provider Specialty: Family Practice Address: [address] [place] [address], [address], [address] Email: [email or web address] Luis Fuentes MD Attending Provider Non-Staff Referring Provider Specialty: Neurology Address: [address] [place] [address], [id number] Email: Physical Therapy Initial Evaluation PT-OP-A Visit Information Start: 06/23/23 11:50 Freq: Status: Active Protocol: Document 06/23/23 11:15 DCW (Rec: 06/23/23 11:55 DCW [id number]) Out-Patient Physical Therapy Visit Information Visit Information Visit Type Initial Evaluation Visit Start Time 11:15 Visit Stop Time 11:50 Visit Number 1 Number of SENIOR CONSUMER INSIGHTS CONSULTANT Visits 0 Evaluation Information Evaluation Date 06/23/23 PT-OP-B Current Condition Start: 06/23/23 11:50 Freq: Status: Active Protocol: Document 06/23/23 11:15 DCW (Rec: 06/23/23 15:44 DCW [id number]) Current Condition History of Current Condition Onset Date Three month history Current Complaints Posterior left hip pain History of Current Condition Pt is an 88 year old female well known to this clinic complaining of a three month history of left posterior hip pain. Three months ago, pt accidentally put a Tupperware container in the oven, and then spent two hours bent over cleaning it up. After this two hours, pt began to have fairly severe pain in her left hip. After a short time, pain improved to the point where it only bothers her for five minutes when first getting up in the morning, causes pain and makes her limp around, but then it relaxes and she is able to go about the rest of her day without pain. Tries to stay very active, walks ~1 mile with her every day, but we're really slow. Also has a flight of stairs ( 14 steps) that she tries to go up and down 6-8 times each day. Treatment Goals Patient/Caregiver Goals Eliminate AM pain in her left posterior hip PT-OP-C Subjective Start: 06/23/23 11:50 Freq: Status: Active Protocol: Document 06/23/23 11:15 DCW (Rec: 06/23/23 15:44 DCW [id number]) OP-PT Subjective Patient Comments Patient Comments Since it's so brief, I know it's not the worst thing, but it is still really annoying to deal with. Patient Questionnaires Oswestry Low Back Index Oswestry Score 50 = 2% OP-PT Pain Assessment Pain Assessment Grid Paper Pain Assessment Grid Completed Yes Location Left Posterior Hip Intensity 6 Scale Used Numeric (0 - 10) Description Aching,Dull,Tightness Frequency Occasional Other Pain Aggravating Factors Getting up in the morning PT-OP-F Manual Assessment Start: 06/23/23 11:50 Freq: Status: Active Protocol: Document 06/23/23 11:15 DCW (Rec: 06/23/23 15:44 DCW [id number]) Manual Assessments Soft Tissue Assessment Soft Tissue Mobility Assessment Moderate tone with tenderness to palpation 2/4: Pain with wincing L Piriformis PT-OP-K Range of Motion Start: 06/23/23 11:50 Freq: Status: Active Protocol: Document 06/23/23 11:15 DCW (Rec: 06/23/23 15:44 DCW [id number]) Lumbar Spine Range of Motion Lumbar Spine Active Degrees Testing Position Standing Flexion 45 Extension 30 PT-OP-L Special Tests Start: 06/23/23 11:50 Freq: Status: Active Protocol: Document 06/23/23 11:15 DCW (Rec: 06/23/23 15:44 DCW [id number]) Special Tests Lumbar Spine Special Tests Straight Leg Raise Test Results Negative Standing Flexion Test Results Negative Slump Test Results Negative Compression Test Results Negative Hip Special Tests Piriformis Test Results Positive L SERGEI Test Results Negative PT-OP-Q Treatments Start: 06/23/23 11:50 Freq: Status: Active Protocol: Document 06/23/23 11:15 DCW (Rec: 06/23/23 11:55 DCW [id number]) Therapeutic Exercises Supine Exercises Piriformis Supine Exercise Name Piriformis stretch - Knee to opposite shoulder Side left Sitting Exercises Piriformis Sitting Exercise Name Seated figure-4 Side left Standing Exercises Self-STM Standing Exercise Name Piriformis self-STM tennis ball on wall Side left Manual Therapy Treatment Soft Tissue Mobilization Piriformis Body Location L Piriformis Mobilization Type Strumming,Sustained Pressure Intensity/Depth Deep Body Position Sidelying PT-OP-T Assessment and Plan Start: 06/23/23 11:50 Freq: Status: Active Protocol: Document 06/23/23 11:15 DCW (Rec: 06/23/23 15:56 DCW [id number]) Physical Therapy Assessment Rehab Potential Rehabilitation Potential Excellent Evaluation Complexity Number of Personal Factors/Comorbidities 3 or More Number of Body Systems Impaired 1-2 Clinical Presentation at Evaluation Stable Impairments Impairments Functional Activities, Functional Mobility,Pain, Strength,Tone Goals Two Impairment Pt experiences short-term 6/10 pain when getting OOB in the morning Fpc Goal (LTG) Pt to report no increased pain upon first getting out of bed for one full week to improve ability to get herself to the bathroom in the morning LTG Duration 08/22/23 One Impairment Pt does not have an appropriate home exercise program Short Term Goal (STG) Pt to be independent and compliant with an appropriate HEP STG Duration 07/22/23 Assessment Summary Assessment Pt presents with signs and symptoms consistent with likely Piriformis syndrome. Pt lumbar/spinal testing all unremarkable. Pt subjective pain location very specifically along left piriformis, very stiff upon attempting to stretch. During both stretch and palpation of left piriformis, pt notes that's right where it is! Immediate good response to stretch, provided HEP for stretching and self-STM using tennis ball. Pt should likely benefit from skilled therapy focusing on tone management, stretching/strengthening education, HEP implementation, and STM. Physical Therapy Plan Frequency and Duration Frequency of Treatment 2x/Week Plan of Care Start Date 06/23/23 Plan of Care End Date 08/22/23 Therapeutic Interventions Therapeutic Interventions Home Exercise Program,Joint Mobilizations,Manual Therapy, Neuromuscular Re-education, Patient/Caregiver Education, Self-Care/Home Management,Soft Tissue Mobilization, Therapeutic Activities, Therapeutic Exercises Next Visit Focus/Plan Next Note Type Treatment Note Next Visit Plan Stretching, flexibility, STM
--- NOTE | 2023-06-23 15:57 | PT.OPPOC ---
Physical, Occupational & Speech Therapy At [facility] Current Diagnoses Stiffness of left hip, not elsewhere classified (06/23/23) Low back pain, unspecified (06/23/23) Pain in left leg (06/23/23) Visit Care Team Role Provider Type Mani Tyson MD Family Provider Physician Primary Care Provider Specialty: Family Practice Address: [address] [place] [address], [facility] [address], [place], [address] Email: [email or web address] Luis Fuentes MD Attending Provider Non-Staff Referring Provider Specialty: Neurology Address: [address] [place] [address], [id number] Email: Plan Of Care PT-OP-T Assessment and Plan Start: 06/23/23 11:50 Freq: Status: Active Protocol: Document 06/23/23 11:15 DCW (Rec: 06/23/23 15:56 DCW [id number]) Physical Therapy Assessment Rehab Potential Rehabilitation Potential Excellent Evaluation Complexity Number of Personal Factors/Comorbidities 3 or More Number of Body Systems Impaired 1-2 Clinical Presentation at Evaluation Stable Impairments Impairments Functional Activities, Functional Mobility,Pain, Strength,Tone Goals Two Impairment Pt experiences short-term 6/10 pain when getting OOB in the morning Group Home Goal (LTG) Pt to report no increased pain upon first getting out of bed for one full week to improve ability to get herself to the bathroom in the morning LTG Duration 08/22/23 One Impairment Pt does not have an appropriate home exercise program Short Term Goal (STG) Pt to be independent and compliant with an appropriate HEP STG Duration 07/22/23 Assessment Summary Assessment Pt presents with signs and symptoms consistent with likely Piriformis syndrome. Pt lumbar/spinal testing all unremarkable. Pt subjective pain location very specifically along left piriformis, very stiff upon attempting to stretch. During both stretch and palpation of left piriformis, pt notes that's right where it is! Immediate good response to stretch, provided HEP for stretching and self-STM using tennis ball. Pt should likely benefit from skilled therapy focusing on tone management, stretching/strengthening education, HEP implementation, and STM. Physical Therapy Plan Frequency and Duration Frequency of Treatment 2x/Week Plan of Care Start Date 06/23/23 Plan of Care End Date 08/22/23 Therapeutic Interventions Therapeutic Interventions Home Exercise Program,Joint Mobilizations,Manual Therapy, Neuromuscular Re-education, Patient/Caregiver Education, Self-Care/Home Management,Soft Tissue Mobilization, Therapeutic Activities, Therapeutic Exercises Next Visit Focus/Plan Next Note Type Treatment Note Next Visit Plan Stretching, flexibility, STM Plan of Care Dates Plan of Care Start Date 06/23/23 Plan of Care End Date 08/22/23 Electronically Signed by: Cesar Garay, PT 06/23/23 8985 If you are in agreement with this Plan of Care, please return a signed and dated copy. I have reviewed this Plan of Care and certify that the skilled therapy services above are required to meet the patient?s needs. Physician Signature Date Printed Name and Credentials Clinical Instructor Signature Printed Name and Credentials
--- NOTE | 2023-07-27 09:41 | PT.OTN ---
Current Diagnoses Stiffness of left hip, not elsewhere classified (07/27/23) Low back pain, unspecified (07/27/23) Pain in left leg (07/27/23) Physical Therapy Treatment Note PT-OP-A Visit Information Start: 06/23/23 11:50 Freq: Status: Active Protocol: Document 07/27/23 09:01 SP (Rec: 07/27/23 09:53 SP [id number]) Out-Patient Physical Therapy Visit Information Visit Information Visit Type Treatment Note Visit Start Time 09:01 Visit Stop Time 09:41 Visit Number 2 Number of CARPET FINISHING SUPERVISOR Visits 1 Evaluation Information Evaluation Date 06/23/23 PT-OP-B Current Condition Start: 06/23/23 11:50 Freq: Status: Active Protocol: Document 06/23/23 11:15 DCW (Rec: 06/23/23 15:44 DCW [id number]) Current Condition History of Current Condition Onset Date Three month history Current Complaints Posterior left hip pain History of Current Condition Pt is an 88 year old female well known to this clinic complaining of a three month history of left posterior hip pain. Three months ago, pt accidentally put a Tupperware container in the oven, and then spent two hours bent over cleaning it up. After this two hours, pt began to have fairly severe pain in her left hip. After a short time, pain improved to the point where it only bothers her for five minutes when first getting up in the morning, causes pain and makes her limp around, but then it relaxes and she is able to go about the rest of her day without pain. Tries to stay very active, walks ~1 mile with her every day, but we're really slow. Also has a flight of stairs ( 14 steps) that she tries to go up and down 6-8 times each day. Treatment Goals Patient/Caregiver Goals Eliminate AM pain in her left posterior hip PT-OP-C Subjective Start: 06/23/23 11:50 Freq: Status: Active Protocol: Document 07/27/23 09:01 SP (Rec: 07/27/23 09:53 SP [id number]) OP-PT Subjective Patient Comments Patient Comments Pt reports she decided to cancel appts since last tx because doing much better. Is doing HEP 3x/day and walking daily. She arrived today to check in still having some pain in am over L SI when get out bed like nerve is wrapped tight but goes away with activity. She doesn't have more appts, wants see how things go today if need continue. PT-OP-F Manual Assessment Start: 06/23/23 11:50 Freq: Status: Active Protocol: Document 06/23/23 11:15 DCW (Rec: 06/23/23 15:44 DCW [id number]) Manual Assessments Soft Tissue Assessment Soft Tissue Mobility Assessment Moderate tone with tenderness to palpation 2/4: Pain with wincing L Piriformis PT-OP-K Range of Motion Start: 06/23/23 11:50 Freq: Status: Active Protocol: Document 06/23/23 11:15 DCW (Rec: 06/23/23 15:44 DCW [id number]) Lumbar Spine Range of Motion Lumbar Spine Active Degrees Testing Position Standing Flexion 45 Extension 30 PT-OP-L Special Tests Start: 06/23/23 11:50 Freq: Status: Active Protocol: Document 06/23/23 11:15 DCW (Rec: 06/23/23 15:44 DCW [id number]) Special Tests Lumbar Spine Special Tests Straight Leg Raise Test Results Negative Standing Flexion Test Results Negative Slump Test Results Negative Compression Test Results Negative Hip Special Tests Piriformis Test Results Positive L SERGEI Test Results Negative PT-OP-Q Treatments Start: 06/23/23 11:50 Freq: Status: Active Protocol: Document 07/27/23 09:01 SP (Rec: 07/27/23 09:53 SP [id number]) Therapeutic Exercises Supine Exercises bridge Supine Exercise Name TA and sacral flexion lift/ lower Resistance AROM Equipment Used pnfree Reps/Minutes 2x5 reps Comments TA engagement, slow tailbone tuck and roll up to lift, slowly lower down TA trng Supine Exercise Name 1. TA draw in holds 2. KFO 3. LTR Reps/Minutes 1. 5 SH x10 2-3. small range few reps irritation L SI region Comments good response pnfree TA draw in 2-3. stopped due to irritated pain L SI Piriformis Supine Exercise Name Piriformis stretch - Knee to opposite shoulder Side left Sitting Exercises adductor isometric Sitting Exercise Name trialed Resistance small ball between knees Reps/Minutes 5 SH x5 Comments pnfree Piriformis Sitting Exercise Name Seated figure-4 Side left Reps/Minutes 2 x30 Comments good stretch response Standing Exercises Self-STM Standing Exercise Name Piriformis self-STM tennis ball on wall, WB in chair & supine Side left Reps/Minutes sit (firm BIG chair)> supine various gluteal region Comments pt states not getting to the area needed, higher Manual Therapy Treatment Soft Tissue Mobilization Piriformis Body Location L Piriformis Mobilization Type Strumming,Sustained Pressure Intensity/Depth Deep Body Position Sidelying Manual Traction long leg pull Details L Comments good response, pnfree Self-Care/Home Management Treatment Education Patient Education Body Mechanics,Joint Protection,Pain Management, Posture,Safety Other Education sleep pos pillows between BLE on side and under thighs hooklying to support hip and spinal alignment. See her phone for normal sleep positioning and use pillows during tx. PT-OP-T Assessment and Plan Start: 06/23/23 11:50 Freq: Status: Active Protocol: Document 07/27/23 09:01 SP (Rec: 07/27/23 09:53 SP [id number]) Physical Therapy Assessment Goals Two Impairment Pt experiences short-term 6/10 pain when getting OOB in the morning Exhauster Goal (LTG) Pt to report no increased pain upon first getting out of bed for one full week to improve ability to get herself to the bathroom in the morning LTG Duration 08/22/23 One Impairment Pt does not have an appropriate home exercise program Short Term Goal (STG) Pt to be independent and compliant with an appropriate HEP STG Duration 07/22/23 Assessment Summary Assessment CARPET FINISHING SUPERVISOR assisted pt with alternative to ballon wall STMs at piriformis with reponse doesn't get to the area needed. No significant seated as well. was able to duplicate pain during TA heel slide, LTR and KFO. Physical Therapy Plan Frequency and Duration Frequency of Treatment 2x/Week Plan of Care Start Date 06/23/23 Plan of Care End Date 08/22/23 Therapeutic Interventions Therapeutic Interventions Home Exercise Program,Joint Mobilizations,Manual Therapy, Neuromuscular Re-education, Patient/Caregiver Education, Self-Care/Home Management,Soft Tissue Mobilization, Therapeutic Activities, Therapeutic Exercises Next Visit Focus/Plan Next Note Type Treatment Note Next Visit Plan Ask response to TA trng, bridge, hip add isometric, sleeping use pillows. CHeck pelvic alignment. POC: Stretching, flexibility, STM
--- NOTE | 2023-07-31 10:29 | PT.OTN ---
Current Diagnoses Stiffness of left hip, not elsewhere classified (07/31/23) Low back pain, unspecified (07/31/23) Pain in left leg (07/31/23) Physical Therapy Treatment Note PT-OP-A Visit Information Start: 06/23/23 11:50 Freq: Status: Active Protocol: Document 07/31/23 09:45 DCW (Rec: 07/31/23 10:29 DCW [id number]) Out-Patient Physical Therapy Visit Information Visit Information Visit Type Treatment Note Visit Start Time 09:45 Visit Stop Time 10:30 Visit Number 3 Number of CALL WORKER PERSON Visits 0 Evaluation Information Evaluation Date 06/23/23 PT-OP-B Current Condition Start: 06/23/23 11:50 Freq: Status: Active Protocol: Document 06/23/23 11:15 DCW (Rec: 06/23/23 15:44 DCW [id number]) Current Condition History of Current Condition Onset Date Three month history Current Complaints Posterior left hip pain History of Current Condition Pt is an 88 year old female well known to this clinic complaining of a three month history of left posterior hip pain. Three months ago, pt accidentally put a Tupperware container in the oven, and then spent two hours bent over cleaning it up. After this two hours, pt began to have fairly severe pain in her left hip. After a short time, pain improved to the point where it only bothers her for five minutes when first getting up in the morning, causes pain and makes her limp around, but then it relaxes and she is able to go about the rest of her day without pain. Tries to stay very active, walks ~1 mile with her every day, but we're really slow. Also has a flight of stairs ( 14 steps) that she tries to go up and down 6-8 times each day. Treatment Goals Patient/Caregiver Goals Eliminate AM pain in her left posterior hip PT-OP-C Subjective Start: 06/23/23 11:50 Freq: Status: Active Protocol: Document 07/31/23 09:45 DCW (Rec: 07/31/23 10:29 DCW [id number]) OP-PT Subjective Patient Comments Patient Comments Pt admits that she was pretty sore after her last appointment, but I've recovered. Feeling better at night, able to roll over without a problem, but still bothers her occasionally when walking and first getting up in the morning. PT-OP-F Manual Assessment Start: 06/23/23 11:50 Freq: Status: Active Protocol: Document 06/23/23 11:15 DCW (Rec: 06/23/23 15:44 DCW [id number]) Manual Assessments Soft Tissue Assessment Soft Tissue Mobility Assessment Moderate tone with tenderness to palpation 2/4: Pain with wincing L Piriformis PT-OP-K Range of Motion Start: 06/23/23 11:50 Freq: Status: Active Protocol: Document 06/23/23 11:15 DCW (Rec: 06/23/23 15:44 DCW [id number]) Lumbar Spine Range of Motion Lumbar Spine Active Degrees Testing Position Standing Flexion 45 Extension 30 PT-OP-L Special Tests Start: 06/23/23 11:50 Freq: Status: Active Protocol: Document 06/23/23 11:15 DCW (Rec: 06/23/23 15:44 DCW [id number]) Special Tests Lumbar Spine Special Tests Straight Leg Raise Test Results Negative Standing Flexion Test Results Negative Slump Test Results Negative Compression Test Results Negative Hip Special Tests Piriformis Test Results Positive L SERGEI Test Results Negative PT-OP-Q Treatments Start: 06/23/23 11:50 Freq: Status: Active Protocol: Document 07/31/23 09:45 DCW (Rec: 07/31/23 10:29 DCW [id number]) Therapeutic Exercises Supine Exercises Hamstring Supine Exercise Name Hamstring Stretch Side bilateral Piriformis Supine Exercise Name Piriformis stretch - Knee to opposite shoulder Side bilateral Sidelying Exercises Hip Abduction Sidelying Exercise Name Hip Abduction Side left Reverse Clamshell Sidelying Exercise Name Reverse Clamshell Side left Clamshell Sidelying Exercise Name Clamshell Side left Manual Therapy Treatment Soft Tissue Mobilization Piriformis Body Location L Piriformis Mobilization Type Strumming,Sustained Pressure Intensity/Depth Deep Body Position Sidelying Manual Traction long leg pull Details L Comments good response, pnfree PT-OP-T Assessment and Plan Start: 06/23/23 11:50 Freq: Status: Active Protocol: Document 07/31/23 09:45 DCW (Rec: 07/31/23 10:29 DCW [id number]) Physical Therapy Assessment Assessment Summary Assessment Agreeable to adding strengthening exercises to HEP , good tolerance to treatment today, although did not some increased tenderness upon leaving clinic today. Pt did note desire to bring in during a future treatment for training on help with stretching/self-STM Physical Therapy Plan Frequency and Duration Frequency of Treatment 2x/Week Plan of Care Start Date 06/23/23 Plan of Care End Date 08/22/23 Therapeutic Interventions Therapeutic Interventions Home Exercise Program,Joint Mobilizations,Manual Therapy, Neuromuscular Re-education, Patient/Caregiver Education, Self-Care/Home Management,Soft Tissue Mobilization, Therapeutic Activities, Therapeutic Exercises Next Visit Focus/Plan Next Note Type Treatment Note Next Visit Plan Ask response to TA trng, bridge, hip add isometric, sleeping use pillows. CHeck pelvic alignment. POC: Stretching, flexibility, STM
--- NOTE | 2023-08-07 12:02 | PT.OTN ---
Current Diagnoses Stiffness of left hip, not elsewhere classified (07/31/23) Low back pain, unspecified (07/31/23) Pain in left leg (07/31/23) Physical Therapy Treatment Note PT-OP-A Visit Information Start: 06/23/23 11:50 Freq: Status: Active Protocol: Document 08/07/23 11:20 DCW (Rec: 08/07/23 12:02 DCW [id number]) Out-Patient Physical Therapy Visit Information Visit Information Visit Type Treatment Note Visit Note attends today's appointment Visit Start Time 11:20 Visit Stop Time 12:00 Visit Number 4 Number of DYNAMOMETER TUNER Visits 0 Evaluation Information Evaluation Date 06/23/23 PT-OP-B Current Condition Start: 06/23/23 11:50 Freq: Status: Active Protocol: Document 06/23/23 11:15 DCW (Rec: 06/23/23 15:44 DCW [id number]) Current Condition History of Current Condition Onset Date Three month history Current Complaints Posterior left hip pain History of Current Condition Pt is an 88 year old female well known to this clinic complaining of a three month history of left posterior hip pain. Three months ago, pt accidentally put a Tupperware container in the oven, and then spent two hours bent over cleaning it up. After this two hours, pt began to have fairly severe pain in her left hip. After a short time, pain improved to the point where it only bothers her for five minutes when first getting up in the morning, causes pain and makes her limp around, but then it relaxes and she is able to go about the rest of her day without pain. Tries to stay very active, walks ~1 mile with her every day, but we're really slow. Also has a flight of stairs ( 14 steps) that she tries to go up and down 6-8 times each day. Treatment Goals Patient/Caregiver Goals Eliminate AM pain in her left posterior hip PT-OP-C Subjective Start: 06/23/23 11:50 Freq: Status: Active Protocol: Document 08/07/23 11:20 DCW (Rec: 08/07/23 12:02 DCW [id number]) OP-PT Subjective Patient Comments Patient Comments Sometimes it's a lot better, today it's flared back up again. PT-OP-F Manual Assessment Start: 06/23/23 11:50 Freq: Status: Active Protocol: Document 06/23/23 11:15 DCW (Rec: 06/23/23 15:44 DCW [id number]) Manual Assessments Soft Tissue Assessment Soft Tissue Mobility Assessment Moderate tone with tenderness to palpation 2/4: Pain with wincing L Piriformis PT-OP-K Range of Motion Start: 06/23/23 11:50 Freq: Status: Active Protocol: Document 06/23/23 11:15 DCW (Rec: 06/23/23 15:44 DCW [id number]) Lumbar Spine Range of Motion Lumbar Spine Active Degrees Testing Position Standing Flexion 45 Extension 30 PT-OP-L Special Tests Start: 06/23/23 11:50 Freq: Status: Active Protocol: Document 06/23/23 11:15 DCW (Rec: 06/23/23 15:44 DCW [id number]) Special Tests Lumbar Spine Special Tests Straight Leg Raise Test Results Negative Standing Flexion Test Results Negative Slump Test Results Negative Compression Test Results Negative Hip Special Tests Piriformis Test Results Positive L SERGEI Test Results Negative PT-OP-Q Treatments Start: 06/23/23 11:50 Freq: Status: Active Protocol: Document 08/07/23 11:20 DCW (Rec: 08/07/23 12:02 DCW [id number]) Therapeutic Exercises Supine Exercises Hamstring Supine Exercise Name Hamstring Stretch Side bilateral Piriformis Supine Exercise Name Piriformis stretch - Knee to opposite shoulder Side bilateral Manual Therapy Treatment Soft Tissue Mobilization Piriformis Body Location L Piriformis Mobilization Type Strumming,Sustained Pressure Intensity/Depth Deep Body Position Sidelying PT-OP-T Assessment and Plan Start: 06/23/23 11:50 Freq: Status: Active Protocol: Document 08/07/23 11:20 DCW (Rec: 08/07/23 12:02 DCW [id number]) Physical Therapy Assessment Impairments Impairments Functional Activities, Functional Mobility,Pain, Strength,Tone Goals Two Impairment Pt experiences short-term 6/10 pain when getting OOB in the morning Enterprise Mobility Architect Goal (LTG) Pt to report no increased pain upon first getting out of bed for one full week to improve ability to get herself to the bathroom in the morning LTG Duration 08/22/23 One Impairment Pt does not have an appropriate home exercise program Short Term Goal (STG) Pt to be independent and compliant with an appropriate HEP STG Duration 07/22/23 Assessment Summary Assessment Pt and thankful for edu on home/self-STM, agreeable to work on more outside of PT. Continue to address hip mobility/strength to assist with decreasing pain in posterior hip and improve mobility. Also discussed today using pillow to prevent L LE from ER during night. Physical Therapy Plan Frequency and Duration Frequency of Treatment 2x/Week Plan of Care Start Date 06/23/23 Plan of Care End Date 08/22/23 Therapeutic Interventions Therapeutic Interventions Home Exercise Program,Joint Mobilizations,Manual Therapy, Neuromuscular Re-education, Patient/Caregiver Education, Self-Care/Home Management,Soft Tissue Mobilization, Therapeutic Activities, Therapeutic Exercises Next Visit Focus/Plan Next Note Type Treatment Note Next Visit Plan Ask response to TA trng, bridge, hip add isometric, sleeping use pillows. CHeck pelvic alignment. POC: Stretching, flexibility, STM
--- NOTE | 2023-08-15 10:30 | PT.OTN ---
Current Diagnoses Stiffness of left hip, not elsewhere classified (08/15/23) Low back pain, unspecified (08/15/23) Pain in left leg (08/15/23) Physical Therapy Treatment Note PT-OP-A Visit Information Start: 06/23/23 11:50 Freq: Status: Active Protocol: Document 08/15/23 09:52 SP (Rec: 08/15/23 10:33 SP [id number]) Out-Patient Physical Therapy Visit Information Visit Information Visit Type Treatment Note Visit Start Time 09:52 Visit Stop Time 1030 Visit Number 5 Number of SOLE ROUGHER Visits 1 Evaluation Information Evaluation Date 06/23/23 PT-OP-B Current Condition Start: 06/23/23 11:50 Freq: Status: Active Protocol: Document 06/23/23 11:15 DCW (Rec: 06/23/23 15:44 DCW [id number]) Current Condition History of Current Condition Onset Date Three month history Current Complaints Posterior left hip pain History of Current Condition Pt is an 88 year old female well known to this clinic complaining of a three month history of left posterior hip pain. Three months ago, pt accidentally put a Tupperware container in the oven, and then spent two hours bent over cleaning it up. After this two hours, pt began to have fairly severe pain in her left hip. After a short time, pain improved to the point where it only bothers her for five minutes when first getting up in the morning, causes pain and makes her limp around, but then it relaxes and she is able to go about the rest of her day without pain. Tries to stay very active, walks ~1 mile with her every day, but we're really slow. Also has a flight of stairs ( 14 steps) that she tries to go up and down 6-8 times each day. Treatment Goals Patient/Caregiver Goals Eliminate AM pain in her left posterior hip PT-OP-C Subjective Start: 06/23/23 11:50 Freq: Status: Active Protocol: Document 08/15/23 09:52 SP (Rec: 08/15/23 10:33 SP [id number]) OP-PT Subjective Patient Comments Patient Comments Pt reports the manual is sore but helps. Taking 2 Tylenol before bed help alleviate pain sleeping but unable to stand on LLE when wakes up until L hip loosens up. giving manual at home helping. Will be starting [facility] class Wed. PT-OP-F Manual Assessment Start: 06/23/23 11:50 Freq: Status: Active Protocol: Document 06/23/23 11:15 DCW (Rec: 06/23/23 15:44 DCW [id number]) Manual Assessments Soft Tissue Assessment Soft Tissue Mobility Assessment Moderate tone with tenderness to palpation 2/4: Pain with wincing L Piriformis PT-OP-K Range of Motion Start: 06/23/23 11:50 Freq: Status: Active Protocol: Document 06/23/23 11:15 DCW (Rec: 06/23/23 15:44 DCW [id number]) Lumbar Spine Range of Motion Lumbar Spine Active Degrees Testing Position Standing Flexion 45 Extension 30 PT-OP-L Special Tests Start: 06/23/23 11:50 Freq: Status: Active Protocol: Document 06/23/23 11:15 DCW (Rec: 06/23/23 15:44 DCW [id number]) Special Tests Lumbar Spine Special Tests Straight Leg Raise Test Results Negative Standing Flexion Test Results Negative Slump Test Results Negative Compression Test Results Negative Hip Special Tests Piriformis Test Results Positive L SERGEI Test Results Negative PT-OP-Q Treatments Start: 06/23/23 11:50 Freq: Status: Active Protocol: Document 08/15/23 09:52 SP (Rec: 08/15/23 10:33 SP [id number]) Therapeutic Exercises Sidelying Exercises Clamshell Sidelying Exercise Name Clamshell Side left Reps/Minutes x20 Comments improve ROM Sitting Exercises Piriformis Sitting Exercise Name Seated figure-4: hip ER & IR Side left Reps/Minutes x30 each Comments good stretch response IR better, not as much stretch felt ER Standing Exercises step ups Standing Exercise Name trialed in PT and added to HEP : fwd/ lateral Side bilateral Equipment Used rail support Reps/Minutes x10 each Comments this feels good I like stationary too besides self up /down flights home Self-STM Standing Exercise Name Piriformis self-STM tennis ball seated Side left Reps/Minutes sit gluteal region Comments LAQ helped put pressure. Manual Therapy Treatment Soft Tissue Mobilization TFL Body Location L TFL Mobilization Type Strumming Intensity/Depth Moderate Body Position R SL HS Body Location L HS Mobilization Type Strumming,Sustained Pressure Intensity/Depth Moderate Body Position R SL Piriformis Body Location L Piriformis Mobilization Type Strumming,Sustained Pressure Intensity/Depth Deep Body Position R Sidelying PT-OP-T Assessment and Plan Start: 06/23/23 11:50 Freq: Status: Active Protocol: Document 08/15/23 09:52 SP (Rec: 08/15/23 10:33 SP [id number]) Physical Therapy Assessment Goals Two Impairment Pt experiences short-term 6/10 pain when getting OOB in the morning Shelter Goal (LTG) Pt to report no increased pain upon first getting out of bed for one full week to improve ability to get herself to the bathroom in the morning LTG Duration 08/22/23 One Impairment Pt does not have an appropriate home exercise program Short Term Goal (STG) Pt to be independent and compliant with an appropriate HEP STG Duration 07/22/23 Assessment Summary Assessment Pt good feedback response to manual and stretching review to L hip reported increased clamshell ROM. Initiated fwd and lateral step ups to HEP, declined HOs I am already doing flight's of stairs so will stay till, good muscle tiring. Pt taking [facility] class Physical Therapy Plan Frequency and Duration Frequency of Treatment 2x/Week Plan of Care Start Date 06/23/23 Plan of Care End Date 08/22/23 Therapeutic Interventions Therapeutic Interventions Home Exercise Program,Joint Mobilizations,Manual Therapy, Neuromuscular Re-education, Patient/Caregiver Education, Self-Care/Home Management,Soft Tissue Mobilization, Therapeutic Activities, Therapeutic Exercises Next Visit Focus/Plan Next Note Type Treatment Note Next Visit Plan Ask response to TA trng, bridge, hip add isometric, sleeping use pillows. CHeck pelvic alignment. POC: Stretching, flexibility, STM
--- NOTE | 2023-08-22 09:39 | PT.OPPOC ---
Physical, Occupational & Speech Therapy At [facility] Current Diagnoses Stiffness of left hip, not elsewhere classified (08/23/23) Low back pain, unspecified (08/23/23) Pain in left leg (08/23/23) Visit Care Team Role Provider Type Mani Tyson MD Family Provider Physician Primary Care Provider Specialty: Family Practice Address: [address] [place] [address], [address], [address] Email: [email or web address] Luis Fuentes MD Attending Provider Non-Staff Referring Provider Specialty: Neurology Address: [facility], [address] Email: Plan Of Care PT-OP-T Assessment and Plan Start: 06/23/23 11:50 Freq: Status: Active Protocol: Document 08/24/23 09:37 DCW (Rec: 08/24/23 09:38 DCW [id number]) Physical Therapy Assessment Impairments Impairments Functional Activities, Functional Mobility,Pain, Strength,Tone Goals Two Impairment Pt experiences short-term 6/10 pain when getting OOB in the morning Custodial Goal (LTG) Pt to report no increased pain upon first getting out of bed for one full week to improve ability to get herself to the bathroom in the morning LTG Duration 08/22/23 One Impairment Pt does not have an appropriate home exercise program Short Term Goal (STG) Pt to be independent and compliant with an appropriate HEP STG Duration 07/22/23 Assessment Summary Assessment Pt showing good progress with tone management, improving with independent HEP. Pt will likely continue to benefit from skilled therapeutic intervention for stretching and strengthening of hips, however will likely be approaching discharge over the next few weeks. Physical Therapy Plan Frequency and Duration Frequency of Treatment 2x/Week Plan of Care Start Date 08/22/23 Plan of Care End Date 09/21/23 Therapeutic Interventions Therapeutic Interventions Home Exercise Program,Joint Mobilizations,Manual Therapy, Neuromuscular Re-education, Patient/Caregiver Education, Self-Care/Home Management,Soft Tissue Mobilization, Therapeutic Activities, Therapeutic Exercises Next Visit Focus/Plan Next Note Type Treatment Note Next Visit Plan Ask response to TA arsenio, olvin hip add isometric, review sleeping use pillows. Check pelvic alignment if needed. POC: Stretching, flexibility, STM L hip/LB Plan of Care Dates Plan of Care Start Date 08/22/23 Plan of Care End Date 09/21/23 Electronically Signed by: Cesar Garay, PT 08/24/23 0939 If you are in agreement with this Plan of Care, please return a signed and dated copy. I have reviewed this Plan of Care and certify that the skilled therapy services above are required to meet the patient?s needs. Physician Signature Date Printed Name and Credentials Clinical Instructor Signature Printed Name and Credentials
--- NOTE | 2023-08-22 09:39 | PT.OPPN ---
Current Diagnoses Stiffness of left hip, not elsewhere classified (08/23/23) Low back pain, unspecified (08/23/23) Pain in left leg (08/23/23) Physical Therapy Progress Note PT-OP-A Visit Information Start: 06/23/23 11:50 Freq: Status: Active Protocol: Document 08/23/23 09:04 SP (Rec: 08/23/23 09:49 SP [id number]) Out-Patient Physical Therapy Visit Information Visit Information Visit Type Treatment Note Visit Start Time 09:04 Visit Stop Time 09:44 Visit Number 6 Number of PHYSICIAN RELATIONS REPRESENTATIVE Visits 2 Evaluation Information Evaluation Date 06/23/23 PT-OP-B Current Condition Start: 06/23/23 11:50 Freq: Status: Active Protocol: Document 06/23/23 11:15 DCW (Rec: 06/23/23 15:44 DCW [id number]) Current Condition History of Current Condition Onset Date Three month history Current Complaints Posterior left hip pain History of Current Condition Pt is an 88 year old female well known to this clinic complaining of a three month history of left posterior hip pain. Three months ago, pt accidentally put a Tupperware container in the oven, and then spent two hours bent over cleaning it up. After this two hours, pt began to have fairly severe pain in her left hip. After a short time, pain improved to the point where it only bothers her for five minutes when first getting up in the morning, causes pain and makes her limp around, but then it relaxes and she is able to go about the rest of her day without pain. Tries to stay very active, walks ~1 mile with her every day, but we're really slow. Also has a flight of stairs ( 14 steps) that she tries to go up and down 6-8 times each day. Treatment Goals Patient/Caregiver Goals Eliminate AM pain in her left posterior hip PT-OP-C Subjective Start: 06/23/23 11:50 Freq: Status: Active Protocol: Document 08/23/23 09:04 SP (Rec: 08/23/23 09:49 SP [id number]) OP-PT Subjective Patient Comments Patient Comments Pt reports when wakes up has L back pain. PT-OP-F Manual Assessment Start: 06/23/23 11:50 Freq: Status: Active Protocol: Document 06/23/23 11:15 DCW (Rec: 06/23/23 15:44 DCW [id number]) Manual Assessments Soft Tissue Assessment Soft Tissue Mobility Assessment Moderate tone with tenderness to palpation 2/: Pain with wincing L Piriformis PT-OP-K Range of Motion Start: 06/23/23 11:50 Freq: Status: Active Protocol: Document 06/23/23 11:15 DCW (Rec: 06/23/23 15:44 DCW [id number]) Lumbar Spine Range of Motion Lumbar Spine Active Degrees Testing Position Standing Flexion 45 Extension 30 PT-OP-L Special Tests Start: 06/23/23 11:50 Freq: Status: Active Protocol: Document 06/23/23 11:15 DCW (Rec: 06/23/23 15:44 DCW [id number]) Special Tests Lumbar Spine Special Tests Straight Leg Raise Test Results Negative Standing Flexion Test Results Negative Slump Test Results Negative Compression Test Results Negative Hip Special Tests Piriformis Test Results Positive L SERGEI Test Results Negative PT-OP-T Assessment and Plan Start: 06/23/23 11:50 Freq: Status: Active Protocol: Document 08/24/23 09:37 DCW (Rec: 08/24/23 09:38 DCW [id number]) Physical Therapy Assessment Impairments Impairments Functional Activities, Functional Mobility,Pain, Strength,Tone Goals Two Impairment Pt experiences short-term 6/10 pain when getting OOB in the morning Custodial Goal (LTG) Pt to report no increased pain upon first getting out of bed for one full week to improve ability to get herself to the bathroom in the morning LTG Duration 08/22/23 One Impairment Pt does not have an appropriate home exercise program Short Term Goal (STG) Pt to be independent and compliant with an appropriate HEP STG Duration 07/22/23 Assessment Summary Assessment Pt showing good progress with tone management, improving with independent HEP. Pt will likely continue to benefit from skilled therapeutic intervention for stretching and strengthening of hips, however will likely be approaching discharge over the next few weeks. Physical Therapy Plan Frequency and Duration Frequency of Treatment 2x/Week Plan of Care Start Date 08/22/23 Plan of Care End Date 09/21/23 Therapeutic Interventions Therapeutic Interventions Home Exercise Program,Joint Mobilizations,Manual Therapy, Neuromuscular Re-education, Patient/Caregiver Education, Self-Care/Home Management,Soft Tissue Mobilization, Therapeutic Activities, Therapeutic Exercises Next Visit Focus/Plan Next Note Type Treatment Note Next Visit Plan Ask response to TA trng, bridge, hip add isometric, review sleeping use pillows. CHeck pelvic alignment if needed. POC: Stretching, flexibility, STM L hip/LB
--- NOTE | 2023-08-23 09:44 | PT.OTN ---
Current Diagnoses Stiffness of left hip, not elsewhere classified (08/23/23) Low back pain, unspecified (08/23/23) Pain in left leg (08/23/23) Physical Therapy Treatment Note PT-OP-A Visit Information Start: 06/23/23 11:50 Freq: Status: Active Protocol: Document 08/23/23 09:04 SP (Rec: 08/23/23 09:49 SP [id number]) Out-Patient Physical Therapy Visit Information Visit Information Visit Type Treatment Note Visit Start Time 09:04 Visit Stop Time 09:44 Visit Number 6 Number of LEAD FURNACE OPERATOR Visits 2 Evaluation Information Evaluation Date 06/23/23 PT-OP-B Current Condition Start: 06/23/23 11:50 Freq: Status: Active Protocol: Document 06/23/23 11:15 DCW (Rec: 06/23/23 15:44 DCW [id number]) Current Condition History of Current Condition Onset Date Three month history Current Complaints Posterior left hip pain History of Current Condition Pt is an 88 year old female well known to this clinic complaining of a three month history of left posterior hip pain. Three months ago, pt accidentally put a Tupperware container in the oven, and then spent two hours bent over cleaning it up. After this two hours, pt began to have fairly severe pain in her left hip. After a short time, pain improved to the point where it only bothers her for five minutes when first getting up in the morning, causes pain and makes her limp around, but then it relaxes and she is able to go about the rest of her day without pain. Tries to stay very active, walks ~1 mile with her every day, but we're really slow. Also has a flight of stairs ( 14 steps) that she tries to go up and down 6-8 times each day. Treatment Goals Patient/Caregiver Goals Eliminate AM pain in her left posterior hip PT-OP-C Subjective Start: 06/23/23 11:50 Freq: Status: Active Protocol: Document 08/23/23 09:04 SP (Rec: 08/23/23 09:49 SP [id number]) OP-PT Subjective Patient Comments Patient Comments Pt reports when wakes up has L back pain. PT-OP-F Manual Assessment Start: 06/23/23 11:50 Freq: Status: Active Protocol: Document 06/23/23 11:15 DCW (Rec: 06/23/23 15:44 DCW [id number]) Manual Assessments Soft Tissue Assessment Soft Tissue Mobility Assessment Moderate tone with tenderness to palpation 2/4: Pain with wincing L Piriformis PT-OP-K Range of Motion Start: 06/23/23 11:50 Freq: Status: Active Protocol: Document 06/23/23 11:15 DCW (Rec: 06/23/23 15:44 DCW [id number]) Lumbar Spine Range of Motion Lumbar Spine Active Degrees Testing Position Standing Flexion 45 Extension 30 PT-OP-L Special Tests Start: 06/23/23 11:50 Freq: Status: Active Protocol: Document 06/23/23 11:15 DCW (Rec: 06/23/23 15:44 DCW [id number]) Special Tests Lumbar Spine Special Tests Straight Leg Raise Test Results Negative Standing Flexion Test Results Negative Slump Test Results Negative Compression Test Results Negative Hip Special Tests Piriformis Test Results Positive L SERGEI Test Results Negative PT-OP-Q Treatments Start: 06/23/23 11:50 Freq: Status: Active Protocol: Document 08/23/23 09:04 SP (Rec: 08/23/23 09:49 SP [id number]) Therapeutic Exercises Supine Exercises Hamstring Supine Exercise Name Hamstring Stretch: 1. sustained hold 2. ankle pump Side left Equipment Used grasp behind thigh Reps/Minutes 1. 30sec 2. x10 Comments good stretch bridge Supine Exercise Name TA and sacral flexion lift/ lower Resistance AROM Equipment Used pnfree Reps/Minutes x10 Comments TA engagement, slow tailbone tuck and roll up to lift, slowly lower down Piriformis Supine Exercise Name Piriformis stretch - Knee to opposite shoulder Side left Reps/Minutes 30 sec Comments reports helps lessen tension R hip Standing Exercises stretching Standing Exercise Name end tx: calf off step, hip flexor Side bilateral Equipment Used rail support, bottom step Reps/Minutes 20 SH each Comments good feedback stretch resisted side stepping Standing Exercise Name lateral, fwd, bwd- added to HEP Resistance Tb #2 aqua: at shins Equipment Used near rail Reps/Minutes 15 ft x2 laps Comments cued trial LE clearance step ups Standing Exercise Name fwd/back down, lateral- repeated- reviewed as HEP Side bilateral Resistance 8 step (6 home rail support safety) Equipment Used L rail support with LLE as needed Reps/Minutes x10 each Comments this feels good, tiring negin L PT-OP-T Assessment and Plan Start: 06/23/23 11:50 Freq: Status: Active Protocol: Document 08/23/23 09:04 SP (Rec: 08/23/23 09:49 SP [id number]) Physical Therapy Assessment Goals Two Impairment Pt experiences short-term 6/10 pain when getting OOB in the morning Desk Reporter Goal (LTG) Pt to report no increased pain upon first getting out of bed for one full week to improve ability to get herself to the bathroom in the morning 08/23/23: slow progression: still having pain getting out of bed. Tx focused on ROM to LB and hip with improved pnfree and will try tomorrow am to see if helpful in pn reduction. LTG Duration 08/22/23 slow progression 08/1023 One Impairment Pt does not have an appropriate home exercise program Short Term Goal (STG) Pt to be independent and compliant with an appropriate HEP 08/23/23: LTR, piriformis and HS stretch, bridges, step ups, resisted side stepping, self STMs using ball and rolling pin and pressure helps relief L piriformis initially in am. STG Duration 07/22/23 Assessment Summary Assessment Tx focused on LS and L hip flexibility for early am pain reduction, good feedback stretch and ROM with bridge. No adverse affects to resisted stepping with ability to perform no UE support and step up ups with increased height. Pt reports good muscle tiring and no pain end tx. I like the hand outs to remember for home and wanting to to continue. Physical Therapy Plan Frequency and Duration Frequency of Treatment 2x/Week Plan of Care Start Date 08/22/23 Plan of Care End Date 09/21/23 Therapeutic Interventions Therapeutic Interventions Home Exercise Program,Joint Mobilizations,Manual Therapy, Neuromuscular Re-education, Patient/Caregiver Education, Self-Care/Home Management,Soft Tissue Mobilization, Therapeutic Activities, Therapeutic Exercises Next Visit Focus/Plan Next Note Type Treatment Note Next Visit Plan Ask response to TA trng, bridge, hip add isometric, review sleeping use pillows. CHeck pelvic alignment if needed. POC: Stretching, flexibility, STM L hip/LB
--- NOTE | 2023-08-25 12:01 | PT.OTN ---
Current Diagnoses Stiffness of left hip, not elsewhere classified (08/25/23) Low back pain, unspecified (08/25/23) Pain in left leg (08/25/23) Physical Therapy Treatment Note PT-OP-A Visit Information Start: 06/23/23 11:50 Freq: Status: Active Protocol: Document 08/25/23 11:15 DCW (Rec: 08/25/23 12:01 DCW [id number]) Out-Patient Physical Therapy Visit Information Visit Information Visit Type Treatment Note Visit Start Time 11:15 Visit Stop Time 12:00 Visit Number 7 Number of DOOR WORKER Visits 0 Evaluation Information Evaluation Date 06/23/23 PT-OP-B Current Condition Start: 06/23/23 11:50 Freq: Status: Active Protocol: Document 06/23/23 11:15 DCW (Rec: 06/23/23 15:44 DCW [id number]) Current Condition History of Current Condition Onset Date Three month history Current Complaints Posterior left hip pain History of Current Condition Pt is an 88 year old female well known to this clinic complaining of a three month history of left posterior hip pain. Three months ago, pt accidentally put a Tupperware container in the oven, and then spent two hours bent over cleaning it up. After this two hours, pt began to have fairly severe pain in her left hip. After a short time, pain improved to the point where it only bothers her for five minutes when first getting up in the morning, causes pain and makes her limp around, but then it relaxes and she is able to go about the rest of her day without pain. Tries to stay very active, walks ~1 mile with her every day, but we're really slow. Also has a flight of stairs ( 14 steps) that she tries to go up and down 6-8 times each day. Treatment Goals Patient/Caregiver Goals Eliminate AM pain in her left posterior hip PT-OP-C Subjective Start: 06/23/23 11:50 Freq: Status: Active Protocol: Document 08/25/23 11:15 DCW (Rec: 08/25/23 12:01 DCW [id number]) OP-PT Subjective Patient Comments Patient Comments It's off and on, it was better this morning, some of the exercises have helped, but I just don't have time. PT-OP-F Manual Assessment Start: 06/23/23 11:50 Freq: Status: Active Protocol: Document 06/23/23 11:15 DCW (Rec: 06/23/23 15:44 DCW [id number]) Manual Assessments Soft Tissue Assessment Soft Tissue Mobility Assessment Moderate tone with tenderness to palpation 2/4: Pain with wincing L Piriformis PT-OP-K Range of Motion Start: 06/23/23 11:50 Freq: Status: Active Protocol: Document 06/23/23 11:15 DCW (Rec: 06/23/23 15:44 DCW [id number]) Lumbar Spine Range of Motion Lumbar Spine Active Degrees Testing Position Standing Flexion 45 Extension 30 PT-OP-L Special Tests Start: 06/23/23 11:50 Freq: Status: Active Protocol: Document 06/23/23 11:15 DCW (Rec: 06/23/23 15:44 DCW [id number]) Special Tests Lumbar Spine Special Tests Straight Leg Raise Test Results Negative Standing Flexion Test Results Negative Slump Test Results Negative Compression Test Results Negative Hip Special Tests Piriformis Test Results Positive L SERGEI Test Results Negative PT-OP-Q Treatments Start: 06/23/23 11:50 Freq: Status: Active Protocol: Document 08/25/23 11:15 DCW (Rec: 08/25/23 12:01 DCW [id number]) Therapeutic Exercises Standing Exercises resisted side stepping Standing Exercise Name lateral, fwd, bwd- added to HEP Resistance Tb #2 aqua: at shins Equipment Used near rail Reps/Minutes 15 ft x2 laps Comments cued trial LE clearance step ups Standing Exercise Name fwd/back down, lateral- repeated- reviewed as HEP Side bilateral Resistance 8 step Equipment Used L rail support with LLE as needed Reps/Minutes x10 each Comments this feels good, tiring negin L Manual Therapy Treatment Soft Tissue Mobilization TFL Body Location L TFL Mobilization Type Strumming Intensity/Depth Moderate Body Position R SL HS Body Location L HS Mobilization Type Strumming,Sustained Pressure Intensity/Depth Moderate Body Position R SL Piriformis Body Location L Piriformis Mobilization Type Strumming,Sustained Pressure Intensity/Depth Deep Body Position R Sidelying Neuro Re-Education Treatment Balance Activities SLS Details SLS Equipment // bars Foam Details Stride Stance Surface AirEx PT-OP-T Assessment and Plan Start: 06/23/23 11:50 Freq: Status: Active Protocol: Document 08/25/23 11:15 DCW (Rec: 08/25/23 12:01 DCW [id number]) Physical Therapy Assessment Impairments Impairments Functional Activities, Functional Mobility,Pain, Strength,Tone Goals Two Impairment Pt experiences short-term 6/10 pain when getting OOB in the morning Residential Goal (LTG) Pt to report no increased pain upon first getting out of bed for one full week to improve ability to get herself to the bathroom in the morning LTG Duration 09/21/23 One Impairment Pt does not have an appropriate home exercise program Short Term Goal (STG) Pt to be independent and compliant with an appropriate HEP STG Duration 08/22/23 Assessment Summary Assessment Gppd tolerance to STM today, pt showing general improvement , addition of balance challenges today to work on hip and core stabilization. Physical Therapy Plan Frequency and Duration Frequency of Treatment 2x/Week Plan of Care Start Date 08/22/23 Plan of Care End Date 09/21/23 Therapeutic Interventions Therapeutic Interventions Home Exercise Program,Joint Mobilizations,Manual Therapy, Neuromuscular Re-education, Patient/Caregiver Education, Self-Care/Home Management,Soft Tissue Mobilization, Therapeutic Activities, Therapeutic Exercises Next Visit Focus/Plan Next Note Type Treatment Note Next Visit Plan Ask response to TA trng, bridge, hip add isometric, review sleeping use pillows. CHeck pelvic alignment if needed. POC: Stretching, flexibility, STM L hip/LB
--- NOTE | 2023-09-07 14:53 | PT.OTN ---
Current Diagnoses Stiffness of left hip, not elsewhere classified (09/07/23) Low back pain, unspecified (09/07/23) Pain in left leg (09/07/23) Physical Therapy Treatment Note PT-OP-A Visit Information Start: 06/23/23 11:50 Freq: Status: Active Protocol: Document 09/07/23 14:30 DCW (Rec: 09/07/23 14:53 DCW [id number]) Out-Patient Physical Therapy Visit Information Visit Information Visit Type Treatment Note Visit Start Time 14:30 Visit Stop Time 15:15 Visit Number 8 Number of POWER LINEMAN Visits 0 Evaluation Information Evaluation Date 06/23/23 PT-OP-B Current Condition Start: 06/23/23 11:50 Freq: Status: Active Protocol: Document 06/23/23 11:15 DCW (Rec: 06/23/23 15:44 DCW [id number]) Current Condition History of Current Condition Onset Date Three month history Current Complaints Posterior left hip pain History of Current Condition Pt is an 88 year old female well known to this clinic complaining of a three month history of left posterior hip pain. Three months ago, pt accidentally put a Tupperware container in the oven, and then spent two hours bent over cleaning it up. After this two hours, pt began to have fairly severe pain in her left hip. After a short time, pain improved to the point where it only bothers her for five minutes when first getting up in the morning, causes pain and makes her limp around, but then it relaxes and she is able to go about the rest of her day without pain. Tries to stay very active, walks ~1 mile with her every day, but we're really slow. Also has a flight of stairs ( 14 steps) that she tries to go up and down 6-8 times each day. Treatment Goals Patient/Caregiver Goals Eliminate AM pain in her left posterior hip PT-OP-C Subjective Start: 06/23/23 11:50 Freq: Status: Active Protocol: Document 09/07/23 14:30 DCW (Rec: 09/07/23 14:53 DCW [id number]) OP-PT Subjective Patient Comments Patient Comments I'm hoping today's my last visit. I can roll over in bed without pain PT-OP-F Manual Assessment Start: 06/23/23 11:50 Freq: Status: Active Protocol: Document 06/23/23 11:15 DCW (Rec: 06/23/23 15:44 DCW [id number]) Manual Assessments Soft Tissue Assessment Soft Tissue Mobility Assessment Moderate tone with tenderness to palpation 2/4: Pain with wincing L Piriformis PT-OP-K Range of Motion Start: 06/23/23 11:50 Freq: Status: Active Protocol: Document 06/23/23 11:15 DCW (Rec: 06/23/23 15:44 DCW [id number]) Lumbar Spine Range of Motion Lumbar Spine Active Degrees Testing Position Standing Flexion 45 Extension 30 PT-OP-L Special Tests Start: 06/23/23 11:50 Freq: Status: Active Protocol: Document 06/23/23 11:15 DCW (Rec: 06/23/23 15:44 DCW [id number]) Special Tests Lumbar Spine Special Tests Straight Leg Raise Test Results Negative Standing Flexion Test Results Negative Slump Test Results Negative Compression Test Results Negative Hip Special Tests Piriformis Test Results Positive L SERGEI Test Results Negative PT-OP-Q Treatments Start: 06/23/23 11:50 Freq: Status: Active Protocol: Document 09/07/23 14:30 DCW (Rec: 09/07/23 14:53 DCW [id number]) Self-Care/Home Management Treatment Education Other Education Pt edu on continuing HEP, AM stretching, [place] class, and potential for dry needling in the future PT-OP-T Assessment and Plan Start: 06/23/23 11:50 Freq: Status: Active Protocol: Document 09/07/23 14:30 DCW (Rec: 09/07/23 14:53 DCW [id number]) Physical Therapy Assessment Impairments Impairments Functional Activities, Functional Mobility,Pain, Strength,Tone Goals Two Impairment Pt experiences short-term 6/10 pain when getting OOB in the morning Snf Goal (LTG) Pt to report no increased pain upon first getting out of bed for one full week to improve ability to get herself to the bathroom in the morning 09/07/23: Significant improvement, but not gone LTG Duration 09/21/23 One Impairment Pt does not have an appropriate home exercise program Short Term Goal (STG) Pt to be independent and compliant with an appropriate HEP STG Duration Met Assessment Summary Assessment Pt feeling very happy with current level of function. Pt has largely met goals, still maintain there is a brief period of time when first rising in the morning during which she feels pretty stiff and sore, but it fades much more quickly. Reviewed compliance with HEP, importance of stretching first thing in the morning. Pt agreeable to discharge at this time, understands she ill need a new referral in order to return if needed in the future. Physical Therapy Plan Frequency and Duration Frequency of Treatment 2x/Week Plan of Care Start Date 08/22/23 Plan of Care End Date 09/21/23 Therapeutic Interventions Therapeutic Interventions Home Exercise Program,Joint Mobilizations,Manual Therapy, Neuromuscular Re-education, Patient/Caregiver Education, Self-Care/Home Management,Soft Tissue Mobilization, Therapeutic Activities, Therapeutic Exercises Discharge Physical Therapy Discharge Reasons Goals Met Next Visit Focus/Plan Next Note Type Discharge Summary
== END 2023-09-11 13:57 | disposition home or self-care (01) ==
LOC: PHYS 14:30
PROVIDERS: Family Provider Family Medicine; PCP Family Medicine; Referring Provider Psychiatry & Neurology Neurology; Visit Provider Psychiatry & Neurology Neurology
DX: M54.50 Low back pain, unspecified (principal); M79.605 Pain in left leg; M25.652 Stiffness of left hip, not elsewhere classified
CPT/HCPCS: 97110; 97112; 97140; 97161; 97535

== ENCOUNTER → 2023-09-27 10:41 | Outpatient (CLI) | payer MEDICARE, OTHER, SELFPAY ==
[2019-11-11 13:49] VITALS: BMI 27.3
== END ==
PROVIDERS: Family Provider Family Medicine; PCP Family Medicine; Visit Provider Physician Assistant
DX: R32 Unspecified urinary incontinence (principal); R03.0 Elevated blood-pressure reading, without diagnosis of hypertension
CPT/HCPCS: 87086

== ENCOUNTER → 2023-09-27 11:52 | Outpatient (CLI) | payer MEDICARE, OTHER, SELFPAY ==
[2019-11-11 13:49] VITALS: BMI 27.3
[2023-09-27 12:49] LABS: Add Manual Diff / Slide Review NO; Basophils Absolute Auto 100 /uL (0-100); Basophils Percent Auto 0.9 % (0-2); Eosinophils Absolute Auto 200 /uL (0-450); Eosinophils Percent Auto 2.1 % (2-4); Hematocrit 40.9 % (36-46); Hemoglobin 13.9 g/dL (12.0-16.0); Lymphocytes Absolute Auto 3000 /uL (1100-4500); Lymphocytes Percent Auto 37.8 % (25-40); Mean Corpuscular HGB Conc 33.9 % (30-36); Mean Corpuscular Hemoglobin 31.1 PG (26-34); Mean Corpuscular Volume 91.7 fL (80-100); Monocytes Absolute Auto 600 /uL (0-900); Monocytes Percent Auto 7.9 % (3-14); Neutrophils Absolute Auto 4000 /uL (1500-7000); Neutrophils Percent Auto 51.3 % (50-75); Platelet Count 196 X10^3/uL (150-400); Red Blood Cell Count 4.46 X10^6/uL (4.0-5.2); Red Cell Distribution Width 13.2 % (11.6-14.8); White Blood Cell Count 7.8 X10^3/uL (4.5-11.0)
[2023-09-27 13:07] LABS: Alanine Aminotransferase 19 IU/L (<35); Albumin 4.2 g/dL (3.5-5.0); Albumin Globulin Ratio 1.8 (1.0-2.8); Alkaline Phosphatase 79 U/L (38-126); Aspartate Aminotransferase 26 IU/L (14-36); Bilirubin Total 0.5 mg/dL (0.2-1.3); Blood Urea Nitrogen 27 mg/dL (7-17); Calcium 9.7 mg/dL (8.4-10.2); Carbon Dioxide 27 mmol/L (22-32); Chloride 108 mmol/L (98-107); Estimated Glomerular Filt Rate > 60 mL/min (>60); Globulin 2.3 g/dL (1.7-4.1); Glucose 113 mg/dL (80-110); HEMOLYSIS < 15 (0-50); Potassium 4.3 mmol/L (3.4-5.1); Sodium 139 mmol/L (137-145); Total Protein 6.5 g/dL (6.3-8.2)
== END ==
PROVIDERS: Family Provider Family Medicine; PCP Family Medicine; Referring Provider Physician Assistant; Visit Provider Physician Assistant
DX: R32 Unspecified urinary incontinence (principal); R03.0 Elevated blood-pressure reading, without diagnosis of hypertension
CPT/HCPCS: 36415; 80053; 85025; 87086

== ENCOUNTER → 2024-05-19 09:39 | Outpatient (CLI) | payer MEDICARE, OTHER, SELFPAY ==
[2019-11-11 13:49] VITALS: BMI 27.3
--- NOTE | 2024-05-19 09:42 | DI.RAD.S_ITS ---
PROCEDURE: XR CHEST 2V INDICATIONS: cough TECHNIQUE: 2 views of the chest were acquired. COMPARISON: [facility], CR, XR CHEST 2V, 05/28/2020, 11:02. [facility], CR, XR CHEST 2V, 05/12/2020, 13:29. FINDINGS: Surgical changes and devices: None. Lungs and pleura: No dense airspace disease or pleural effusions. Mediastinum: Normal heart size Bones and chest wall: Degenerative changes IMPRESSION: No dense airspace disease or pleural effusions. Dictated by: Rajinder Haq M.D. on 05/19/2024 at 9:09 Approved by: Rajinder Haq M.D. on 05/19/2024 at 9:10
== END ==
PROVIDERS: Family Provider Family Medicine; PCP Family Medicine; Referring Provider Nurse Practitioner Family
DX: R05.9 Cough, unspecified (principal)
CPT/HCPCS: 71046

== ENCOUNTER → 2024-06-17 15:39 | Outpatient (CLI) | payer MEDICARE, OTHER, SELFPAY ==
[2019-11-11 13:49] VITALS: BMI 27.3
--- NOTE | 2024-06-17 15:43 | DI.MRI.S_ITS ---
PROCEDURE: MR HEAD/BRAIN WO/W CON INDICATIONS: tremor TECHNIQUE: Noncontrast axial T1 spin echo, axial T2 fast spin echo, sagittal and axial FLAIR, coronal T2 fast spin echo, axial gradient echo, axial diffusion and ADC through the brain. After the administration of contrast, axial and coronal and sagittal T1 spin echo with fat saturation through the brain. COMPARISON: [facility], MR, MR STROKE, 03/10/2021, 16:39. FINDINGS: Image quality: Excellent. CSF spaces: Basal cisterns are patent. No extra-axial fluid collections. Ventricles are normal in size and shape. Brain: No midline shift. No intracranial bleeds or masses. No abnormal intracranial enhancement. There is cerebral volume loss for age. There is periventricular white matter chronic small vessel ischemic change. The brainstem appears normal. Diffusion-weighted images demonstrate no acute infarct. No chronic ischemic insults. Normal intravascular flow voids are present. Relatively prominent perivascular spaces are noted. Skull and face: Calvarial marrow is normal in signal. Orbits appear normal. Note is made of bilateral lens replacements. Sinuses: Sinuses and mastoids appear clear. IMPRESSION: No imaging explanation is found for this patient's presenting symptoms. No masses or abnormal enhancement can be seen. No findings of acute or subacute infarction can be seen. No prior territorial infarct can be seen. Dictated by: Norberto Brewer M.D. on 06/17/2024 at 17:32 Approved by: Norberto Brewer M.D. on 06/17/2024 at 17:33
== END ==
PROVIDERS: Family Provider Family Medicine; PCP Family Medicine; Referring Provider Family Medicine; Visit Provider Family Medicine
DX: R25.1 Tremor, unspecified (principal); G96.9 Disorder of central nervous system, unspecified; G51.0 Bell's palsy
CPT/HCPCS: 70553; A9579

== ENCOUNTER → 2025-05-07 09:17 | Outpatient (CLI) | payer MEDICARE, OTHER, SELFPAY ==
[2019-11-11 13:49] VITALS: BMI 27.3
== END ==
PROVIDERS: Family Provider Family Medicine; PCP Family Medicine; Visit Provider Nurse Practitioner Family
DX: R30.0 Dysuria (principal)
CPT/HCPCS: 87086